=== PATIENT | female | born 2005 | race Caucasian/White ===

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

== ENCOUNTER 2024-08-06 17:39 | Emergency (ER) | payer OTHER, SELFPAY ==
--- OUTSIDE RECORDS SUMMARY | 2024-08-06 17:41 | XMS_ITS ---
Author Organization [facility] Planning Address [address] [place] [address] [address] [place] [address] Care Team Providers Care Supervisor Cloth Winding Name Role Phone Nallely Baeza Primary Care Provider Unavailabl Nallely Hinton Unavailable [phone] REASON FOR VISIT Appointment Encounters Encounter Location Date Provider Diagnosis [facility] [address] [place] [address] 05/05/2024 Nallely Baeza Plan Of Treatment No Information Progress Notes * Adilene VIERADOB:[birth year] (19 yo F)Acc No.[id number]:05/05/2024 Patient: Adilene BORDEN :2005 A ge:19 Y S ex:Female Address:[address], [address], [place] [address] * true * Date: Generated for Printi ng/Faxing/eTransmitting on: 0 08/06/2024 05:40 PM BODYWORK THERAPIST
--- OUTSIDE RECORDS SUMMARY | 2024-08-06 17:41 | XMS_ITS | Continuity of Care Document ---
Author Organization [facility] [address] [place] [address] Care Team Providers Care Dispatch Specialist Name Role Phone NETO CASTELAN Primary Care Provider Assessment No assessment recorded. Plan of Treatment Reminders Order Date Submit Date Provider Last Modified By Organization Details Last Modified Time Details Appointments OB ROUTINE 2024 08:45A Gauri BARRIOS MD Not available Not available Not available Lab genetic screen, unspecifi ed specimen 2024 025 [email or web address] [facility], [address], [place], [address], 08/05/2024 11:34:47 aneuploid y risk, chromosom e specific circulati ng cell free (ccf) DNA, maternal serum 2024 025 [email or web address] [facility], [address], [place], [address], 08/05/2024 11:34:47 HbA1c (hemoglob in A1c), blood 2024 025 [facility] (Lab), [address], [place], [address], 08/05/2024 11:35:11 type + screen, serum 2024 025 [facility] (Lab), [address], [place], [address], 08/05/2024 11:35:12 rubella igg Ab, titer, serum 2024 [facility] (Lab), [address] [facility], [place], [address], 08/05/2024 11:35:12 CBC w/ auto diff 2024 [facility] (Lab), [address], [place], [address], 08/05/2024 11:35:12 hepatitis C virus Ab, serum 2024 [facility] (Lab), [address], [place], [address], 08/05/2024 11:35:12 HBsAg (hepatiti s B surface Ag), serum 2024 [facility] (Lab), [address], [place], [address], 08/05/2024 11:35:12 RPR (rapid plasma reagin), serum 2024 [facility] ([facility]), [address] [facility], [place], [address], 08/05/2024 11:35:11 HIV 1+2 AB + HIV 1 p24 Ag, qualitati ve immunoass ay, serum 2024 [facility] ([facility]), [address], [place], [address], 08/05/2024 11:35:12 Referral None recorded. Procedures None recorded. Surgeries None recorded. Imaging None recorded. Medication Orders bupropion HCl XL 150 mg 24 hr tablet, extended release 2024 [facility] [address] [place], [address], 08/05/2024 11:34:56 Latuda 40 mg tablet 2024 [facility] [address] [place], [address], 08/05/2024 11:34:58 sertralin e 100 mg tablet 2024 [facility] [address] [place], [address], 08/05/2024 11:35:00 ondansetr on 8 mg disintegr ating tablet 2024 [facility] [address] [place], [address], 08/05/2024 11:34:55 Patient TargetsNo targets recorded. Patient InstructionsNo instructions recorded. Reason for Referral None Reported. Results Created Date Observation Date Name Description Value Unit Range Abnormal Flag Note LastModifiedBy Organization Detail LastModifiedTime 08/05/1908/05/2024 , obste tric, nucha l trans lucen cy No observ ation record ed. [facility] [address], [place], [address], 08/05/2024 17:09:58 08/05/1908/05/2024 US, obste tric, nucha l trans lucen cy No observ ation record ed. [id number] [address], [place], [address], 08/05/2024 11:18:13 Result Notes None recorded. Problems Name Problem SNOMED Code Status Onset Date Resolution Date Notes Provider Name and Address Organization Details Recorded Time 59726214 Active 2024 Lolita elliott, [facility] 5 11:14:53 Genital herpes simplex 82712069 Active valtrex suppressio n at 36 weeks BREE BARRIOS MD [address], [place], [address], [facility] 5 11:27:54 Bipolar disorder 86241433 Active latuda, bupropion, sertraline ; restarted bupropion at 12 weeks BREE BARRIOS MD [address], [place], [address], [facility] 11:28:46 Problem Notes None recorded. Procedures Surgical History Date Name Laterality Status Provider Name and Address Organization Details Recorded Time Other completed Lolita Lindsey [facility] 07/08/2024 09:53:53 Imaging Results None recorded. Procedure Notes None recorded. Medical Equipment None Reported. Allergies No known drug allergies Medications Name Sig Start Date Stop Date Status Note LastModified by Organization Details LastModified Time sertraline 100 mg tablet Take 1 tablet every day by oral route for 90 days. 2024 active Not Available Not Available Not Avai lable valacyclovi r 500 mg tablet TAKE 1 TABLET BY MOUTH ONCE DAILY active Not Available Not Available No t Available ondansetron 8 mg disintegrat ing tablet Place 1 tablet every 6-8 hours by transling ual route as needed. 2024 active Not Available Not Available Not Avai lable doxycycline monohydrate 100 mg capsule TAKE 1 CAPSULE BY MOUTH TWICE DAILY 07/08 completed Not Available Not Available Not Available docusate sodium 100 mg capsule TAKE 1 CAPSULE BY MOUTH EVERY DAY AT BEDTIME NEEDED FOR CONSTIPAT ION active Not Available Not Available No t Available omeprazole 20 mg capsule,del ayed release TAKE 1 CAPSULE BY MOUTH ONCE DAILY active Not Available Not Available No t Available ondansetron 4 mg disintegrat ing tablet DISSOLVE 1 TABLET IN MOUTH EVERY 8 HOURS NEEDED FOR NAUSEA active Not Available Not Available No t Available metoclopram junie 10 mg tablet TAKE 1 TABLET BY MOUTH 4 TIMES DAILY active Not Available Not Available No t Available bupropion HCl XL 150 mg 24 hr tablet, extended release Take 1 tablet every day by oral route for 90 days. 2024 active Not Available Not Available Not Avai lable Zoloft active Not Available Not Availa ble Not Available Latuda 40 mg tablet Take 1 tablet every day by oral route for 90 days. 2024 active Not Available Not Available Not Avai lable Latuda active Not Available Not Availa ble Not Available lurasidone 20 mg tablet TAKE 1 TABLET BY MOUTH IN THE EVENING WITH FOOD ONCE DAILY 07/08 completed Not Available Not Available Not Available Barbie (28) 0.15 mg-0.03 mg tablet TAKE 1 TABLET BY MOUTH ONCE DAILY active Not Available Not Available No t Available Vitals Date Recorded Body height Body mass index (BMI) Body weight Systolic blood pressure Diastolic blood pressure Provider Name and Address Organization Details Last Updated DateTime 08/05/2024 167.64 cm 21 kg/m2 13614.01 g 114 mm[Hg] 73 mm[Hg] Lolita Lindsey [facility] 11:10:17 Social History Question Answer Notes LastModified by Organizat ion Details LastModified Time Do You Have An Advance Directive? No Information n ot available 07/08/2024 What Is Your Level Of Alcohol Consumption? None Information not available 07/08/2024 Are You Blind Or Do You Have Difficulty Seeing? No [email or web address] Information not available 07/08/2024 What Is Your Level Of Caffeine Consumption? Moderate [email or web address] Information not available 07/08/2024 How Much Tobacco Do You Chew? None [email or web address] Information not available 07/08/2024 In The 14 Days Before Symptom Onset, Have You Had Close Contact With A Laboratory-confirme d COVID-19 While That Case Was Ill? No [email or web address] Information n ot available 07/08/2024 In The 14 Days Before Symptom Onset, Have You Had Close Contact With A Person Who Is Under Investigation For COVID-19 While That Person Was Ill? No [email or web address] Information not available 07/08/2024 Have You Been To An Area Known To Be High Risk For COVID-19? No [email or web address] Information not available 07/08/2024 Are You Currently Employed? Yes [email or web address] Information not available 07/08/2024 Are You Deaf Or Do You Have Serious Difficulty Hearing? No [email or web address] Information not available 07/08/2024 What Type Of Diet Are You Following? REGULAR [email or web address] Information n ot available 07/08/2024 What Is The Highest Grade Or Level Of School You Have Completed Or The Highest Degree You Have Received? 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 No [email or web address] Information not available 07/08/2024 Do You Use Protection During Sex? No Information not available 07/08/2024 Do You Use Your Seat Belt Or Car Seat Routinely? Yes [email or web address] Information not available 07/08/2024 Are You Sexually Active? Yes Information not available 07/08/2024 Do You Have Smoke And Carbon Monoxide Detectors In Your Home? Yes [email or web address] Information not available 07/08/2024 How Much Tobacco Do You Smoke? No [email or web address] Information not available 07/08/2024 Do You Feel Stressed (tense, Restless, Nervous, Or Anxious, Or Unable To Sleep At Night)? [id number] [email or web address] Information not available 07/08/2024 Do You Use Any Illicit Or Recreational Drugs? No [email or web address] Information not available 07/08/2024 Do You Use Sunscreen Routinely? Yes [email or web address] Information not available 07/08/2024 Have You Used IV Drugs? No [email or web address] Information not available 07/08/2024 Sex: Unknown Functional Status Question Answer Note LastModified by Organizat ion Details LastModified Time Do you have difficulty walking or climbing stairs? No [email or web address] Information not available 07/08/2024 Are you able to walk? YESWOREST [email or web address] Information not available 07/08/2024 Are you able to care for yourself? Yes [email or web address] Information not available 07/08/2024 Do you have difficulty dressing or bathing? No Information not available 07/08/2024 What is your exercise level? Moderate [email or web address] Information not available 07/08/2024 Mental Status None recorded. Family History Relationship Description Onset Age of this Age Resolved Age Notes LastModified by Organization Details LastModified Time Unspecified Relation Family history unknown [email or web address] Not available 2024 09:53:53 Medical History Condition Response No Past Medical History Y Gynecological History Statement/Question Response Flow Moderate Date of LMP 05/10/2024 On BCP's at Conception? N N Was last menstrual period normal Y STIs/STDs Y Duration of Flow (days) 5 Current Control Method None Are cycles usually normal Y Frequency of Cycle (Q days) 24 Sexually Active? Y Age of first menstrual cycle 8 Date of Last Pap Smear Sexual Problems? N Desired Control Method None LMP Definite N Obstetrics History GPAL:G 1 P 0 0 0 0 Past Encounters Encounter ID Performer Location Encounter Start Date Encounter Closed Date Diagnosis/Indication Diagnosis SNOMED-CT Code Diagnosis ICD10 Code Diagnosis Note [id number] [facility] [address],[place] [address] 07/08/2024 09:38:08 07/08/2024 09:55:47 [id number] BREE BARRIOS MD [facility] [address],[place] [address] 07/08/2024 09:38:26 07/08/2024 11:17:32 Nausea and vomiting 81543110 R11.2 - little improvemen t with zofran- will try reglan test positive 258375805 Z32.01 1. Exam today within normal limits.2. Ultrasound today confirms GA and viability. EDC . GC/Billie a testing done: will f/u as indicated. 4. ACOG guidelines and plan of care for reviewed with patient. All questions answered.5 . Return to office at 12 weeks for new OB visit6. Will need new OB labs at next visit.7. Genetic screening: desires. Borderline personality disorder 75416029 F60.3 - well controlled on latuda and zoloft- d/c'd bupropion per Psych recommenda tions at beginning of , discussed safety in , ok to restart if symptoms worsen [id number] [facility] [address],[place] [address] 08/05/2024 10:37:40 08/05/2024 11:12:45 screening 702064468 Z36.82 Z3A.12 [id number] Lolita Lindsey [facility] [address],[place] [address] 08/05/2024 10:50:11 08/05/2024 12:02:53 Nausea and vomiting 62999164 R11.2 - improved with zofran and reglan together Bipolar disorder 3855601 4 F31.9 - mood worsening without bupropion- will restart bupropion- continue latuda and sertraline - no SI/HI screening 2437 45512 Z36.0 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 66783427 Z31.430 Gestation period, 12 weeks 07523461 Z3A.12 Health Concerns Section Related Observation LastModified by Organization Detai ls LastModified Time None Recorded Concern Status LastModified by Organization Details LastModified Time None Recorded Payers Encounter Date Sequence Insurance Name Policy Number Policy Wright Covered Member ID Wright Member ID Guarantor Name 08/05/2024 1 [facility] (MEDICAID HMO) [id number] Adilene Viera [id number] Adilene Viera OBGyn Episode Ob Episode Information Episode Created Date Number of Fetuses Patient Bloodtype Patient rh Status Prepregnancy Weight lbs Domestic Partner Domestic Partner Phone Father Name Dictaphone Transcriber Status 08/05/19 25 1 130 Claus Helga OPEN Fetus Data First Name Last Name Admitted to NICU Weight (g) Sex Living Outcome Pediatric Complications Fetus ID Race Codes Race Delivery Type [id number] Problems Problem Notes Problem Name Start Date End Date Resolution Snomed Code Not e Bipolar disorder 48336272 lat uda, bupropion, sertraline; restarted bupropion at 12 weeks Genital herpes simplex 65291485 valtrex suppres kamaljit at 36 weeks Wu Calculation Initial Wu Date Initial Exam Date Initial Exam Provider Initial Ultrasound Date Last Menstrual Period Date Ultra Sound Weeks Gestation 02/14/2025 08/05/2024 07/08/2024 05/10/2024 8 Eighteen To Twenty Week Wu Update Ultra Sound Date Fundal Height At Umbil Quickening Date Ultra Sound Latest Weeks Gestation Final Wu Confirmed By Final Wu Confirmed Date Final Wu Date Ultra Sound Latest Days Gestation 0 [email or web address] 08/05/2024 02/15/20 25 0 Pre-gigi Flowsheet Flowsheet Date 08/05/2024 Botello Score Blood Edema Fundus Height Fundus Units Glucose Ketones Leukocytes Nitrite Labor Signs Protein Cervic Dilation Cervic Effacement Cervic Station Type Weight in lbs Pre/Post Dialysis Refused Weight 130.932215756959 BP Diastolic BP Location Tested BP Systolic BP Type 73 L arm 114 sitting Fetus Heart Rate Present A 161 Fetus Movement Comments Patient presents to [facility]. Nausea slightly worse, ran out of zofran. Will refill. otherwise complicated by bipolar disorder. Had previously stopped bupropion after psych recommended d/c at beginning of , however patient reports worsening mood. No SI/HI. Will restart bupropion, continue latuda and sertraline. No bleeding or cramping. NT/NB wnl today, desires NIPT. Will draw today with new OB labs. RTC 4 weeks for routine care. Menstrual History Last Menstrual Date Menses Monthly On Bcp Conception Prior Menses Frequency Hcg Plus Date Menarche Onset Age 1105/10/2026 Delivery Information Delivery Date Delivery Type Labor Anesthesia Weeks Gestation Incision Type Labor Labor Length Hrs Delivered By Post Complications Tubal Sterilization Discharge Date Comments Discharge Information Feeding Method Contraceptive Method Maternal HG B and HCT Levels
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
--- OUTSIDE RECORDS SUMMARY | 2024-08-06 17:41 | XMS_ITS ---
Author Organization [facility] Address [address] [place] [address] Care Team Providers Care Rn Clinical Documentation Name Role Phone Lena Sanders Primary Care Provider [phone] Migration, Provider Unavailable Unavailable REASON FOR VISIT [facility] Encounters Encounter Location Date Provider Diagnosis [facility] [address] [place] [address] 05/21/2024 Provider Migration Plan Of Treatment Medication Medication Name Sig Start Date Stop Date Notes Escitalopram Oxalate 5 MG 1 Oral every night at bedtime; Duration: 0 12/10/2020 12/10/2020 increase to 10 mg daily.,discontinuere ason:Discontinued Amoxicillin 500 MG 1 Oral three times a day; Duration: 12/10/2020 12/19/2020 Melatonin 5 MG 1 Oral every night at bedtime; Duration: 04/10/2021 03/29/2023 ,discontinuereason:D iscontinued Olopatadine HCl 0.2 % 1 Ophthalmic every day; Duration: 12/10/2020 12/11/2020 ,discontinuereason:D iscontinued buPROPion HCl ER (XL) 150 MG 1 Oral every day; Duration: 01/14/2024 02/03/2024 Escitalopram Oxalate 10 MG Oral; Duration: 01/07/2021 04/09/2021 was increased to 20 mg in hospital,discontinue reason:Discontinued hydrOXYzine HCl 25 MG 1 Oral at bed time ; Duration: 05/07/2023 06/05/2023 Pepcid AC 10 MG 1 Oral every day; Duration: 04/10/2021 03/29/2023 ,discontinuereason:D iscontinued Dicyclomine HCl 20 MG 1 Oral four times a day; Duration: 0 04/10/2021 03/29/2023 ,discontinuereason:D iscontinued,PRN Reason:for pain Cyproheptadine HCl 4 MG 1 Oral every nig ht at bedtime; Duration: 30 05/21/2021 03/29/2023 ,discontinuereason:D iscontinued lurasidone 20 mg 1 BY MOUTH every day; Duration: 01/14/2024 02/03/2024 [facility]* valACYclovir HCl 500 MG 1 Oral every day ; Duration: 12/18/2023 01/16/2024 Sertraline HCl 50 MG 1 Oral every day; Duration: 01/14/2024 02/03/2024 hydrOXYzine HCl 10 MG 1 Oral three times a day; Duration: 0 04/10/2021 03/29/2023 ,discontinuereason:D iscontinued,PRN Reason:for anxiety Loratadine 10 MG Oral; Duration: 0 04/10/2021 09/28/2023 , discontinuereason:D iscontinued Claritin 10 MG 1 Oral every day; Duration: 30 04/10/2021 03/29/2023 ,discontinuereason:D iscontinued Levora 0.15/30 (28) 0.15-30 MG-MCG 1 Oral every day; Duration: 30 04/10/2021 03/29/2023 ,discontinuereason:R efilled Escitalopram Oxalate 20 MG 1 Oral every day; Duration: 30 05/21/2021 03/29/2023 ,discontinuereason:D iscontinued olopatadine 0.7 % 1 Ophthalmic every day; Duration: 30 12/12/2020 01/10/2021 *Reorder from [facility] for eRx and Interaction Alerts* Zoloft 50 MG 1.5 Oral every day; Duration: 0 03/30/2023 09/28/2023 ,discontinuereason:D iscontinued Omeprazole 20 MG 1 Oral every day; Duration: 01/14/2024 03/13/2024 traZODone HCl 50 MG 1 Oral every day; Duration: 30 03/30/2023 09/28/2023 ,discontinuereason:D iscontinued Fluticasone Propionate 50 MCG/ACT 1 Nasal two times a day; Duration: 12/10/2020 01/08/2021 Prazosin HCl 1 MG 1 Oral every night at bedtime; Duration: 30 05/28/2021 03/29/2023 ,discontinuereason:D iscontinued Doxycycline Monohydrate 100 MG 1 Oral two times a day; Duration: 08/13/2023 08/26/2023 Progress Notes * Millie VIERAmarisachadDOB:[birth year] (19 yo F)Acc No.[id number]:05/21/2024 Patient: Adilene BORDEN :2005 A ge:19 Y S ex:Female Phone: Address:[address] [place] [address], [place], [address] * Refills Stop Escitalopram Oxalate Tablet, 20 MG, Oral, 30, 1, every day, 30 Stop Levora 0.15/30 (28) Tablet, 0.15-30 MG-MCG, Oral, 30, 1, every day, 30 Stop valACYclovir HCl Tablet, 500 MG, Oral, 30, 1, every day, 30 Stop Fluticasone Propionate Suspension, 50 MCG/ACT, Nasal, 1, 1, two times a day, 30 Stop Omeprazole Capsule Delayed Release, 20 MG, Oral, 30, 1, every day, 30 Stop Prazosin HCl Capsule, 1 MG, Oral, 30, 1, every night at bedtime, 30 Stop Zoloft Tablet, 50 MG, Oral, 1.5, every day, 0 Stop olopatadine Drop(s), 0.7 %, Ophthalmic, 1, 1, every day, 30 Stop Claritin Tablet, 10 MG, Oral, 30, 1, every day, 30 Stop Cyproheptadine HCl Tablet, 4 MG, Oral, 1, every night at bedtime, 0 Stop Sertraline HCl Tablet, 50 MG, Oral, 21, 1, every day, 21 Stop lurasidone Tablet(s), 20 mg, BY MOUTH, 21, 1, every day, 21 Stop Levora 0.15/30 (28) Tablet, 0.15-30 MG-MCG, Oral, 30, 1, every day, 30 Stop Pepcid AC Tablet, 10 MG, Oral, 30, 1, every day, 30 Stop traZODone HCl Tablet, 50 MG, Oral, 30, 1, every day, 30 Stop Olopatadine HCl Solution, 0.2 %, Ophthalmic, 1, 1, every day, 30 Stop buPROPion HCl ER (XL) Tablet Extended Release 24 Hour, 150 MG, Oral, 21, 1, every day, 21 Stop Claritin Tablet, 10 MG, Oral, 30, 1, every day, 30 Stop Escitalopram Oxalate Tablet, 20 MG, Oral, 30, 1, every day, 30 Stop hydrOXYzine HCl Tablet, 10 MG, Oral, 1, every night at bedtime, 0 Stop hydrOXYzine HCl Tablet, 25 MG, Oral, 30, 1, at bed time, 30 Stop Melatonin Tablet, 5 MG, Oral, 30, 1, every night at bedtime, 30 Stop valACYclovir HCl Tablet, 500 MG, Oral, 30, 1, every day, 30 Stop Cyproheptadine HCl Tablet, 4 MG, Oral, 30, 1, every night at bedtime, 30 Stop Escitalopram Oxalate Tablet, 10 MG, Oral, 30, 30 Stop Cyproheptadine HCl Tablet, 4 MG, Oral, 30, 1, every night at bedtime, 30 Stop Pepcid AC Tablet, 10 MG, Oral, 30, 1, every day, 30 Stop Dicyclomine HCl Tablet, 20 MG, Oral, 1, four times a day, 0 Stop Dicyclomine HCl Tablet, 20 MG, Oral, 90, 1, four times a day, 0 Stop Escitalopram Oxalate Tablet, 10 MG, Oral, 30, 1, every night at bedtime, 30 Stop valACYclovir HCl Tablet, 500 MG, Oral, 30, 1, every day, 30 Stop valACYclovir HCl Tablet, 500 MG, Oral, 30, 1, every day, 30 Stop Amoxicillin Capsule, 500 MG, Oral, 30, 1, three times a day, 10 Stop Escitalopram Oxalate Tablet, 5 MG, Oral, 1, every night at bedtime, 0 Stop hydrOXYzine HCl Tablet, 10 MG, Oral, 60, 1, three times a day, 0 Stop Melatonin Tablet, 5 MG, Oral, 1, every night at bedtime, 0 Stop valACYclovir HCl Tablet, 500 MG, Oral, 1, every day, 0 Stop valACYclovir HCl Tablet, 500 MG, Oral, 30, 1, every day, 30 Stop Doxycycline Monohydrate Capsule, 100 MG, Oral, 28, 1, two times a day, 14 Stop Prazosin HCl Capsule, 1 MG, Oral, 30, 1, every night at bedtime, 30 Stop Loratadine Capsule, 10 MG, Oral, 0 Subjective: * Chief Complaints: * 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
--- OUTSIDE RECORDS SUMMARY | 2024-08-06 17:41 | XMS_ITS | Patient Health Record ---
Author Organization [facility] Address [address] [place] [address] Care Team Providers Care Roper Operator Name Role Phone Hien Miller Primary Care Provider Bart Juarez Unavailable [phone] Allergies No Known Allergies Reason For Referral Reason Warm handoff for PHQ -9 score of 13 for follow up Diagnosis 1 Mood disorder (F39) Diagnosis 2 Anxiety (F41.9) Diagnosis 3 PTSD (post-traumatic stress disorder) (F43.10) Diagnosis 4 Cannabis dependence (F12.20) Referral Organization [facility] Referring Provider First Name Bart Referring Provider Last Name Larry Referring Provider Speciality Psychiatry Referred Provider Specialty Behavioral [facility] Clinical Notes Kalpana Ricks 09/21/2023 10:04:12 AM > Manufacturing Specialist called and left brief voicemail with return number., Jamar Ricks 09/23/2023 10:36:41 AM > Manufacturing Specialist called and left brief voicemail with return number., Jamar Ricks 09/25/2023 1:37:01 PM > Manufacturing Specialist called and left brief voicemail with return number. Referral Priority Routine Medications Medication SIG (Take, Route, Frequency, Duration) [...] a day for 14 days 06/10/2023 Active Problems Problem Type SNOMED Code ICD Code Onset Dates Problem Status W/U Status Risk Notes Problem Borderline personality disorder (04675265) Borderline personality disorder (F60.3) Active confirmed Problem Depression (181428966) Depression (F32.9) Active confirmed Problem Mood disorder (41960816) Mood disorder (F39) Inactive confirmed replaced with bipolar 1 Problem Posttraumatic stress disorder (35150663) PTSD (post-traumati c stress disorder) (F43.10) Active confirmed Problem Anxiety (62907697) Anxiety (F41.9) Active confirmed Problem Bipolar 1 disorder (656748340) Bipolar 1 disorder (F31.9) Active confirmed Problem Cannabis dependence (65242265) Cannabis dependence (F12.20) Active confirmed Encounters Encounter Location Date Provider Diagnosis [address] [address] 01/14/2024 Bart Juarez Bipolar 1 disorder F31.[address] [address] 09/14/2023 Bart Juarez Anxiety F41.9 ; Mood disorder F39 and PTSD (post-traumatic stress disorder) F43.[address] [address] 10/05/2023 Bart Juarez Bipolar 1 disorder F31.9 ; Borderline personality disorder F60.3 ; Anxiety F41.9 and PTSD (post-traumatic stress disorder) F43.[address] [address] 10/26/2023 Bart Juarez Bipolar 1 disorder F31.9 ; Borderline personality disorder F60.3 ; PTSD (post-traumatic stress disorder) F43.10 ; Anxiety F41.9 and Cannabis dependence F12.[address] [address] 11/23/2023 Bart Juarez Bipolar 1 disorder F31.9 ; Borderline personality disorder F60.3 ; PTSD (post-traumatic stress disorder) F43.10 ; Anxiety F41.9 and Cannabis dependence F12.[address] [address] 01/26/2024 Bart Juarez Bipolar 1 disorder F31.9 ; Borderline personality disorder F60.3 ; PTSD (post-traumatic stress disorder) F43.10 and Anxiety F41.[address] [address] 03/01/2024 Bart Juarez Bipolar 1 disorder F31.9 ; Borderline personality disorder F60.3 ; PTSD (post-traumatic stress disorder) F43.10 and Anxiety F41.[address] [address] 05/11/2024 Bart Juarez Bipolar 1 disorder F31.9 ; PTSD (post-traumatic stress disorder) F43.10 ; Anxiety F41.9 and Borderline personality disorder F60.[address] [address] 06/07/2024 Bart Juarez Bipolar 1 disorder F31.9 ; Borderline personality disorder F60.3 ; PTSD (post-traumatic stress disorder) F43.10 and Anxiety F41.9 Assessments Encounter Date Diagnosis (ICD Code) Assessment Notes Treatment Notes Treatment Clinical Notes Section Notes 06/07/2024 Bipolar 1 disorder (ICD-10 - F31.9) Client states 8 weeks along in a positive . That she plans on women's health care at [facility] in [place], [place]. Discussed with client to stop bupropion given but to continue Latuda and Zoloft. Client agreeable. No other changes to tx plan. Asked client to discuss with women's health provider whether OBGYN services will prescribe mental health medications or whether this provider will continue during . States she will do so. 03/01/2024 Bipolar 1 disorder (ICD-10 - F31.9) Client doing well, no treatment plan changes. 05/11/2024 Bipolar 1 disorder (ICD-10 - F31.9) 10/05/2023 Borderline personality disorder (ICD-10 - F60.3) Client with emotional dysregulation, insomina. Discussed increase in latuda to see if helpful for mood stability. Client has comorbid symptoms of bipolarity and borderline personality disorder r/t trauma hx. Sees therapist. Client is agreeable to change in treatment plan. States increase in sertraline and addition of bupropion were helpful. 10/05/2023 Bipolar 1 disorder (ICD-10 - F31.9) Client with emotional dysregulation, insomina. Discussed increase in latuda to see if helpful for mood stability. Client has comorbid symptoms of bipolarity and borderline personality disorder r/t trauma hx. Sees therapist. Client is agreeable to change in treatment plan. States increase in sertraline and addition of bupropion were helpful. 09/14/2023 Mood disorder (ICD-10 - F39) Client agreeable to increase in sertraline to 100 mg and a trial of bupropion 150 mg XL in addition to maintaining Latuda at 20 mg. Encourage client to maintain her therapy appointments and seek social connections and limit isolation. 09/14/2023 Anxiety (ICD-10 - F41.9) Client agreeable to increase in sertraline to 100 mg and a trial of bupropion 150 mg XL in addition to maintaining Latuda at 20 mg. Encourage client to maintain her therapy appointments and seek social connections and limit isolation. 01/26/2024 Bipolar 1 disorder (ICD-10 - F31.9) 01/14/2024 Bipolar 1 disorder (ICD-10 - F31.9) 11/23/2023 Bipolar 1 disorder (ICD-10 - F31.9) Client doing well, no treatment plan changes needed. 10/26/2023 Bipolar 1 disorder (ICD-10 - F31.9) Client doing well overall. Encouraged to f/u with PCP regarding past hypoglycemic event given has hx of IBS and currently having diarrhea and head cold symptoms. No treatment plan changes at this time. Encouraged small frequent meals with some protein with carbs to limit hypoglycemia. 10/26/2023 Borderline personality disorder (ICD-10 - F60.3) Client doing well overall. Encouraged to f/u with PCP regarding past hypoglycemic event given has hx of IBS and currently having diarrhea and head cold symptoms. No treatment plan changes at this time. Encouraged small frequent meals with some protein with carbs to limit hypoglycemia. 11/23/2023 Borderline personality disorder (ICD-10 - F60.3) Client doing well, no treatment plan changes needed. 10/05/2023 Anxiety (ICD-10 - F41.9) Client with emotional dysregulation, insomina. Discussed increase in latuda to see if helpful for mood stability. Client has comorbid symptoms of bipolarity and borderline personality disorder r/t trauma hx. Sees therapist. Client is agreeable to change in treatment plan. States increase in sertraline and addition of bupropion were helpful. 01/26/2024 Borderline personality disorder (ICD-10 - F60.3) 09/14/2023 PTSD (post-traumati c stress disorder) (ICD-10 - F43.10) Client agreeable to increase in sertraline to 100 mg and a trial of bupropion 150 mg XL in addition to maintaining Latuda at 20 mg. Encourage client to maintain her therapy appointments and seek social connections and limit isolation. 05/11/2024 PTSD (post-traumati c stress disorder) (ICD-10 - F43.10) 06/07/2024 Borderline personality disorder (ICD-10 - F60.3) Client states 8 weeks along in a positive . That she plans on women's health care at [place], [place]. Discussed with client to stop bupropion given but to continue Latuda and Zoloft. Client agreeable. No other changes to tx plan. Asked client to discuss with women's health provider whether OBGYN services will prescribe mental health medications or whether this provider will continue during . States she will do so. 03/01/2024 Borderline personality disorder (ICD-10 - F60.3) Client doing well, no treatment plan changes. 03/01/2024 PTSD (post-traumati c stress disorder) (ICD-10 - F43.10) Client doing well, no treatment plan changes. 06/07/2024 PTSD (post-traumati c stress disorder) (ICD-10 - F43.10) Client states 8 weeks along in a positive . That she plans on women's health care at [facility] in [place], [place]. Discussed with client to stop bupropion given but to continue Latuda and Zoloft. Client agreeable. No other changes to tx plan. Asked client to discuss with women's health provider whether OBGYN services will prescribe mental health medications or whether this provider will continue during . States she will do so. 05/11/2024 Anxiety (ICD-10 - F41.9) 10/05/2023 PTSD (post-traumati c stress disorder) (ICD-10 - F43.10) Client with emotional dysregulation, insomina. Discussed increase in latuda to see if helpful for mood stability. Client has comorbid symptoms of bipolarity and borderline personality disorder r/t trauma hx. Sees therapist. Client is agreeable to change in treatment plan. States increase in sertraline and addition of bupropion were helpful. 01/26/2024 PTSD (post-traumati c stress disorder) (ICD-10 - F43.10) 11/23/2023 PTSD (post-traumati c stress disorder) (ICD-10 - F43.10) Client doing well, no treatment plan changes needed. 10/26/2023 PTSD (post-traumati c stress disorder) (ICD-10 - F43.10) Client doing well overall. Encouraged to f/u with PCP regarding past hypoglycemic event given has hx of IBS and currently having diarrhea and head cold symptoms. No treatment plan changes at this time. Encouraged small frequent meals with some protein with carbs to limit hypoglycemia. 10/26/2023 Anxiety (ICD-10 - F41.9) Client doing well overall. Encouraged to f/u with PCP regarding past hypoglycemic event given has hx of IBS and currently having diarrhea and head cold symptoms. No treatment plan changes at this time. Encouraged small frequent meals with some protein with carbs to limit hypoglycemia. 11/23/2023 Anxiety (ICD-10 - F41.9) Client doing well, no treatment plan changes needed. 01/26/2024 Anxiety (ICD-10 - F41.9) 06/07/2024 Anxiety (ICD-10 - F41.9) Client states 8 weeks along in a positive . That she plans on women's health care at [facility] in [place], [place]. Discussed with client to stop bupropion given but to continue Latuda and Zoloft. Client agreeable. No other changes to tx plan. Asked client to discuss with women's health provider whether OBGYN services will prescribe mental health medications or whether this provider will continue during . States she will do so. 05/11/2024 Borderline personality disorder (ICD-10 - F60.3) 03/01/2024 Anxiety (ICD-10 - F41.9) Client doing well, no treatment plan changes. 11/23/2023 Cannabis dependence (ICD-10 - F12.20) Client doing well, no treatment plan changes needed. 10/26/2023 Cannabis dependence (ICD-10 - F12.20) Client doing well overall. Encouraged to f/u with PCP regarding past hypoglycemic event given has hx of IBS and currently having diarrhea and head cold symptoms. No treatment plan changes at this time. Encouraged small frequent meals with some protein with carbs to limit hypoglycemia. 05/11/2024 Other Discussed sleep hygiene and caffeine intake with encouragement to limit electronic devices an hour before bed and to limit caffeine after 3:00pm. Exercise benefits for mood and health discussed. Psychoeducation regarding psychiatric illness provided. Client was educated about risks and benefits of medication, alternatives to medication, off label uses of medication, suicidal ideation with SSRIs, self-administratio n and compliance with medication along with how to safely store medication. Verbal informed consent obtained. Client agrees to return sooner if symptoms worsen or if suicidal or homicidal ideations occur. Client has the phone number to the 24-hour crisis line at [facility]. Questions addressed. Client verbalized understanding of all information and is agreeable to treatment plan. 03/01/2024 Other Discussed sleep hygiene and caffeine intake with encouragement to limit electronic devices an hour before bed and to limit caffeine after 3:00pm. Exercise benefits for mood and health discussed. Psychoeducation regarding psychiatric illness provided. Client was educated about risks and benefits of medication, alternatives to medication, off label uses of medication, suicidal ideation with SSRIs, self-administratio n and compliance with medication along with how to safely store medication. Verbal informed consent obtained. Client agrees to return sooner if symptoms worsen or if suicidal or homicidal ideations occur. Client has the phone number to the 24-hour crisis line at [facility]. Questions addressed. Client verbalized understanding of all information and is agreeable to treatment plan. Client doing well, no treatment plan changes. 11/23/2023 Other Discussed sleep hygiene and caffeine intake with encouragement to limit electronic devices an hour before bed and to limit caffeine after 3:00pm. Exercise benefits for mood and health discussed. Psychoeducation regarding psychiatric illness provided. Client was educated about risks and benefits of medication, alternatives to medication, off label uses of medication, suicidal ideation with SSRIs, self-administratio n and compliance with medication along with how to safely store medication. Verbal informed consent obtained. Client agrees to return sooner if symptoms worsen or if suicidal or homicidal ideations occur. Client has the phone number to the 24-hour crisis line at [facility]. Questions addressed. Client verbalized understanding of all information and is agreeable to treatment plan. Client doing well, no treatment plan changes needed. 09/14/2023 Other Discussed sleep hygiene and caffeine intake with encouragement to limit electronic devices an hour before bed and to limit caffeine after 3:00pm. Exercise benefits for mood and health discussed. Psychoeducation regarding psychiatric illness provided. Client was educated about risks and benefits of medication, alternatives to medication, off label uses of medication, suicidal ideation with SSRIs, self-administratio n and compliance with medication along with how to safely store medication. Verbal informed consent obtained. Client agrees to return sooner if symptoms worsen or if suicidal or homicidal ideations occur. Client has the phone number to the 24-hour crisis line at [facility]. Questions addressed. Client verbalized understanding of all information and is agreeable to treatment plan. Client agreeable to increase in sertraline to 100 mg and a trial of bupropion 150 mg XL in addition to maintaining Latuda at 20 mg. Encourage client to maintain her therapy appointments and seek social connections and limit isolation. 10/05/2023 Other Discussed sleep hygiene and caffeine intake with encouragement to limit electronic devices an hour before bed and to limit caffeine after 3:00pm. Exercise benefits for mood and health discussed. Psychoeducation regarding psychiatric illness provided. Client was educated about risks and benefits of medication, alternatives to medication, off label uses of medication, suicidal ideation with SSRIs, self-administratio n and compliance with medication along with how to safely store medication. Verbal informed consent obtained. Client agrees to return sooner if symptoms worsen or if suicidal or homicidal ideations occur. Client has the phone number to the 24-hour crisis line at [facility]. Questions addressed. Client verbalized understanding of all information and is agreeable to treatment plan. Client with emotional dysregulation, insomina. Discussed increase in latuda to see if helpful for mood stability. Client has comorbid symptoms of bipolarity and borderline personality disorder r/t trauma hx. Sees therapist. Client is agreeable to change in treatment plan. States increase in sertraline and addition of bupropion were helpful. 10/26/2023 Other Discussed sleep hygiene and caffeine intake with encouragement to limit electronic devices an hour before bed and to limit caffeine after 3:00pm. Exercise benefits for mood and health discussed. Psychoeducation regarding psychiatric illness provided. Client was educated about risks and benefits of medication, alternatives to medication, off label uses of medication, suicidal ideation with SSRIs, self-administratio n and compliance with medication along with how to safely store medication. Verbal informed consent obtained. Client agrees to return sooner if symptoms worsen or if suicidal or homicidal ideations occur. Client has the phone number to the 24-hour crisis line at [facility]. Questions addressed. Client verbalized understanding of all information and is agreeable to treatment plan. Client doing well overall. Encouraged to f/u with PCP regarding past hypoglycemic event given has hx of IBS and currently having diarrhea and head cold symptoms. No treatment plan changes at this time. Encouraged small frequent meals with some protein with carbs to limit hypoglycemia. 01/26/2024 Other Discussed sleep hygiene and caffeine intake with encouragement to limit electronic devices an hour before bed and to limit caffeine after 3:00pm. Exercise benefits for mood and health discussed. Psychoeducation regarding psychiatric illness provided. Client was educated about risks and benefits of medication, alternatives to medication, off label uses of medication, suicidal ideation with SSRIs, self-administratio n and compliance with medication along with how to safely store medication. Verbal informed consent obtained. Client agrees to return sooner if symptoms worsen or if suicidal or homicidal ideations occur. Client has the phone number to the 24-hour crisis line at [facility]. Questions addressed. Client verbalized understanding of all information and is agreeable to treatment plan. 06/07/2024 Other Discussed sleep hygiene and caffeine intake with encouragement to limit electronic devices an hour before bed and to limit caffeine after 3:00pm. Exercise benefits for mood and health discussed. Psychoeducation regarding psychiatric illness provided. Client was educated about risks and benefits of medication, alternatives to medication, off label uses of medication, suicidal ideation with SSRIs, self-administratio n and compliance with medication along with how to safely store medication. Verbal informed consent obtained. Client agrees to return sooner if symptoms worsen or if suicidal or homicidal ideations occur. Client has the phone number to the 24-hour crisis line at [facility]. Questions addressed. Client verbalized understanding of all information and is agreeable to treatment plan. Client states 8 weeks along in a positive . That she plans on women's health care at [facility] in [place], [place]. Discussed with client to stop bupropion given but to continue Latuda and Zoloft. Client agreeable. No other changes to tx plan. Asked client to discuss with women's health provider whether OBGYN services will prescribe mental health medications or whether this provider will continue during . States she will do so. Plan Of Treatment No Information Insurance Providers Payer Name Payer Address Payer Phone Subscriber Number Group Number Insured Name Patient Relationship to Insured Coverage Start Date Coverage End Date [employer] [address] [place] [address] [id number] Adilene Viera Self - patient is the insured [address] [place] [address] [id number] Adilene Viera Self - patient is the insured 3 4 [employer] [address] [place] [address] [id number] Adilene Viera Self - patient is the insured 3 4 [employer] [address] [place] [address] [id number] Ceci Viera 3 Medical (General) History Medical History History ICD Code Seizures R56.9 Surgical History Surgery Date(Month/Year) cyst removal 2017 Hospitalization History Reason Date(Month/Year) Seizures [facility] 2021 COVID/Mental Health [facility] 2020
--- OUTSIDE RECORDS SUMMARY | 2024-08-06 17:41 | XMS_ITS ---
Author Organization [facility] Planning Address [address] [place] [address] Care Team Providers Care Company Pilot Name Role Phone Nallely Baeza Primary Care Provider UnavailNallely Geiger Unavailable [phone] REASON FOR VISIT counseling TH pt at home provider in office Encounters Encounter Location Date Provider Diagnosis [facility] [address] [place] [address] 01/13/2024 Nallely Baeza Plan Of Treatment No Information Progress Notes * Adilene VIERADOB:[birth year] (19 yo F)Acc No.[id number]:01/13/2024 UNLOCKED PROGRESS NOTE Patient: Adilene BORDEN Provider: To Baeza LCPC :2005 A ge:18 Y S ex:Female Date:01/13/2024 Address:[address], [address], [facility] Pcp:Nallely Baeza Subjective: * Chief Complaints: * 1 . counseling TH pt at home provider in office. * Medical History: Objective: * Vitals: Assessment: Plan: * Treatment: * Billing Information: * Visit Code: * Procedure Codes: * Electronic signature of oMna Baeza LCPC on 08/06/2024 at 05:41 PM GLUE SPREADER Sign off status: Pending Visit Status: N /S (No-Show) * Provider: To Baeza LCPC Date: 01/13/2024 Generated for Ivon paz/Cathy/Robertoitting on: 0 08/06/2024 05:41 PM GLUE SPREADER
--- OUTSIDE RECORDS SUMMARY | 2024-08-06 17:41 | XMS_ITS ---
Author Organization [facility] Address [address] [place] [address] Care Team Providers Care Isotope Technologist Name Role Phone Lena Sanders Primary Care Provider [phone] Lena Boyle Unavailable [phone] Allergies Allergen (clinical drug ingredient) Drug/Non Drug Allergy documented on EMR Reaction Allergy Type Onset Date Status hydroxyzine hydrOXYzine Delete Reason: Entered in Error. Drug Allergy 05/07/2023 Inactive trazodone traZODone SYNCOPE AND BLURRED VISION Drug Allergy 05/07/2023 Active Results Component Value Reference Range Notes Test, Urine Reviewed date:06/06/2024 12:07:17 PM Interpretation:Positive Performing Lab: Notes/Report: Positive REASON FOR VISIT Wanting to confirm Medications Medication SIG (Take, Route, Frequency, Duration) Notes Start Date End Date Status Levora 0.15/30 (28) 0.15-30 MG-MCG 1 Oral every day; Duration: 09/29/2023 09/22/2024 Not-Taking Colace 100 MG 1 Oral every day; Duration: 0 ,PRN Reason:for constipation 08/13/2023 Not-Taking Sertraline HCl 100 MG Oral; Duration: 09/14/2023 Active lurasidone 20.000 mg oral; Duration: 30 *Reorder from [facility] for eRx and Interaction Alerts* 07/27/2023 Active buPROPion HCl ER (XL) 150 MG Oral; Duration: 09/14/2023 Active Vital Signs Blood pressure systolic 132 mm Hg 06/06/20 24 Blood pressure diastolic 74 mm Hg 024 Heart Rate 110 /min 06/06/2024 Temperature 97.6 degrees Fahrenheit 06/06/20 24 Oximetry 99 % 06/06/2024 Height 66.00 in 06/06/2024 Weight 129.6 lbs 06/06/2024 Weight-kg 58.79 kg 06/06/2024 Height-cm 167.64 cm 06/06/2024 BMI 20.92 kg/m2 06/06/2024 Encounters Encounter Location Date Provider Diagnosis [address] [address] 06/06/2024 Lena Boyle Less than 8 weeks gestation of Z3A.01 and Major depressive disorder, single episode, unspecified F32.9 Assessments Encounter Date Diagnosis (ICD Code) Assessment Notes Treat ment Notes Treatment Clinical Notes 06/06/2024 Less than 8 weeks gestation of (ICD-10 - Z3A.01) 06/06/2024 Major depressive disorder, single episode, unspecified (ICD-10 - F32.9) Plan Of Treatment No Information History and Physical Notes * Examination Category Sub-Category Detail Notes General Examination General appearance: alert, p leasant, well-nourished and in no acute distress Heart: regular rate and rhy thm Lungs: clear to auscultatio n bilaterally, with good air movement and no rales, rhonchi or wheezes Skin: warm and dry Progress Notes * Adilene VIERADOB:[birth year] (19 yo F)Acc No.[id number]:06/06/2024 Patient: Adilene Cooper Provider: Hue Boyle NP :2005 A ge:19 Y S ex:Female Date:06/06/2024 Phone: Address:[address] [place] [address] Pcp:Lena Sanders Subjective: * Chief Complaints: * 1 . Wanting to confirm . * HPI: H PI: Adilene Viera is a 19 year old female here today with her boyfriend to confirm her , which she has already tested positive with a home test a few times. She estimates being about four weeks . She currently does not have an REVIEW RN and resides in [place], [place]. Her current medications include sertraline, bupropion, and lurasidone. She has an appointment with Ventura Juarez her psych doctor tomorrow to review these medications and changes needed now that she is . She denies smoking, vaping or drinking. * ROS: G eneral / Constitutional: Comments p ositive test at home. G astrointestinal: Nausea a dmits. V omiting d enies. * Medical History: * Medications: T aking Sertraline HCl 100 MG Tablet Oral , Taking lurasidone 20.000 mg tablet oral , Notes to Pharmacist: *[facility]*, Taking buPROPion HCl ER (XL) 150 MG Tablet Extended Release 24 Hour Oral , Not-Taking Levora 0.15/30 (28) 0.15-30 MG-MCG Tablet 1 Oral every day , stop date 09/22/2024, Not-Taking Colace 100 MG Capsule 1 Oral every day , Notes to Pharmacist: ,PRN Reason:for constipation, Medication List reviewed and reconciled with the patient * Allergies: t raZODone: SYNCOPE AND BLURRED VISION - Allergy - Onset Date 05/07/2023. Objective: * Vitals: B P:132/74mm Hg, HR:110/min, Temp:97.6F, Oxygen sat %:99%, Ht: 66.00 in, Wt:129.6lbs, Wt-k.79 kg, Ht-cm: 167.64 cm, BMI:20.92Index, Body Surface Area: 1.65. * Examination: G eneral Examination: General appearance: a lert, pleasant, well-nourished and in no acute distress. Skin: w arm and dry. Heart: r egular rate and rhythm. Lungs: c lear to auscultation bilaterally, with good air movement and no rales, rhonchi or wheezes. Assessment: * Assessment: 1. L ess than 8 weeks gestation of - Z3A.01 (Primary) 2 . M ajor depressive disorder, single episode, unspecified - F32.9 S pecify :Src Problem: Depression Confirmed - confirmed - Approximately 4 weeks per patient - Recommend scheduling an appointment with an OBGYN. Suggested contacting [facility] for appointments. - Advised to start taking a daily vitamin with folic acid. Medication Review for Depression - Potential contraindication with Lurasidone (Latuda) during , such a withdrawal symptoms in fetus. - Discuss medication safety and potential adjustments with prescribing physician, Ventura Juarez (psychiatrist), during follow-up appointment tomorrow. Plan: * Treatment: Billing Information: * Visit Code: 70675 OFFICE VISIT LOW. * MACHINE TENDER STARCH SPRAYING Sign off status: Completed true * Provider: Hue Boyle NP Date: 08/07/2023 Generated for Ivon paz/Cathy/Robertoitting on: 0 08/06/2024 05:41 PM BLOW MACHINE TENDER STARCH SPRAYING
--- OUTSIDE RECORDS SUMMARY | 2024-08-06 17:42 | XMS_ITS | Patient Health Record ---
Author Organization [facility] Planning Address [address] [place] [address] [address] [place] [address] Care Team Providers Care Technical Information Specialist Name Role Phone Nallely Baeza Primary Care Provider UnavailNallely Geiger Unavailable [phone] Reason For Referral No Information Problems Problem Type SNOMED Code ICD Code Onset Dates Problem Status W/U Status Risk Notes Problem Borderline personality disorder (F60.3) Active confirmed Problem 23320527 Post traumatic stress disorder (PTSD) (F43.10) Active confirmed Encounters Encounter Location Date Provider Diagnosis [address] [address] 08/12/2023 Nallely Post traumatic stres s disorder (PTSD) F43.10 and Borderline personality disorder F60.[address] [address] 12/14/2023 Nallely Post traumatic stres s disorder (PTSD) F43.10 and Borderline personality disorder F60.[address] [address] 12/28/2023 [facility] [address] [place] [address] 01/13/2024 [facility] [address] [place] [address] 08/12/2023 [facility] [address] [place] [address] 12/07/2023 [facility] [address] [place] [address] 12/08/2023 [facility] [address] [place] [address] 12/08/2023 [facility] [address] [place] [address] 01/12/2024 [facility] [address] [place] [address] 01/12/2024 [facility] [address] [place] [address] 05/05/2024 [facility] Assessments Encounter Date Diagnosis (ICD Code) Assessment Notes Treatment Notes Treatment Clinical Notes Section Notes 08/12/2023 Post traumatic stress disorder (PTSD) (ICD-10 - F43.10) Short Term Goals: 1. Describe the traumatic events and the resultant feelings and thoughts in the past and present 2. Practice healthy coping or relaxation skills 3. List the feelings that lead to disassociation 4. Cooperate with desensitization sessions using imagery of the past trauma and current triggers for anxiety 5. Identify negative self-talk and catastrophizing that is associated with past trauma and current stimulus triggers 6. Sleep without being disturbed by dreams of the trauma 7. Express anger without rage, aggressiveness, or intimidation 8. Practice stress management skills to reduce overall stress levels Long-Term Goals: 1. Resolve the emotional effects of the past trauma, and terminate the negative impact on current behavior 2. Terminate any destructive behaviors that serve to maintain escape and denial 3. Implement behaviors that promote healing, acceptance of the past events, and responsible living 4. Learn the coping skills that are necessary to bring PTSD under control 5. Understand PTSD symptoms Total time spent with patient 40 minutes with more than 50% of the visit being counseling regarding mood management. 12/14/2023 Post traumatic stress disorder (PTSD) (ICD-10 - F43.10) Short Term Goals: 1. Describe the traumatic events and the resultant feelings and thoughts in the past and present 2. Practice healthy coping or relaxation skills 3. List the feelings that lead to disassociation 4. Cooperate with desensitization sessions using imagery of the past trauma and current triggers for anxiety 5. Identify negative self-talk and catastrophizing that is associated with past trauma and current stimulus triggers 6. Sleep without being disturbed by dreams of the trauma 7. Express anger without rage, aggressiveness, or intimidation 8. Practice stress management skills to reduce overall stress levels Long-Term Goals: 1. Resolve the emotional effects of the past trauma, and terminate the negative impact on current behavior 2. Terminate any destructive behaviors that serve to maintain escape and denial 3. Implement behaviors that promote healing, acceptance of the past events, and responsible living 4. Learn the coping skills that are necessary to bring PTSD under control 5. Understand PTSD symptoms Total time spent with patient 45 minutes with more than 50% of the visit being counseling regarding re-establishi ng treatment. 12/14/2023 Borderline personality disorder (ICD-10 - F60.3) Goal 1: Develop understanding of borderline personality diagnosis and its impact on self. Goal 2: Learn effective skills to manage emotions and reactions. Goal 3: Develop and maintian stable and healthy relationships. Address real or imagined feelings of abandoment and how to manage these. Total time spent with patient 45 minutes with more than 50% of the visit being counseling regarding re-establishi ng treatment. 08/12/2023 Borderline personality disorder (ICD-10 - F60.3) Goal 1: Develop understanding of borderline personality diagnosis and its impact on self. Goal 2: Learn effective skills to manage emotions and reactions. Goal 3: Develop and maintian stable and healthy relationships. Address real or imagined feelings of abandoment and how to manage these. Total time spent with patient 40 minutes with more than 50% of the visit being counseling regarding mood management. 09/09/2023 Total milly e spent with patient 40 minutes with more than 50% of the visit being counseling regarding mood management. Plan Of Treatment No Information Insurance Providers Payer Name Payer Address Payer Phone Subscriber Number Group Number Insured Name Patient Relationship to Insured Coverage Start Date Coverage End Date BARBARA Olvera [facility] [address] [place] [phone] [id number] Adilene Viera Self - patient is the insured 3 BARBARA Olvera FFS [address] [place] [address] [phone] [id number] Adilene Viera Self - patient is the insured 3 BARBARA Olvera Nonbillable [address] [place] [address] [phone] [id number] Adilene Viera Self - patient is the insured 3 BARBARA Olvera [facility] [address] [place] [phone] [id number] Adilene Viera Self - patient is the insured 3
--- OUTSIDE RECORDS SUMMARY | 2024-08-06 17:42 | XMS_ITS | Continuity of Care Document ---
Author Organization [facility] Address [address] [place] [address] Care Team Providers Care Human Resources Support Specialist Name Role Phone SATISH CASTELANSEY Primary Care Provider [phone] Assessment No assessment recorded. Plan of Treatment Reminders Order Date Submit Date Provider Last Modified By Organization Details Last Modified Time Details Appointments OB ROUTINE 2024 08:45A Gauri BARRIOS MD Not available Not available Not available Lab None recorded. Referral None recorded. Procedures None recorded. Surgeries None recorded. Imaging US, obstetric , nuchal transluce ncy [address] [place] [address] [address], [place], [address], 08/05/2024 17:12:36 Medication Orders None recorded. Patient TargetsNo targets recorded. Patient InstructionsNo instructions recorded. Reason for Referral None Reported. Results Created Date Observation Date Name Description Value Unit Range Abnormal Flag Note LastModifiedBy Organization Detail LastModifiedTime 08/05/1908/05/2024 US, obste tric, nucha l trans lucen cy No observ ation record ed. [facility] [address], [place], [address], 08/05/2024 17:09:58 08/05/1908/05/2024 US, obste tric, nucha l trans lucen cy No observ ation record ed. [id number], [place], [address], 08/05/2024 11:18:13 Result Notes None recorded. Problems Name Problem SNOMED Code Status Onset Date Resolution Date Notes Provider Name and Address Organization Details Recorded Time 44556365 Active [facility] 11:14:53 Genital herpes simplex 69918601 Active valtrex suppressio n at 36 weeks BREE BARRIOS MD [address], [place], [address], [facility] 11:27:54 Bipolar disorder 51489511 Active latuda, bupropion, sertraline ; restarted bupropion at 12 weeks BREE BARRIOS MD [address], [place], [address], [facility] 11:28:46 Problem Notes None recorded. Procedures Surgical History Date Name Laterality Status Provider Name and Address Organization Details Recorded Time Other completed Lolita Lindsey [facility] 07/08/2024 09:53:53 Imaging Results Imaging Date Name Status LastModified by Organization Details LastModified Time 08/05/2024 US, obstetric, nuchal translucency completed [facility] [address], [place], [address], 08/05/2024 17:09:58 Procedure Notes None recorded. Medical Equipment None [...] completed Not Available Not Available Not Available Kurvelo (28) 0.15 mg-0.03 mg tablet TAKE 1 TABLET BY MOUTH ONCE DAILY active Not Available Not Available No t Available Vitals Date Recorded Body height Body mass index (BMI) Body weight Systolic blood pressure Diastolic blood pressure Provider Name and Address Organization Details Last Updated DateTime 08/05/2024 167.64 cm 21 kg/m2 71368.01 g 114 mm[Hg] 73 mm[Hg] Lolita Lindsey [facility] 5 11:10:17 Social History Question Answer Notes LastModified by Organizat ion Details LastModified Time Do You Have An Advance Directive? No Information n ot available 07/08/2024 What Is Your Level Of Alcohol Consumption? None [email or web address] Information not available 07/08/2024 Are You Blind Or Do You Have Difficulty Seeing? No Information not available 07/08/2024 What Is Your Level Of Caffeine Consumption? Moderate [email or web address] Information not available 07/08/2024 How Much Tobacco Do You Chew? None [email or web address] Information not available 07/08/2024 In The 14 Days Before Symptom Onset, Have You Had Close Contact With A Laboratory-confirme d COVID-19 While That Case Was Ill? No [email or web address] Information n ot available 07/08/2024 In The 14 Days Before Symptom Onset, Have You Had Close Contact With A Person Who Is Under Investigation For COVID-19 While That Person Was Ill? No [email or web address] Information not available 07/08/2024 Have You Been To An Area Known To Be High Risk For COVID-19? No [email or web address] Information not available 07/08/2024 Are You Currently Employed? Yes [email or web address] Information not available 07/08/2024 Are You Deaf Or Do You Have Serious Difficulty Hearing? No [email or web address] Information not available 07/08/2024 What Type Of Diet Are You Following? REGULAR [email or web address] Information n ot available 07/08/2024 What Is The Highest Grade Or Level Of School You Have Completed Or The Highest Degree You Have Received? 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 No [email or web address] Information not available 07/08/2024 Do You Use Protection During Sex? No Information not available 07/08/2024 Do You Use Your Seat Belt Or Car Seat Routinely? Yes [email or web address] Information not available 07/08/2024 Are You Sexually Active? Yes [email or web address] Information not available 07/08/2024 Do You Have Smoke And Carbon Monoxide Detectors In Your Home? Yes [email or web address] Information not available 07/08/2024 How Much Tobacco Do You Smoke? No [email or web address] Information not available 07/08/2024 Do You Feel Stressed (tense, Restless, Nervous, Or Anxious, Or Unable To Sleep At Night)? [id number] [email or web address] Information not available 07/08/2024 Do You Use Any Illicit Or Recreational Drugs? No Information not available 07/08/2024 Do You Use Sunscreen Routinely? Yes [email or web address] Information not available 07/08/2024 Have You Used IV Drugs? No [email or web address] Information not available 07/08/2024 Sex: Unknown Functional Status Question Answer Note LastModified by Organizat ion Details LastModified Time Do you have difficulty walking or climbing stairs? No [email or web address] Information not available 07/08/2024 Are you able to walk? YESWOREST Information not available 07/08/2024 Are you able to care for yourself? Yes [email or web address] Information not available 07/08/2024 Do you have difficulty dressing or bathing? No [email or web address] Information not available 07/08/2024 What is your exercise level? Moderate [email or web address] Information not available 07/08/2024 Mental Status None recorded. Family History Relationship Description Onset Age of this Age Resolved Age Notes LastModified by Organization Details LastModified Time Unspecified Relation Family history unknown [email or web address] Not available 2024 09:53:53 Medical History Condition [...] SNOMED-CT Code Diagnosis ICD10 Code Diagnosis Note [id number] Christen Mclaughlin [place] [address] [address] 07/08/2024 09:38:08 07/08/2024 09:55:47 [id number] BREE BARRIOS MD [place] [address] [address] 07/08/2024 09:38:26 07/08/2024 11:17:32 Nausea and vomiting 25074975 R11.2 - little improvemen t with zofran- will try reglan test positive 550135915 Z32.01 1. Exam today within normal limits.2. Ultrasound today confirms GA and viability. EDC . GC/Clamydi a testing done: will f/u as indicated. 4. ACOG guidelines and plan of care for reviewed with patient. All questions answered.5 . Return to office at 12 weeks for new OB visit6. Will need new OB labs at next visit.7. Genetic screening: desires. Borderline personality disorder 72940486 F60.3 - well controlled on latuda and zoloft- d/c'd bupropion per Psych recommenda tions at beginning of , discussed safety in , ok to restart if symptoms worsen [id number] Christen Mclaughlin [place] [address] [address] 08/05/2024 10:37:40 08/05/2024 11:12:45 screening 278943643 Z36.82 Z3A.12 [id number] Lolita Lindsey [place] [address],[facility] [place] [address] 08/05/2024 10:50:11 08/05/2024 12:02:53 Nausea and vomiting 89215274 R11.2 - improved with zofran and reglan together Bipolar disorder 5523056 4 F31.9 - mood worsening without bupropion- will restart bupropion- continue latuda and sertraline - no SI/HI screening 2437 09165 Z36.0 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 08519286 Z31.430 Gestation period, 12 weeks 15750388 Z3A.12 Health Concerns Section Related Observation LastModified by Organization Detai ls LastModified Time None Recorded Concern Status LastModified by Organization Details LastModified Time None Recorded Payers Encounter Date Sequence Insurance Name Policy Number Policy Wright Covered Member ID Wright Member ID Guarantor Name 08/05/2024 1 [facility] (MEDICAID HMO) [id number] Adilene Viera [id number] Adilene Viera OBGyn Episode Ob Episode Information Episode Created Date Number of Fetuses Patient Bloodtype Patient rh Status Prepregnancy Weight lbs Domestic Partner Domestic Partner Phone Father Name Activities Coordinator Status 08/05/19 25 1 130 Claus Helga OPEN Fetus Data First Name Last Name Admitted to NICU Weight (g) Sex Living Outcome Pediatric Complications Fetus ID Race Codes Race Delivery Type [id number] Problems Problem Notes Problem Name Start Date End Date Resolution Snomed Code Not e Bipolar disorder 38293602 lat uda, bupropion, sertraline; restarted bupropion at 12 weeks Genital herpes simplex 04689411 valtrex suppres kamaljit at 36 weeks Wu [...] Date Ultra Sound Latest Days Gestation 0 [email or web address] 08/05/2024 02/15/20 25 0 Pre- Flowsheet Flowsheet Date 08/05/2024 Botello Score Blood Edema Fundus Height Fundus Units Glucose Ketones Leukocytes Nitrite Labor Signs Protein Cervic Dilation Cervic Effacement Cervic Station Type Weight in lbs Pre/Post Dialysis Refused Weight 130.990792788113 BP Diastolic BP Location Tested BP Systolic BP Type 73 L arm 114 sitting Fetus Heart Rate Present A 161 Fetus Movement Comments Patient presents to [facility] care. Nausea slightly worse, ran out of [...]
--- OUTSIDE RECORDS SUMMARY | 2024-08-06 17:42 | XMS_ITS ---
Author Organization [facility] Address [address] [place] [address] Care Team Providers Care Creative/Art Director Name Role Phone Hien Miller Primary Care Provider [phone] Bart Juarez [phone] REASON FOR VISIT 3 Week F/U Encounters Encounter Location Date Provider Diagnosis [address] [address] 06/01/2024 Bart Juarez Plan Of Treatment No Information Progress Notes * Adilene VIERADOB:[birth year] (19 yo F)Acc No.[id number]:06/01/2024 UNLOCKED PROGRESS NOTE Patient: Adilene BORDEN Provider: Angelica Juarez DNP, PMSOUMYAP-BC :2005 A ge:19 Y S ex:Female Date:06/01/2024 [address] [facility] Pcp:Hien Miller Subjective: * Chief Complaints: * 1 . 3 Week F/U. * Medical History: Objective: * Vitals: Assessment: Plan: * Treatment: * * Electronic signature of Maranda Juarez APRN, [id number] on 08/06/2024 at 05:42 PM REAL ESTATE PROFESSIONAL Sign off status: Pending * Provider: Angelica Juarez DNP, PMHNP-BC Date: 08/02/2023 Generated for Ivon paz/Cathy/Robertoitting on: 0 08/06/2024 05:42 PM REAL ESTATE PROFESSIONAL
--- OUTSIDE RECORDS SUMMARY | 2024-08-06 17:42 | XMS_ITS | Data Portability ---
Author Organization [facility] Address [address] [place] [address] Care Team Providers Care Sheet Metal Installer Name Role Phone NETO CASTELAN Primary Care Provider [phone] Assessment No assessment recorded. Plan of Treatment Reminders Order Date Submit Date Provider Last Modified By Organization Details Last Modified Time Details Appointments OB ROUTINE 2024 08:45A Gauri BARRIOS MD Not available Not available Not available Lab genetic screen, unspecifi ed specimen 2024 025 [email or web address] [facility], [address], [place], [address], 08/05/2024 11:34:47 aneuploid y risk, chromosom e specific circulati ng cell free (ccf) DNA, maternal serum 2024 025 [facility], [address], [place], [address], 08/05/2024 11:34:47 HbA1c (hemoglob in A1c), blood [address] [facility] (Lab), [address], [place], [address], 08/05/2024 11:35:11 type + screen, serum [address] [facility] (Lab), [address], [place], [address], 08/05/2024 11:35:12 rubella igg Ab, titer, serum 2024 [facility] (Lab), [address], [place], [address], 08/05/2024 11:35:12 CBC w/ auto diff 2024 [facility] (Lab), [address], [place], [address], 08/05/2024 11:35:12 hepatitis C virus Ab, serum 2024 [facility] (Lab), [address], [place], [address], 08/05/2024 11:35:12 HBsAg (hepatiti s B surface Ag), serum 2024 [facility] (Lab), [address], [place], [address], 08/05/2024 11:35:12 RPR (rapid plasma reagin), serum 2024 [facility] (Lab), [address], [place], [address], 08/05/2024 11:35:11 HIV 1+2 AB + HIV 1 p24 Ag, qualitati ve immunoass ay, serum 2024 [facility] (Lab), [address], [place], [address], 08/05/2024 11:35:12 Referral None recorded. Procedures None recorded. Surgeries None recorded. Imaging US, obstetric , nuchal transluce ncy 2024 [facility], [address], [address], [place], [address], 08/05/2024 17:12:36 Medication Orders bupropion HCl XL 150 mg 24 hr tablet, extended release 2024 [facility] [address] [place], [address], 08/05/2024 11:34:56 Latuda 40 mg tablet 2024 025 [facility] [address] [place], [address], 08/05/2024 11:34:58 sertralin e 100 mg tablet 2024 025 [facility] [address] [place], [address], 08/05/2024 11:35:00 ondansetr on 8 mg disintegr ating tablet 2024 025 [facility] [address] [place], [address], 08/05/2024 11:34:55 metoclopr amide 10 mg tablet 2024 025 [facility] [address] [place], [address], 07/08/2024 11:01:43 Patient TargetsNo targets recorded. Patient InstructionsNo instructions recorded. Reason for Referral None Reported. Results Created Date Observation Date Name Description Value Unit Range Abnormal Flag Note LastModifiedBy Organization Detail LastModifiedTime 07/08/1907/08/2024 CT/GC AND TRICH OMONA S VAGIN CHARLIE (RRNA ), URINE chlamydia trachomatis, PCR Negati ve negati ve Not Available [facility] (Lab) [address] [place], [address], 07/09/2024 11:55:13 07/08/19 25 07/08/2024 CT/GC AND TRICH OMONA S VAGIN CHARLIE (RRNA ), URINE neisseria gonorrhoeae, PCR Negati ve negati ve Not Available [facility] (Lab) [address] [place], [address], 07/09/2024 11:55:13 07/08/19 25 07/08/2024 CT/GC AND TRICH OMONA S VAGIN CHARLIE (RRNA ), URINE trichomonas vaginalis ribosomal RNA (rrna) Negati ve negati ve Not Available [facility] (Lab) [address], [place], [address], 07/09/2024 11:55:13 07/08/19 25 07/08/2024 US, obste tric, 1st trime ster No observ ation record ed. [email or web address], [place], [address], 07/10/2024 00:20:03 08/05/19 25 08/05/2024 US, obste tric, nucha l trans lucen cy No observ ation record ed. [facility] [address], [place], [address], 08/05/2024 17:09:58 08/05/19 25 08/05/2024 US, obste tric, nucha l trans lucen cy No observ ation record ed. [email or web address], [place], [address], 08/05/2024 11:18:13 Result Notes None recorded. Problems Name Problem SNOMED Code Status Onset Date Resolution Date Notes Provider Name and Address Organization Details Recorded Time 21354219 Active 2024 Lolita elliott, [facility] 11:14:53 Genital herpes simplex 42105596 Active valtrex suppressio n at 36 weeks BREE BARRIOS MD [address], [place], [address], [facility] 11:27:54 Bipolar disorder 91870614 Active latuda, bupropion, sertraline ; restarted bupropion at 12 weeks BREE BARRIOS MD [address], [place], [address], [place] [facility] 11:28:46 Problem Notes None recorded. Procedures Surgical History Date Name Laterality Status Provider Name and Address Organization Details Recorded Time Other completed Lolita Lindsey [facility] 07/08/2024 09:53:53 Imaging Results Imaging Date Name Status LastModified by Organization Details LastModified Time 07/08/2024 US, obstetric, 1st trimester completed [email or web address], [place], [address], 07/10/2024 00:20:03 08/05/2024 US, obstetric, nuchal translucency completed [facility] [address], [place], [address], 08/05/2024 17:09:58 08/05/2024 US, obstetric, nuchal translucency active [email or web address], [place], [address], 08/05/2024 11:18:13 Procedure Notes None recorded. Medical Equipment None [...] No t Available Vitals Date Recorded Body weight Body mass index (BMI) Body height Systolic blood pressure Diastolic blood pressure Provider Name and Address Organization Details Last Updated DateTime 07/08/2024 47056.82 g 20.7 kg/m2 167.64 cm 118 mm[Hg] 78 mm[Hg] [facility] 5 10:23:05 Date Recorded Body height Body mass index (BMI) Body weight Systolic blood pressure Diastolic blood pressure Provider Name and Address Organization Details Last Updated DateTime 08/05/2024 167.64 cm 21 kg/m2 36279.01 g 114 mm[Hg] 73 mm[Hg] [facility] 5 11:10:17 Social History Question Answer Notes LastModified by Organizat ion Details LastModified Time Do You Have An Advance Directive? No Information n ot available 07/08/2024 What Is Your Level Of Alcohol Consumption? None Information not available 07/08/2024 Are You Blind Or Do You Have Difficulty Seeing? No Information not available 07/08/2024 What Is Your Level Of Caffeine Consumption? Moderate [email or web address] Information not available 07/08/2024 How Much Tobacco Do You Chew? None [email or web address] Information not available 07/08/2024 In The 14 Days Before Symptom Onset, Have You Had Close Contact With A Laboratory-confirme d COVID-19 While That Case Was Ill? No [email or web address] Information n ot available 07/08/2024 In The 14 Days Before Symptom Onset, Have You Had Close Contact With A Person Who Is Under Investigation For COVID-19 While That Person Was Ill? No [email or web address] Information not available 07/08/2024 Have You Been To An Area Known To Be High Risk For COVID-19? No [email or web address] Information not available 07/08/2024 Are You Currently Employed? Yes [email or web address] Information not available 07/08/2024 Are You Deaf Or Do You Have Serious Difficulty Hearing? No Information not available 07/08/2024 What Type Of Diet Are You Following? REGULAR [email or web address] Information n ot available 07/08/2024 What Is The Highest Grade Or Level Of School You Have Completed Or The Highest Degree You Have Received? 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 No [email or web address] Information not available 07/08/2024 Do You Use Protection During Sex? No [email or web address] Information not available 07/08/2024 Do You Use Your Seat Belt Or Car Seat Routinely? Yes [email or web address] Information not available 07/08/2024 Are You Sexually Active? Yes [email or web address] Information not available 07/08/2024 Do You Have Smoke And Carbon Monoxide Detectors In Your Home? Yes Information not available 07/08/2024 How Much Tobacco Do You Smoke? No [email or web address] Information not available 07/08/2024 Do You Feel Stressed (tense, Restless, Nervous, Or Anxious, Or Unable To Sleep At Night)? [id number] [email or web address] Information not available 07/08/2024 Do You Use Any Illicit Or Recreational Drugs? No [email or web address] Information not available 07/08/2024 Do You Use Sunscreen Routinely? Yes [email or web address] Information not available 07/08/2024 Have You Used IV Drugs? No [email or web address] Information not available 07/08/2024 Sex: Unknown Functional Status Question Answer Note LastModified by Organizat ion Details LastModified Time Do you have difficulty walking or climbing stairs? No [email or web address] Information not available 07/08/2024 Are you able to walk? YESWOREST [email or web address] Information not available 07/08/2024 Are you able to care for yourself? Yes [email or web address] Information not available 07/08/2024 Do you have difficulty dressing or bathing? No [email or web address] Information not available 07/08/2024 What is your exercise level? Moderate [email or web address] Information not available 07/08/2024 Mental Status None recorded. Family History Relationship Description Onset Age of this Age Resolved Age Notes LastModified by Organization Details LastModified Time Unspecified Relation Family history unknown Not available 2024 09:53:53 Medical History Condition [...] SNOMED-CT Code Diagnosis ICD10 Code Diagnosis Note [id number] Christen Arnoldo [facility] [address] [address] 07/08/2024 09:38:08 07/08/2024 09:55:47 [id number] BREE BARRIOS MD [facility] [address] [address] 07/08/2024 09:38:26 07/08/2024 11:17:32 Nausea and vomiting 45922916 R11.2 - little improvemen t with zofran- will try reglan test positive 184636975 Z32.01 1. Exam today within normal limits.2. Ultrasound today confirms GA and viability. EDC . GC/Clamydi a testing done: will f/u as indicated. 4. ACOG guidelines and plan of care for reviewed with patient. All questions answered.5 . Return to office at 12 weeks for new OB visit6. Will need new OB labs at next visit.7. Genetic screening: desires. Borderline personality disorder 38838911 F60.3 - well controlled on latuda and zoloft- d/c'd bupropion per Psych recommenda tions at beginning of , discussed safety in , ok to restart if symptoms worsen [id number] Christen Mclaughlin [facility] [address],[place] [address] 08/05/2024 10:37:40 08/05/2024 11:12:45 screening 562044511 Z36.82 Z3A.12 [id number] Lolita Lindsey [facility] [address],[place] [address] 08/05/2024 10:50:11 08/05/2024 12:02:53 Nausea and vomiting 04362225 R11.2 - improved with zofran and reglan together Bipolar disorder 8724136 4 F31.9 - mood worsening without bupropion- will restart bupropion- continue latuda and sertraline - no SI/HI screening 2437 82703 Z36.0 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 03621497 Z31.430 Gestation period, 12 weeks 23272362 Z3A.12 Health Concerns Section Related Observation LastModified by Organization Detai ls LastModified Time None Recorded Concern Status LastModified by Organization Details LastModified Time None Recorded Advance Directives Directive N: Payers Encounter Date Sequence Insurance Name Policy Number Policy Wright Covered Member ID Wright Member ID Guarantor Name 07/08/2024 1 [employer] (MEDICAID HMO) [id number] Adilene Wehrle [id number] Adilene Wehrle 07/08/2024 1 [employer] (MEDICAID HMO) [id number] Adilene Wehrle [id number] Adilene Wehrle 08/05/2024 1 [employer] (MEDICAID HMO) [id number] Adilene Wehrle [id number] Adilene Wehrle 08/05/2024 1 [employer] (MEDICAID HMO) [id number] 0003 Adilene Wehrle [id number] Adilene Viera Notes Date Note Type Note Provider Name and Address Organization Details Recorded Time 07/08/2024 text/html Presents to the office today to confirm . Patient denies any problems up to this point with her . Patient denies cramping or vaginal bleeding. Moderate nausea. PMH: BPD, latuda and zoloft, was previously on bupropion but stopped with per psych. Patient is in a relationship with Ezequiel. Lives with partner and four cats and two dogs. 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 Denies EToH. Vaping, working on cutting down. MJ use, discussed cessation. BREE BARRIOS MD [address], [place], [address], [facility] 07/08/2024 11:12:47 OBGyn Episode Ob Episode Information Episode Created Date Number of Fetuses Patient Bloodtype Patient rh Status Prepregnancy Weight lbs Domestic Partner Domestic Partner Phone Father Name Special Police Officer Status 08/05/19 25 1 130 Claus Helga OPEN Fetus Data First Name Last Name Admitted to NICU Weight (g) Sex Living Outcome Pediatric Complications Fetus ID Race Codes Race Delivery Type 12004 Problems Problem Notes Problem Name Start Date End Date Resolution Snomed Code Not e Bipolar disorder 86954318 lat uda, bupropion, sertraline; restarted bupropion at 12 weeks Genital herpes simplex 67896378 valtrex suppres kamaljit at 36 weeks Wu [...] Date Ultra Sound Latest Days Gestation 0 [email or web address] 08/05/2024 02/15/20 25 0 Pre- Flowsheet Flowsheet Date 08/05/2024 Botello Score Blood Edema Fundus Height Fundus Units Glucose Ketones Leukocytes Nitrite Labor Signs Protein Cervic Dilation Cervic Effacement Cervic Station Type Weight in lbs Pre/Post Dialysis Refused Weight 130.517290743598 BP Diastolic BP Location Tested BP Systolic BP Type 73 L arm 114 sitting Fetus Heart Rate Present A 161 Fetus Movement Comments Patient presents to [facility]. Nausea slightly worse, ran out of [...]
--- OUTSIDE RECORDS SUMMARY | 2024-08-06 17:43 | XMS_ITS ---
Author Organization [facility] Address [address] [place] [address] Care Team Providers Care Laborer Pipelines Name Role Phone Lena Sanders Primary Care Provider [phone] Migration, Provider Unavailable Unavailable Allergies Allergen (clinical drug ingredient) Drug/Non Drug Allergy documented on EMR Reaction Allergy Type Onset Date Status hydroxyzine hydrOXYzine Delete Reason: Entered in Error. Drug Allergy 05/07/2023 Inactive trazodone traZODone SYNCOPE AND BLURRED VISION Drug Allergy 05/07/2023 Active REASON FOR VISIT EMR-Ector Medications Medication SIG (Take, Route, Frequency, Duration) Notes Start Date End Date Status Levora 0.15/30 (28) 0.15-30 MG-MCG 1 Oral every day; Duration: 30 09/29/2023 09/22/2024 Active buPROPion HCl ER (XL) 150 MG Oral; Duration: 30 09/14/2023 Active Sertraline HCl 100 MG Oral; Duration: 30 09/14/2023 Active lurasidone 20.000 mg oral; Duration: 30 *Reorder from [facility] for eRx and Interaction Alerts* 07/27/2023 Active Colace 100 MG 1 Oral every day; Duration: 0 ,PRN Reason:for constipation 08/13/2023 Active Encounters Encounter Location Date Provider Diagnosis [facility] [address] [place] [address] 05/22/2024 Provider Migration Plan Of Treatment No Information Progress Notes * Adilene VIERADOB:[birth year] (19 yo F)Acc No.[id number]:05/22/2024 Patient: Adilene BORDEN :2005 A ge:19 Y S ex:Female Phone: Address:[address] [place] [address], [facility], [place], [address] Subjective: * Chief Complaints: * E MR-Ector * Medical History: * Surgical History: * Hospitalization/Major Diagno stic Procedure: * Social History: M igrated Social History: M igrated Social History: Marital status:Single,Tobacco history:Vapes,Alcohol Misuse:Yes,Has the patient used marijuana?:Yes,Alcohol history:Currently drinks alcohol. * Medications: T akingLevora 0.15/30 (28) 0.15-30 MG-MCG Tablet 1 Oral every day , stop date 5Colace 100 MG Capsule 1 Oral every day , Notes to Pharmacist: ,PRN Reason:for constipationSertraline HCl 100 MG Tablet Oral lurasidone 20.000 mg tablet oral , Notes to Pharmacist: *Reorder from [facility] for eRx and Interaction Alerts*buPROPion HCl ER (XL) 150 MG Tablet Extended Release 24 Hour Oral Taking Levora 0.15/30 (28) 0.15-30 MG-MCG Tablet 1 Oral every day , stop date 09/22/2024Taking Colace 100 MG Capsule 1 Oral every day , Notes to Pharmacist: ,PRN Reason:for constipationTaking Sertraline HCl 100 MG Tablet Oral Taking lurasidone 20.000 mg tablet oral , Notes to Pharmacist: *Reorder from [facility] for eRx and Interaction Alerts*Taking buPROPion HCl ER (XL) 150 MG Tablet Extended Release 24 Hour Oral * Allergies: t raZODone: SYNCOPE AND BLURRED VISION - Allergy - Onset Date 05/07/2023 Objective: * Physical Examination: Plan: * Treatment: * Procedure Codes: Billing Information: * Visit Code: * Procedure Codes: * * Date:
--- OUTSIDE RECORDS SUMMARY | 2024-08-06 17:43 | XMS_ITS | Clinical Summary ---
Author Organization [facility] Address [address] [place] [address] Care Team Providers Care Fuse Maker Name Role Phone Lena Sanders MD Primary Care Provider + [phone] Source Comments [facility],non-owned Affiliates and Associated Physician Practices is amultiple site organization consisting of ambulatory clinics and hospital sitesin [place], [place], [place] and [place]. This disclosure is being madepursuant to the Care Everywhere program and may not contain all information available regarding this patient. Last updated 18.[facility] Allergies No known active allergies Medications * Be aware that medications may not be up to date on this document. Alwaysverify current medications with the patient. Medication Sig Dispensed Refills Start Date End Date Status cyproheptadine (PERIACTIN) 4 MG tablet Take 4 mg by mouth at bedtime 08/23/2020 Active valACYclovir (VALTREX) 500 MG tablet Take 500 mg by mouth once daily 06/08/2020 Active Active Problems Problem Noted Date Diagnosed Date Fracture of base of fifth metatarsal bone 2016 Social History Tobacco Use Types Packs/Day Years Used Date Smoking Tobacco: Never Smokeless Tobacco: Never Alcohol Use Standard Drinks/Week Comments No 0 (1 standard drink = 0.6 oz pur e alcohol) Sex and Gender Information Value Date Recorded Sex Assigned at Not on file Gender Identity Not on file Sexual Orientation Not on file Last Filed Vital Signs Vital Sign Reading Time Taken Comments Blood Pressure 113/69 11/10/2020 8:11 AM CDT Pulse 70 11/10/2020 6:47 AM CDT Temperature 36.6 C (97.9 F) 11/10/2020 8:11 AM CDT Respiratory Rate 18 11/10/2020 6:47 AM CDT Oxygen Saturation 99% 11/10/2020 8:11 AM CDT Inhaled Oxygen Concentration - - Weight 59 kg (130 lb) 11/09/2020 5:15 PM CDT Height 167.6 cm (5' 6 ) 11/09/2020 5:15 PM CDT Body Mass Index 20.98 11/09/2020 5:15 PM CDT Plan of Treatment Health Maintenance Due Date Last Done Comments PAP SMEAR 2005 HIV SCREENING 2018 HPV VACCINE (1 - 3-dose series) 2018 CHLAMYDIA/GONORRHEA SCREENING 2019 MENINGOCOCCAL (Group B) VACC INE (1 of 2 - Standard) 2019 HEPATITIS C SCREENING 02/02/2021 DTAP/TDAP/TD VACCINES (1 - Tdap) 2022 HEPATITIS B VACCINE (1 of 3 - 19+ 3-dose series) 2022 COVID-19 VACCINE (1 - 2023-2 5 season) 2024 INFLUENZA VACCINE (#1) 2024 DEPRESSION SCREENING 06/22/2024 ZOSTER VACCINE (1 of 2) 2053 HIB VACCINE Aged Out No longer eligi ble based on patient's age to complete this topic MENINGOCOCCAL VACCINE Aged Out No johan lorena eligible based on patient's age to complete this topic PNEUMOCOCCAL VACCINE Aged Out No long er eligible based on patient's age to complete this topic Care Teams Fuse Maker Relationship Specialty Start Date End Date Lena Sanders MD [address] [place] [address] PCP - General Family Medicine 01/23/17
--- OUTSIDE RECORDS SUMMARY | 2024-08-06 17:43 | XMS_ITS ---
Author Organization [facility] Address [address] [place] [address] [address] [place] [address] Care Team Providers Care Application Packager Name Role Phone Nallely Baeza Primary Care Provider Unavailabl Nallely Hinton Unavailable [phone] Encounters Encounter Location Date Provider Diagnosis [facility] [address] [place] [address] 01/13/2024 Nallely Baeza Plan Of Treatment No Information Progress Notes * Adilene VIERADOB:[birth year] (18 yo F)Acc No.[id number]:01/13/2024 Patient: Adilene BORDEN :2005 A ge:18 Y S ex:Female Address:[address], [place] [address] * true * Date: Generated for Printi ng/Faxing/eTransmitting on: 0 08/06/2024 05:42 PM 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
--- OUTSIDE RECORDS SUMMARY | 2024-08-06 17:43 | XMS_ITS | Patient Health Summary ---
Author Organization [facility] [employer] Address [address] [place] [address] Care Team Providers Care Supervisor [employer] Name Role Phone Lena Sanders MD Primary Care Provider [phone] Note from [facility],non-owned Affiliates and Associated Physician Practices is amultiple site organization consisting of ambulatory clinics and hospital sitesin [place], [place], [place] and [place]. This disclosure is being madepursuant to the Care Everywhere program and may not contain all information available regarding this patient. Last updated 18.[facility] [employer] Allergies No known active allergies Medications * Be aware that medications may not be up to date on this document. Alwaysverify current medications with the patient. * cyproheptadine (PERIACTIN) 4 MG tablet(Started 08/23/2020) Take 4 mg by mouth at bedtime * valACYclovir (VALTREX) 500 MG tablet(Started 06/08/2020) Take 500 mg by mouth once daily Active Problems Problem Noted Date Diagnosed Date [...] Mass Index 20.98 11/09/2020 5:15 PM CDT Procedures * SARS-COV-2 (COVID-19) RAPID(Performed 11/09/2020) * URINE MICROSCOPIC ONLY REFLEX TO CULTURE(Performed 11/09/2020) * URINALYSIS REFLEX MICROSCOPIC REFLEX CULTURE(Performed 11/09/2020) * HCG URINE QUALITATIVE(Performed 11/09/2020) * DRUG ABUSE URINE SCREEN 10(Performed 11/09/2020) * TSH(Performed 11/09/2020) * SALICYLATE LEVEL BLOOD(Performed 11/09/2020) * ALCOHOL ETHYL BLOOD(Performed 11/09/2020) * ACETAMINOPHEN LEVEL(Performed 11/09/2020) * COMPREHENSIVE METABOLIC PANEL(Performed 11/09/2020) * CBC W AUTO DIFFERENTIAL(Performed 11/09/2020) * XR CLAVICLE LEFT 2VW(Performed 10/27/2018) Performed for Pain of left clavicle * XR HAND RIGHT 3VW OR MORE(Performed 05/23/2018) Performed for Fall, initial encounter * IMAGING/RADIOLOGY/XRAY RESULTS ORDER(Performed 03/18/2017) * XR FOOT LEFT 3VW OR MORE(Performed 01/23/2017) Performed for Pain in joint, ankle and foot, left Results * SARS-COV-2 (COVID-19) RAPID (11/09/2020 5:34 PM CDT) COVID-19 PCR Not detected Not detected, Invalid 11/09/2020 7:[address] [facility] Microbiology SPECIMEN FROM NASOPHARYNGEAL STRUCTURE / Unknown Collection / Unknown 11/09/2020 5:34 PM CDT 11/09/2020 5:[address] [facility] - 11/09/2020 7:00 PM CDT The Cepheid Xpert Xpress SARS-COV-2 has been authorized by the Food and Drug administration (FDA) under an Emergency Use Authorization (EUA). This test has been validated in accordance with the FDA's guidance document Policy for Diagnostic Testing in Laboratories Certified to perform High Complexity Testing under CLIA prior to Emergency Use Authorization for Coronavirus Disease-2019 during the Public Health Emergency issued on August 20, 2019. FDA independent review of this validation is pending. This test is only authorized for the duration of time the declaration that circumstances exist justifying the authorization of emergency use of in vitro diagnostic tests for detection of SARS-COV-2 virus and/or diagnosis of COVID-19 infection under 564(b)(1)of the Act, 21 U.S.C. 360bbb-3 (b) (1), unless the authorization is terminated or revoked sooner. Katia Hines MD LAB - MICROBIOLO GY ORDERABLES Performing Organization Address City/State/[facility] Co de Phone Number [facility] [address] * (ABNORMAL) DRUG ABUSE URINE SCREEN 10 (11/09/2020 5:33 PM CDT) [facility] Amphetamines Screen Urine Negative Negative 11/09/2020 6:[address] [facility] Barbiturates Screen Urine Negative Negative 11/09/2020 6:[address] [facility] Benzodiazepines Screen Urine Negative Negative 11/09/2020 6:[address] [facility] Cannabinoids Screen Urine Positive(A) Negative 11/09/2020 6:[address] [facility] Cocaine Screen Urine Negative Negative 11/09/2020 6:[address] [facility] Methadone Screen Urine Negative Negative 11/09/2020 6:[address] [facility] Opiate Screen Urine Negative Negative 11/09/2020 6:[address] [facility] Phencyclidine Screen Urine Negative Negative 11/09/2020 6:[address] [facility] Tricyclics Screen Urine Negative Negative 11/09/2020 6:[address] [facility] Methamphetamine Screen Urine Negative Negative 11/09/2020 6:[address] [facility] Buprenorphine Screen Urine Negative Negative 11/09/2020 6:[address] [facility] Oxycodone Screen Urine Negative Negative 11/09/2020 6:[address] [facility] Propoxyphene Screen Urine Negative Negative 11/09/2020 6:[address] [facility] Urine URINE / Unknown Collection / Unknown 11/09/2020 5:33 PM CDT 11/09/2020 5:[address] [facility] - 11/09/2020 6:00 PM CDT This is a presumptive/unconfirmed test for medical treatment purposes only. Clinical consideration and professional judgment should be applied when using presumptive results. If confirmatory testing, such as gas chromatography-mass spectrometry (GC/MS), of any positive results of this test is required, please notify the laboratory within 7 days of collection. This test is intended only for monitoring or management of patients. It is not intended for use in job-related and/or legal-related purposes. The cutoff value for each analyte is: Barbiturates.....200 ng/mL Benzodiazepines......150 ng/mL Cocaine..........150 ng/mL Opiates..............100 ng/mL Phencyclidine.....25 ng/mL Tricyclics...........300 ng/mL Cannabinoid.......50 ng/mL Amphetamines.........500 ng/mL Methadone........200 ng/mL Methamphetamines.....500 ng/mL Buprenorphine.....10 ng/mL Oxycodone............100 ng/mL Propoxyphene.....300 ng/mL Kaitlin Montalvo PROSPECTING DRILLER HELPER-MARKET BASKET MAKER LAB - URINE C HEMISTRY ORDERABLES Performing Organization Address City/State/[facility] Co de Phone Number [facility] [address] * (ABNORMAL) URINE MICROSCOPIC ONLY REFLEX TO CULTURE (11/09/2020 5:33 PM CDT) Reflex Status Culture not indicated 11/09/2020 5:[address] [facility] RBC UA 3-5 None Seen, 0-2, 3-5 # /hpf 11/09/2020 5:[address] [facility] WBC UA 0-5 None Seen, 0-5 # /hpf 11/09/2020 5:[address] [facility] Bacteria UA Trace(A) None Seen 11/09/2020 5:[address] [facility] Squamous Epithelial Cells 3-5 None Seen, 0-2, 3-5 /hpf 11/09/2020 5:[address] [facility] Mucus UA 2+ /LPF 11/09/2020 5:[address] [facility] Urine URINE SPECIMEN OBTAINED BY CLEAN CATCH PROCEDURE / Unknown Collection / Unknown 11/09/2020 5:33 PM CDT 11/09/2020 5:[address] [facility] - 11/09/2020 5:54 PM CDT Kaitlin Montalvo PROSPECTING DRILLER HELPER-MARKET BASKET MAKER LAB - URINALY SIS ORDERABLES Performing Organization Address City/State/[facility] Co de Phone Number [facility] [address] [place] [address] * (ABNORMAL) URINALYSIS REFLEX MICROSCOPIC REFLEX CULTURE (11/09/2020 5:33 PM CDT) Color UA Yellow Straw, Yellow 11/09/2020 5:[address] [facility] Clarity UA Slt Cloudy(A) Clear 11/09/2020 5:[address] [facility] Glucose UA 2+(A) Negative 11/09/2020 5:[address] [facility] Bilirubin UA Negative Negative 11/09/2020 5:[address] [facility] Ketone UA Negative Negative 11/09/2020 5:[address] [facility] Specific [place] UA 1.020 1.005 - 1.030 11/09/2020 5:[address] [facility] Blood UA Negative Negative 11/09/2020 5:[address] [facility] pH UA 5.0 5.0 - 8.0 pH 11/09/2020 5:[address] [facility] Protein UA 1+(A) Negative 11/09/2020 5:[address] [facility] Urobilinogen UA Negative Negative mg/dL 11/09/2020 5:[address] [facility] Nitrite UA Negative Negative 11/09/2020 5:[address] [facility] Leukocyte UA Negative Negative 11/09/2020 5:[address] [facility] Urine Microscopy Urine microscopy to follow 11/09/2020 5:[address] [facility] Urine URINE SPECIMEN OBTAINED BY CLEAN CATCH PROCEDURE / Unknown Collection / Unknown 11/09/2020 5:33 PM CDT 11/09/2020 5:[address] [facility] - 11/09/2020 5:53 PM CDT Kaitlin CRUZMARKET BASKET MAKER LAB - URINALY SIS ORDERABLES Performing Organization Address City/[facility]/ZIP Co de Phone Number [facility] [address] * HCG URINE QUALITATIVE (11/09/2020 5:33 PM CDT) Pathologist [facility] [place] hCG Qualitative Urine Negative Negative 11/09/2020 5:[address] [facility] Specific [place] UA 1.020 1.005 - 1.030 11/09/2020 5:[address] [facility] Urine URINE / Unknown Collection / Unknown 11/09/2020 5:33 PM CDT 11/09/2020 5:42 PM CDT Kaitlin Montalvo APRN-[facility] LAB - URINALY SIS ORDERABLES Performing Organization Address [facility] de Phone Number [facility] [address] * (ABNORMAL) CBC W AUTO DIFFERENTIAL (11/09/2020 5:33 PM CDT) WBC 8.4 3.8 - 9.8 x10E9/L 11/09/2020 5:[address] [facility] RBC 4.53 3.93 - 5.29 x10E12/L 11/09/2020 5:[address] [facility] Hemoglobin 14.0 10.8 - 14.5 gm/dL 11/09/2020 5:[address] [facility] Hematocrit 40.9 33.4 - 43.5 % 11/09/2020 5:[address] [facility] MCV 90.3 76.7 - 90.6 fl 11/09/2020 5:47 PM [facility] MCH 30.9(H) 24.8 - 30.2 pg 11/09/2020 5:47 PM [facility] MCHC 34.2 31.5 - 34.8 gm/dL 11/09/2020 5:47 PM [facility] RDW 13.0 12.3 - 14.6 % 11/09/2020 5:47 PM [facility] MPV 10.4 8.6 - 11.8 fl 11/09/2020 5:47 PM [facility] Platelet Count 266 175 - 345 x10E9/L 11/09/2020 5:47 PM [facility] Neutrophils % 77.9(H) 32.5 - 74.7 % 11/09/2020 5:47 PM [facility] Lymphocytes % 17.7 16.4 - 52.7 % 11/09/2020 5:47 PM [facility] Monocytes % 2.8(L) 4.1 - 12.3 % 11/09/2020 5:47 PM [facility] Eosinophils % 1.4 0.0 - 4.0 % 11/09/2020 5:47 PM [facility] Basophils % 0.1 0.0 - 0.7 % 11/09/2020 5:47 PM [facility] Immature Granulocytes 0.1 0 - 0.3 % 11/09/2020 5:47 PM [facility] Neutrophil Absolute 6.56 1.54 - 7.47 x10E9/L 11/09/2020 5:47 PM [facility] Lymphocytes Absolute 1.49 0.97 - 3.33 x10E9/L 11/09/2020 5:47 PM [facility] Monocytes Absolute 0.24 0.18 - 0.78 x10E9/L 11/09/2020 5:47 PM [facility] Eosinophils Absolute 0.12 0.02 - 0.38 x10E9/L 11/09/2020 5:47 PM [facility] Basophils Absolute 0.01 0.01 - 0.05 x10E9/L 11/09/2020 5:47 PM [facility] Immature Granulocytes Absolute 0.01 0 - 0.03 x10E9/L 11/09/2020 5:[address] [facility] nRBC Auto 0 <=0 /100 WBC 11/09/2020 5:[address] [facility] nRBC Absolute 0.00(L) 0.03 - 0.13 x10E9/L 11/09/2020 5:[address] [facility] Blood BLOOD SPECIMEN / Unknown Venipuncture / Unknown 11/09/2020 5:33 PM CDT 11/09/2020 5:42 PM CDT Kaitlin Montalvo PROSPECTING DRILLER HELPER-MARKET BASKET MAKER LAB - HEMATOL OGY ORDERABLES Performing Organization Address City/State/[facility] Co de Phone Number [facility] [address] * (ABNORMAL) COMPREHENSIVE METABOLIC PANEL (11/09/2020 5:33 PM CDT) Glucose 172(H) 70 - 125 mg/dL 11/09/2020 6:[address] [facility] Sodium 141 136 - 145 mmol/L 11/09/2020 6:[address] [facility] Potassium 3.7 3.4 - 4.5 mmol/L 11/09/2020 6:[address] [facility] Chloride 106 98 - 107 mmol/L 11/09/2020 6:[address] [facility] CO2 25 22 - 29 mmol/L 11/09/2020 6:[address] [facility] Calcium 9.3 8.4 - 10.2 mg/dL 11/09/2020 6:[address] [facility] Anion Gap 14 10 - 20 mmol/L 11/09/2020 6:[address] [facility] BUN 10.5 9.8 - 20.1 mg/dL 11/09/2020 6:[address] [facility] Creatinine 0.88 0.57 - 1.11 mg/dL 11/09/2020 6:[address] [facility] eGFR by MDRD 11/09/2020 6:[address] [facility] Comment: eGFR calculations are not performed for children under 18 years old. eGFR by MDRD 11/09/2020 6:[address] [facility] Comment: eGFR calculations are not performed for children under 18 years old. Alkaline Phosphatase 67 40 - 150 U/L 11/09/2020 6:[address] [facility] ALT 12 5 - 55 U/L 11/09/2020 6:[address] [facility] AST 17 5 - 34 U/L 11/09/2020 6:[address] [facility] Protein Total 7.2 6.4 - 8.3 gm/dL 11/09/2020 6:[address] [facility] Albumin 4.4 3.5 - 5.0 gm/dL 11/09/2020 6:[address] [facility] Globulin Total 2.8 2.6 - 4.0 gm/dL 11/09/2020 6:[address] [facility] Albumin/Globulin Ratio 1.6 0.9 - 1.6 11/09/2020 6:[address] [facility] Bilirubin Total 0.7 0.2 - 1.2 mg/dL 11/09/2020 6:[address] [facility] Blood BLOOD SPECIMEN / Unknown Venipuncture / Unknown 11/09/2020 5:33 PM CDT 11/09/2020 5:42 PM CDT Kaitlin Montalvo APRN-[employer] LAB - TESTER OPERATOR RY ORDERABLES Performing Organization Address [facility] de Phone Number [facility] [address] * ALCOHOL ETHYL BLOOD (11/09/2020 5:33 PM CDT) Ethanol <10.0 <10 mg/dL 11/09/2020 6:[address] [facility] Blood BLOOD SPECIMEN / Unknown Venipuncture / Unknown 11/09/2020 5:33 PM CDT 11/09/2020 5:[address] [facility] - 11/09/2020 6:06 PM CDT For Medical Use Only Kaitlin Montalvo APRN-[employer] B[employer] LAB - TESTER OPERATOR RY ORDERABLES Performing Organization Address [facility] Co de Phone Number [facility] [address] * TSH (11/09/2020 5:33 PM CDT) TSH 0.790 0.35 - 4.94 uIU/mL 11/09/2020 6:[address] [facility] Blood BLOOD SPECIMEN / Unknown Venipuncture / Unknown 11/09/2020 5:33 PM CDT 11/09/2020 5:42 PM CDT [facility] - TESTER OPERATOR RY ORDERABLES Performing Organization Address [facility] de Phone Number [facility] [address] [place] [address] * (ABNORMAL) SALICYLATE LEVEL BLOOD (11/09/2020 5:33 PM CDT) Salicylate <5.0(L) 15.0 - 30.0 mg/dL 11/09/2020 6:[address] [facility] Blood BLOOD SPECIMEN / Unknown Venipuncture / Unknown 11/09/2020 5:33 PM CDT 11/09/2020 5:42 PM CDT [facility] - TESTER OPERATOR RY ORDERABLES Performing Organization Address [facility] Phone Number [address] * (ABNORMAL) ACETAMINOPHEN LEVEL (11/09/2020 5:33 PM CDT) Acetaminophen 3.7(L) 10.0 - 30.0 ug/mL 11/09/2020 6:[address] [facility] Blood BLOOD SPECIMEN / Unknown Venipuncture / Unknown 11/09/2020 5:33 PM CDT 11/09/2020 5:[address] [facility] - 11/09/2020 6:06 PM CDT Significantly reduced Acetaminophen recovery has been demonstrated in situations where testing has been performed immediately after introduction of N- acetylcysteine (NAC). Kaitlin [facility] LAB - TESTER OPERATOR RY ORDERABLES Performing Organization Address [facility] de Phone Number [facility] [address] [place], [place] [address] * XR CLAVICLE LEFT 2VW (10/27/2018 4:19 PM CDT) Anatomical Region Laterality Modality Upper Extremity, Chest Radiograp hic Imaging 10/27/2018 4:20 PM CDT Impressions 10/27/2018 4:21 PM CDT No fracture or dislocation. Reading Radiologist: Lily Hubbard MD on 10/27/2018 at 4:21 PM Narrative 10/27/2018 4:21 PM CDT Exam: Left clavicle, 2 views HISTORY: Injury COMPARISON: None FINDINGS: The osseous structures are intact and well aligned. No focal soft tissue swelling or demineralization is seen. Procedure Note Lily Hubbard MD - 10/27/2018 Exam: Left clavicle, 2 views HISTORY: Injury COMPARISON: None FINDINGS: The osseous structures are intact and well aligned. No focal soft tissue swelling or demineralization is seen. IMPRESSION No fracture or dislocation. Reading Radiologist: Lily Hubbard MD on 10/27/2018 at 4:21 PM Juan Luis Beckford MD DIAGNOSTIC IMAGING O RDERABLES * XR HAND 3+ VW RIGHT (05/23/2018 5:47 PM INTERNATIONAL CONTROLLER) Anatomical Region Laterality Modality Wrist / Hand Radiographic Bud ging 05/24/2018 7:28 AM INTERNATIONAL CONTROLLER Impressions 05/24/2018 9:30 AM INTERNATIONAL CONTROLLER No fracture or dislocation. Dictated by Viktoria Blackwood MD (vice president of manufacturing). I, Homar Garcia, have personally reviewed the images and I agree with this report. Reading Radiologist: Homar Garcia MD on 05/24/2018 at 9:30 AM Narrative 05/24/2018 9:30 AM INTERNATIONAL CONTROLLER EXAMINATION: XR HAND RIGHT 3VW DATE: 05/23/2018 HISTORY: 13-year-old with pain, swelling after injury to right hand COMPARISON: No prior study is available for comparison. FINDINGS: There are no acute fractures. The joint spaces and alignment are normal. There are no radiopaque foreign bodies. There is soft tissue swelling along the posterior aspect of the hand. Procedure Note Homar Garcia MD - 05/24/2018 EXAMINATION: XR HAND RIGHT 3VW DATE: 05/23/2018 HISTORY: 13-year-old with pain, swelling after injury to right hand COMPARISON: No prior study is available for comparison. FINDINGS: There are no acute fractures. The joint spaces and alignment are normal. There are no radiopaque foreign bodies. There is soft tissue swelling along the posterior aspect of the hand. IMPRESSION No fracture or dislocation. Dictated by Viktoria Blackwood MD (vice president of manufacturing). I, Homar Garcia, have personally reviewed the images and I agree with this report. Reading Radiologist: Homar Garcia MD on 05/24/2018 at 9:30 AM Alexy Avalos MD DIAGNOSTIC IMAGING O RDERABLES * IMAGING/RADIOLOGY/XRAY RESULTS ORDER (03/18/2017 7:33 PM CDT) Anatomical Region Laterality Modality Other Narrative 03/18/2017 7:33 PM CDT Ordered by an unspecified provider. Scanned Document IMAGING * XR FOOT 3+ VW LEFT (01/23/2017 12:38 PM CDT) Anatomical Region Laterality Modality Ankle / Foot Radiographic Bud ging 01/23/2017 1:15 PM CDT Impressions 01/23/2017 1:16 PM CDT Fracture, base of the fifth metatarsal. Narrative 01/23/2017 1:16 PM CDT Left foot 3 views HISTORY: Pain. No prior examinations are available for comparison. The base of the fifth metatarsal is fractured with minimal displacement. The fracture appears to extend to the articular surface. The osseous structures are otherwise intact and well aligned. Procedure Note Lsiette Forbes MD - 01/23/2017 Left foot 3 views HISTORY: Pain. No prior examinations are available for comparison. The base of the fifth metatarsal is fractured with minimal displacement. The fracture appears to extend to the articular surface. The osseous structures are otherwise intact and well aligned. IMPRESSION Fracture, base of the fifth metatarsal. Homar Mann Jr., MD DIAGNOSTIC BUD GING ORDERABLES Care Teams Supervisor [employer] Relationship Specialty Start Date End Date Lena Sanders MD [address] [place] [address] PCP - General Family Medicine 01/23/17
--- OUTSIDE RECORDS SUMMARY | 2024-08-06 17:43 | XMS_ITS | Referral Summary ---
Author Organization [facility] Address [address] [place] [address] Care Team Providers Care Registered Nurse Fetal Name Role Phone Lena Sanders MD Primary Care Provider + [phone] Source Comments [facility],non-owned Affiliates and Associated Physician Practices is amultiple site organization consisting of ambulatory clinics and hospital sitesin [place], [place], [place] and [place]. This disclosure is being madepursuant to the Care Everywhere program and may not contain all information available regarding this patient. Last updated 18.[facility] Allergies No known active allergies Medications * [...] 11/09/2020 5:15 PM CDT Plan of Treatment Not on file Care Teams Registered Nurse Fetal Relationship Specialty Start Date End Date Lena Sanders MD [address] [place] [address] PCP - General Family Medicine 01/23/17
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
--- OUTSIDE RECORDS SUMMARY | 2024-08-06 17:43 | XMS_ITS | Clinical Summary ---
Author Organization [facility] Address [address] [place] [address] Care Team Providers Care Plant Operator Helper Name Role Phone Lena Sanders MD Primary Care Provider Allergies No known active allergies Medications valACYclovir 500 MG tablet 1 Active sertraline (ZOLOFT) 50 MG tablet Take 2 tablets (100 mg total) by mouth daily. 4 Active lurasidone (LATUDA) 20 MG tablet Take 1 tablet (20 mg total) by mouth daily with breakfast. 4 Active ondansetron (ZOFRAN-ODT) 4 MG disintegrating tablet Take 1 tablet (4 mg total) by mouth every 8 (eight) hours as needed for Nausea. 20 tablet 4 Active Encounters Date Type Department Care Team Description 07/10/2024 3:09 AM SPECIAL EDUCATION PARAEDUCATOR - 07/10/2024 4:54 AM [facility] Emergency [facility] [address] [place] [address] [place] [address] Enoch Basilio DO Vomiting Discharge Disposition: Home or Self Care (Routine Discharge) 07/10/2024 Travel 06/20/2024 3:06 PM SPECIAL EDUCATION PARAEDUCATOR - 06/20/2024 5:52 PM [facility] Emergency [facility] [address] [place] [address] [place] [address] Rainer Elise MD Vomiting Discharge Disposition: Home or Self Care (Routine Discharge) 06/20/2024 Travel from Last 3 Months Family History Medical History Relation Comments Diabetes Father Relation Status Comments Father Social History Tobacco Use Types Packs/Day Years Used Date Smoking Tobacco: Every Day Cigarettes Smokeless Tobacco: Never Alcohol Use Standard Drinks/Week Comments Never 0 (1 standard drink = 0.6 oz pur e alcohol) Comments Yes Sex and Gender Information Value Date Recorded Sex Assigned at Female 07/10/2024 3:11 AM SPECIAL EDUCATION PARAEDUCATOR Legal Sex Female 8:07 AM CDT Gender Identity Not on file Sexual Orientation Not on file Last Filed Vital Signs Vital Sign Reading Time Taken Comments Blood Pressure 113/63 07/10/2024 4:10 AM SPECIAL EDUCATION PARAEDUCATOR Pulse 79 07/10/2024 4:10 AM SPECIAL EDUCATION PARAEDUCATOR Temperature 36.6 C (97.8 F) 07/10/2024 3:17 AM SPECIAL EDUCATION PARAEDUCATOR Respiratory Rate 15 07/10/2024 4:10 AM SPECIAL EDUCATION PARAEDUCATOR Oxygen Saturation 100% 07/10/2024 4:10 AM SPECIAL EDUCATION PARAEDUCATOR Inhaled Oxygen Concentration - - Weight 56.7 kg (125 lb) 07/10/2024 3:17 AM SPECIAL EDUCATION PARAEDUCATOR Height 167.6 cm (5' 6 ) 07/10/2024 3:17 AM SPECIAL EDUCATION PARAEDUCATOR Body Mass Index 20.18 07/10/2024 3:17 AM SPECIAL EDUCATION PARAEDUCATOR Plan of Treatment Health Maintenance Due Date Last Done Comments Annual Physical 2006 Pneumococcal Vaccine: Pediatrics (0 to 5 Years) and At-Risk Patients (6 to 64 Years) (1 of 2 - PCV) 2009 05/22/2004, 2003, 2003, Additional history exists Meningococcal B Vaccine (1 of 2 - Standard) 2019 Hepatitis C 2021 COVID-19 Vaccine ( season) 2024 Influenza Adult (#1) 2024 DTaP, Tdap and Td Vaccines (7 - Td or Tdap) 01/18/2025 01/18/2015, 12/15/2007, 12/15/2007, Additional history exists Cervical Cancer Screening Pap Smear (Age 21 to 29) Every 3 Years 07/08/2027 07/08/2024 Cervical Cancer Screening 07/08/2027 RSV Immunization or 60+ Years (1 - 1-dose 75+ series) 2078 Hepatitis B Vaccines Completed 2003, 2003, 2003, Additional history exists Meningococcal Vaccine Aged Out 01/18/2015 No johan lorena eligible based on patient's age to complete this topic HPV Vaccines Completed 03/05/2016, 10/22, 08/27/2015 RSV Immunizations Under 20 Months Aged Out No longer eligible based on patient's age to complete this topic Procedures Procedure Name Priority Date/Time Associated Diagnosis Comments URINALYSIS AUTO DIP STAT 07/10/2024 4 :11 AM SPECIAL EDUCATION PARAEDUCATOR INFLUENZA A & B STAT 07/10/2024 3:15 AM SPECIAL EDUCATION PARAEDUCATOR CORONAVIRUS (COVID 19) STAT 3:15 AM SPECIAL EDUCATION PARAEDUCATOR HCG QUANT (SERUM)-CHORIONIC GONADOTROPIN STAT 07/10/2024 3:15 AM SPECIAL EDUCATION PARAEDUCATOR COMPREHENSIVE METABOLIC PANEL STAT 07/10/2024 3:15 AM SPECIAL EDUCATION PARAEDUCATOR CBC W/DIFF AUTOMATED STAT 07/10/2024 3:15 AM SPECIAL EDUCATION PARAEDUCATOR US OB TRANSVAG STAT 06/20/2024 4:13 PM SPECIAL EDUCATION PARAEDUCATOR HCG QUANT (SERUM)-CHORIONIC GONADOTROPIN STAT 06/20/2024 3:18 PM SPECIAL EDUCATION PARAEDUCATOR COMPREHENSIVE METABOLIC PANEL STAT 06/20/2024 3:18 PM SPECIAL EDUCATION PARAEDUCATOR CBC W/DIFF AUTOMATED STAT 06/20/2024 3:18 PM SPECIAL EDUCATION PARAEDUCATOR from Last 3 Months Results * (ABNORMAL) URINALYSIS AUTO DIP (07/10/2024 4:11 AM SPECIAL EDUCATION PARAEDUCATOR) COLOR (U) ORANGE(A) YELLOW 07/10/2024 4:26 AM SPECIAL EDUCATION PARAEDUCATOR [facility] TRANSPARENCY CLOUDY(A) CLEAR 07/10/2024 4:26 AM SPECIAL EDUCATION PARAEDUCATOR [facility] SPECIFIC GRAVITY (U) 1.020 1.010 - 1.025 07/10/2024 4:26 AM SPECIAL EDUCATION PARAEDUCATOR [facility] U PH TRACE 5.0 - 8.5 07/10/2024 4:26 AM SPECIAL EDUCATION PARAEDUCATOR [facility] LEUKOCYTES (U) NEGATIVE NEGATIVE 07/10/2024 4:26 AM SPECIAL EDUCATION PARAEDUCATOR [facility] NITRITES NEGATIVE NEGATIVE 07/10/2024 4:26 AM SPECIAL EDUCATION PARAEDUCATOR [facility] PROTEIN RANDOM (U) TRACE(A) NEGATIVE 07/10/2024 4:26 AM SPECIAL EDUCATION PARAEDUCATOR [facility] GLUCOSE (U) NEGATIVE NEGATIVE 07/10/2024 4:26 AM SPECIAL EDUCATION PARAEDUCATOR [facility] KETONES MG/DL (U) NEGATIVE NEGATIVE 07/10/2024 4:26 AM SPECIAL EDUCATION PARAEDUCATOR [facility] UROBILINOGEN 0.2 0.2 - 1.0 EU/DL 07/10/2024 4:26 AM SPECIAL EDUCATION PARAEDUCATOR [facility] BILIRUBIN (U) NEGATIVE NEGATIVE 07/10/2024 4:26 AM SPECIAL EDUCATION PARAEDUCATOR [facility] BLOOD (U) NEGATIVE NEGATIVE 07/10/2024 4:26 AM SPECIAL EDUCATION PARAEDUCATOR [facility] URINE SPECIMEN OBTAINED BY CLEAN CATCH PROCEDURE / Unknown 07/10/2024 4:11 AM SPECIAL EDUCATION PARAEDUCATOR Enoch Basilio DO URINE ORDERABLES Final Result [facility] [address] [facility] [place] [address], * CORONAVIRUS (COVID-19) MOLECULAR (07/10/2024 3:15 AM SPECIAL EDUCATION PARAEDUCATOR) CORONAVIRUS SARS COV 2 RNA NEGATIVE NEGATIVE 07/10/2024 3:51 AM SPECIAL EDUCATION PARAEDUCATOR [facility] Comment: NEGATIVE RESULTS DO NOT RULE OUT COVID 19 AND SHOULD NOT BE USED THE SOLE BASIS FOR TREATMENT OR PATIENT MANAGEMENT DECISIONS, INCLUDING INFECTION CONTROL DECISIONS. NEGATIVE RESULTS SHOULD BE CONSIDERED IN THE CONTEXT OF A PATIENT'S RECENT EXPOSURES, HISTORY AND THE PRESENCE OF CLINICAL SIGNS AND SYMPTOMS CONSISTENT WITH COVID 19. THE ID NOW COVID-19 2.0 TEST HAS BEEN AUTHORIZED BY THE FDA UNDER EAU FOR USE BY AUTHORIZED LABORATORIES. PERFORMED BY NUCLEIC ACID AMPLIFICATION FOR MOLECULAR QUALITATIVE DETECTION OF SARS-COV-2. SPECIMEN TYPE NASAL 07/10/2024 3:16 AM SPECIAL EDUCATION PARAEDUCATOR [facility] NASOPHARYNGEAL SWAB / Unknown 07/10/2024 3:15 AM SPECIAL EDUCATION PARAEDUCATOR Enoch Basilio MICROBIOLOGY - GENERAL ORDERAB LES Final Result Performing Organization Address [facility] Co de Phone Number [facility] [address] [facility] [place] [address], * INFLUENZA A & B (07/10/2024 3:15 AM SPECIAL EDUCATION PARAEDUCATOR) SPECIMEN TYPE NASOPHARYNX 07/10/2024 3:16 AM SPECIAL EDUCATION PARAEDUCATOR [facility] INFLUENZA A NEGATIVE NEGATIVE 07/10/2024 3:52 AM SPECIAL EDUCATION PARAEDUCATOR [facility] INFLUENZA B NEGATIVE NEGATIVE 07/10/2024 3:52 AM SPECIAL EDUCATION PARAEDUCATOR [facility] NASAL STRUCTURE / Unknown 07/10/2024 3:15 AM SPECIAL EDUCATION PARAEDUCATOR Enoch Basilio DO MICROBIOLOGY - GENERAL ORDERAB LES Final Result Performing Organization Address [facility] de Phone Number [facility] [address] [facility] [address] [place] [address], * (ABNORMAL) COMPREHENSIVE METABOLIC PANEL (07/10/2024 3:15 AM SPECIAL EDUCATION PARAEDUCATOR) Only the most recent of2 resultswithin the time period is included. GLUCOSE 100(H) 70 - 99 MG/DL 07/10/2024 4:12 AM SPECIAL EDUCATION PARAEDUCATOR [facility] BUN 6(L) 7 - 18 MG/DL 07/10/2024 4:12 AM SPECIAL EDUCATION PARAEDUCATOR [facility] CREATININE S/P/B 0.64 0.50 - 1.20 MG/DL 07/10/2024 4:12 AM SPECIAL EDUCATION PARAEDUCATOR [facility] SODIUM S/P/B 136 136 - 145 MMOL/L 07/10/2024 4:12 AM SPECIAL EDUCATION PARAEDUCATOR [facility] POTASSIUM S/P/B 3.8 3.5 - 5.1 MMOL/L 07/10/2024 4:12 AM [facility] CHLORIDE S/P/B 101 100 - 108 MMOL/L 07/10/2024 4:12 AM [facility] CO2 26.0 21.0 - 32.0 MMOL/L 07/10/2024 4:12 AM [facility] CALCIUM S/P/B 8.3(L) 8.5 - 10.1 MG/DL 07/10/2024 4:12 AM [facility] BILIRUBIN TOTAL S/P/B 0.8 0.2 - 1.2 MG/DL 07/10/2024 4:12 AM [facility] Comment: THIS ASSAY IS NOT RECOMMENDED FOR PATIENTS UNDERGOING TREATMENT WITH ELTROMBOPAG DUE TO THE POTENTIAL FOR FALSELY ELEVATED RESULTS. TOTAL PROTEIN S/P/B 6.7 6.4 - 8.2 G/DL 07/10/2024 4:12 AM [facility] ALBUMIN S/P/B 3.9 3.4 - 5.0 G/DL 07/10/2024 4:12 AM [facility] AST 18 15 - 37 U/L 07/10/2024 4:12 AM [facility] ALT 17 14 - 55 U/L 07/10/2024 4:12 AM [facility] ALKALINE PHOSPHATASE S/P/B 41(L) 50 - 136 U/L 07/10/2024 4:12 AM [facility] ANION GAP 9.0 5.0 - 15.0 MMOL/L 07/10/2024 4:12 AM [facility] BUN CREATININE RATIO 9.4 6 - 26 07/10/2024 4:12 AM [facility] A/G RATIO 1.4 1.0 - 2.5 RATIO 07/10/2024 4:12 AM [facility] GFR ESTIMATE >90 >90 ML/MIN/1.7 3 M2 07/10/2024 4:12 AM [facility] Comment: NOTE: eGFR is not calculated for patients <18 years of age. This is an estimated GFR calculation using the new CKD EPI creatinine equation without race and so does not require a correction factor for race. This estimated GFR should not be used for calculating drug doses. 07/10/2024 3:15 AM SPECIAL EDUCATION PARAEDUCATOR Enoch Astorga [facility] LABORATORY Final Result Performing Organization Address [facility] [place] [address], [place] * (ABNORMAL) HCG QUANTITATIVE SERUM (07/10/2024 3:15 AM SPECIAL EDUCATION PARAEDUCATOR) Only the most recent of2 resultswithin the time period is included. Pathologist [facility] HCG QUANTITATIVE >200,000( H) 0.0 - 6.0 MIU/ML 07/10/2024 4:13 AM SPECIAL EDUCATION PARAEDUCATOR [facility] Comment: WEEKS OF REFERENCE RANGES NON- FEMALE 0-6 0.2 - 1 5 - 50 1 - 2 50 - 500 2 - 3 100 - 5000 3 - 4 500 - 10,000 4 - 5 1000 - 50,000 5 - 6 10,000 - 100,000 6 - 8 15,000 - 200,000 2 - 3 MONTHS 10,000 - 100,000 CRITICAL VALUE CALLED RESULT RESULT REPORTED TO ROMAINE IN ED @0412 CL 07/10/2024 3:15 AM SPECIAL EDUCATION PARAEDUCATOR Enoch Basilio DO LABORATORY Final Result Performing Organization Address [facility] [place] [address], [place] * (ABNORMAL) CBC W/DIFF AUTOMATED (07/10/2024 3:15 AM SPECIAL EDUCATION PARAEDUCATOR) Only the most recent of2 resultswithin the time period is included. [facility] WBC 8.41 4.50 - 11.00 x10'3/uL 07/10/2024 3:30 AM SPECIAL EDUCATION PARAEDUCATOR [facility] RBC 4.27 4.00 - 5.20 x10'6/uL 07/10/2024 3:30 AM SPECIAL EDUCATION PARAEDUCATOR [facility] HGB 12.9 12.0 - 16.0 G/DL 07/10/2024 3:30 AM [facility] HCT 37.0(L) 38.0 - 48.0 % 07/10/2024 3:30 AM [facility] MCV 86.7 80.0 - 100.0 FL 07/10/2024 3:30 AM [facility] MCH 30.2 26.0 - 34.0 PG 07/10/2024 3:30 AM [facility] MCHC 34.9 31.0 - 37.0 G/DL 07/10/2024 3:30 AM [facility] RDW 12.4 11.6 - 14.8 % 07/10/2024 3:30 AM [facility] PLT 260 130 - 400 x10'3/uL 07/10/2024 3:30 AM [facility] MPV 10.8 7.0 - 12.0 FL 07/10/2024 3:30 AM [facility] CBC COMMENT AUTOMATED RBC MORPHOLOGY AND PLATELET EVALUATION NORMAL 07/10/2024 3:30 AM [facility] NEUTROPHILS % 81.5(H) 40.0 - 74.0 % 07/10/2024 3:30 AM [facility] LYMPHOCYTES % 13.8(L) 14.0 - 46.0 % 07/10/2024 3:30 AM [facility] MONOCYTES % 3.7(L) 4.0 - 13.0 % 07/10/2024 3:30 AM [facility] EOSINOPHILS 0.6 0.0 - 7.0 % 07/10/2024 3:30 AM [facility] BASOPHILS 0.2 0.0 - 3.0 % 07/10/2024 3:30 AM [facility] IMMATURE GRANS % 0.2 0.0 - 0.43 % 07/10/2024 3:30 AM [facility] NRBC % 0.0 % 07/10/2024 3:30 AM SPECIAL EDUCATION PARAEDUCATOR [facility] ABS. NEUTROPHILS TOTAL 6.85 1.69 - 7.81 x10'3/uL 07/10/2024 3:30 AM SPECIAL EDUCATION PARAEDUCATOR [facility] ABS. LYMPHOCYTES 1.16 0.21 - 5.42 x10'3/uL 07/10/2024 3:30 AM SPECIAL EDUCATION PARAEDUCATOR [facility] ABS. MONOCYTES 0.31 0.04 - 1.37 x10'3/uL 07/10/2024 3:30 AM SPECIAL EDUCATION PARAEDUCATOR [facility] ABS. EOSINOPHILS 0.05 0.00 - 0.68 x10'3/uL 07/10/2024 3:30 AM SPECIAL EDUCATION PARAEDUCATOR [facility] ABS. BASOPHILS 0.02 0.00 - 0.08 x10'3/uL 07/10/2024 3:30 AM [facility] ABS. IMMATURE GRANULOCYTES 0.02 0.00 - 0.06 x10'3/uL 07/10/2024 3:30 AM SPECIAL EDUCATION PARAEDUCATOR [facility] ABS. NUCLEATED RBC'S 0.00 0.00 - 0.01 x10'3/uL 07/10/2024 3:30 AM SPECIAL EDUCATION PARAEDUCATOR [facility] 07/10/2024 3:15 AM SPECIAL EDUCATION PARAEDUCATOR Enoch Basilio DO LABORATORY Final Result Performing Organization Address City/State/[facility] Co de Phone Number [address] [place] [address], [place] * US OB TRANSVAG (06/20/2024 4:13 PM SPECIAL EDUCATION PARAEDUCATOR) Anatomical Region Laterality Modality Abdomen, Pelvis Computed Tomogra phy 06/20/2024 4:36 PM SPECIAL EDUCATION PARAEDUCATOR Impressions 06/20/2024 4:44 PM SPECIAL EDUCATION PARAEDUCATOR IMPRESSION: 1. Single, live intrauterine gestation. 2. Small collections of perigestational hemorrhage. 3. Follow-up ultrasound and OB evaluation recommended. Referred By: Interpreted By: Denver Meléndez MD, 06/20/2024 4:36 PM Narrative 06/20/2024 4:44 PM SPECIAL EDUCATION PARAEDUCATOR [address] [place] [address] EXAM: US OB TRANSVAG DATE: 06/20/2024 COMPARISON: None INDICATION: Right-sided abdominal pain and vomiting. LMP 05/10/2024. TECHNIQUE: Grayscale, color Doppler, and spectral waveform analysis performed. Transvaginal scanning. FINDINGS: Grayscale, color Doppler, and spectral waveform analysis performed. Normal appearance of the ovaries. Blood flow shown bilaterally with Doppler. There is an intrauterine gestational sac containing a yolk sac and tiny embryo. Age by crown-rump length is 5-6 weeks and correlates with the age by LMP. Estimated delivery date is 02/15/2025. Embryonic heart rate is 91 bpm. Adjacent to the inferior margin of the gestational sac and its right side, are small crescentic areas of probable hemorrhage. Greatest thickness of each is about 2 mm. Early in the exam, there is a uniform area of increased echogenicity present with mass effect on the lower gestational sac. This is presumably a contraction as it is not present later. Procedure Note Denver Meléndez MD - 06/20/[address] [place] [address] EXAM: US OB TRANSVAG DATE: 06/20/2024 COMPARISON: None INDICATION: Right-sided abdominal pain and vomiting. LMP 05/10/2024. TECHNIQUE: Grayscale, color Doppler, and spectral waveform analysisperformed. Transvaginal scanning. FINDINGS: Grayscale, color Doppler, and spectral waveform analysisperformed. Normal appearance of the ovaries. Blood flow shown bilaterally withDoppler. There is an intrauterine gestational sac containing a yolk sac and tinyembryo. Age by crown-rump length is 5-6 weeks and correlates with the ageby LMP. Estimated delivery date is 02/15/2025. Embryonic heart rate is 91bpm. Adjacent to the inferior margin of the gestational sac and its right side,are small crescentic areas of probable hemorrhage. Greatest thickness ofeach is about 2 mm. Early in the exam, there is a uniform area of increased echogenicitypresent with mass effect on the lower gestational sac. This is presumablya contraction as it is not present later. IMPRESSION: 1. Single, live intrauterine gestation. 2. Small collections of perigestational hemorrhage. 3. Follow-up ultrasound and OB evaluation recommended. Referred By: Interpreted By: Denver Meléndez MD, 06/20/2024 4:36 PM us Rainer Elise MD ULTRASOUND Final Result from Last 3 Months Insurance [employer] Care Teams Plant Operator Helper Relationship Specialty Start Date End Date Lena Sanders MD [address] [place] [address] [place] [address] PCP - General FAMILY PRACTICE 07/21/23
--- OUTSIDE RECORDS SUMMARY | 2024-08-06 17:43 | XMS_ITS | Clinical Summary ---
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 Given having panic attack after seeing the adopted mom, will need to discuss that with the SW and [facility]. - Follow up with social work and DCFS; won't discharge until cleared by both - F/u with SW/DCFS to see if Dania can have visits from her boyfriend while she is inpatient Assessment & Plan (03/10/2021 8:02 AM CDT): (refer to depression for more details) Adilene has been adopted since 2016. Reports that she doesn't get along very well with her parents at home. She feels that they are unsupportive and they don't listen to her. Denies feeling unsafe or any homicidal ideations. Childrens division were called on 01/17. Hotline placed for abandonment on 01/20 because mom doesn't want to take her back now that she is cleared for discharge. [place] [facility] senior investigator met with the patient on 01/21 and now, she's in their custody and will remain in their custody even when turning 16. Dania usually upset after ex foster mom and dad visit. SW talking to her about revising visitor list, but Dania is still undecided. Given having panic attack after seeing the adopted mom, will need to discuss that with the SW and [facility]. - Follow up with social work and DCFS; won't discharge until cleared by both - F/u with SW/DCFS to see if Dania can have visits from her boyfriend while she is inpatient Assessment & Plan (03/09/2021 11:00 AM CDT): (refer to depression for more details) Adilene has been adopted since 2017. Reports that she doesn't get along very well with her parents at home. She feels that they are unsupportive and they don't listen to her. Denies feeling unsafe or any homicidal ideations. Childrens division were called on 01/17. Hotline placed for abandonment on 01/20 because mom doesn't want to take her back now that she is cleared for discharge. [place] [facility] senior investigator met with the patient on 01/21 and now, she's in their custody and will remain in their custody even when turning 16. Dania usually upset after ex foster mom and dad visit. SW talking to her about revising visitor list, but Dania is still undecided. Given having panic attack after seeing the adopted mom, will need to discuss that with the SW and [facility]. - Follow up with social work and DCFS; won't discharge until cleared by both - F/u with SW/DCFS to see if Dania can have visits from her boyfriend while she is inpatient Assessment & Plan (03/08/2021 7:31 AM CDT): (refer to depression for more details) Adilene has been adopted since 2017. Reports that she doesn't get along very well with her parents at home. She feels that they are unsupportive and they don't listen to her. Denies feeling unsafe or any homicidal ideations. Childrens division were called on 01/17. Hotline placed for abandonment on 01/20 because mom doesn't want to take her back now that she is cleared for discharge. [facility] senior investigator met with the patient on 01/21 and now, she's in their custody and will remain in their custody even when turning 16. Dania usually upset after ex foster mom and dad visit. SW talking to her about revising visitor list, but Dania is still undecided. Given having panic attack after seeing the adopted mom, will need to discuss that with the SW and [facility]. - Follow up with social work and DCFS; won't discharge until cleared by both - F/u with SW/DCFS to see if Dania can have visits from her boyfriend while she is inpatient Assessment & Plan (03/07/2021 6:51 AM CDT): (refer to depression for more details) Adilene has been adopted since 2016. Reports that she doesn't get along very well with her parents at home. She feels that they are unsupportive and they don't listen to her. Denies feeling unsafe or any homicidal ideations. Childrens division were called on 01/17. Hotline placed for abandonment on 01/20 because mom doesn't want to take her back now that she is cleared for discharge. [facility] met with the patient on 01/21 and now, she's in their custody and will remain in their custody even when turning 16. Dania usually upset after ex foster mom and dad visit. SW talking to her about revising visitor list, but Dania is still undecided. Given having panic attack after seeing the adopted mom, will need to discuss that with the SW and [facility]. - Follow up with social work and DCFS; won't discharge until cleared by both - F/u with SW/DCFS to see if Dania can have visits from her boyfriend while she is inpatient Assessment & Plan (03/06/2021 6:41 AM CDT): (refer to depression for more details) Adilene has been adopted since 2016. Reports that she doesn't get along very well with her parents at home. She feels that they are unsupportive and they don't listen to her. Denies feeling unsafe or any homicidal ideations. Childrens division were called on 01/17. Hotline placed for abandonment on 01/20 because mom doesn't want to take her back now that she is cleared for discharge. [facility] met with the patient on 01/21 and now, she's in their custody and will remain in their custody even when turning 16. Dania usually upset after ex foster mom and dad visit. SW talking to her about revising visitor list, but Dania is still undecided. Given having panic attack after seeing the adopted mom, will need to discuss that with the SW and [facility]. - Follow up with social work and DCFS; won't discharge until cleared by both - F/u with SW/DCFS to see if Dania can have visits from her boyfriend while she is inpatient Assessment & Plan (03/05/2021 7:03 AM CDT): (refer to depression for more details) Adilene has been adopted since 2016. Reports that she doesn't get along very well with her parents at home. She feels that they are unsupportive and they don't listen to her. Denies feeling unsafe or any homicidal ideations. Childrens division were called on 01/17. Hotline placed for abandonment on 01/20 because mom doesn't want to take her back now that she is cleared for discharge. [facility] met with the patient on 01/21 and now, she's in their custody and will remain in their custody even when turning 16. Dania usually upset after ex foster mom and dad visit. SW talking to her about revising visitor list, but Dania is still undecided. Given having panic attack after seeing the adopted mom, will need to discuss that with the SW and [facility]. - Follow up with social work and DCFS; won't discharge until cleared by both - F/u with SW/DCFS to see if Dania can have visits from her boyfriend while she is inpatient Assessment & Plan (03/04/2021 2:01 PM CDT): (refer to depression for more details) Adilene has been adopted since 2016. Reports that she doesn't get along very well with her parents at home. She feels that they are unsupportive and they don't listen to her. Denies feeling unsafe or any homicidal ideations. Childrens division were called on 01/17. Hotline placed for abandonment on 01/20 because mom doesn't want to take her back now that she is cleared for discharge. [facility] met with the patient on 01/21 and now, she's in their custody and will remain in their custody even when turning 16. Dania usually upset after ex foster mom and dad visit. SW talking to her about revising visitor list, but Dania is still undecided. Given having panic attack after seeing the adopted mom, will need to discuss that with the SW and [facility]. - Follow up with social work and DCFS; won't discharge until cleared by both - F/u with SW/DCFS to see if Dania can have visits from her boyfriend while she is inpatient Assessment & Plan (03/03/2021 6:39 AM CDT): (refer to depression for more details) Adilene has been adopted since 2016. Reports that she doesn't get along very well with her parents at home. She feels that they are unsupportive and they don't listen to her. Denies feeling unsafe or any homicidal ideations. Childrens division were called on 01/17. Hotline placed for abandonment on 01/20 because mom doesn't want to take her back now that she is cleared for discharge. [facility] senior [facility] met with the patient on 01/21 and now, she's in their custody and will remain in their custody even when turning 16. Dania usually upset after ex foster mom and dad visit. SW talking to her about revising visitor list, but Dania is still undecided. Given having panic attack after seeing the adopted mom, will need to discuss that with the SW and [facility]. - Follow up with social work and DCFS; won't discharge until cleared by both - F/u with SW/DCFS to see if Dania can have visits from her boyfriend while she is inpatient Assessment & Plan (03/02/2021 6:28 AM CDT): (refer to depression for more details) Adilene has been adopted since 2016. Reports that she doesn't get along very well with her parents at home. She feels that they are unsupportive and they don't listen to her. Denies feeling unsafe or any homicidal ideations. Childrens division were called on 01/17. Hotline placed for abandonment on 01/20 because mom doesn't want to take her back now that she is cleared for discharge. [facility] met with the patient on 01/21 and now, she's in their custody and will remain in their custody even when turning 16. Dania usually upset after ex foster mom and dad visit. SW talking to her about revising visitor list, but Dania is still undecided. Given having panic attack after seeing the adopted mom, will need to discuss that with the SW and [facility]. - Follow up with social work and DCFS; won't discharge until cleared by both - F/u with SW/DCFS to see if Dania can have visits from her boyfriend while she is inpatient Assessment & Plan (03/01/2021 3:34 PM CDT): (refer to depression for more details) Adilene has been adopted since 2016. Reports that she doesn't get along very well with her parents at home. She feels that they are unsupportive and they don't listen to her. Denies feeling unsafe or any homicidal ideations. Childrens division were called on 01/17. Hotline placed for abandonment on 01/20 because mom doesn't want to take her back now that she is cleared for discharge. [facility] senior [facility] met with the patient on 01/21 and now, she's in their custody and will remain in their custody even when turning 16. Dania usually upset after ex foster mom and dad visit. SW talking to her about revising visitor list, but Dania is still undecided. Given having panic attack after seeing the adopted mom, will need to discuss that with the SW and [facility]. - Follow up with social work and DCFS; won't discharge until cleared by both - F/u with SW/DCFS to see if Dania can have visits from her boyfriend while she is inpatient Assessment & Plan (02/28/2021 5:59 PM CDT): (refer to depression for more details) Adilene has been adopted since 2016. Reports that she doesn't get along very well with her parents at home. She feels that they are unsupportive and they don't listen to her. Denies feeling unsafe or any homicidal ideations. Childrens division were called on 01/17. Hotline placed for abandonment on 01/20 because mom doesn't want to take her back now that she is cleared for discharge. [place] [facility] met with the patient on 01/21 and now, she's in their custody and will remain in their custody even when turning 16. Dania usually upset after ex foster mom and dad visit. SW talking to her about revising visitor list, but Dania is still undecided. Given having panic attack after seeing the adopted mom, will need to discuss that with the SW and [facility]. - Follow up with social work and DCFS; won't discharge until cleared by both - F/u with SW/DCFS to see if Dania can have visits from her boyfriend while she is inpatient Assessment & Plan (02/27/2021 7:17 AM CDT): (refer to depression for more details) Adilene has been adopted since 2016. Reports that she doesn't get along very well with her parents at home. She feels that they are unsupportive and they don't listen to her. Denies feeling unsafe or any homicidal ideations. Childrens division were called on 01/17. Hotline placed for abandonment on 01/20 because mom doesn't want to take her back now that she is cleared for discharge. [facility] senior [facility] met with the patient on 01/21 and now, she's in their custody and will remain in their custody even when turning 16. Dania usually upset after ex foster mom and dad visit. SW talking to her about revising visitor list, but Dania is still undecided. Given having panic attack after seeing the adopted mom, will need to discuss that with the SW and [facility]. - Follow up with social work and DCFS; won't discharge until cleared by both - F/u with SW/DCFS to see if Dania can have visits from her boyfriend while she is inpatient Assessment & Plan (02/26/2021 10:12 AM CDT): (refer to depression for more details) Adilene has been adopted since 2016. Reports that she doesn't get along very well with her parents at home. She feels that they are unsupportive and they don't listen to her. Denies feeling unsafe or any homicidal ideations. Childrens division were called on 01/17. Hotline placed for abandonment on 01/20 because mom doesn't want to take her back now that she is cleared for discharge. [facility] senior investigator met with the patient on 01/21 and now, she's in their custody and will remain in their custody even when turning 16. Dania usually upset after ex foster mom and dad visit. SW talking to her about revising visitor list, but Dania is still undecided. Given having panic attack after seeing the adopted mom, will need to discuss that with the SW and [facility]. - Follow up with social work and DCFS; won't discharge until cleared by both - F/u with SW/DCFS to see if Dania can have visits from her boyfriend while she is inpatient Assessment & Plan (02/24/2021 10:29 AM CDT): (refer to depression for more details) Adilene has been adopted since 2017. Reports that she doesn't get along very well with her parents at home. She feels that they are unsupportive and they don't listen to her. Denies feeling unsafe or any homicidal ideations. Children division were called on 01/17. Hotline placed for abandonment on 01/20 because mom doesn't want to take her back now that she is cleared for discharge. [facility] senior investigator met with the patient on 01/21 and now, she's in their custody and will remain in their custody even when turning 16. Dania usually upset after ex foster mom and dad visit. SW talking to her about revising visitor list, but Dania is still undecided. - Follow up with social work and DCFS; won't discharge until cleared by both - F/u with SW/DCFS to see if Dania can have visits from her boyfriend while she is inpatient Assessment & Plan (02/23/2021 1:11 PM CDT): (refer to depression for more details) Adilene has been adopted since 2016. Reports that she doesn't get along very well with her parents at home. She feels that they are unsupportive and they don't listen to her. Denies feeling unsafe or any homicidal ideations. Childrens division were called on 01/17. Hotline placed for abandonment on 01/20 because mom doesn't want to take her back now that she is cleared for discharge. [facility] senior investigator met with the patient on 01/21 and now, she's in their custody and will remain in their custody even when turning 16. Dania usually upset after ex foster mom and dad visit. SW talking to her about revising visitor list, but Dania is still undecided. - Follow up with social work and DCFS; won't discharge until cleared by both - F/u with SW/DCFS to see if Dania can have visits from her boyfriend while she is inpatient Assessment & Plan (02/22/2021 5:57 PM CDT): (refer to depression for more details) Adilene has been adopted since 2016. Reports that she doesn't get along very well with her parents at home. She feels that they are unsupportive and they don't listen to her. Denies feeling unsafe or any homicidal ideations. Childrens division were called on 01/17. Hotline placed for abandonment on 01/20 because mom doesn't want to take her back now that she is cleared for discharge. [facility] senior [facility] met with the patient on 01/21 and now, she's in their custody and will remain in their custody even when turning 16. Dania usually upset after ex foster mom and dad visit. SW talking to her about revising visitor list, but Dania is still undecided. - Follow up with social work and DCFS; won't discharge until cleared by both - F/u with SW/DCFS to see if Dania can have visits from her boyfriend while she is inpatient Assessment & Plan (02/21/2021 8:32 AM CDT): (refer to depression for more details) Adilene has been adopted since 2017. Reports that she doesn't get along very well with her parents at home. She feels that they are unsupportive and they don't listen to her. Denies feeling unsafe or any homicidal ideations. Children division were called on 01/17. Hotline placed for abandonment on 01/20 because mom doesn't want to take her back now that she is cleared for discharge. [facility] senior investigator met with the patient on 01/21 and now, she's in their custody and will remain in their custody even when turning 16. Dania usually upset after ex foster mom and dad visit. SW will talk to her about revising visitor list. - Follow up with social work and DCFS; won't discharge until cleared by both Assessment & Plan (02/20/2021 10:25 AM CDT): (refer to depression for more details) Adilene has been adopted since 2017. Reports that she doesn't get along very well with her parents at home. She feels that they are unsupportive and they don't listen to her. Denies feeling unsafe or any homicidal ideations. [facility] division were called on 01/17. Hotline placed for abandonment on 01/20 because mom doesn't want to take her back now that she is cleared for discharge. [facility] senior investigator met with the patient on 01/21 and now, she's in their custody and will remain in their custody even when turning 16. Dania usually upset after ex foster mom and dad visit. SW will talk to her about revising visitor list. - Follow up with social work and DCFS; won't discharge until cleared by both Assessment & Plan (02/19/2021 11:44 AM CDT): (refer to depression for more details) Adilene has been adopted since 2017. Reports that she doesn't get along very well with her parents at home. She feels that they are unsupportive and they don't listen to her. Denies feeling unsafe or any homicidal ideations. Childrens division were called on 01/17. Hotline placed for abandonment on 01/20 because mom doesn't want to take her back now that she is cleared for discharge. [facility] senior investigator met with the patient on 01/21 and now, she's in their custody and will remain in their custody even when turning 16. Dania usually upset after ex foster mom and dad visit. SW will talk to her about revising visitor list. - Follow up with social work and DCFS; won't discharge until cleared by both Assessment & Plan (02/18/2021 5:57 PM CDT): (refer to depression for more details) Adilene has been adopted since 2016. Reports that she doesn't get along very well with her parents at home. She feels that they are unsupportive and they don't listen to her. Denies feeling unsafe or any homicidal ideations. Childrens division were called on 01/17. Hotline placed for abandonment on 01/20 because mom doesn't want to take her back now that she is cleared for discharge. [facility] senior investigator met with the patient on 01/21 and now, she's in their custody and will remain in their custody even when turning 16. Dania usually upset after ex foster mom and dad visit. SW will talk to her about revising visitor list. - Follow up with social work and DCFS; won't discharge until cleared by both Assessment & Plan (02/17/2021 12:53 PM CDT): (refer to depression for more details) Adilene has been adopted since 2016. Reports that she doesn't get along very well with her parents at home. She feels that they are unsupportive and they don't listen to her. Denies feeling unsafe or any homicidal ideations. Childrens division were called on 01/17. Hotline placed for abandonment on 01/20 because mom doesn't want to take her back now that she is cleared for discharge. [facility] senior investigator met with the patient on 01/21 and now, she's in their custody and will remain in their custody even when turning 16. Dania usually upset after ex foster mom and dad visit. SW will talk to her about revising visitor list. - Follow up with social work and DCFS; won't discharge until cleared by both Assessment & Plan (02/16/2021 12:00 PM CDT): (refer to depression for more details) Adilene has been adopted since 2016. Reports that she doesn't get along very well with her parents at home. She feels that they are unsupportive and they don't listen to her. Denies feeling unsafe or any homicidal ideations. Childrens division were called on 01/17. Hotline placed for abandonment on 01/20 because mom doesn't want to take her back now that she is cleared for discharge. [facility] senior investigator met with the patient on 01/21 and now, she's in their custody and will remain in their custody even when turning 16. Dania usually upset after ex foster mom and dad visit. SW will talk to her about revising visitor list. - Follow up with social work and DCFS; won't discharge until cleared by both Assessment & Plan (02/15/2021 12:50 PM CDT): (refer to depression for more details) Adilene has been adopted since 2016. Reports that she doesn't get along very well with her parents at home. She feels that they are unsupportive and they don't listen to her. Denies feeling unsafe or any homicidal ideations. Childrens division were called on 01/17. Hotline placed for abandonment on 01/20 because mom doesn't want to take her back now that she is cleared for discharge. [facility] senior investigator met with the patient on 01/21 and now, she's in their custody and will remain in their custody even when turning 16. Dania usually upset after ex foster mom and dad visit. SW will talk to her about revising visitor list. - Follow up with social work and DCFS; won't discharge until cleared by both Assessment & Plan (02/14/2021 10:33 AM CDT): (refer to depression for more details) Adilene has been adopted since 2016. Reports that she doesn't get along very well with her parents at home. She feels that they are unsupportive and they don't listen to her. Denies feeling unsafe or any homicidal ideations. Childrens division were called on 01/17. Hotline placed for abandonment on 01/20 because mom doesn't want to take her back now that she is cleared for discharge. [facility] senior investigator met with the patient on 01/21 and now, she's in their custody and will remain in their custody even when turning 16. Dania usually upset after ex foster mom and dad visit. Will have SW talk to her about revising visitor list. - Follow up with social work and DCFS; won't discharge until cleared by both Assessment & Plan (02/13/2021 8:26 AM CDT): (refer to depression for more details) Adilene has been adopted since 2016. Reports that she doesn't get along very well with her parents at home. She feels that they are unsupportive and they don't listen to her. Denies feeling unsafe or any homicidal ideations. Childrens division were called on 01/17. Hotline placed for abandonment on 01/20 because mom doesn't want to take her back now that she is cleared for discharge. [facility] senior investigator met with the patient on 01/21 and now, she's in their custody and will remain in their custody even when turning 16. - Follow up with social work and DCFS; won't discharge until cleared by both Assessment & Plan (02/12/2021 10:12 AM CDT): (refer to depression for more details) Adilene has been adopted since 2016. Reports that she doesn't get along very well with her parents at home. She feels that they are unsupportive and they don't listen to her. Denies feeling unsafe or any homicidal ideations. Childrens division were called on 01/17. Hotline placed for abandonment on 01/20 because mom doesn't want to take her back now that she is cleared for discharge. [facility] senior investigator met with the patient on 01/21 and now, she's in their custody and will remain in their custody even when turning 16. - Follow up with social work and DCFS; won't discharge until cleared by both Assessment & Plan (02/11/2021 12:45 PM CDT): (refer to depression for more details) Adilene has been adopted since 2016. Reports that she doesn't get along very well with her parents at home. She feels that they are unsupportive and they don't listen to her. Denies feeling unsafe or any homicidal ideations. Childrens division were called on 01/17. Hotline placed for abandonment on 01/20 because mom doesn't want to take her back now that she is cleared for discharge. [facility] senior investigator met with the patient on 01/21 and now, she's in their custody and will remain in their custody even when turning 16. - Follow up with social work and DCFS; won't discharge until cleared by both Assessment & Plan (02/10/2021 1:49 PM CDT): (refer to depression for more details) Adilene has been adopted since 2016. Reports that she doesn't get along very well with her parents at home. She feels that they are unsupportive and they don't listen to her. Denies feeling unsafe or any homicidal ideations. Children division were called on 01/17. Hotline placed for abandonment on 01/20 because mom doesn't want to take her back now that she is cleared for discharge. [facility] senior investigator met with the patient on 01/21 and now, she's in their custody and will remain in their custody even when turning 16. - Follow up with social work and DCFS; won't discharge until cleared by both Assessment & Plan (02/09/2021 11:14 AM CDT): (refer to depression for more details) Adilene has been adopted since 2016. Reports that she doesn't get along very well with her parents at home. She feels that they are unsupportive and they don't listen to her. Denies feeling unsafe or any homicidal ideations. Childrens division were called on 01/17. Hotline placed for abandonment on 01/20 because mom doesn't want to take her back now that she is cleared for discharge. [facility] senior investigator met with the patient on 01/21 and now, she's in their custody and will remain in their custody even when turning 16. - Follow up with social work and DCFS; won't discharge until cleared by both Assessment & Plan (02/08/2021 7:13 AM CDT): (refer to depression for more details) Adilene has been adopted since 2016. Reports that she doesn't get along very well with her parents at home. She feels that they are unsupportive and they don't listen to her. Denies feeling unsafe or any homicidal ideations. Childrens division were called on 01/17. Hotline placed for abandonment on 01/20 because mom doesn't want to take her back now that she is cleared for discharge. [facility] senior investigator met with the patient on 01/21 and now, she's in their custody and will remain in their custody even when turning 16. - Follow up with social work and DCFS; won't discharge until cleared by both Assessment & Plan (2021 10:02 AM CDT): (refer to depression for more details) Adilene has been adopted since 2016. Reports that she doesn't get along very well with her parents at home. She feels that they are unsupportive and they don't listen to her. Denies feeling unsafe or any homicidal ideations. Childrens division were called on 01/17. Hotline placed for abandonment on 01/20 because mom doesn't want to take her back now that she is cleared for discharge. [facility] senior [facility] met with the patient on 01/21 and now, she's in their custody and will remain in their custody even when turning 16. - Follow up with social work and DCFS; won't discharge until cleared by both Assessment & Plan (02/06/2021 11:38 AM CDT): (refer to depression for more details) Adilene has been adopted since 2016. Reports that she doesn't get along very well with her parents at home. She feels that they are unsupportive and they don't listen to her. Denies feeling unsafe or any homicidal ideations. Childrens division were called on 01/17. Hotline placed for abandonment on 01/20 because mom doesn't want to take her back now that she is cleared for discharge. [facility] senior investigator met with the patient on 01/21 and now, she's in their custody and will remain in their custody even when turning 16. - Follow up with social work and DCFS; won't discharge until cleared by both Assessment & Plan (02/05/2021 10:21 AM CDT): (refer to depression for more details) Adilene has been adopted since 2016. Reports that she doesn't get along very well with her parents at home. She feels that they are unsupportive and they don't listen to her. Denies feeling unsafe or any homicidal ideations. Childrens division were called on 01/17. Hotline placed for abandonment on 01/20 because mom doesn't want to take her back now that she is cleared for discharge. [facility] senior investigator met with the patient on 01/21 and now, she's in their custody and will remain in their custody even when turning 16. - Follow up with social work and DCFS; won't discharge until cleared by both Assessment & Plan (02/04/2021 7:44 AM CDT): (refer to depression for more details) Adilene has been adopted since 2016. Reports that she doesn't get along very well with her parents at home. She feels that they are unsupportive and they don't listen to her. Denies feeling unsafe or any homicidal ideations. Childrens division were called on 01/17. Hotline placed for abandonment on 01/20 because mom doesn't want to take her back now that she is cleared for discharge. [facility] senior investigator met with the patient on 01/21 and now, she's in their custody. - Follow up with social work and DCFS; won't discharge until cleared by both Assessment & Plan (02/03/2021 12:11 PM CDT): (refer to depression for more details) Adilene has been adopted since 2016. Reports that she doesn't get along very well with her parents at home. She feels that they are unsupportive and they don't listen to her. Denies feeling unsafe or any homicidal ideations. [facility] were called on 01/17. Hotline placed for abandonment on 01/20 because mom doesn't want to take her back now that she is cleared for discharge. [facility] senior investigator met with the patient on 01/21 and now, she's in their custody. - Follow up with social work and DCFS; won't discharge until cleared by both Assessment & Plan (02/02/2021 3:17 PM CDT): (refer to depression for more details) Adilene has been adopted since 2016. Reports that she doesn't get along very well with her parents at home. She feels that they are unsupportive and they don't listen to her. Denies feeling unsafe or any homicidal ideations. [facility] were called on 01/17. Hotline placed for abandonment on 01/20 because mom doesn't want to take her back now that she is cleared for discharge. [facility] senior investigator met with the patient on 01/21 and now, she's in their custody. - Follow up with social work and DCFS; won't discharge until cleared by both Assessment & Plan (02/01/2021 10:28 AM CDT): (refer to depression for more details) Adilene has been adopted since 2016. Reports that she doesn't get along very well with her parents at home. She feels that they are unsupportive and they don't listen to her. Denies feeling unsafe or any homicidal ideations. [facility] were called on 01/17. Hotline placed for abandonment on 01/20 because mom doesn't want to take her back now that she is cleared for discharge. [facility] senior investigator met with the patient on 01/21 and now, she's in their custody. - Follow up with social work and DCFS; won't discharge until cleared by both Assessment & Plan (01/31/2021 8:02 AM CDT): (refer to depression for more details) Adilene has been adopted since 2017. Reports that she doesn't get along very well with her parents at home. She feels that they are unsupportive and they don't listen to her. Denies feeling unsafe or any homicidal ideations. Childrens division were called on 01/17. Hotline placed for abandonment on 01/20 because mom doesn't want to take her back now that she is cleared for discharge. [facility] senior investigator met with the patient on 01/21 and now, she's in their custody. - Follow up with social work and DCFS; won't discharge until cleared by both Assessment & Plan (01/30/2021 9:31 AM CDT): (refer to depression for more details) Adilene has been adopted since 2017. Reports that she doesn't get along very well with her parents at home. She feels that they are unsupportive and they don't listen to her. Denies feeling unsafe or any homicidal ideations. Children division were called on 01/17. Hotline placed for abandonment on 01/20 because mom doesn't want to take her back now that she is cleared for discharge. [facility] senior investigator met with the patient on 01/21 and now, she's in their custody. - Follow up with social work and DCFS; won't discharge until cleared by both Assessment & Plan (01/29/2021 11:37 AM CDT): (refer to depression for more details) Adilene has been adopted since 2017. Reports that she doesn't get along very well with her parents at home. She feels that they are unsupportive and they don't listen to her. Denies feeling unsafe or any homicidal ideations. Childrens division were called on 01/17. Hotline placed for abandonment on 01/20 because mom doesn't want to take her back now that she is cleared for discharge. [facility] senior investigator met with the patient on 01/21 and now, she's in their custody. - Follow up with social work and DCFS; won't discharge until cleared by both Assessment & Plan (01/28/2021 11:23 AM CDT): (refer to depression for more details) Adilene has been adopted since 2017. Reports that she doesn't get along very well with her parents at home. She feels that they are unsupportive and they don't listen to her. Denies feeling unsafe or any homicidal ideations. Children division were called on 01/17. Hotline placed for abandonment on 01/20 because mom doesn't want to take her back now that she is cleared for discharge. [facility] senior investigator met with the patient on 01/21 and now, she's in their custody. - Follow up with social work and DCFS; won't discharge until cleared by both Assessment & Plan (01/27/2021 8:45 AM CDT): (refer to depression for more details) Adilene has been adopted since 2016. Reports that she doesn't get along very well with her parents at home. She feels that they are unsupportive and they don't listen to her. Denies feeling unsafe or any homicidal ideations. [facility] division were called on 01/17. Hotline placed for abandonment on 01/20 because mom doesn't want to take her back now that she is cleared for discharge. [facility] senior investigator met with the patient on 01/21 and now, she's in their custody. - Follow up with social work and DCFS; won't discharge until cleared by both. Assessment & Plan (01/26/2021 3:06 PM CDT): (refer to depression for more details) Adilene has been adopted since 2016. Reports that she doesn't get along very well with her parents at home. She feels that they are unsupportive and they don't listen to her. Denies feeling unsafe or any homicidal ideations. [facility] division were called on 01/17. Hotline placed for abandonment on 01/20 because mom doesn't want to take her back now that she is cleared for discharge. [facility] senior investigator met with the patient on 01/21 and now, she's in their custody. - Follow up with social work and DCFS; won't discharge until cleared by both. Assessment & Plan (01/25/2021 11:48 AM CDT): (refer to depression for more details) Adilene has been adopted since 2016. Reports that she doesn't get along very well with her parents at home. She feels that they are unsupportive and they don't listen to her. Denies feeling unsafe or any homicidal ideations. Childrens division were called on 01/17. Hotline placed for abandonment on 01/20 because mom doesn't want to take her back now that she is cleared for discharge. [facility] senior investigator met with the patient on 01/21 and now, she's in their custody. - Follow up with social work and DCFS; won't discharge until cleared by both. Assessment & Plan (01/24/2021 7:37 AM CDT): (refer to depression for more details) Adilene has been adopted since 2016. Reports that she doesn't get along very well with her parents at home. She feels that they are unsupportive and they don't listen to her. Denies feeling unsafe or any homicidal ideations. Childrens division were called on 01/17. Hotline placed for abandonment on 01/20 because mom doesn't want to take her back now that she is cleared for discharge. [facility] senior investigator met with the patient on 01/21 and are now trying to take custody. - Follow up with social work and DCFS; won't discharge until cleared by both. Assessment & Plan (01/23/2021 8:28 AM CDT): (refer to depression for more details) Adilene has been adopted since 2016. Reports that she doesn't get along very well with her parents at home. She feels that they are unsupportive and they don't listen to her. Denies feeling unsafe or any homicidal ideations. Childrens division were called on 01/17. Hotline placed for abandonment on 01/20 because mom doesn't want to take her back now that she is cleared for discharge. [facility] senior investigator met with the patient on 01/21 and are now following. - Follow up with social work and DCFS; won't discharge until cleared by both - c/s child life to normalize hospital stay pending disposition Assessment & Plan (01/22/2021 6:09 PM CDT): (refer to depression for more details) Adilene has been adopted since 2016. Reports that she doesn't get along very well with her parents at home. She feels that they are unsupportive and they don't listen to her. Denies feeling unsafe or any homicidal ideations. Childrens division were called on 01/17. Hotline placed for abandonment on 01/20 because mom doesn't want to take her back now that she is cleared for discharge. [facility] senior investigator met with the patient on 01/21 and are now following. - Follow up with social work and DCFS - c/s child life to normalize hospital stay pending disposition Assessment & Plan (01/21/2021 2:14 PM CDT): (refer to depression for more details) Adilene has been adopted since 2016. Reports that she doesn't get along very well with her parents at home. She feels that they are unsupportive and they don't listen to her. Denies feeling unsafe or any homicidal ideations. [facility] were called on 01/17. [facility] does not have concerns for patient's safety at this time and will not be investigating the reports made. Hotline placed for abandonment on 01/20 because mom doesn't want to take her back. - Follow up with social work and DCFS Assessment & Plan (01/20/2021 5:28 PM CDT): (refer to depression for more details) Adilene has been adopted since 2016. Reports that she doesn't get along very well with her parents at home. She feels that they are unsupportive and they don't listen to her. Denies feeling unsafe or any homicidal ideations. [facility] was called on 01/17. [facility] does not have concerns for patientt's safety at this time and will not be investigating the reports made. Follow up again with mom this evening about dispo - Social work following Assessment & Plan (01/19/2021 5:32 PM CDT): (refer to depression for more details) Adilene has been adopted since 2017. Reports that she doesn't get along very well with her parents at home. She feels that they are unsupportive and they don't listen to her. Denies feeling unsafe or any homicidal ideations. [facility] does not have concerns for patientt's safety at this time and will not be investigating the reports made. Follow up again with mom this evening about dispo - Social work following Assessment & Plan (01/18/2021 12:02 PM CDT): (refer to depression for more details) Adilene has been adopted since 2016. Reports that she doesn't get along very well with her parents at home. She feels that they are unsupportive and they don't listen to her. Denies feeling unsafe or any homicidal ideations. [facility] was called on 01/17. [facility] does not have concerns for patientt's safety at this time and will not be investigating the reports made. - Social work following - Try to talk to mom about potential discharge Assessment & Plan (01/17/2021 11:00 AM CDT): (refer to depression for more details) Adilene has been adopted since 2016. Reports that she doesn't get along very well with her parents at home. She feels that they are unsupportive and they don't listen to her. Denies feeling unsafe or any homicidal ideations. [facility] was called on 01/17. - Consult social work Assessment & Plan (01/16/2021 1:11 PM CDT): (refer to depression for more details) Adilene has been adopted since 2017. Reports that she doesn't get along very well with her parents at home. She feels that they are unsupportive and they don't listen to her. Denies feeling unsafe or any homicidal ideations. - Consult social work - Will call and place a hotline Assessment & Plan (01/15/2021 4:17 PM CDT): (refer to depression for more details) Adilene has been adopted since 2017. Reports that she doesn't get along very well with her parents at home. She feels that they are unsupportive and they don't listen to her. Denies feeling unsafe or any homicidal ideations. - Consult social work Positive urine drug screen 01/15/2021 Assessment & Plan (03/12/2021 12:47 PM CDT): Patient uses THC to feel better. It reduces her anxiety and improves her mood. Her urine was positive for THC. She drinks alcohol occasionally and smokes cigarettes frequently. - [employer] about the use of THC, cigarette smoking and alcohol use Assessment & Plan (03/11/2021 3:15 PM CDT): Patient uses THC to feel better. It reduces her anxiety and improves her mood. Her urine was positive for THC. She drinks alcohol occasionally and smokes cigarettes frequently. - [employer] about the use of THC, cigarette smoking and alcohol use Assessment & Plan (03/10/2021 8:02 AM CDT): Patient uses THC to feel better. It reduces her anxiety and improves her mood. Her urine was positive for THC. She drinks alcohol occasionally and smokes cigarettes frequently. - [employer] about the use of THC, cigarette smoking and alcohol use Assessment & Plan (03/09/2021 11:00 AM CDT): Patient uses THC to feel better. It reduces her anxiety and improves her mood. Her urine was positive for THC. She drinks alcohol occasionally and smokes cigarettes frequently. - [employer] about the use of THC, cigarette smoking and alcohol use Assessment & Plan (03/08/2021 7:31 AM CDT): Patient uses THC to feel better. It reduces her anxiety and improves her mood. Her urine was positive for THC. She drinks alcohol occasionally and smokes cigarettes frequently. - [employer] about the use of THC, cigarette smoking and alcohol use Assessment & Plan (03/06/2021 6:41 AM CDT): Patient uses THC to feel better. It reduces her anxiety and improves her mood. Her urine was positive for THC. She drinks alcohol occasionally and smokes cigarettes frequently. - [employer] about the use of THC, cigarette smoking and alcohol use Assessment & Plan (03/05/2021 7:03 AM CDT): Patient uses THC to feel better. It reduces her anxiety and improves her mood. Her urine was positive for THC. She drinks alcohol occasionally and smokes cigarettes frequently. - [employer] about the use of THC, cigarette smoking and alcohol use Assessment & Plan (03/04/2021 2:01 PM CDT): Patient uses THC to feel better. It reduces her anxiety and improves her mood. Her urine was positive for THC. She drinks alcohol occasionally and smokes cigarettes frequently. - [employer] about the use of THC, cigarette smoking and alcohol use Assessment & Plan (03/03/2021 6:39 AM CDT): Patient uses THC to feel better. It reduces her anxiety and improves her mood. Her urine was positive for THC. She drinks alcohol occasionally and smokes cigarettes frequently. - [employer] about the use of THC, cigarette smoking and alcohol use Assessment & Plan (03/02/2021 6:29 AM CDT): Patient uses THC to feel better. It reduces her anxiety and improves her mood. Her urine was positive for THC. She drinks alcohol occasionally and smokes cigarettes frequently. - [employer] about the use of THC, cigarette smoking and alcohol use Assessment & Plan (03/01/2021 3:34 PM CDT): Patient uses THC to feel better. It reduces her anxiety and improves her mood. Her urine was positive for THC. She drinks alcohol occasionally and smokes cigarettes frequently. - [employer] about the use of THC, cigarette smoking and alcohol use Assessment & Plan (02/28/2021 5:59 PM CDT): Patient uses THC to feel better. It reduces her anxiety and improves her mood. Her urine was positive for THC. She drinks alcohol occasionally and smokes cigarettes frequently. - [employer] about the use of THC, cigarette smoking and alcohol use Assessment & Plan (02/27/2021 7:17 AM CDT): Patient uses THC to feel better. It reduces her anxiety and improves her mood. Her urine was positive for THC. She drinks alcohol occasionally and smokes cigarettes frequently. - [employer] about the use of THC, cigarette smoking and alcohol use Assessment & Plan (02/26/2021 10:12 AM CDT): Patient uses THC to feel better. It reduces her anxiety and improves her mood. Her urine was positive for THC. She drinks alcohol occasionally and smokes cigarettes frequently. - [employer] about the use of THC, cigarette smoking and alcohol use Assessment & Plan (02/25/2021 11:16 AM CDT): Patient uses THC to feel better. It reduces her anxiety and improves her mood. Her urine was positive for THC. She drinks alcohol occasionally and smokes cigarettes frequently. 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 It reduces her anxiety and improves her mood. Her urine was positive for THC. She drinks alcohol occasionally and smokes cigarettes frequently. - Manager [employer] about the use of THC, cigarette smoking and alcohol use Assessment & Plan (02/23/2021 1:11 PM CDT): Patient uses THC to feel better. It reduces her anxiety and improves her mood. Her urine was positive for THC. She drinks alcohol occasionally and smokes cigarettes frequently. - [employer] about the use of THC, cigarette smoking and alcohol use Assessment & Plan (02/22/2021 5:55 PM CDT): Patient uses THC to feel better. It reduces her anxiety and improves her mood. Her urine was positive for THC. She drinks alcohol occasionally and smokes cigarettes frequently. - [employer] about the use of THC, cigarette smoking and alcohol use Assessment & Plan (02/20/2021 10:23 AM CDT): Patient uses THC to feel better. It reduces her anxiety and improves her mood. Her urine was positive for THC. She drinks alcohol occasionally and smokes cigarettes frequently. - [employer] about the use of THC, cigarette smoking and alcohol use Assessment & Plan (02/19/2021 11:43 AM CDT): Patient uses THC to feel better. It reduces her anxiety and improves her mood. Her urine was positive for THC. She drinks alcohol occasionally and smokes cigarettes frequently. - [employer] about the use of THC, cigarette smoking and alcohol use Assessment & Plan (02/18/2021 5:53 PM CDT): Patient uses THC to feel better. It reduces her anxiety and improves her mood. Her urine was positive for THC. She drinks alcohol occasionally and smokes cigarettes frequently. - [employer] about the use of THC, cigarette smoking and alcohol use Assessment & Plan (02/17/2021 12:53 PM CDT): Patient uses THC to feel better. It reduces her anxiety and improves her mood. Her urine was positive for THC. She drinks alcohol occasionally and smokes cigarettes frequently. - [employer] about the use of THC, cigarette smoking and alcohol use Assessment & Plan (02/16/2021 12:00 PM CDT): Patient uses THC to feel better. It reduces her anxiety and improves her mood. Her urine was positive for THC. She drinks alcohol occasionally and smokes cigarettes frequently. - [employer] about the use of THC, cigarette smoking and alcohol use Assessment & Plan (02/14/2021 10:33 AM CDT): Patient uses THC to feel better. It reduces her anxiety and improves her mood. Her urine was positive for THC. She drinks alcohol occasionally and smokes cigarettes frequently. - [employer] about the use of THC, cigarette smoking and alcohol use Assessment & Plan (02/13/2021 8:28 AM CDT): Patient uses THC to feel better. It reduces her anxiety and improves her mood. Her urine was positive for THC. She drinks alcohol occasionally and smokes cigarettes frequently. - [employer] about the use of THC, cigarette smoking and alcohol use Assessment & Plan (02/12/2021 10:14 AM CDT): Patient uses THC to feel better. It reduces her anxiety and improves her mood. Her urine was positive for THC. She drinks alcohol occasionally and smokes cigarettes frequently. - [employer] about the use of THC, cigarette smoking and alcohol use Assessment & Plan (02/11/2021 12:50 PM CDT): Patient uses THC to feel better. It reduces her anxiety and improves her mood. Her urine was positive for THC. She drinks alcohol occasionally and smokes cigarettes frequently. - [employer] about the use of THC, cigarette smoking and alcohol use Assessment & Plan (02/10/2021 1:50 PM CDT): Patient uses THC to feel better. It reduces her anxiety and improves her mood. Her urine was positive for THC. She drinks alcohol occasionally and smokes cigarettes frequently. - [employer] about the use of THC, cigarette smoking and alcohol use Assessment & Plan (02/09/2021 11:31 AM CDT): Patient uses THC to feel better. It reduces her anxiety and improves her mood. Her urine was positive for THC. She drinks alcohol occasionally and smokes cigarettes frequently. - [employer] about the use of THC, cigarette smoking and alcohol use Assessment & Plan (02/08/2021 7:14 AM CDT): Patient uses THC to feel better. It reduces her anxiety and improves her mood. Her urine was positive for THC. She drinks alcohol occasionally and smokes cigarettes frequently. - [employer] about the use of THC, cigarette smoking and alcohol use Assessment & Plan (2021 10:03 AM CDT): Patient uses THC to feel better. It reduces her anxiety and improves her mood. Her urine was positive for THC. She drinks alcohol occasionally and smokes cigarettes frequently. - [employer] about the use of THC, cigarette smoking and alcohol use Assessment & Plan (02/06/2021 11:38 AM CDT): Patient uses THC to feel better. It reduces her anxiety and improves her mood. Her urine was positive for THC. She drinks alcohol occasionally and smokes cigarettes frequently. 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 It reduces her anxiety and improves her mood. Her urine was positive for THC. She drinks alcohol occasionally and smokes cigarettes frequently. - [employer] about the use of THC, cigarette smoking and alcohol use Assessment & Plan (02/04/2021 7:44 AM CDT): Patient uses THC to feel better. It reduces her anxiety and improves her mood. Her urine was positive for THC. She drinks alcohol occasionally and smokes cigarettes frequently. - [employer] about the use of THC, cigarette smoking and alcohol use Assessment & Plan (02/03/2021 12:11 PM CDT): Patient uses THC to feel better. It reduces her anxiety and improves her mood. Her urine was positive for THC. She drinks alcohol occasionally and smokes cigarettes frequently. - [employer] about the use of THC, cigarette smoking and alcohol use Assessment & Plan (02/02/2021 3:18 PM CDT): Patient uses THC to feel better. It reduces her anxiety and improves her mood. Her urine was positive for THC. She drinks alcohol occasionally and smokes cigarettes frequently. - [employer] about the use of THC, cigarette smoking and alcohol use Assessment & Plan (02/01/2021 10:29 AM CDT): Patient uses THC to feel better. It reduces her anxiety and improves her mood. Her urine was positive for THC. She drinks alcohol occasionally and smokes cigarettes frequently. - [employer] about the use of THC, cigarette smoking and alcohol use Assessment & Plan (01/31/2021 8:02 AM CDT): Patient uses THC to feel better. It reduces her anxiety and improves her mood. Her urine was positive for THC. She drinks alcohol occasionally and smokes cigarettes frequently. - [employer] about the use of THC, cigarette smoking and alcohol use Assessment & Plan (01/30/2021 9:32 AM CDT): Patient uses THC to feel better. It reduces her anxiety and improves her mood. Her urine was positive for THC. She drinks alcohol occasionally and smokes cigarettes frequently. - Manager [employer] about the use of THC, cigarette smoking and alcohol use Assessment & Plan (01/29/2021 11:38 AM CDT): Patient uses THC to feel better. It reduces her anxiety and improves her mood. Her urine was positive for THC. She drinks alcohol occasionally and smokes cigarettes frequently. - Manager [employer] about the use of THC, cigarette smoking and alcohol use Assessment & Plan (01/28/2021 11:25 AM CDT): Patient uses THC to feel better. It reduces her anxiety and improves her mood. Her urine was positive for THC. She drinks alcohol occasionally and smokes cigarettes frequently. - Manager [employer] about the use of THC, cigarette smoking and alcohol use Assessment & Plan (01/27/2021 8:46 AM CDT): Patient uses THC to feel better. It reduces her anxiety and improves her mood. Her urine was positive for THC. She drinks alcohol occasionally and smokes cigarettes frequently. - Manager [employer] about the use of THC, cigarette smoking and Alcohol use. Assessment & Plan (01/26/2021 3:06 PM CDT): Patient uses THC to feel better. It reduces her anxiety and improves her mood. Her urine was positive for THC. She drinks alcohol occasionally and smokes cigarettes frequently. - Manager [employer] about the use of THC, cigarette smoking and Alcohol use. Assessment & Plan (01/25/2021 11:48 AM CDT): Patient uses THC to feel better. It reduces her anxiety and improves her mood. Her urine was positive for THC. She drinks alcohol occasionally and smokes cigarettes frequently. - Manager [employer] about the use of THC, cigarette smoking and Alcohol use. Assessment & Plan (01/24/2021 7:37 AM CDT): Patient uses THC to feel better. It reduces her anxiety and improves her mood. Her urine was positive for THC. She drinks alcohol occasionally and smokes cigarettes frequently. - Manager [employer] about the use of THC, cigarette smoking and Alcohol use. Assessment & Plan (01/23/2021 8:27 AM CDT): Patient uses THC to feel better. It reduces her anxiety and improves her mood. Her urine was positive for THC. She drinks alcohol occasionally and smokes cigarettes frequently. - Manager [employer] about the use of THC, cigarette smoking and Alcohol use. Assessment & Plan (01/22/2021 6:08 PM CDT): Patient uses THC to feel better. It reduces her anxiety and improves her mood. Her urine was positive for THC. She drinks alcohol occasionally and smokes cigarettes frequently. - Manager [employer] about the use of THC, cigarette smoking and Alcohol use. Assessment & Plan (01/21/2021 2:09 PM CDT): Patient uses THC to feel better. It reduces her anxiety and improves her mood. Her urine was positive for THC. She drinks alcohol occasionally and smokes cigarettes frequently. - Manager [employer] about the use of THC, cigarette smoking and Alcohol use. Assessment & Plan (01/20/2021 5:28 PM CDT): Patient uses THC to feel better. It reduces her anxiety and improves her mood. Her urine was positive for THC. She drinks alcohol occasionally and smokes cigarettes frequently. - Manager [employer] about the use of THC, cigarette smoking and Alcohol use. Assessment & Plan (01/19/2021 5:32 PM CDT): Patient uses THC to feel better. It reduces her anxiety and improves her mood. Her urine was positive for THC. She drinks alcohol occasionally and smokes cigarettes frequently. - Manager [employer] about the use of THC, cigarette smoking and Alcohol use. Assessment & Plan (01/18/2021 11:58 AM CDT): Patient uses THC to feel better. It reduces her anxiety and improves her mood. Her urine was positive for THC. She drinks alcohol occasionally and smokes cigarettes frequently. - Manager [employer] about the use of THC, cigarette smoking and Alcohol use. Assessment & Plan (01/17/2021 11:00 AM CDT): Patient uses THC to feel better. It reduces her anxiety and improves her mood. Her urine was positive for THC. She drinks alcohol occasionally and smokes cigarettes frequently. - Manager [employer] about the use of THC, cigarette smoking and Alcohol use. Assessment & Plan (01/16/2021 1:11 PM CDT): Patient uses THC to feel better. It reduces her anxiety and improves her mood. Her urine was positive for THC. She drinks alcohol occasionally and smokes cigarettes frequently. - Manager [employer] about the use of THC, cigarette smoking and Alcohol use. Assessment & Plan (01/15/2021 4:20 PM CDT): Patient uses THC to feel better. It reduces her anxiety and improves her mood. Her urine was positive for THC. She drinks alcohol and smokes cigarettes occasionally. - Manager [employer] about the use of THC, cigarette smoking and Alcohol use. 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 - Soak foot in warm water and soap TID - Mupirocin TID - Ancef 33mg/kg q8h x5 days - Pain control with Tylenol prn Assessment & Plan (03/06/2021 6:41 AM CDT): Toenail is tender to palpation and erythematous but no warmth or swelling noted. - Soak foot in warm water and soap TID - Mupirocin TID - Ancef 33mg/kg q8h x5 days - Pain control with Tylenol prn Assessment & Plan (03/05/2021 7:03 AM CDT): Toenail is tender to palpation and erythematous but no warmth or swelling noted. - Soak foot in warm water and soap TID - Mupirocin TID - Ancef 33mg/kg q8h x5 days - Pain control with Tylenol prn Assessment & Plan (03/04/2021 2:02 PM CDT): Toenail is tender to palpation and erythematous but no warmth or swelling noted. - Soak foot in warm water and soap TID - Mupirocin TID - Ancef 33mg/kg q8h x5 days - Pain control with Tylenol prn Assessment & Plan (03/03/2021 6:39 AM CDT): Toenail is tender to palpation and erythematous but no warmth or swelling noted. - Soak foot in warm water and soap TID - Mupirocin TID - Ancef 33mg/kg q8h x5 days - Pain control with Tylenol prn Assessment & Plan (03/02/2021 10:18 AM CDT): Toenail is tender to palpation and erythematous but no warmth or swelling noted. - Soak foot in warm water and soap TID - Mupirocin TID - Ancef 33mg/kg q8h x5 days - Pain control with Tylenol prn Bilateral temporomandibular joint pain 02/27/2021 03/07/2021 Assessment & Plan (03/07/2021 6:51 AM CDT): TMJ pain stable this morning. - NSAID 600 mg PRN for pain - warm compress Assessment & Plan (03/06/2021 6:41 AM CDT): TMJ pain stable this morning. - NSAID 600 mg PRN for pain - warm compress Assessment & Plan (03/04/2021 2:02 PM CDT): TMJ pain stable this morning. - NSAID 600 mg PRN for pain - warm compress Assessment & Plan (03/03/2021 6:39 AM CDT): TMJ pain stable this morning. - NSAID 600 mg PRN for pain - warm compress Assessment & Plan (03/02/2021 7:48 AM CDT): TMJ pain stable this morning. - NSAID 600 mg PRN for pain - warm compress Assessment & Plan (03/01/2021 3:34 PM CDT): She was complaining of TMJ pain. The ear exam was normal. She had tenderness on bilateral TMJ. She was given NSAID and pain was improved. -NSAID 600 mg PRN for pain - warm compress Assessment & Plan (02/28/2021 5:59 PM CDT): She was complaining of TMJ pain. The ear exam was normal. She had tenderness on bilateral TMJ. She was given NSAID and pain was improved. -NSAID 600 mg PRN for pain - warm compress Assessment & Plan (02/27/2021 7:21 AM CDT): She was complaining of TMJ pain. The ear exam was normal. She had tenderness on bilateral TMJ. She was given NSAID and pain was improved. -NSAID 600 mg PRN for pain - warm compress Left foot pain 02/16/2021 02/18/2021 Assessment & Plan (02/18/2021 5:54 PM CDT): Dania rolled her left ankle while walking on 02/15 and had pain with tenderness to palpation along left 5th metatarsal bone. History of prior fracture in this area. Xray was obtained and normal. Pain has resolved and back to ambulating normally - tylenol/motrin PRN Assessment & Plan (02/17/2021 12:54 PM CDT): Dania rolled her left ankle while walking on 02/15 and had pain with tenderness to palpation along left 5th metatarsal bone. History of prior fracture in this area. Xray was obtained and normal. Pain has resolved and back to ambulating normally - tylenol/motrin PRN Assessment & Plan (02/16/2021 12:06 PM CDT): Dania rolled her left ankle while walking on 02/15 and had pain with tenderness to palpation along left 5th metatarsal bone. History of prior fracture in this area. Xray was obtained and normal. This morning denies pain and has no swelling or tenderness - monitor, assess ambulation when patient is out of bed later today - tylenol/motrin PRN Skin infection around nose-r ing insertion site 02/14/2021 03/11/2021 Assessment & Plan (03/10/2021 8:02 AM CDT): Stable. - Bacitracin topical cream BID MENDEZ for 2-3 days past resolution of symptoms Assessment & Plan (03/09/2021 11:00 AM CDT): Stable. - Bacitracin topical cream BID MENDEZ for 2-3 days past resolution of symptoms Assessment & Plan (03/08/2021 7:32 AM CDT): Stable. - Bacitracin topical cream BID MENDEZ for 2-3 days past resolution of symptoms Assessment & Plan (03/07/2021 6:51 AM CDT): Stable. - Bacitracin topical cream BID MENDEZ for 2-3 days past resolution of symptoms Assessment & Plan (03/06/2021 6:41 AM CDT): Stable. - Bacitracin topical cream BID MENDEZ for 2-3 days past resolution of symptoms Assessment & Plan (03/05/2021 7:03 AM CDT): Stable. - Bacitracin topical cream BID MENDEZ for 2-3 days past resolution of symptoms Assessment & Plan (03/04/2021 2:02 PM CDT): Stable. - Bacitracin topical cream BID MENDEZ for 2-3 days past resolution of symptoms Assessment & Plan (03/03/2021 6:39 AM CDT): Stable. - Bacitracin topical cream BID MENDEZ for 2-3 days past resolution of symptoms Assessment & Plan (03/02/2021 7:48 AM CDT): Stable. - Bacitracin topical cream BID MENDEZ for 2-3 days past resolution of symptoms Assessment & Plan (03/01/2021 3:34 PM CDT): Continues to slowly improve, erythema resolved but mild tenderness. - Counseled on taking out the ring or using the plastic substitute - Bacitracin topical cream BID MENDEZ for 2-3 days past resolution of symptoms Assessment & Plan (02/28/2021 5:59 PM CDT): Continues to slowly improve, erythema resolved but mild tenderness. - Counseled on taking out the ring or using the plastic substitute - Bacitracin topical cream BID MENDEZ for 2-3 days past resolution of symptoms Assessment & Plan (02/27/2021 7:17 AM CDT): Continues to slowly improve, erythema resolved but mild tenderness. - Counseled on taking out the ring or using the plastic substitute - Bacitracin topical cream BID MENDEZ for 2-3 days past resolution of symptoms Assessment & Plan (02/26/2021 10:12 AM CDT): Continues to slowly improve, erythema resolved but mild tenderness. - Counseled on taking out the ring or using the plastic substitute - Bacitracin topical cream BID MENDEZ for 2-3 days past resolution of symptoms Assessment & Plan (02/25/2021 11:16 AM CDT): Continues to slowly improve, erythema resolved but mild tenderness. - Counseled on taking out the ring or using the plastic substitute - Bacitracin topical cream BID MENDEZ for 2-3 days past resolution of symptoms Assessment & Plan (02/24/2021 10:27 AM CDT): Continues to slowly improve, erythema resolved but mild tenderness. - Counseled on taking out the ring or using the plastic substitute - Bacitracin topical cream BID MENDEZ for 2-3 days past resolution of symptoms Assessment & Plan (02/23/2021 1:11 PM CDT): Continues to slowly improve, erythema resolved but mild tenderness. - Counseled on taking out the ring or using the plastic substitute - Bacitracin topical cream BID MENDEZ for 2-3 days past resolution of symptoms Assessment & Plan (02/22/2021 5:55 PM CDT): Continues to slowly improve, erythema resolved but mild tenderness. - Counseled on taking out the ring or using the plastic substitute - Bacitracin topical cream BID MENDEZ for 2-3 days past resolution of symptoms Assessment & Plan (02/21/2021 8:31 AM CDT): Continues to slowly improve, e=erythema resolved but mild tenderness. - Counseled on taking out the ring - Bacitracin topical cream BID MENDEZ for 2-3 days past resolution of symptoms Assessment & Plan (02/20/2021 10:23 AM CDT): Continues to slowly improve, no tenderness. - Counseled on taking out the ring - Bacitracin topical cream BID MENDEZ for 2-3 days past resolution of symptoms Assessment & Plan (02/19/2021 11:42 AM CDT): Continues to slowly improve, no tenderness. - Counseled on taking out the ring - Bacitracin topical cream BID MENDEZ Assessment & Plan (02/18/2021 5:53 PM CDT): Erythema improving today, no tenderness. - Counseled on taking out the ring - Bacitracin topical cream BID MENDEZ Assessment & Plan (02/17/2021 12:53 PM CDT): Erythema improving today, no tenderness. - Counseled on taking out the ring - Bacitracin topical cream BID MENDEZ Assessment & Plan (02/16/2021 12:01 PM CDT): Erythema improving today, no tenderness. - Counseled on taking out the ring - Bacitracin topical cream BID MENDEZ Assessment & Plan (02/15/2021 12:51 PM CDT): - Counseled on taking out the ring - Bacitracin topical cream BID MENDEZ Assessment & Plan (02/14/2021 10:45 AM CDT): - Counseled on taking out the ring - Bacitracin topical cream BID PRN Tonsillitis 01/17/2021 01/19/2021 Assessment & Plan (01/19/2021 5:32 PM CDT): Refer to COVID-19 Assessment & Plan (01/18/2021 12:00 PM CDT): Refer to COVID-19 Personal history of COVID-19 01/15/2021 03/07/2021 Assessment & Plan (03/07/2021 6:51 AM CDT): Patient initially reported the following symptoms: cough, congestion, rhinorrhea, sore throat and some exertional dyspnea for a week before presenting. Tested positive on 01/15, currently asymptomatic and off isolation since 01/26. Assessment & Plan (03/06/2021 6:40 AM CDT): Patient initially reported the following symptoms: cough, congestion, rhinorrhea, sore throat and some exertional dyspnea for a week before presenting. Tested positive on 01/15, currently asymptomatic and off isolation since 01/26. Assessment & Plan (03/05/2021 7:03 AM CDT): Patient initially reported the following symptoms: cough, congestion, rhinorrhea, sore throat and some exertional dyspnea for a week before presenting. Tested positive on 01/15, currently asymptomatic and off isolation since 01/26. Assessment & Plan (03/04/2021 2:01 PM CDT): Patient initially reported the following symptoms: cough, congestion, rhinorrhea, sore throat and some exertional dyspnea for a week before presenting. Tested positive on 01/15, currently asymptomatic and off isolation since 01/26. Assessment & Plan (03/03/2021 6:39 AM CDT): Patient initially reported the following symptoms: cough, congestion, rhinorrhea, sore throat and some exertional dyspnea for a week before presenting. Tested positive on 01/15, currently asymptomatic and off isolation since 01/26. Assessment & Plan (03/02/2021 6:29 AM CDT): Patient initially reported the following symptoms: cough, congestion, rhinorrhea, sore throat and some exertional dyspnea for a week before presenting. Tested positive on 01/15, currently asymptomatic and off isolation since 01/26. Assessment & Plan (03/01/2021 3:33 PM CDT): Patient initially reporetd the following symptoms: cough, congestion, rhinorrhea, sore throat and some exertional dyspnea for a week before presenting. Tested positive on 01/15, currently asymptomatic and off isolation since 01/26. Assessment & Plan (02/28/2021 5:59 PM CDT): Patient initially reporetd the following symptoms: cough, congestion, rhinorrhea, sore throat and some exertional dyspnea for a week before presenting. Tested positive on 01/15, currently asymptomatic and off isolation since 01/26. Assessment & Plan (02/27/2021 7:17 AM CDT): Patient initially reporetd the following symptoms: cough, congestion, rhinorrhea, sore throat and some exertional dyspnea for a week before presenting. Tested positive on 01/15, currently asymptomatic and off isolation since 01/26. Assessment & Plan (02/25/2021 11:15 AM CDT): Patient initially reporetd the following symptoms: cough, congestion, rhinorrhea, sore throat and some exertional dyspnea for a week before presenting. Tested positive on 01/15, currently asymptomatic and off isolation since 01/26. Assessment & Plan (02/23/2021 1:11 PM CDT): Patient initially reporetd the following symptoms: cough, congestion, rhinorrhea, sore throat and some exertional dyspnea for a week before presenting. Tested positive on 01/15, currently asymptomatic and off isolation since 01/26. Assessment & Plan (02/22/2021 5:55 PM CDT): Patient initially reporetd the following symptoms: cough, congestion, rhinorrhea, sore throat and some exertional dyspnea for a week before presenting. Tested positive on 01/15, currently asymptomatic and off isolation since 01/26. Assessment & Plan (02/21/2021 8:31 AM CDT): Patient initially reporetd the following symptoms: cough, congestion, rhinorrhea, sore throat and some exertional dyspnea for a week before presenting. Tested positive on 01/15, currently asymptomatic and off isolation since 01/26. Assessment & Plan (02/20/2021 10:24 AM CDT): Patient initially reporetd the following symptoms: cough, congestion, rhinorrhea, sore throat and some exertional dyspnea for a week before presenting. Tested positive on 01/15, currently asymptomatic and off isolation since 01/26. Assessment & Plan (02/19/2021 11:43 AM CDT): Patient initially reporetd the following symptoms: cough, congestion, rhinorrhea, sore throat and some exertional dyspnea for a week before presenting. Tested positive on 01/15, currently asymptomatic and off isolation since 01/26. Assessment & Plan (02/18/2021 5:53 PM CDT): Patient initially reporetd the following symptoms: cough, congestion, rhinorrhea, sore throat and some exertional dyspnea for a week before presenting. Tested positive on 01/15, currently asymptomatic and off isolation since 01/26. Assessment & Plan (02/17/2021 12:52 PM CDT): Patient initially reporetd the following symptoms: cough, congestion, rhinorrhea, sore throat and some exertional dyspnea for a week before presenting. Tested positive on 01/15, currently asymptomatic and off isolation since 01/26. Assessment & Plan (02/16/2021 11:59 AM CDT): Patient initially reporetd the following symptoms: cough, congestion, rhinorrhea, sore throat and some exertional dyspnea for a week before presenting. Tested positive on 01/15, currently asymptomatic and off isolation since 01/26. Assessment & Plan (02/15/2021 12:50 PM CDT): Patient initially reporetd the following symptoms: cough, congestion, rhinorrhea, sore throat and some exertional dyspnea for a week before presenting. Tested positive on 01/15, currently asymptomatic and off isolation since 01/26. Assessment & Plan (02/14/2021 10:31 AM CDT): Patient initially reporetd the following symptoms: cough, congestion, rhinorrhea, sore throat and some exertional dyspnea for a week before presenting. Tested positive on 01/15, currently asymptomatic and off isolation since 01/26. Assessment & Plan (02/13/2021 8:27 AM CDT): Patient initially reporetd the following symptoms: cough, congestion, rhinorrhea, sore throat and some exertional dyspnea for a week before presenting. Tested positive on 01/15, currently asymptomatic and off isolation since 01/26. Assessment & Plan (02/12/2021 10:14 AM CDT): Patient initially reporetd the following symptoms: cough, congestion, rhinorrhea, sore throat and some exertional dyspnea for a week before presenting. Tested positive on 01/15, currently asymptomatic and off isolation since 01/26. Assessment & Plan (02/11/2021 12:49 PM CDT): Patient initially reporetd the following symptoms: cough, congestion, rhinorrhea, sore throat and some exertional dyspnea for a week before presenting. Tested positive on 01/15, currently asymptomatic and off isolation since 01/26. Assessment & Plan (02/10/2021 1:50 PM CDT): Patient initially reporetd the following symptoms: cough, congestion, rhinorrhea, sore throat and some exertional dyspnea for a week before presenting. Tested positive on 01/15, currently asymptomatic and off isolation since 01/26. Assessment & Plan (02/09/2021 11:31 AM CDT): Patient initially reporetd the following symptoms: cough, congestion, rhinorrhea, sore throat and some exertional dyspnea for a week before presenting. Tested positive on 01/15, currently asymptomatic and off isolation since 01/26. Assessment & Plan (02/08/2021 7:13 AM CDT): Patient initially reporetd the following symptoms: cough, congestion, rhinorrhea, sore throat and some exertional dyspnea for a week before presenting. Tested positive on 01/15, currently asymptomatic and off isolation since 01/26. Assessment & Plan (2021 10:03 AM CDT): Patient initially reporetd the following symptoms: cough, congestion, rhinorrhea, sore throat and some exertional dyspnea for a week before presenting. Tested positive on 01/15, currently asymptomatic and off isolation since 01/26. Assessment & Plan (02/06/2021 11:38 AM CDT): Patient initially reporetd the following symptoms: cough, congestion, rhinorrhea, sore throat and some exertional dyspnea for a week before presenting. Tested positive on 01/15, currently asymptomatic and off isolation since 01/26. Assessment & Plan (02/05/2021 10:21 AM CDT): Patient initially reporetd the following symptoms: cough, congestion, rhinorrhea, sore throat and some exertional dyspnea for a week before presenting. Tested positive on 01/15, currently asymptomatic and off isolation since 01/26. Assessment & Plan (02/04/2021 7:44 AM CDT): Patient initially reporetd the following symptoms: cough, congestion, rhinorrhea, sore throat and some exertional dyspnea for a week before presenting. Tested positive on 01/15, currently asymptomatic and off isolation since 01/26. Assessment & Plan (02/03/2021 12:11 PM CDT): Patient initially reporetd the following symptoms: cough, congestion, rhinorrhea, sore throat and some exertional dyspnea for a week before presenting. Tested positive on 01/15, currently asymptomatic and off isolation since 01/26. Assessment & Plan (02/02/2021 3:18 PM CDT): Patient initially reporetd the following symptoms: cough, congestion, rhinorrhea, sore throat and some exertional dyspnea for a week before presenting. Tested positive on 01/15, currently asymptomatic and off isolation since 01/26. Assessment & Plan (02/01/2021 10:29 AM CDT): Patient initially reporetd the following symptoms: cough, congestion, rhinorrhea, sore throat and some exertional dyspnea for a week before presenting. Tested positive on 01/15, currently asymptomatic and off isolation since 01/26. Assessment & Plan (01/31/2021 8:02 AM CDT): Patient initially reporetd the following symptoms: cough, congestion, rhinorrhea, sore throat and some exertional dyspnea for a week before presenting. Tested positive on 01/15, currently asymptomatic and off isolation since 01/26. Assessment & Plan (01/30/2021 9:31 AM CDT): Patient initially reporetd the following symptoms: cough, congestion, rhinorrhea, sore throat and some exertional dyspnea for a week before presenting. Tested positive on 01/15, currently asymptomatic and off isolation since 01/26. Assessment & Plan (01/29/2021 11:38 AM CDT): Patient initially reporetd the following symptoms: cough, congestion, rhinorrhea, sore throat and some exertional dyspnea for a week before presenting. Tested positive on 01/15, currently asymptomatic and off isolation since 01/26. Assessment & Plan (01/28/2021 11:25 AM CDT): Patient initially reporetd the following symptoms: cough, congestion, rhinorrhea, sore throat and some exertional dyspnea for a week before presenting. Tested positive on 01/15, currently asymptomatic and off isolation since 01/26. Assessment & Plan (01/27/2021 8:45 AM CDT): Patient initially reporetd the following symptoms: cough, congestion, rhinorrhea, sore throat and some exertional dyspnea for a week before presenting, that are now improving. Denied fever, chest pain or sick exposures. Tested positive on 01/15. On initial exam, she had clear nasal discharge and now +3 erythematous/exudative tonsils bilaterally but breathing comfortably. Now, she's asymptomatic. Her exam is only notable for +2 bilateral tonsils but no exudate or erythema. - Off isolation on 01/26 Assessment & Plan (01/26/2021 3:06 PM CDT): Patient initially reporetd the following symptoms: cough, congestion, rhinorrhea, sore throat and some exertional dyspnea for a week before presenting, that are now improving. Denied fever, chest pain or sick exposures. Tested positive on 01/15. On initial exam, she had clear nasal discharge and now +3 erythematous/exudative tonsils bilaterally but breathing comfortably. Now, she's asymptomatic. Her exam is only notable for +2 bilateral tonsils but no exudate or erythema. - Off isolation on 01/26 Assessment & Plan (01/25/2021 11:48 AM CDT): Patient initially reporetd the following symptoms: cough, congestion, rhinorrhea, sore throat and some exertional dyspnea for a week before presenting, that are now improving. Denied fever, chest pain or sick exposures. Tested positive on 01/15. On initial exam, she had clear nasal discharge and now +3 erythematous/exudative tonsils bilaterally but breathing comfortably. Now, she's asymptomatic. Her exam is only notable for +2 bilateral tonsils but no exudate or erythema. - Contact/Droplet isolation for 10 days - Follow Strep and Gonococcal throat swab: NGTD - Magic mouth wash PRN - Tylenol 1st line and Ibuprofen 2nd line Assessment & Plan (01/24/2021 7:36 AM CDT): Patient initially reporetd the following symptoms: cough, congestion, rhinorrhea, sore throat and some exertional dyspnea for a week before presenting, that are now improving. Denied fever, chest pain or sick exposures. Tested positive on 01/15. On exam, she had clear nasal discharge and now +3 erythematous/exudative tonsils bilaterally but breathing comfortably. - Contact/Droplet isolation - Follow Strep and Gonococcal throat swab: NGTD - Magic mouth wash PRN - Tylenol 1st line and Ibuprofen 2nd line Assessment & Plan (01/23/2021 8:26 AM CDT): Patient initially reporetd the following symptoms: cough, congestion, rhinorrhea, sore throat and some exertional dyspnea for a week before presenting, that are now improving. Denied fever, chest pain or sick exposures. Tested positive on 01/15. On exam, she had clear nasal discharge and now +3 erythematous/exudative tonsils bilaterally but breathing comfortably. - Contact/Droplet isolation - Follow Strep and Gonococcal throat swab: NGTD - Magic mouth wash PRN - Tylenol 1st line, Ibuprofen 2nd line Assessment & Plan (01/22/2021 6:07 PM CDT): Patient initially reporetd the following symptoms: cough, congestion, rhinorrhea, sore throat and some exertional dyspnea for a week before presenting, that are now improving. Denied fever, chest pain or sick exposures. Tested positive on 01/15. On exam, she had clear nasal discharge and now +3 erythematous/exudative tonsils bilaterally but breathing comfortably. - Contact/Droplet isolation - Follow Strep and Gonococcal throat swab: NGTD - Magic mouth wash PRN - Tylenol 1st line, Ibuprofen 2nd line and Oxy 3rd line PRN Assessment & Plan (01/21/2021 2:14 PM CDT): Patient reports cough, congestion, rhinorrhea, sore throat and some exertional dyspnea for a week now. Denies fever, chest pain or sick exposures. Tested positive on 01/15. On exam, she had clear nasal discharge and now +3 erythematous/exudative tonsils bilaterally but breathing comfortably. - Contact/Droplet isolation - Follow Strep and Gonococcal throat swab: NGTD - Magic mouth wash PRN - Tylenol 1st line, Ibuprofen 2nd line and Oxy 3rd line PRN Assessment & Plan (01/20/2021 5:28 PM CDT): Patient reports cough, congestion, rhinorrhea, sore throat and some exertional dyspnea for a week now. Denies fever, chest pain or sick exposures. On exam, she had clear nasal discharge and now +3 erythematous/exudative tonsils bilaterally but breathing comfortably. - Contact/Droplet isolation - Follow Strep and Gonococcal throat swab: NGTD - Magic mouth wash PRN - Tylenol 1st line, Ibuprofen 2nd line and Oxy 3rd line PRN Assessment & Plan (01/19/2021 5:32 PM CDT): Patient reports cough, congestion, rhinorrhea, sore throat and some exertional dyspnea for a week now. Denies fever, chest pain or sick exposures. On exam, she had clear nasal discharge and now +3 erythematous/exudative tonsils bilaterally but breathing comfortably. - Contact/Droplet isolation - Follow Strep and Gonococcal throat swab: NGTD - Magic mouth wash PRN - Tylenol 1st line, Ibuprofen 2nd line and Oxy 3rd line PRN Assessment & Plan (01/18/2021 11:57 AM CDT): Patient reports cough, congestion, rhinorrhea, sore throat and some exertional dyspnea for a week now. Denies fever, chest pain or sick exposures. On exam, she had clear nasal discharge and now +3 erythematous/exudative tonsils bilaterally but breathing comfortably. - Contact/Droplet isolation - Follow Strep and Gonococcal throat swab: NGTD - Magic mouth wash PRN - Tylenol 1st line, Ibuprofen 2nd line and Oxy 3rd line PRN Assessment & Plan (01/17/2021 10:58 AM CDT): Patient reports cough, congestion, rhinorrhea, sore throat and some exertional dyspnea for a week now. Denies fever, chest pain or sick exposures. On exam, she had clear nasal discharge and now +3 erythematous/exudative tonsils bilaterally but breathing comfortably. - Contact/Droplet isolation - Follow Strep and Gonococcal throat swab: NGTD - Magic mouth wash PRN - Tylenol 1st line, Ibuprofen 2nd line and Oxy 3rd line PRN Assessment & Plan (01/16/2021 1:07 PM CDT): Patient reports cough, congestion, rhinorrhea, sore throat and some exertional dyspnea for a week now. Denies fever, chest pain or sick exposures. On exam, she had clear nasal discharge and now +3 erythematous/exudative tonsils bilaterally but breathing comfortably. - Contact/Droplet isolation - Follow Strep and Gonococcal throat swab - Magic mouth wash PRN - Ibuprofen 1st line and Oxycodone 2nd line for sore throat. Assessment & Plan (01/15/2021 4:24 PM CDT): Patient reports cough, congestion, rhinorrhea, sore throat and some exertional dyspnea for a week now. Denies fever, chest pain or sick exposures. On exam, she had clear nasal discharge and +2 erythematous/exudative tonsils bilaterally but breathing comfortably. - Contact/Droplet isolation - Check for superimposed infections: Strep and Gonococcal throat swab Abdominal pain 01/15/2021 01/19/2021 Assessment & Plan (01/19/2021 5:32 PM CDT): Adilene reports having IBS and she follows up with [facility] gastro[facility]. She has on/off mild diffuse abdominal pain that is not relieved by bowel movements as well as diarrhea. No vomiting or constipation. - Continue Cyproheptadine Assessment & Plan (01/18/2021 11:57 AM CDT): Adilene reports having IBS and she follows up with [facility] gastro[facility]. She has on/off mild diffuse abdominal pain that is not relieved by bowel movements as well as diarrhea. No vomiting or constipation. - Continue Cyproheptadine Assessment & Plan (01/17/2021 11:00 AM CDT): Adilene reports having IBS and she follows up with [facility] gastro[facility]. She has on/off mild diffuse abdominal pain that is not relieved by bowel movements as well as diarrhea. No vomiting or constipation. - Continue Cyproheptadine Assessment & Plan (01/16/2021 1:11 PM CDT): Adilene reports having IBS and she follows up with [facility]. She has on/off diffuse abdominal pain that is not relieved by bowel movements as well as diarrhea. No vomiting or constipation. - Continue Cyproheptadine Assessment & Plan (01/15/2021 4:28 PM CDT): Adilene reports having IBS and she follows up with [facility] gastro[facility]. She has on/off diffuse abdominal pain that is not relieved by bowel movements as well as diarrhea. No vomiting or constipation. - Continue Cyproheptadine TSH elevation 01/15/2021 02/13/2021 Assessment & Plan (02/13/2021 8:28 AM CDT): Patient was found to have elevated TSH at 4.5 when screening labs where obtained with normal fT4 levels. She has fatigue but no constipation, cold intolerance or hair loss reported. Repeat TSH 2.01. WNL. Assessment & Plan (02/12/2021 10:15 AM CDT): Patient was found to have elevated TSH at 4.5 when screening labs where obtained with normal fT4 levels. She has fatigue but no constipation, cold intolerance or hair loss reported. Repeat TSH 2.01. WNL. Assessment & Plan (02/11/2021 12:51 PM CDT): Patient was found to have elevated TSH at 4.5 when screening labs where obtained with normal fT4 levels. She has fatigue but no constipation, cold intolerance or hair loss reported. - Repeat TSH in 4-6 weeks (ordered for 02/12) Assessment & Plan (02/10/2021 1:50 PM CDT): Patient was found to have elevated TSH at 4.5 when screening labs where obtained with normal fT4 levels. She has fatigue but no constipation, cold intolerance or hair loss reported. - Repeat TSH in 4-6 weeks (ordered for 02/12) Assessment & Plan (02/09/2021 11:33 AM CDT): Patient was found to have elevated TSH at 4.5 when screening labs where obtained with normal fT4 levels. She has fatigue but no constipation, cold intolerance or hair loss reported. - Repeat TSH in 4-6 weeks (ordered for 02/12) Assessment & Plan (02/08/2021 7:14 AM CDT): Patient was found to have elevated TSH at 4.5 when screening labs where obtained with normal fT4 levels. She has fatigue but no constipation, cold intolerance or hair loss reported. - Repeat TSH in 4-6 weeks (late January/early February) Assessment & Plan (2021 10:03 AM CDT): Patient was found to have elevated TSH at 4.5 when screening labs where obtained with normal fT4 levels. She has fatigue but no constipation, cold intolerance or hair loss reported. - Repeat TSH in 4-6 weeks (late January/early February) Assessment & Plan (02/06/2021 11:38 AM CDT): Patient was found to have elevated TSH at 4.5 when screening labs where obtained with normal fT4 levels. She has fatigue but no constipation, cold intolerance or hair loss reported. - Repeat TSH in 4-6 weeks (late January/early February) Assessment & Plan (02/05/2021 10:21 AM CDT): Patient was found to have elevated TSH at 4.5 when screening labs where obtained with normal fT4 levels. She has fatigue but no constipation, cold intolerance or hair loss reported. - Repeat TSH in 4-6 weeks (january/early February) Assessment & Plan (02/04/2021 7:44 AM CDT): Patient was found to have elevated TSH at 4.5 when screening labs where obtained with normal fT4 levels. She has fatigue but no constipation, cold intolerance or hair loss reported. - Repeat TSH in 4-6 weeks (late January/early February) Assessment & Plan (02/03/2021 12:11 PM CDT): Patient was found to have elevated TSH at 4.5 when screening labs where obtained with normal fT4 levels. She has fatigue but no constipation, cold intolerance or hair loss reported. - Repeat TSH in 4-6 weeks (early February) Assessment & Plan (02/02/2021 3:19 PM CDT): Patient was found to have elevated TSH at 4.5 when screening labs where obtained with normal fT4 levels. She has fatigue but no constipation, cold intolerance or hair loss reported. - Repeat TSH in 4-6 weeks (january/early February) Assessment & Plan (02/01/2021 10:29 AM CDT): Patient was found to have elevated TSH at 4.5 when screening labs where obtained with normal fT4 levels. She has fatigue but no constipation, cold intolerance or hair loss reported. - Repeat TSH in 4-6 weeks Assessment & Plan (01/31/2021 8:02 AM CDT): Patient was found to have elevated TSH at 4.5 when screening labs where obtained with normal fT4 levels. She has fatigue but no constipation, cold intolerance or hair loss reported. - Repeat TSH in 4-6 weeks Assessment & Plan (01/30/2021 9:32 AM CDT): Patient was found to have elevated TSH at 4.5 when screening labs where obtained with normal fT4 levels. She has fatigue but no constipation, cold intolerance or hair loss reported. - Repeat TSH in 4-6 weeks Assessment & Plan (01/29/2021 11:38 AM CDT): Patient was found to have elevated TSH at 4.5 when screening labs where obtained with normal fT4 levels. She has fatigue but no constipation, cold intolerance or hair loss reported. - Repeat TSH in 4-6 weeks Assessment & Plan (01/28/2021 11:25 AM CDT): Patient was found to have elevated TSH at 4.5 when screening labs where obtained with normal fT4 levels. She has fatigue but no constipation, cold intolerance or hair loss reported. - Repeat TSH in 4-6 weeks Assessment & Plan (01/27/2021 8:45 AM CDT): Patient was found to have elevated TSH at 4.5 when screening labs where obtained with normal fT4 levels. She has fatigue but no constipation, cold intolerance or hair loss reported. - follow up in 4-6 weeks Assessment & Plan (01/26/2021 3:05 PM CDT): Patient was found to have elevated TSH at 4.5 when screening labs where obtained with normal fT4 levels. She has fatigue but no constipation, cold intolerance or hair loss reported. - follow up in 4-6 weeks Assessment & Plan (01/25/2021 11:48 AM CDT): Patient was found to have elevated TSH at 4.5 when screening labs where obtained with normal fT4 levels. She has fatigue but no constipation, cold intolerance or hair loss reported. - follow up in 4-6 weeks Assessment & Plan (01/24/2021 7:36 AM CDT): Patient was found to have elevated TSH at 4.5 when screening labs where obtained with normal fT4 levels. She has fatigue but no constipation, cold intolerance or hair loss reported. - follow up in 4-6 weeks Assessment & Plan (01/23/2021 8:27 AM CDT): Patient was found to have elevated TSH at 4.5 when screening labs where obtained with normal fT4 levels. She has fatigue but no constipation, cold intolerance or hair loss reported. - follow up in 4-6 weeks Assessment & Plan (01/22/2021 6:07 PM CDT): Patient was found to have elevated TSH at 4.5 when screening labs where obtained with normal fT4 levels. She has fatigue but no constipation, cold intolerance or hair loss reported. - follow up in 4-6 weeks Assessment & Plan (01/21/2021 2:08 PM CDT): Patient was found to have elevated TSH at 4.5 when screening labs where obtained with normal fT4 levels. She has fatigue but no constipation, cold intolerance or hair loss reported. - follow up in 4-6 weeks Assessment & Plan (01/20/2021 5:28 PM CDT): Patient was found to have elevated TSH at 4.5 when screening labs where obtained with normal fT4 levels. She has fatigue but no constipation, cold intolerance or hair loss reported. - follow up in 4-6 weeks Assessment & Plan (01/19/2021 5:32 PM CDT): Patient was found to have elevated TSH at 4.5 when screening labs where obtained with normal fT4 levels. She has fatigue but no constipation, cold intolerance or hair loss reported. - follow up in 4-6 weeks Assessment & Plan (01/18/2021 11:57 AM CDT): Patient was found to have elevated TSH at 4.5 when screening labs where obtained with normal fT4 levels. She has fatigue but no constipation, cold intolerance or hair loss reported. - follow up in 4-6 weeks Assessment & Plan (01/17/2021 11:00 AM CDT): Patient was found to have elevated TSH at 4.5 when screening labs where obtained with normal fT4 levels. She has fatigue but no constipation, cold intolerance or hair loss reported. - follow up in 4-6 weeks Assessment & Plan (01/16/2021 1:11 PM CDT): Patient was found to have elevated TSH at 4.5 when screening labs where obtained with normal fT4 levels. She has fatigue but no constipation, cold intolerance or hair loss reported. - follow up in 4-6 weeks Assessment & Plan (01/15/2021 4:12 PM CDT): Patient was found to have elevated TSH at 4.5 when screening labs where obtained with normal fT4 levels. She has fatigue but no constipation, cold intolerance or hair loss reported. - follow up in 4-6 weeks Surgical History Surgery Date Site/Laterality Comments CYST REMOVAL 01/20/2018 - 02/19/2018 from left cheek Medical History Medical History Date Comments Abdominal pain Cough 08/04/2018 Started 2-3 week s ago. No fevers. Runny nose. Cough infrequent Diarrhea 06/18/2018 Nausea Adopted Anxiety Panic attack due to post tra umatic stress disorder (PTSD) Family History * Patient is adopted Medical History Relation Name Comments Diabetes Father Family history of diabetes mellitus - (Added by TW Conv) Unknown Family History Other patie nt is adopted Relation Name Status Comments Father Other Social History Tobacco Use Types Packs/Day Years Used Date Smoking Tobacco: Every Day Cigarettes 1 4 Vaping Smokeless Tobacco: Never Tobacco Cessation:Ready to Q uit: No; Counseling Given: Yes Comments:unknown Alcohol Use Standard Drinks/Week Comments Defer 0 (1 standard drink = 0.6 oz pur e alcohol) unknown Personal Safety Answer Date Recorded Getting School Help Needed Not on file 06/24 Comments No Sex and Gender Information Value Date Recorded Sex Assigned at Not on file Legal Sex Female 6:43 AM CDT Gender Identity Not on file Sexual Orientation Not on file Obstetrics History Last Filed Vital Signs Vital Sign Reading Time Taken Comments Blood Pressure 108/74 09/19/2021 11:23 AM CDT Pulse 71 09/19/2021 11:23 AM CDT Temperature 36.5 C (97.7 F) 09/19/2021 11:23 AM CDT Respiratory Rate 16 08/30/2021 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 Oxygen Saturation 100% 09/19/2021 11:23 AM CDT Inhaled Oxygen Concentration - - Weight 64.2 kg (141 lb 9.6 oz) 09/19/2021 11:23 AM CDT Height 170.2 cm (5' 7.01 ) 08/28/2021 3:27 PM CS T Body Mass Index 22.17 08/28/2021 3:27 PM SERVICE 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 Plan of Treatment Health Maintenance Due Date Last Done Comments Cervical Cancer Screening 2003 Depression Screening 2003 Hepatitis C Screening 2003 Pneumococcal vaccine <65 (1 of 1 - PPSV23 or PCV20) 2009 05/22/2004, 2003, 2003, Additional history exists Meningococcal B Vaccine (1 of 2 - Patient Seeks Protection) 2019 Regular Well Visit/Exam 18-64 2021 Chlamydia and Gonorrhea (GC/CT) Screening 01/15/2022 01/15/2021 Influenza Vaccine (#1) 2024 07/31/2021 DTaP/Tdap/Td Vaccine (7 - Td or Tdap) 01/18/2025 01/18/2015, 12/15/2007, 05/22/2004, Additional history exists Varicella Vaccines Completed 12/15/2007, 0 08/20/2006, 02/12/2004 Meningococcal Vaccine Aged Out 01/18/2015 No johan lorena eligible based on patient's age to complete this topic HPV Vaccines Completed 03/05/2016, 10/22, 08/27/2015 Procedures Procedure Name Priority Date/Time Associated Diagnosis Comments N. GONORRHOEAE/C. TRACHOMATIS AMPLIFICATION Routine 01/15/2021 12:37 AM CDT from Last 3 Months or Most Recently Relevant to Health Maintenance Results * N. gonorrhoeae/C. trachomatis Amplification Urine (01/15/2021 12:37 AM CDT) C. trachomatis Not Detected Not Detected [facility] Comment:Testing performed by : [facility], [address] [place] [address]., [id number] N. gonorrhoeae Not Detected Not Detected [facility] Comment: Interpretive Data Testing performed by the [facility]. This assay detects Chlamydia trachomatis and Neisseria gonorrhoeae by nucleic acid amplification testing (NAAT). This test is approved by the [place] Food and Drug Administration and the performance characteristics have been verified by the laboratory. The performance characteristics of this test have not been evaluated in individuals less than 14 years of age. Current Interpretive Data was last revised on 2018. Testing performed by: [facility], [address] [place] [address]., [id number] Urine (None) 01/15/2021 12:3 7 AM CDT 01/15/2021 11:10 AM CDT us Trinity Ricci MD LAB MICROBIOLOGY - [place] [place] ORDERABLES Final Result [facility] [place] [address] from Last 3 Months or Most Recently Relevant to Health Maintenance Insurance [facility] [id number] [place] [address] [facility] Advance Directives For more information, please contact: [phone] * Full Code (Latest Code Status on File) Date Activated Date Inactivated Comments 08/28/2021 8:13 PM 08/30/2021 4:47 PM * Full Code Date Activated Date Inactivated Comments 01/15/2021 1:54 PM 03/13/2021 10:26 PM 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
--- OUTSIDE RECORDS SUMMARY | 2024-08-06 17:43 | XMS_ITS | Referral Summary ---
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 urine was positive for THC. She drinks alcohol occasionally and smokes cigarettes frequently. - Rattle Leak [employer] Squeak Repairer about the use of THC, cigarette smoking and alcohol use Assessment & Plan (01/27/2021 8:46 AM CDT): Patient uses THC to feel better. It reduces her anxiety and improves her mood. Her urine was positive for THC. She drinks alcohol occasionally and smokes cigarettes frequently. - Rattle Leak [employer] Squeak Repairer about the use of THC, cigarette smoking and Alcohol use. Assessment & Plan (01/26/2021 3:06 PM CDT): Patient uses THC to feel better. It reduces her anxiety and improves her mood. Her urine was positive for THC. She drinks alcohol occasionally and smokes cigarettes frequently. - Rattle Le[employer] Squeak Repairer about the use of THC, cigarette smoking and Alcohol use. Assessment & Plan (01/25/2021 11:48 AM CDT): Patient uses THC to feel better. It reduces her anxiety and improves her mood. Her urine was positive for THC. She drinks alcohol occasionally and smokes cigarettes frequently. - Rattle Leak [employer] Squeak Repairer about the use of THC, cigarette smoking and Alcohol use. Assessment & Plan (01/24/2021 7:37 AM CDT): Patient uses THC to feel better. It reduces her anxiety and improves her mood. Her urine was positive for THC. She drinks alcohol occasionally and smokes cigarettes frequently. - Rattle Leak [employer] Squeak Repairer about the use of THC, cigarette smoking and Alcohol use. Assessment & Plan (01/23/2021 8:27 AM CDT): Patient uses THC to feel better. It reduces her anxiety and improves her mood. Her urine was positive for THC. She drinks alcohol occasionally and smokes cigarettes frequently. - Rattle Le[employer] Squeak Repairer about the use of THC, cigarette smoking and Alcohol use. Assessment & Plan (01/22/2021 6:08 PM CDT): Patient uses THC to feel better. It reduces her anxiety and improves her mood. Her urine was positive for THC. She drinks alcohol occasionally and smokes cigarettes frequently. - Rattle Le[employer] Squeak Repairer about the use of THC, cigarette smoking and Alcohol use. Assessment & Plan (01/21/2021 2:09 PM CDT): Patient uses THC to feel better. It reduces her anxiety and improves her mood. Her urine was positive for THC. She drinks alcohol occasionally and smokes cigarettes frequently. - Rattle Le[employer] Squeak Repairer about the use of THC, cigarette smoking and Alcohol use. Assessment & Plan (01/20/2021 5:28 PM CDT): Patient uses THC to feel better. It reduces her anxiety and improves her mood. Her urine was positive for THC. She drinks alcohol occasionally and smokes cigarettes frequently. - Rattle Le[employer] Squeak Repairer about the use of THC, cigarette smoking and Alcohol use. Assessment & Plan (01/19/2021 5:32 PM CDT): Patient uses THC to feel better. It reduces her anxiety and improves her mood. Her urine was positive for THC. She drinks alcohol occasionally and smokes cigarettes frequently. - Rattle Leak [employer] Squeak Repairer about the use of THC, cigarette smoking and Alcohol use. Assessment & Plan (01/18/2021 11:58 AM CDT): Patient uses THC to feel better. It reduces her anxiety and improves her mood. Her urine was positive for THC. She drinks alcohol occasionally and smokes cigarettes frequently. - Rattle Leak And Squeak Repairer about the use of THC, cigarette smoking and Alcohol use. Assessment & Plan (01/17/2021 11:00 AM CDT): Patient uses THC to feel better. It reduces her anxiety and improves her mood. Her urine was positive for THC. She drinks alcohol occasionally and smokes cigarettes frequently. - Rattle Le[employer] Squeak Repairer about the use of THC, cigarette smoking and Alcohol use. Assessment & Plan (01/16/2021 1:11 PM CDT): Patient uses THC to feel better. It reduces her anxiety and improves her mood. Her urine was positive for THC. She drinks alcohol occasionally and smokes cigarettes frequently. - Rattle Le[employer] Squeak Repairer about the use of THC, cigarette smoking and Alcohol use. Assessment & Plan (01/15/2021 4:20 PM CDT): Patient uses THC to feel better. It reduces her anxiety and improves her mood. Her urine was positive for THC. She drinks alcohol and smokes cigarettes occasionally. - Rattle Le[employer] Squeak Repairer about the use of THC, cigarette smoking [...] having IBS and she follows up with [facility] pediatrics gastroenterology. She has on/off mild diffuse abdominal pain that is not relieved by bowel movements as well as diarrhea. No vomiting or constipation. - Continue Cyproheptadine Assessment & Plan (01/18/2021 11:57 AM CDT): Adilene reports having IBS and she follows up with [facility] pediatrics gastroenterology. She has on/off mild diffuse abdominal pain that is not relieved by bowel movements as well as diarrhea. No vomiting or constipation. - Continue Cyproheptadine Assessment & Plan (01/17/2021 11:00 AM CDT): Adilene reports having IBS and she follows up with [facility] pediatrics gastroenterology. She has on/off mild diffuse abdominal pain that is not relieved by bowel movements as well as diarrhea. No vomiting or constipation. - Continue Cyproheptadine Assessment & Plan (01/16/2021 1:11 PM CDT): Adilene reports having IBS and she follows up with [facility] pediatrics gastroenterology. She has on/off diffuse abdominal pain that is not relieved by bowel movements as well as diarrhea. No vomiting or constipation. - Continue Cyproheptadine Assessment & Plan (01/15/2021 4:28 PM CDT): Adilene reports having IBS and she follows up with [facility] pediatrics gastroenterology. She has on/off diffuse abdominal [...] reported. - follow up in 4-6 weeks Social History Tobacco Use Types Packs/Day Years [...] CDT Respiratory Rate 16 08/30/2021 7:09 AM UNDERCOAT SPRAYER Oxygen Saturation 100% 09/19/2021 11:23 AM CDT Inhaled Oxygen Concentration - - Weight 64.2 kg (141 lb 9.6 oz) 09/19/2021 11:23 AM CDT Height 170.2 cm (5' 7.01 ) 08/28/2021 3:27 PM CS T Body Mass Index 22.17 08/28/2021 3:27 PM UNDERCOAT SPRAYER Plan of Treatment Not on file Procedures Procedure Name Priority Date/Time Associated Diagnosis Comments N. GONORRHOEAE/C. TRACHOMATIS AMPLIFICATION Routine 01/15/2021 12:37 AM CDT from Last 3 Months or Most Recently Relevant to Health Maintenance Results * N. gonorrhoeae/C. trachomatis Amplification Urine (01/15/2021 12:37 AM CDT) C. trachomatis Not Detected Not Detected [facility] Comment:Testing performed by : , [address] [place] [address]., [address] N. gonorrhoeae Not Detected Not Detected [facility] Comment: Interpretive Data Testing performed by the Laboratory. This assay detects Chlamydia trachomatis and [...] last revised on 2018. Testing performed by: , [address] [place] [address]., [address] Urine (None) 01/15/2021 12:3 7 AM CDT 01/15/2021 11:10 AM CDT Trinity Ricci MD LAB MICROBIOLOGY - GENE RAL ORDERABLES Final Result [facility] Department [place] [address] from Last 3 Months or Most Recently Relevant to Health Maintenance Insurance [facility] Member Subscriber Plan / Payer (Ef fective 2020-Present) Name:Millie Vieraedes Blayne Breanna Relation to Subscriber:Self Name:Millie Vieraanusha Change Payer ID:[id number] (NAIC) Group ID:Not on file Type:MEDICAID RISK OTHER Address: [address] [place], [place] [id number] [place] [address] [facility] Advance Directives For more information, please contact: [phone] * Full Code (Latest Code Status on File) Date Activated Date Inactivated Comments 08/28/2021 8:13 PM 08/30/2021 4:47 PM * Full Code Date Activated Date Inactivated Comments 01/15/2021 1:54 PM 03/13/2021 10:26 PM Care Teams Cq Developer Relationship Specialty Start Date End Date No, Physician PCP - General 08/07/21
--- OUTSIDE RECORDS SUMMARY | 2024-08-06 17:43 | XMS_ITS | Patient Health Record ---
Author Organization [facility] Address [address] [place] [address] Care Team Providers Care Area Manager Name Role Phone Lena Sanders Primary Care Provider [phone] Bebo Morrsi Unavailable [phone] Lena Boyle Unavailable [phone] Migration, Provider Unavailable Unavailable Allergies Allergen (clinical drug ingredient) Drug/Non Drug Allergy documented on EMR Reaction Allergy Type Onset Date Status hydroxyzine hydrOXYzine Delete Reason: Entered in Error. Drug Allergy 05/07/2023 Inactive trazodone traZODone SYNCOPE AND BLURRED VISION Drug Allergy 05/07/2023 Active Results Component Value Reference Range Notes Test, Urine Reviewed date:06/06/2024 12:07:17 PM Interpretation:Positive Performing Lab: Notes/Report: Positive Reason For Referral No Information Medications Medication SIG (Take, Route, Frequency, Duration) Notes Start Date End Date Status Levora 0.15/30 (28) 0.15-30 MG-MCG 1 Oral every day; Duration: 09/29/2023 09/22/2024 Not-Taking Colace 100 MG 1 Oral every day; Duration: 0 ,PRN Reason:for constipation 08/13/2023 Not-Taking Sertraline HCl 100 MG Oral; Duration: 09/14/2023 Active lurasidone 20.000 mg oral; Duration: 30 *Reorder from [facility] for eRx and Interaction Alerts* 07/27/2023 Active buPROPion HCl ER (XL) 150 MG Oral; Duration: 30 09/14/2023 Active Immunizations Vaccine Route Administration Date Status Comme nts Varicella Unknown 02/12/2004 Administered ,sourcename : Historical information -source unspecified Source VFC Code: : Varicella Unknown 08/20/2006 Administered ,sourcename : Historical information -source unspecified Source VFC Code: : Varicella Unknown 12/15/2007 Administered ,sourcename : Historical information -source unspecified Source VFC Code: : Tdap Unknown 01/18/2015 Administered ,sourcename : Historical information -source unspecified Source VFC Code: : Pneumococcal conjugate PCV 13 Unknown 2003 Administered ,sourcename : Historical information -source unspecified Source VFC Code: : Pneumococcal conjugate PCV 13 Unknown 2003 Administered ,sourcename : Historical information -source unspecified Source VFC Code: : Pneumococcal conjugate PCV 13 Unknown 2003 Administered ,sourcename : Historical information -source unspecified Source VFC Code: : Pneumococcal conjugate PCV 13 Unknown 05/22/2004 Administered ,sourcename : Historical information -source unspecified Source VFC Code: : Meningococcal recombinant, serogroup B Unknown 01/18/2015 Administered ,sourcename : Historical information -source unspecified Source VFC Code: : Hib (PRP-T), 4 dose schedule Unknown 2003 Administered ,sourcename : Historical information -source unspecified Source VFC Code: : Hib (PRP-T), 4 dose schedule Unknown 2003 Administered ,sourcename : Historical information -source unspecified Source VFC Code: : Hib (PRP-T), 4 dose schedule Unknown 2003 Administered ,sourcename : Historical information -source unspecified Source VFC Code: : Hep A, ped/adol, 2 dose Unknown 01/18/2015 Administered ,sourcename : Historical information -source unspecified Source VFC Code: : Hep A, ped/adol, 2 dose Unknown 08/27/2015 Administered ,sourcename : Historical information -source unspecified Source VFC Code: : DTaP-IPV Unknown 2003 Administered ,sourcename : Historical information -source unspecified Source VFC Code: : DTaP-IPV Unknown 12/15/2007 Administered ,sourcename : Historical information -source unspecified Source VFC Code: : DTaP-Hep B-IPV Unknown 2003 Administered ,sourcename : Historical information -source unspecified Source VFC Code: : DTaP-Hep B-IPV Unknown 2003 Administered ,sourcename : Historical information -source unspecified Source VFC Code: : MMR Unknown 02/12/2004 Administered ,sourcename : Historical information -source unspecified Source VFC Code: : MMR Unknown 08/20/2006 Administered ,sourcename : Historical information -source unspecified Source VFC Code: : MMR Unknown 12/15/2007 Administered ,sourcename : Historical information -source unspecified Source VFC Code: : HPV, unspecified formulation Unknown 08/27/2015 Administered ,sourcename : Historical information -source unspecified Source VFC Code: : HPV, unspecified formulation Unknown 11/20/2015 Administered ,sourcename : Historical information -source unspecified Source VFC Code: : Hep B, adolescent or pediatric (11-19), 3 dose schedule Unknown 2003 Administered ,sourcename : Historical information -source unspecified Source VFC Code: : DTaP Unknown 05/22/2004 Administered ,sourcename : Historical information -source unspecified Source VFC Code: : Problems Problem Type SNOMED Code ICD Code Onset Dates Problem Status W/U Status Risk Notes Problem Epigastric pain (86345305) Abdominal pain, epigastric (789.06) 018 Problem resolved confirmed Problem Generalized abdominal pain (932891545) Abdominal pain, generalized (789.07) 018 Problem resolved confirmed Problem Herpes simplex viral infection (37084751) Herpesviral infection, unspecified (B00.9) 023 Active confirmed Problem Excessive and frequent menstruation (712325535) Excessive and frequent menstruation with regular cycle (N92.0) 024 Active confirmed Problem Major depression, single episode (19229486) Major depressive disorder, single episode, unspecified (F32.9) 021 Active confirmed Problem Excessive and frequent menstruation (562844489) Excessive or frequent menstruation (626.2) 017 Problem resolved confirmed Problem Child health medical examination (204077929) Encounter for routine child health examination without abnormal findings (Z00.129) 016 Problem resolved confirmed Problem Surveillance of contraception (257272147) Encounter for contraceptive management, unspecified (Z30.9) 024 Active confirmed Problem Epigastric pain (10297223) Epigastric pain (R10.13) 018 Problem resolved confirmed Problem Acute bronchitis (71910248) Acute bronchitis, unspecified (J20.9) 017 Problem resolved confirmed Problem Allergic rhinitis (70549340) Allergic rhinitis, unspecified (J30.9) 021 Problem resolved confirmed Problem Irregular menstruation (01433128) Irregular menstruation, unspecified (N92.6) 017 Problem resolved confirmed Problem Pain in limb (14597038) Pain in soft tissues of limb (729.5) 017 Active confirmed Problem Well child visit (194054912) Routine or child health check (V20.2) 018 Active confirmed Problem Insomnia (479117654) Insomnia, unspecified (G47.00) 023 Active confirmed Problem Chronic disease of tonsils AND/OR adenoids (29880544) Other chronic diseases of tonsils and adenoids (J35.8) 023 Active confirmed Problem Abdominal pain (28136332) Unspecified abdominal pain (R10.9) 024 Active confirmed Problem Antidepressant drug adverse reaction (982156763) Adverse effect of unspecified antidepressants, initial encounter (T43.205A) 023 Active confirmed TRAZODONE Problem Exposure to sexually transmissible disorder (315611031) Contact with and (suspected) exposure to infections with a predominantly sexual mode of transmission (Z20.2) 024 Active confirmed Problem Localized superficial swelling of skin (626214707) Localized superficial swelling, mass, or lump (782.2) 017 Problem resolved confirmed Problem Localized mass (4485335) Localized swelling, mass and lump, unspecified (R22.9) 017 Problem resolved confirmed Problem History and physical examination, sports participation (procedure) (159606670) Encounter for examination for participation in sport (Z02.5) 017 Problem resolved confirmed Problem History and physical examination, administrative (06850489) Other general medical examination for administrative purposes (V70.3) 017 Active confirmed Problem Severe major depression, single episode, without psychotic features (27527645) Major depressive disorder, single episode, severe without psychotic features (F32.2) Active confirmed Problem Constipation (88314188) Constipation, unspecified (K59.00) Active confirmed Problem Dysmenorrhea (747847183) Dysmenorrhea, unspecified (N94.6) Active confirmed Problem Changes in skin texture (031431171) Changes in skin texture (R23.4) Active confirmed Problem Emotional state finding (574582614) Other symptoms and signs involving emotional state (R45.89) Active confirmed Problem Problem, abnormal examination (60860255) Encounter for general adult medical examination with abnormal findings (Z00.01) Active confirmed Problem Noncompliance with treatment (finding) (8166881) Patient's noncompliance with other medical treatment and regimen due to unspecified reason (Z91.199) Active confirmed Problem Normal body mass index (41836735) Body mass index (BMI) 21.0-21.9, adult (Z68.21) Active confirmed Problem Acute bronchitis (84460347) Acute bronchitis (466.0) Problem resolved confirmed Problem Wheezing (96648748) Wheezing (786.07) Problem resolved confirmed Problem Closed fracture of foot (585210730) Closed fracture of unspecified bone(s) of foot (except toes) (825.20) Problem resolved confirmed Problem Tuberculosis screening (102637550) Screening examination for pulmonary tuberculosis (V74.1) Problem resolved confirmed Problem Acute atopic conjunctivitis (18387007) Acute atopic conjunctivitis, unspecified eye (H10.10) Problem resolved confirmed Problem Acute tonsillitis (94553833) Acute tonsillitis, unspecified (J03.90) Problem resolved confirmed Problem Pain in left foot (517821342776823 ) Pain in left foot (M79.672) Problem resolved confirmed Problem Wheezing (52174931) Wheezing (R06.2) Problem resolved confirmed Problem Generalized abdominal pain (940862864) Generalized abdominal pain (R10.84) 018 Problem resolved confirmed Problem Closed fracture of foot (944984764) Unspecified fracture of left foot, initial encounter for closed fracture (S92.902A) 017 Problem resolved confirmed Problem Tuberculosis screening (709133124) Encounter for screening for respiratory tuberculosis (Z11.1) 017 Problem resolved confirmed Vital Signs Heart Rate 110 /min 06/06/2024 Temperature 97.6 degrees Fahrenheit 06/06/2024 Respiratory Rate 16 /min 01/14/2024 Height-cm 167.64 cm 06/06/2024 Blood pressure diastolic 74 mm Hg 06/06/2024 Oximetry 99 % 06/06/2024 Weight-kg 58.79 kg 06/06/2024 Height 66.00 in 06/06/2024 Blood pressure systolic 132 mm Hg 06/06/2024 Weight 129.6 lbs 06/06/2024 BMI 20.92 kg/m2 06/06/2024 Encounters Encounter Location Date Provider Diagnosis [address] [address] 08/13/2023 Provider Migration Contact with and (suspected) exposure to infections with a predominantly sexual mode of transmission Z20.2 and Constipation, unspecified K59.[address] [address] 08/31/2023 Provider Migration Patient's noncompliance with other medical treatment and regimen due to unspecified reason Z91.[address] [address] 09/29/2023 Provider Migration Encounter for contraceptive management, unspecified Z30.[address] [address] 01/14/2024 Bebo Alexandra Changes in skin texture R23.4 ; Major depressive disorder, single episode, severe without psychotic features F32.2 ; Encounter for general adult medical examination with abnormal findings Z00.01 ; Excessive and frequent menstruation with regular cycle N92.0 ; Unspecified abdominal pain R10.9 ; Dysmenorrhea, unspecified N94.6 and Constipation, unspecified K59.[address] [address] 06/06/2024 Lena Boyle Less than 8 weeks gestation of Z3A.01 and Major depressive disorder, single episode, unspecified F32.9 [facility] [address] [place] [address] 05/21/2024 Provider Migration [facility] [address] [place] [address] 05/22/2024 Provider Migration Assessments Encounter Date Diagnosis (ICD Code) Assessment Notes Treat ment Notes Treatment Clinical Notes 08/13/2023 Constipation, unspecified (ICD-10 - K59.00) 08/13/2023 Contact with and (suspected) exposure to infections with a predominantly sexual mode of transmission (ICD-10 - Z20.2) 08/31/2023 Patient's noncompliance with other medical treatment and regimen due to unspecified reason (ICD-10 - Z91.199) 09/29/2023 Encounter for contraceptive management, unspecified (ICD-10 - Z30.9) 01/14/2024 Major depressive disorder, single episode, severe without psychotic features (ICD-10 - F32.2) 01/14/2024 Constipation, unspecified (ICD-10 - K59.00) 01/14/2024 Excessive and frequent menstruation with regular cycle (ICD-10 - N92.0) 01/14/2024 Dysmenorrhea, unspecified (ICD-10 - N94.6) 01/14/2024 Unspecified abdomina l pain (ICD-10 - R10.9) 01/14/2024 Changes in skin texture (ICD-10 - R23.4) 01/14/2024 Encounter for genera l adult medical examination with abnormal findings (ICD-10 - Z00.01) 06/06/2024 Major depressive disorder, single episode, unspecified (ICD-10 - F32.9) 06/06/2024 Less than 8 weeks gestation of (ICD-10 - Z3A.01) Plan Of Treatment No Information Insurance Providers Payer Name Payer Address Payer Phone Subscriber Number Group Number Insured Name Patient Relationship to Insured Coverage Start Date Coverage End Date [address] [place] [address] [id number] Adilene Viera Self - patient is the insured
[2024-08-06 18:05] VITALS: BP 120/56; PULSE 85; RESP 18; TEMP 36.5; O2SAT 99
[2024-08-06 22:05] VITALS: BP 110/73; PULSE 89; RESP 12; O2SAT 100
--- NOTE | 2024-08-06 22:22 | ECG_ITS ---
Test Date: 2024-08-06 23:06:33 Measurements Intervals [place] Rate: 85 P: 53 FL: 157 QRS: 76 QRSD: 77 T: 26 QT: 351 QTc: 418 Interpretive Statements SINUS RHYTHM NONSPECIFIC ST-T WAVE ABNORMALITY- ANTEROLAT/INF LEADS BASELINE ARTIFACT- I, III, AVR, AVL, AVF, V1 BORDERLINE ECG No previous ECG available for comparison Electronically Signed On 08-07-2024 08:17:57 MASTER BREWER by Jan Quintana D.O.
--- NOTE | 2024-08-06 22:22 | ED.DIZZY ---
HPI - Dizziness General Chief Complaint: Syncope Stated Complaint: syncope, n/v, 12 weeks Time Seen by Provider: 08/06/24 22:14 Source: patient Mode of arrival: ambulatory Limitations: no limitations History of Present Illness HPI Narrative: This is a 19-year-old female who is approximately 12 weeks , who presents to the ED for chief complaint of N/V with syncopal episode today. Patient states that she was at work when this occurred. 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 States that she has had hyperemesis gravidarum with this and feels that the vomiting and dehydration causes her to get lightheaded. States that she did have a prodrome today before having the syncopal episode. Her friend who was with her witness to the event today and says she went down for couple seconds but came right back to normal. Denies seizure-like activity. Patient denies fevers, chills, shortness of breath, chest pain, abdominal pain, vaginal bleeding or urinary symptoms. Related Data Allergies Allergy/AdvReac Type Severity Reaction Status Date / Time No Known Allergies Allergy Verified 08/06/24 18:06 Review of Systems Review of Systems: All systems as dictated in HPI Exam Narrative: GENERAL: Well-appearing, well-nourished, and in no acute distress. HEAD: Normocephalic, atraumatic. EYES: PERRLA and EOMI. ENT: Nares clear, no rhinorrhea or epistaxis. Mucous membranes moist. Oropharynx without tonsillar hypertrophy exudate or other lesions. NECK: Supple. No adenopathy or masses. CHEST: No respiratory distress. Clear to auscultation. No wheezes rales or rhonchi HEART: Regular rate and rhythm. No murmur heard. Normal peripheral pulses. ABDOMEN: Soft, nontender, nondistended, normal active bowel sounds. MSK: Normal range of motion. No edema. SKIN: Warm, dry, no rash. NEURO: Alert and oriented x4. No focal deficits. PSYCH: Normal mood and affect. Course Vital Signs Vital signs: Vital Signs Temperature 97.7 F 08/06/24 18:05 Pulse Rate 85 08/06/24 18:05 Respiratory Rate 18 08/06/24 18:05 Blood Pressure 120/56 L 08/06/24 18:05 Pulse Oximetry 99 08/06/24 18:05 Temperature 97.7 F 08/06/24 18:05 Pulse Rate 92 08/06/24 23:20 Respiratory Rate 18 08/06/24 23:20 Blood Pressure 105/64 08/06/24 23:20 Pulse Oximetry 100 08/06/24 23:20 MDM - Dizziness MDM Narrative Medical decision making narrative: This is a 19-year-old female with hyperemesis gravidarum who presents to the ED for chief complaint of N/V with syncopal episode today. Vitals are normal. Exam remarkable for the above. She does not appear toxic. She has no abdominal pain or vaginal bleeding. EKG shows sinus rhythm with no acute ischemia or arrhythmia. Lab work is grossly unremarkable. Urinalysis does show 1+ ketones and no infection. Patient was given LR as and D5 half-normal saline. She is feeling much better on re-evaluation. Suspect orthostatic dizziness/orthostatic syncope due to volume loss from vomiting. She was given Reglan here as well as B6. Rx for short course of Reglan given as well as Rx for daily B6. She feels comfortable with discharge at this time and will follow-up with OBGYN. Return precautions given and supportive measures from discussed. Patient will be discharged in stable condition. Lab Data 08/06/24 22:35 08/06/24 22:35 Labs: Lab Results 08/06/24 08/06/24 08/06/24 Range/Units 22:35 22:39 23:03 WBC 9.2 (4.5-10.0) K/mm3 RBC 3.92 L (4.2-5.4) M/mm3 Hgb 12.2 (12.0-15.0) g/dL Hct 34.9 L (37.0-47.0) % MCV 89.0 (80-100) fl MCH 31.1 (26-34) pg MCHC 35.0 (32-36) g/dl RDW 13.3 (11.5-14.5) % Plt Count 243 (150-375) k/mm3 MPV 10.2 (7.4-10.4) fl Immature Gran % (Auto) 0.2 (0-0.5) % Neut % (Auto) 70.3 (45.5-73.1) % Lymph % (Auto) 22.5 (18.3-44.2) % [place] % (Auto) 5.5 (2.6-8.5) % Eos % (Auto) 1.4 (0-4.4) % Baso % (Auto) 0.1 L (0.2-1.2) % Lymph # (Auto) 2.07 (0.9-3.2) K/mm3 [place] # (Auto) 0.5 (0.1-0.6) K/mm3 Eos # (Auto) 0.1 (0-0.3) K/mm3 Baso # (Auto) 0.0 (0.0-0.1) K/mm3 Abs Immat Gran (auto) 0.02 (0.00-0.031) K/mm3 Absolute Neuts (auto) 6.5 (1.3-6.7) K/mm3 Absolute Nucleated RBC 0.000 (0.0-0.012) K/mm3 Nucleated RBC % 0.0 (0.0-0.2) % Sodium 133 L (137-145) mmol/L Potassium 3.4 (3.4-5.0) mmol/L Chloride 101 (98-107) mmol/L Carbon Dioxide 24 (22-30) mmol/L Anion Gap 8 (4-12) mmol/L BUN 6 L (7-17) mg/dL Creatinine 0.44 L (0.7-1.0) mg/dL Estim Creat Clear Calc 155 ml/min Estimated GFR > 60 (59 - ) Glucose 67 (65-110) mg/dL POC Capillary Glucose 64 L (65-105) mg/dl Calcium 8.6 (8.4-10.2) mg/dL Magnesium 1.8 (1.6-2.3) mg/dL Urine Color Dark yellow (Yellow) Urine Appearance Turbid H (Clear) Urine pH 5.5 (5.0-9.0) Ur Specific [place] 1.031 (1.001-1.035) Urine Protein Trace (Negative) mg/dL Urine Glucose (UA) Negative (Negative) mg/dL Urine Ketones 1+ H (Negative) mg/dL Ur Blood (Man) Negative (Negative) Urine Nitrate Negative (Negative) Urine Bilirubin Negative (Negative) Urine Urobilinogen 1.0 (<2.0) mg/dL Leukocyte Esterase Rfl Negative (Negative) ATTILA/UL Urine RBC 0-2 (0-2) /hpf Urine WBC 0-5 (0-3) /hpf Ur Squamous Epith Cells Moderate (Few) /hpf Urine Bacteria 2+ H /hpf Urine Casts 0-2 Discharge Plan Discharge Clinical Impression: Syncope due to orthostatic hypotension, Hyperemesis gravidarum Patient Disposition: Home, Self-Care Condition: Stable Instructions: Antibiotic Form, Dehydration (ED) Additional Instructions: Your exam and workup today are reassuring overall. Make sure that you are staying well hydrated daily. Take vitamin B6 daily for nausea control. Reglan as needed for nausea. Follow-up closely with OB regarding this issue. If you have any new or worsening symptoms please return to the ER for further evaluation. Patient Language: Tamazight Prescriptions: New metoclopramide HCl [Reglan] 10 mg tablet 10 mg PO Q6H PRN (Reason: nausea and vomiting) Qty: 10 0RF pyridoxine (vitamin B6) 25 mg tablet 25 mg PO DAILY Qty: 60 0RF Follow-up/Referrals: PHYSICIAN,ELEVATOR REPAIRER APPRENTICE [Primary Care Provider] - Time of Disposition: 23:35
--- OUTSIDE RECORDS SUMMARY | 2024-08-06 22:25 | XMS_ITS | Clinical Summary ---
Author Organization [facility] Address [address] [place] [address] Care Team Providers Care Gps Navigation Installer Name Role Phone Lena Sanders MD Primary Care Provider + [phone] Source Comments [facility],non-owned Affiliates and Associated Physician Practices is amultiple site organization consisting of ambulatory clinics and hospital sitesin [place], [place], [place] and [place]. This disclosure is being madepursuant to the Care Everywhere program and may not contain all information available regarding this patient. Last updated 18.[facility] Allergies No known active allergies Medications * [...] age to complete this topic Care Teams Gps Navigation Installer Relationship Specialty Start Date End Date Lena Sanders MD [address] [place] [address] PCP - General Family Medicine 01/23/17
--- OUTSIDE RECORDS SUMMARY | 2024-08-06 22:25 | XMS_ITS | Referral Summary ---
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 Plan (01/26/2021 3:06 PM CDT): Patient uses THC to feel better. It reduces her anxiety and improves her mood. Her urine was positive for THC. She drinks alcohol occasionally and smokes cigarettes frequently. - Microgrinder Operator about the use of THC, cigarette smoking and Alcohol use. Assessment & Plan (01/25/2021 11:48 AM CDT): Patient uses THC to feel better. It reduces her anxiety and improves her mood. Her urine was positive for THC. She drinks alcohol occasionally and smokes cigarettes frequently. - Microgrinder Operator about the use of THC, cigarette smoking and Alcohol use. Assessment & Plan (01/24/2021 7:37 AM CDT): Patient uses THC to feel better. It reduces her anxiety and improves her mood. Her urine was positive for THC. She drinks alcohol occasionally and smokes cigarettes frequently. - Microgrinder Operator about the use of THC, cigarette smoking and Alcohol use. Assessment & Plan (01/23/2021 8:27 AM CDT): Patient uses THC to feel better. It reduces her anxiety and improves her mood. Her urine was positive for THC. She drinks alcohol occasionally and smokes cigarettes frequently. - Microgrinder Operator about the use of THC, cigarette smoking and Alcohol use. Assessment & Plan (01/22/2021 6:08 PM CDT): Patient uses THC to feel better. It reduces her anxiety and improves her mood. Her urine was positive for THC. She drinks alcohol occasionally and smokes cigarettes frequently. - Microgrinder Operator about the use of THC, cigarette smoking and Alcohol use. Assessment & Plan (01/21/2021 2:09 PM CDT): Patient uses THC to feel better. It reduces her anxiety and improves her mood. Her urine was positive for THC. She drinks alcohol occasionally and smokes cigarettes frequently. - Microgrinder Operator about the use of THC, cigarette smoking and Alcohol use. Assessment & Plan (01/20/2021 5:28 PM CDT): Patient uses THC to feel better. It reduces her anxiety and improves her mood. Her urine was positive for THC. She drinks alcohol occasionally and smokes cigarettes frequently. - Microgrinder Operator about the use of THC, cigarette smoking and Alcohol use. Assessment & Plan (01/19/2021 5:32 PM CDT): Patient uses THC to feel better. It reduces her anxiety and improves her mood. Her urine was positive for THC. She drinks alcohol occasionally and smokes cigarettes frequently. - Microgrinder Operator about the use of THC, cigarette smoking and Alcohol use. Assessment & Plan (01/18/2021 11:58 AM CDT): Patient uses THC to feel better. It reduces her anxiety and improves her mood. Her urine was positive for THC. She drinks alcohol occasionally and smokes cigarettes frequently. - Microgrinder Operator about the use of THC, cigarette smoking and Alcohol use. Assessment & Plan (01/17/2021 11:00 AM CDT): Patient uses THC to feel better. It reduces her anxiety and improves her mood. Her urine was positive for THC. She drinks alcohol occasionally and smokes cigarettes frequently. - Microgrinder Operator about the use of THC, cigarette smoking and Alcohol use. Assessment & Plan (01/16/2021 1:11 PM CDT): Patient uses THC to feel better. It reduces her anxiety and improves her mood. Her urine was positive for THC. She drinks alcohol occasionally and smokes cigarettes frequently. - Microgrinder Operator about the use of THC, cigarette smoking and Alcohol use. Assessment & Plan (01/15/2021 4:20 PM CDT): Patient uses THC to feel better. It reduces her anxiety and improves her mood. Her urine was positive for THC. She drinks alcohol and smokes cigarettes occasionally. - Microgrinder Operator about the use of THC, cigarette smoking [...] having IBS and she follows up with [facility] pediatrics gastroenterology. She has on/off mild diffuse abdominal pain that is not relieved by bowel movements as well as diarrhea. No vomiting or constipation. - Continue Cyproheptadine Assessment & Plan (01/18/2021 11:57 AM CDT): Adilene reports having IBS and she follows up with [facility] pediatrics gastroenterology. She has on/off mild diffuse abdominal pain that is not relieved by bowel movements as well as diarrhea. No vomiting or constipation. - Continue Cyproheptadine Assessment & Plan (01/17/2021 11:00 AM CDT): Adilene reports having IBS and she follows up with [facility] pediatrics gastroenterology. She has on/off mild diffuse abdominal pain that is not relieved by bowel movements as well as diarrhea. No vomiting or constipation. - Continue Cyproheptadine Assessment & Plan (01/16/2021 1:11 PM CDT): Adilene reports having IBS and she follows up with [facility] pediatrics gastroenterology. She has on/off diffuse abdominal pain that is not relieved by bowel movements as well as diarrhea. No vomiting or constipation. - Continue Cyproheptadine Assessment & Plan (01/15/2021 4:28 PM CDT): Adilene reports having IBS and she follows up with [facility] pediatrics gastroenterology. She has on/off diffuse [...] CDT Respiratory Rate 16 08/30/2021 7:09 AM VTC TECHNICIAN Oxygen Saturation 100% 09/19/2021 11:23 AM CDT Inhaled Oxygen Concentration - - Weight 64.2 kg (141 lb 9.6 oz) 09/19/2021 11:23 AM CDT Height 170.2 cm (5' 7.01 ) 08/28/2021 3:27 PM CS T Body Mass Index 22.17 08/28/2021 3:27 PM VTC TECHNICIAN Plan of Treatment Not on file Procedures Procedure Name Priority Date/Time Associated Diagnosis Comments N. GONORRHOEAE/C. TRACHOMATIS AMPLIFICATION Routine 01/15/2021 12:37 AM CDT from Last 3 Months or Most Recently Relevant to Health Maintenance Results * N. gonorrhoeae/C. trachomatis Amplification Urine (01/15/2021 12:37 AM CDT) C. trachomatis Not Detected Not Detected [facility] Comment:Testing performed by : [facility], [address] [place] [address]., [id number] N. gonorrhoeae Not Detected Not Detected [facility] Comment: Interpretive Data Testing performed by the [facility]. This assay detects Chlamydia trachomatis and [...] revised on 2018. Testing performed by: [facility], [address] [place] [address]., [id number] Urine (None) 01/15/2021 12:3 7 AM CDT 01/15/2021 11:10 AM CDT Trinity Ricci MD LAB MICROBIOLOGY - GENE RAL ORDERABLES Final Result [facility] Department [place] [address] from Last 3 Months or Most Recently Relevant to Health Maintenance Insurance [facility] Member Subscriber Plan / Payer (Ef fective 2020-Present) Name:Millie Vieraedes Blayne Breanna Relation to Subscriber:Self Name:Millie Vieraanusha Change Payer ID:[id number] (NAIC) Group ID:Not on file Type:MEDICAID RISK OTHER Address: [address] [place], [place] [id number] [place] [address] [facility] Advance Directives For more information, please contact: [phone] * Full Code (Latest Code Status on File) Date Activated Date Inactivated Comments 08/28/2021 8:13 PM 08/30/2021 4:47 PM * Full Code Date Activated Date Inactivated Comments 01/15/2021 1:54 PM 03/13/2021 10:26 PM Care Teams Abrading Machine Tender Relationship Specialty Start Date End Date No, Physician PCP - General 08/07/21
--- OUTSIDE RECORDS SUMMARY | 2024-08-06 22:25 | XMS_ITS | Referral Summary ---
Author Organization [facility] Address [address] [place] [address] Care Team Providers Care Clam Dredger Name Role Phone Lena Sanders MD Primary Care Provider + [phone] Source Comments [facility],non-owned Affiliates and Associated Physician Practices is amultiple site organization consisting of ambulatory clinics and hospital sitesin [place], [place], [place] and [place]. This disclosure is being madepursuant to the Care Everywhere program and may not contain all information available regarding this patient. Last updated 18.[facility] Allergies No known active allergies Medications * [...] of Treatment Not on file Care Teams Clam Dredger Relationship Specialty Start Date End Date Lena Sanders MD [address] [place] [address] PCP - General Family Medicine 01/23/17
--- OUTSIDE RECORDS SUMMARY | 2024-08-06 22:25 | XMS_ITS | Patient Health Summary ---
Author Organization [facility] Address [address] [place] [address] Care Team Providers Care Flow Worker Name Role Phone Lena Sanders MD Primary Care Provider + [phone] [facility],non-owned Affiliates and Associated Physician Practices is amultiple site organization consisting of ambulatory clinics and hospital sitesin [place], [place], [place] and [place]. This disclosure is being madepursuant to the Care Everywhere program and may not contain all information available regarding this patient. Last updated 18.[facility] Allergies No known active allergies Medications * [...] Not detected, Invalid 11/09/2020 7:00 PM CDT [facility] Microbiology SPECIMEN FROM NASOPHARYNGEAL STRUCTURE / Unknown Collection / Unknown 11/09/2020 5:34 PM CDT 11/09/2020 5:44 PM CDT Narrative [facility] - 11/09/2020 7:00 PM CDT The [...] - MICROBIOLO GY ORDERABLES Performing Organization Address City/State/[facility] Co de Phone Number [facility] [address] * (ABNORMAL) DRUG ABUSE URINE SCREEN 10 (11/09/2020 5:33 PM CDT) [facility] Amphetamines Screen Urine Negative Negative 11/09/2020 6:00 PM CDT [facility] Barbiturates Screen Urine Negative Negative 11/09/2020 6:00 PM CDT [facility] Benzodiazepines Screen Urine Negative Negative 11/09/2020 6:00 PM CDT [facility] Cannabinoids Screen Urine Positive(A) Negative 11/09/2020 6:00 PM CDT [facility] Cocaine Screen Urine Negative Negative 11/09/2020 6:00 PM CDT [facility] Methadone Screen Urine Negative Negative 11/09/2020 6:00 PM CDT [facility] Opiate Screen Urine Negative Negative 11/09/2020 6:00 PM CDT [facility] Phencyclidine Screen Urine Negative Negative 11/09/2020 6:00 PM CDT [facility] Tricyclics Screen Urine Negative Negative 11/09/2020 6:00 PM CDT [facility] Methamphetamine Screen Urine Negative Negative 11/09/2020 6:00 PM CDT [facility] Buprenorphine Screen Urine Negative Negative 11/09/2020 6:00 PM CDT [facility] Oxycodone Screen Urine Negative Negative 11/09/2020 6:00 PM CDT [facility] Propoxyphene Screen Urine Negative Negative 11/09/2020 6:00 PM CDT [facility] Urine URINE / Unknown Collection / Unknown 11/09/2020 5:33 PM CDT 11/09/2020 5:42 PM CDT Narrative [facility] - 11/09/2020 6:00 PM CDT This [...] ng/mL Oxycodone............100 ng/mL Propoxyphene.....300 ng/mL Kaitlin Montalvo MANAGER [employer] LAB - URINE C HEMISTRY ORDERABLES Performing Organization Address City/State/[facility] Co de Phone Number [facility] [address] * (ABNORMAL) URINE MICROSCOPIC ONLY REFLEX TO CULTURE (11/09/2020 5:33 PM CDT) Reflex Status Culture not indicated 11/09/2020 5:54 PM CDT [facility] RBC UA 3-5 None Seen, 0-2, 3-5 # /hpf 11/09/2020 5:54 PM CDT [facility] WBC UA 0-5 None Seen, 0-5 # /hpf 11/09/2020 5:54 PM CDT [facility] Bacteria UA Trace(A) None Seen 11/09/2020 5:54 PM CDT [facility] Squamous Epithelial Cells 3-5 None Seen, 0-2, 3-5 /hpf 11/09/2020 5:54 PM CDT [facility] Mucus UA 2+ /LPF 11/09/2020 5:54 PM CDT [facility] Urine URINE SPECIMEN OBTAINED BY CLEAN CATCH PROCEDURE / Unknown Collection / Unknown 11/09/2020 5:33 PM CDT 11/09/2020 5:42 PM CDT Narrative [facility] - 11/09/2020 5:54 PM CDT Kaitlin Montalvo MANAGER [employer] LAB - URINALY SIS ORDERABLES Performing Organization Address City/State/[facility] Co de Phone Number [facility] [address] [place] [address] * (ABNORMAL) URINALYSIS REFLEX MICROSCOPIC REFLEX CULTURE (11/09/2020 5:33 PM CDT) Color UA Yellow Straw, Yellow 11/09/2020 5:53 PM CDT [facility] Clarity UA Slt Cloudy(A) Clear 11/09/2020 5:53 PM CDT [facility] Glucose UA 2+(A) Negative 11/09/2020 5:53 PM CDT [facility] Bilirubin UA Negative Negative 11/09/2020 5:53 PM CDT [facility] Ketone UA Negative Negative 11/09/2020 5:53 PM CDT [facility] Specific [place] UA 1.020 1.005 - 1.030 11/09/2020 5:53 PM CDT [facility] Blood UA Negative Negative 11/09/2020 5:53 PM CDT [facility] pH UA 5.0 5.0 - 8.0 pH 11/09/2020 5:53 PM CDT [facility] Protein UA 1+(A) Negative 11/09/2020 5:53 PM CDT [facility] Urobilinogen UA Negative Negative mg/dL 11/09/2020 5:53 PM CDT [facility] Nitrite UA Negative Negative 11/09/2020 5:53 PM CDT [facility] Leukocyte UA Negative Negative 11/09/2020 5:53 PM CDT [facility] Urine Microscopy Urine microscopy to follow 11/09/2020 5:53 PM CDT [facility] Urine URINE SPECIMEN OBTAINED BY CLEAN CATCH PROCEDURE / Unknown Collection / Unknown 11/09/2020 5:33 PM CDT 11/09/2020 5:42 PM CDT Narrative [facility] - 11/09/2020 5:53 PM CDT Kaitlin [employer] TE[employer] LAB - URINALY SIS ORDERABLES Performing Organization Address City/[facility]/ZIP Co de Phone Number [facility] [address] * HCG URINE QUALITATIVE (11/09/2020 5:33 PM CDT) Pathologist [facility] hCG Qualitative Urine Negative Negative 11/09/2020 5:53 PM CDT [facility] Specific [place] UA 1.020 1.005 - 1.030 11/09/2020 5:53 PM CDT [facility] Urine URINE / Unknown Collection / Unknown 11/09/2020 5:33 PM CDT 11/09/2020 5:42 PM CDT Kaitlin Montalvo APRN-[facility] LAB - URINALY SIS ORDERABLES Performing Organization Address [facility] de Phone Number [facility] [address] * (ABNORMAL) CBC W AUTO DIFFERENTIAL (11/09/2020 5:33 PM CDT) WBC 8.4 3.8 - 9.8 x10E9/L 11/09/2020 5:47 PM CDT [facility] RBC 4.53 3.93 - 5.29 x10E12/L 11/09/2020 5:47 PM CDT [facility] Hemoglobin 14.0 10.8 - 14.5 gm/dL 11/09/2020 5:47 PM CDT [facility] Hematocrit 40.9 33.4 - 43.5 % 11/09/2020 5:47 PM CDT [facility] MCV 90.3 76.7 - 90.6 fl 11/09/2020 5:[address] [facility] MCH 30.9(H) 24.8 - 30.2 pg 11/09/2020 5:[address] [facility] MCHC 34.2 31.5 - 34.8 gm/dL 11/09/2020 5:[address] [facility] RDW 13.0 12.3 - 14.6 % 11/09/2020 5:[address] [facility] MPV 10.4 8.6 - 11.8 fl 11/09/2020 5:[address] [facility] Platelet Count 266 175 - 345 x10E9/L 11/09/2020 5:[address] [facility] Neutrophils % 77.9(H) 32.5 - 74.7 % 11/09/2020 5:[address] [facility] Lymphocytes % 17.7 16.4 - 52.7 % 11/09/2020 5:[address] [facility] Monocytes % 2.8(L) 4.1 - 12.3 % 11/09/2020 5:[address] [facility] Eosinophils % 1.4 0.0 - 4.0 % 11/09/2020 5:[address] [facility] Basophils % 0.1 0.0 - 0.7 % 11/09/2020 5:[address] [facility] Immature Granulocytes 0.1 0 - 0.3 % 11/09/2020 5:[address] [facility] Neutrophil Absolute 6.56 1.54 - 7.47 x10E9/L 11/09/2020 5:[address] [facility] Lymphocytes Absolute 1.49 0.97 - 3.33 x10E9/L 11/09/2020 5:[address] [facility] Monocytes Absolute 0.24 0.18 - 0.78 x10E9/L 11/09/2020 5:[address] [facility] Eosinophils Absolute 0.12 0.02 - 0.38 x10E9/L 11/09/2020 5:[address] [facility] Basophils Absolute 0.01 0.01 - 0.05 x10E9/L 11/09/2020 5:[address] [facility] Immature Granulocytes Absolute 0.01 0 - 0.03 x10E9/L 11/09/2020 5:47 PM CDT [facility] nRBC Auto 0 <=0 /100 WBC 11/09/2020 5:47 PM CDT [facility] nRBC Absolute 0.00(L) 0.03 - 0.13 x10E9/L 11/09/2020 5:47 PM CDT [facility] Blood BLOOD SPECIMEN / Unknown Venipuncture / Unknown 11/09/2020 5:33 PM CDT 11/09/2020 5:42 PM CDT Kaitlin Montalvo MANAGER [employer] LAB - HEMATOL OGY ORDERABLES Performing Organization Address City/State/[facility] Co de Phone Number [facility] [address] * (ABNORMAL) COMPREHENSIVE METABOLIC PANEL (11/09/2020 5:33 PM CDT) Glucose 172(H) 70 - 125 mg/dL 11/09/2020 6:06 PM T [facility] Sodium 141 136 - 145 mmol/L 11/09/2020 6:06 PM T [facility] Potassium 3.7 3.4 - 4.5 mmol/L 11/09/2020 6:06 PM T [facility] Chloride 106 98 - 107 mmol/L 11/09/2020 6:06 PM T [facility] CO2 25 22 - 29 mmol/L 11/09/2020 6:06 PM T [facility] Calcium 9.3 8.4 - 10.2 mg/dL 11/09/2020 6:06 PM T [facility] Anion Gap 14 10 - 20 mmol/L 11/09/2020 6:06 PM T [facility] BUN 10.5 9.8 - 20.1 mg/dL 11/09/2020 6:06 PM T [facility] Creatinine 0.88 0.57 - 1.11 mg/dL 11/09/2020 6:06 PM T [facility] eGFR by MDRD 11/09/2020 6:06 PM T [facility] Comment: eGFR calculations are not performed for children under 18 years old. eGFR by MDRD 11/09/2020 6:06 PM T [facility] Comment: eGFR calculations are not performed for children under 18 years old. Alkaline Phosphatase 67 40 - 150 U/L 11/09/2020 6:06 PM CDT [facility] ALT 12 5 - 55 U/L 11/09/2020 6:06 PM CDT [facility] AST 17 5 - 34 U/L 11/09/2020 6:06 PM CDT [facility] Protein Total 7.2 6.4 - 8.3 gm/dL 11/09/2020 6:06 PM CDT [facility] Albumin 4.4 3.5 - 5.0 gm/dL 11/09/2020 6:06 PM CDT [facility] Globulin Total 2.8 2.6 - 4.0 gm/dL 11/09/2020 6:06 PM CDT [facility] Albumin/Globulin Ratio 1.6 0.9 - 1.6 11/09/2020 6:06 PM CDT [facility] Bilirubin Total 0.7 0.2 - 1.2 mg/dL 11/09/2020 6:06 PM CDT [facility] Blood BLOOD SPECIMEN / Unknown Venipuncture / Unknown 11/09/2020 5:33 PM CDT 11/09/2020 5:42 PM CDT Kaitlin Montalvo APRN-[employer] LAB - [employer] DEVELOPER RY ORDERABLES Performing Organization Address [facility] de Phone Number [facility] [address] * ALCOHOL ETHYL BLOOD (11/09/2020 5:33 PM CDT) Ethanol <10.0 <10 mg/dL 11/09/2020 6:0 6 PM CDT [facility] Blood BLOOD SPECIMEN / Unknown Venipuncture / Unknown 11/09/2020 5:33 PM CDT 11/09/2020 5:42 PM CDT Narrative [facility] - 11/09/2020 6:06 PM CDT For Medical Use Only Kaitlin Montalvo APRN-[employer] LAB - [employer] DEVELOPER RY ORDERABLES Performing Organization Address [facility] Co de Phone Number [facility] [address] * TSH (11/09/2020 5:33 PM CDT) TSH 0.790 0.35 - 4.94 uIU/mL 11/09/2020 6:25 PM CDT [facility] Blood BLOOD SPECIMEN / Unknown Venipuncture / Unknown 11/09/2020 5:33 PM CDT 11/09/2020 5:42 PM CDT [facility]lin [facility] - [employer] DEVELOPER RY ORDERABLES Performing Organization Address [facility] de Phone Number [facility] [address] [place] [address] * (ABNORMAL) SALICYLATE LEVEL BLOOD (11/09/2020 5:33 PM CDT) Salicylate <5.0(L) 15.0 - 30.0 mg/dL 11/09/2020 6:06 PM CDT [facility] Blood BLOOD SPECIMEN / Unknown Venipuncture / Unknown 11/09/2020 5:33 PM CDT 11/09/2020 5:42 PM CDT [facility]aitlin Montalvo [facility] - [employer] DEVELOPER RY ORDERABLES Performing Organization Address [facility] Phone Number [address] * (ABNORMAL) ACETAMINOPHEN LEVEL (11/09/2020 5:33 PM CDT) Acetaminophen 3.7(L) 10.0 - 30.0 ug/mL 11/09/2020 6:06 PM CDT [facility] Blood BLOOD SPECIMEN / Unknown Venipuncture / Unknown 11/09/2020 5:33 PM CDT 11/09/2020 5:42 PM CDT Narrative [facility] - 11/09/2020 6:06 PM CDT Significantly reduced Acetaminophen recovery has been demonstrated in situations where testing has been performed immediately after introduction of N- acetylcysteine (NAC). [facility] - [employer] DEVELOPER RY ORDERABLES Performing Organization Address [facility] de Phone Number [facility] [address] [place], [place] [address] * XR CLAVICLE LEFT 2VW [...] HAND 3+ VW RIGHT (05/23/2018 5:47 PM [employer]) Anatomical Region Laterality Modality Wrist / Hand Radiographic Bud ging 05/24/2018 7:28 AM [employer] Impressions 05/24/2018 9:30 AM [employer] No fracture or dislocation. Dictated by Viktoria Blackwood MD (resident care associate). I, Homar Garcia, have personally reviewed the images and I agree with this report. Reading Radiologist: Homar Garcia MD on 05/24/2018 at 9:30 AM Narrative 05/24/2018 9:30 AM [employer] EXAMINATION: XR HAND RIGHT 3VW DATE: 05/23/2018 [...] or dislocation. Dictated by Viktoria Blackwood MD (resident care associate). I, Homar Garcia, have personally reviewed the [...] otherwise intact and well aligned. Procedure Note Lisette Forbes MD - 01/23/2017 Left foot 3 views HISTORY: Pain. No prior examinations are available for comparison. The base of the fifth metatarsal is fractured with minimal displacement. The fracture appears to extend to the articular surface. The osseous structures are otherwise intact and well aligned. IMPRESSION Fracture, base of the fifth metatarsal. Homar Mann Jr., MD DIAGNOSTIC BUD GING ORDERABLES Care Teams Flow Worker Relationship Specialty Start Date End Date Lena Sanders MD [address] [place] [address] PCP - General Family Medicine 01/23/17
--- OUTSIDE RECORDS SUMMARY | 2024-08-06 22:25 | XMS_ITS | Clinical Summary ---
Author Organization [facility] Address [address] [place] [address] Care Team Providers Care Pharmacist Name Role Phone Lena Sanders MD Primary [...] Department Care Team Description 07/10/2024 3:09 AM PILE DRIVING SUPERVISOR - 07/10/2024 4:54 AM [facility] [address] [place] [address] [place] [address] Enoch Basilio DO Vomiting Discharge Disposition: Home or Self Care (Routine Discharge) 07/10/2024 Travel 06/20/2024 3:06 PM PILE DRIVING SUPERVISOR - 06/20/2024 5:52 PM [facility] [address] [place] [address] [place] [address] Rainer Elise MD Vomiting Discharge Disposition: Home [...] Sex Assigned at Female 07/10/2024 3:11 AM PILE DRIVING SUPERVISOR Legal Sex Female 8:07 AM CDT Gender Identity Not on file Sexual Orientation Not on file Last Filed Vital Signs Vital Sign Reading Time Taken Comments Blood Pressure 113/63 07/10/2024 4:10 AM PILE DRIVING SUPERVISOR Pulse 79 07/10/2024 4:10 AM PILE DRIVING SUPERVISOR Temperature 36.6 C (97.8 F) 07/10/2024 3:17 AM PILE DRIVING SUPERVISOR Respiratory Rate 15 07/10/2024 4:10 AM PILE DRIVING SUPERVISOR Oxygen Saturation 100% 07/10/2024 4:10 AM PILE DRIVING SUPERVISOR Inhaled Oxygen Concentration - - Weight 56.7 kg (125 lb) 07/10/2024 3:17 AM PILE DRIVING SUPERVISOR Height 167.6 cm (5' 6 ) 07/10/2024 3:17 AM PILE DRIVING SUPERVISOR Body Mass Index 20.18 07/10/2024 3:17 AM PILE DRIVING SUPERVISOR Plan of Treatment Health Maintenance Due Date [...] AUTO DIP STAT 07/10/2024 4 :11 AM PILE DRIVING SUPERVISOR INFLUENZA A & B STAT 07/10/2024 3:15 AM PILE DRIVING SUPERVISOR CORONAVIRUS (COVID 19) STAT 3:15 AM PILE DRIVING SUPERVISOR HCG QUANT (SERUM)-CHORIONIC GONADOTROPIN STAT 07/10/2024 3:15 AM PILE DRIVING SUPERVISOR COMPREHENSIVE METABOLIC PANEL STAT 07/10/2024 3:15 AM PILE DRIVING SUPERVISOR CBC W/DIFF AUTOMATED STAT 07/10/2024 3:15 AM PILE DRIVING SUPERVISOR US OB TRANSVAG STAT 06/20/2024 4:13 PM PILE DRIVING SUPERVISOR HCG QUANT (SERUM)-CHORIONIC GONADOTROPIN STAT 06/20/2024 3:18 PM PILE DRIVING SUPERVISOR COMPREHENSIVE METABOLIC PANEL STAT 06/20/2024 3:18 PM PILE DRIVING SUPERVISOR CBC W/DIFF AUTOMATED STAT 06/20/2024 3:18 PM PILE DRIVING SUPERVISOR from Last 3 Months Results * (ABNORMAL) URINALYSIS AUTO DIP (07/10/2024 4:11 AM PILE DRIVING SUPERVISOR) COLOR (U) ORANGE(A) YELLOW 07/10/2024 4:26 AM PILE DRIVING SUPERVISOR [facility] TRANSPARENCY CLOUDY(A) CLEAR 07/10/2024 4:26 AM PILE DRIVING SUPERVISOR [facility] SPECIFIC GRAVITY (U) 1.020 1.010 - 1.025 07/10/2024 4:26 AM PILE DRIVING SUPERVISOR [facility] U PH TRACE 5.0 - 8.5 07/10/2024 4:26 AM PILE DRIVING SUPERVISOR [facility] LEUKOCYTES (U) NEGATIVE NEGATIVE 07/10/2024 4:26 AM PILE DRIVING SUPERVISOR [facility] NITRITES NEGATIVE NEGATIVE 07/10/2024 4:26 AM PILE DRIVING SUPERVISOR [facility] PROTEIN RANDOM (U) TRACE(A) NEGATIVE 07/10/2024 4:26 AM PILE DRIVING SUPERVISOR [facility] GLUCOSE (U) NEGATIVE NEGATIVE 07/10/2024 4:26 AM PILE DRIVING SUPERVISOR [facility] KETONES MG/DL (U) NEGATIVE NEGATIVE 07/10/2024 4:26 AM PILE DRIVING SUPERVISOR [facility] UROBILINOGEN 0.2 0.2 - 1.0 EU/DL 07/10/2024 4:26 AM PILE DRIVING SUPERVISOR [facility] BILIRUBIN (U) NEGATIVE NEGATIVE 07/10/2024 4:26 AM PILE DRIVING SUPERVISOR [facility] BLOOD (U) NEGATIVE NEGATIVE 07/10/2024 4:26 AM PILE DRIVING SUPERVISOR [facility] URINE SPECIMEN OBTAINED BY CLEAN CATCH PROCEDURE / Unknown 07/10/2024 4:11 AM PILE DRIVING SUPERVISOR Enoch Basilio DO URINE ORDERABLES Final Result [facility] [address] [place] [address], * CORONAVIRUS (COVID-19) MOLECULAR (07/10/2024 3:15 AM PILE DRIVING SUPERVISOR) CORONAVIRUS SARS COV 2 RNA NEGATIVE NEGATIVE 07/10/2024 3:51 AM PILE DRIVING SUPERVISOR [facility] Comment: NEGATIVE RESULTS DO NOT [...] SARS-COV-2. SPECIMEN TYPE NASAL 07/10/2024 3:16 AM PILE DRIVING SUPERVISOR [facility] NASOPHARYNGEAL SWAB / Unknown 07/10/2024 3:15 AM PILE DRIVING SUPERVISOR Enoch Basilio MICROBIOLOGY - GENERAL ORDERAB LES Final Result Performing Organization Address [facility] Co de Phone Number [facility] [address] [place] [address], * INFLUENZA A & B (07/10/2024 3:15 AM PILE DRIVING SUPERVISOR) SPECIMEN TYPE NASOPHARYNX 07/10/2024 3:16 AM PILE DRIVING SUPERVISOR [facility] INFLUENZA A NEGATIVE NEGATIVE 07/10/2024 3:52 AM PILE DRIVING SUPERVISOR [facility] INFLUENZA B NEGATIVE NEGATIVE 07/10/2024 3:52 AM PILE DRIVING SUPERVISOR [facility] NASAL STRUCTURE / Unknown 07/10/2024 3:15 AM PILE DRIVING SUPERVISOR Enoch Basilio DO MICROBIOLOGY - GENERAL ORDERAB LES Final Result Performing Organization Address [facility] de Phone Number [facility] [address] [address] [place] [place] [address], * (ABNORMAL) COMPREHENSIVE METABOLIC PANEL (07/10/2024 3:15 AM PILE DRIVING SUPERVISOR) Only the most recent of2 resultswithin the time period is included. GLUCOSE 100(H) 70 - 99 MG/DL 07/10/2024 4:12 AM PILE DRIVING SUPERVISOR [facility] BUN 6(L) 7 - 18 MG/DL 07/10/2024 4:12 AM PILE DRIVING SUPERVISOR [facility] CREATININE S/P/B 0.64 0.50 - 1.20 MG/DL 07/10/2024 4:12 AM PILE DRIVING SUPERVISOR [facility] SODIUM S/P/B 136 136 - 145 MMOL/L 07/10/2024 4:12 AM PILE DRIVING SUPERVISOR [facility] POTASSIUM S/P/B 3.8 3.5 - 5.1 MMOL/L 07/10/2024 4:12 AM [facility] CHLORIDE S/P/B 101 100 - 108 MMOL/L 07/10/2024 4:12 AM [facility] CO2 26.0 21.0 - 32.0 MMOL/L 07/10/2024 4:12 AM [facility] CALCIUM S/P/B 8.3(L) 8.5 - 10.1 MG/DL 07/10/2024 4:12 AM [facility] BILIRUBIN TOTAL S/P/B 0.8 0.2 - 1.2 MG/DL 07/10/2024 4:12 AM [facility] Comment: THIS ASSAY IS NOT RECOMMENDED FOR PATIENTS UNDERGOING TREATMENT WITH ELTROMBOPAG DUE TO THE POTENTIAL FOR FALSELY ELEVATED RESULTS. TOTAL PROTEIN S/P/B 6.7 6.4 - 8.2 G/DL 07/10/2024 4:12 AM [facility] ALBUMIN S/P/B 3.9 3.4 - 5.0 G/DL 07/10/2024 4:12 AM [facility] AST 18 15 - 37 U/L 07/10/2024 4:12 AM [facility] ALT 17 14 - 55 U/L 07/10/2024 4:12 AM [facility] ALKALINE PHOSPHATASE S/P/B 41(L) 50 - 136 U/L 07/10/2024 4:12 AM [facility] ANION GAP 9.0 5.0 - 15.0 MMOL/L 07/10/2024 4:12 AM [facility] BUN CREATININE RATIO 9.4 6 - 26 07/10/2024 4:12 AM [facility] A/G RATIO 1.4 1.0 - 2.5 RATIO 07/10/2024 4:12 AM [facility] GFR ESTIMATE >90 >90 ML/MIN/1.7 3 M2 07/10/2024 4:12 AM [facility] Comment: NOTE: eGFR is not calculated for patients <18 years of age. This is an estimated GFR calculation using the new CKD EPI creatinine equation without race and so does not require a correction factor for race. This estimated GFR should not be used for calculating drug doses. 07/10/2024 3:15 AM PILE DRIVING SUPERVISOR Enoch [facility] LABORATORY Final Result Performing Organization Address [facility] [place] [address], [place] * (ABNORMAL) HCG QUANTITATIVE SERUM (07/10/2024 3:15 AM PILE DRIVING SUPERVISOR) Only the most recent of2 resultswithin the time period is included. Pathologist [facility] HCG QUANTITATIVE >200,000( H) 0.0 - 6.0 MIU/ML 07/10/2024 4:13 AM PILE DRIVING SUPERVISOR [facility] Comment: WEEKS OF REFERENCE RANGES NON- [...] IN ED @0412 CL 07/10/2024 3:15 AM PILE DRIVING SUPERVISOR Enoch Basilio DO LABORATORY Final Result Performing Organization Address [facility] [place] [address], [place] * (ABNORMAL) CBC W/DIFF AUTOMATED (07/10/2024 3:15 AM PILE DRIVING SUPERVISOR) Only the most recent of2 resultswithin the time period is included. [facility] WBC 8.41 4.50 - 11.00 x10'3/uL 07/10/2024 3:30 AM PILE DRIVING SUPERVISOR [facility] RBC 4.27 4.00 - 5.20 x10'6/uL 07/10/2024 3:30 AM PILE DRIVING SUPERVISOR [facility] HGB 12.9 12.0 - 16.0 G/DL 07/10/2024 3:30 AM [facility] HCT 37.0(L) 38.0 - 48.0 % 07/10/2024 3:30 AM [facility] MCV 86.7 80.0 - 100.0 FL 07/10/2024 3:30 AM [facility] MCH 30.2 26.0 - 34.0 PG 07/10/2024 3:30 AM [facility] MCHC 34.9 31.0 - 37.0 G/DL 07/10/2024 3:30 AM [facility] RDW 12.4 11.6 - 14.8 % 07/10/2024 3:30 AM [facility] PLT 260 130 - 400 x10'3/uL 07/10/2024 3:30 AM [facility] MPV 10.8 7.0 - 12.0 FL 07/10/2024 3:30 AM [facility] CBC COMMENT AUTOMATED RBC MORPHOLOGY AND PLATELET EVALUATION NORMAL 07/10/2024 3:30 AM [facility] NEUTROPHILS % 81.5(H) 40.0 - 74.0 % 07/10/2024 3:30 AM [facility] LYMPHOCYTES % 13.8(L) 14.0 - 46.0 % 07/10/2024 3:30 AM [facility] MONOCYTES % 3.7(L) 4.0 - 13.0 % 07/10/2024 3:30 AM [facility] EOSINOPHILS 0.6 0.0 - 7.0 % 07/10/2024 3:30 AM [facility] BASOPHILS 0.2 0.0 - 3.0 % 07/10/2024 3:30 AM [facility] IMMATURE GRANS % 0.2 0.0 - 0.43 % 07/10/2024 3:30 AM [facility] NRBC % 0.0 % 07/10/2024 3:30 AM PILE DRIVING SUPERVISOR [facility] ABS. NEUTROPHILS TOTAL 6.85 1.69 - 7.81 x10'3/uL 07/10/2024 3:30 AM PILE DRIVING SUPERVISOR [facility] ABS. LYMPHOCYTES 1.16 0.21 - 5.42 x10'3/uL 07/10/2024 3:30 AM PILE DRIVING SUPERVISOR [facility] ABS. MONOCYTES 0.31 0.04 - 1.37 x10'3/uL 07/10/2024 3:30 AM PILE DRIVING SUPERVISOR [facility] ABS. EOSINOPHILS 0.05 0.00 - 0.68 x10'3/uL 07/10/2024 3:30 AM PILE DRIVING SUPERVISOR [facility] ABS. BASOPHILS 0.02 0.00 - 0.08 x10'3/uL 07/10/2024 3:30 AM [facility] ABS. IMMATURE GRANULOCYTES 0.02 0.00 - 0.06 x10'3/uL 07/10/2024 3:30 AM PILE DRIVING SUPERVISOR [facility] ABS. NUCLEATED RBC'S 0.00 0.00 - 0.01 x10'3/uL 07/10/2024 3:30 AM PILE DRIVING SUPERVISOR [facility] 07/10/2024 3:15 AM PILE DRIVING SUPERVISOR Enoch Basilio DO LABORATORY Final Result Performing Organization Address City/State/[facility] Co de Phone Number [address] [place] [address], [place] * US OB TRANSVAG (06/20/2024 4:13 PM PILE DRIVING SUPERVISOR) Anatomical Region Laterality Modality Abdomen, Pelvis Computed Tomogra phy 06/20/2024 4:36 PM PILE DRIVING SUPERVISOR Impressions 06/20/2024 4:44 PM PILE DRIVING SUPERVISOR IMPRESSION: 1. Single, live intrauterine gestation. 2. Small collections of perigestational hemorrhage. 3. Follow-up ultrasound and OB evaluation recommended. Referred By: Interpreted By: Denver Meléndez MD, 06/20/2024 4:36 PM Narrative 06/20/2024 4:44 PM PILE DRIVING SUPERVISOR [address] [place] [address] EXAM: US OB TRANSVAG DATE: 06/20/2024 COMPARISON: [...] Procedure Note Denver Meléndez MD - 06/20/[address] [place] [address] EXAM: US OB TRANSVAG DATE: 06/20/2024 COMPARISON: [...] Last 3 Months Insurance [employer] Care Teams Pharmacist Relationship Specialty Start Date End Date Lena Sanders MD [address] [place] [address] [place] [address] PCP - General FAMILY PRACTICE 07/21/23
--- OUTSIDE RECORDS SUMMARY | 2024-08-06 22:25 | XMS_ITS | Clinical Summary ---
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 Supervisor about the use of THC, cigarette smoking and Alcohol use. Assessment & Plan (01/25/2021 11:48 AM CDT): Patient uses THC to feel better. It reduces her anxiety and improves her mood. Her urine was positive for THC. She drinks alcohol occasionally and smokes cigarettes frequently. - Yard Supervisor about the use of THC, cigarette smoking and Alcohol use. Assessment & Plan (01/24/2021 7:37 AM CDT): Patient uses THC to feel better. It reduces her anxiety and improves her mood. Her urine was positive for THC. She drinks alcohol occasionally and smokes cigarettes frequently. - Yard Supervisor about the use of THC, cigarette smoking and Alcohol use. Assessment & Plan (01/23/2021 8:27 AM CDT): Patient uses THC to feel better. It reduces her anxiety and improves her mood. Her urine was positive for THC. She drinks alcohol occasionally and smokes cigarettes frequently. - Yard Supervisor about the use of THC, cigarette smoking and Alcohol use. Assessment & Plan (01/22/2021 6:08 PM CDT): Patient uses THC to feel better. It reduces her anxiety and improves her mood. Her urine was positive for THC. She drinks alcohol occasionally and smokes cigarettes frequently. - Yard Supervisor about the use of THC, cigarette smoking and Alcohol use. Assessment & Plan (01/21/2021 2:09 PM CDT): Patient uses THC to feel better. It reduces her anxiety and improves her mood. Her urine was positive for THC. She drinks alcohol occasionally and smokes cigarettes frequently. - Yard Supervisor about the use of THC, cigarette smoking and Alcohol use. Assessment & Plan (01/20/2021 5:28 PM CDT): Patient uses THC to feel better. It reduces her anxiety and improves her mood. Her urine was positive for THC. She drinks alcohol occasionally and smokes cigarettes frequently. - Yard Supervisor about the use of THC, cigarette smoking and Alcohol use. Assessment & Plan (01/19/2021 5:32 PM CDT): Patient uses THC to feel better. It reduces her anxiety and improves her mood. Her urine was positive for THC. She drinks alcohol occasionally and smokes cigarettes frequently. - Yard Supervisor about the use of THC, cigarette smoking and Alcohol use. Assessment & Plan (01/18/2021 11:58 AM CDT): Patient uses THC to feel better. It reduces her anxiety and improves her mood. Her urine was positive for THC. She drinks alcohol occasionally and smokes cigarettes frequently. - Yard Supervisor about the use of THC, cigarette smoking and Alcohol use. Assessment & Plan (01/17/2021 11:00 AM CDT): Patient uses THC to feel better. It reduces her anxiety and improves her mood. Her urine was positive for THC. She drinks alcohol occasionally and smokes cigarettes frequently. - Yard Supervisor about the use of THC, cigarette smoking and Alcohol use. Assessment & Plan (01/16/2021 1:11 PM CDT): Patient uses THC to feel better. It reduces her anxiety and improves her mood. Her urine was positive for THC. She drinks alcohol occasionally and smokes cigarettes frequently. - Yard Supervisor about the use of THC, cigarette smoking and Alcohol use. Assessment & Plan (01/15/2021 4:20 PM CDT): Patient uses THC to feel better. It reduces her anxiety and improves her mood. Her urine was positive for THC. She drinks alcohol and smokes cigarettes occasionally. - Yard Supervisor about the use of THC, cigarette smoking [...] having IBS and she follows up with [facility] pediatrics gastroenterology. She has on/off mild diffuse abdominal pain that is not relieved by bowel movements as well as diarrhea. No vomiting or constipation. - Continue Cyproheptadine Assessment & Plan (01/18/2021 11:57 AM CDT): Adilene reports having IBS and she follows up with [facility] pediatric[facility] gastroenterology. She has on/off mild diffuse abdominal pain that is not relieved by bowel movements as well as diarrhea. No vomiting or constipation. - Continue Cyproheptadine Assessment & Plan (01/17/2021 11:00 AM CDT): Adilene reports having IBS and she follows up with [facility] gastroenterology. She has on/off mild diffuse abdominal pain that is not relieved by bowel movements as well as diarrhea. No vomiting or constipation. - Continue Cyproheptadine Assessment & Plan (01/16/2021 1:11 PM CDT): Adilene reports having IBS and she follows up with [facility] gastroenterology. She has on/off diffuse abdominal pain that is not relieved by bowel movements as well as diarrhea. No vomiting or constipation. - Continue Cyproheptadine Assessment & Plan (01/15/2021 4:28 PM CDT): Adilene reports having IBS and she follows up with [facility] gastroenterology. She has on/off [...] CDT Respiratory Rate 16 08/30/2021 7:09 AM BLADDER CLEANER Oxygen Saturation 100% 09/19/2021 11:23 AM CDT Inhaled Oxygen Concentration - - Weight 64.2 kg (141 lb 9.6 oz) 09/19/2021 11:23 AM CDT Height 170.2 cm (5' 7.01 ) 08/28/2021 3:27 PM CS T Body Mass Index 22.17 08/28/2021 3:27 PM BLADDER CLEANER Plan of Treatment Health Maintenance Due Date [...] CDT) C. trachomatis Not Detected Not Detected [facility] Comment:Testing performed by : [facility], [address] [place] [address]., [id number] N. gonorrhoeae Not Detected Not Detected [facility] Comment: Interpretive Data Testing performed by the [facility]. This assay detects Chlamydia trachomatis and [...] last revised on 2018. Testing performed by: [facility], [address] [place] [address]., [id number] Urine (None) 01/15/2021 12:3 7 AM CDT 01/15/2021 11:10 AM CDT us Trinity Ricci MD LAB MICROBIOLOGY - [facility] ORDERABLES Final Result [facility] [place] [address] from Last 3 Months or Most Recently Relevant to Health Maintenance Insurance [facility] [id number] [place] [address] [facility] Advance Directives For more information, please contact: [phone] * Full Code (Latest Code Status on File) Date Activated Date Inactivated Comments 08/28/2021 8:13 PM 08/30/2021 4:47 PM * Full Code Date Activated Date Inactivated Comments 01/15/2021 1:54 PM 03/13/2021 10:26 PM Care Teams Public Relations Consultant Relationship Specialty Start Date End Date No, Physician PCP - General 08/07/21
[2024-08-06] MEDS: METOCLOPRAMIDE HCL INJ 10 MG/2 ML VIAL IV PUSH (22:36)
[2024-08-06] MEDS: LACTATED RINGERS 1,000 ML 999 ML IV CONT (22:37)
[2024-08-06 22:43] LABS: Glucose Point of Care 64 mg/dl (65-105)
[2024-08-06 22:47] LABS: Basophils Percent Auto 0.1 % (0.2-1.2); Eosinophils Absolute Auto 0.1 K/mm3 (0-0.3); Eosinophils Percent Auto 1.4 % (0-4.4); Hematocrit 34.9 % (37.0-47.0); Hemoglobin 12.2 g/dL (12.0-15.0); Immature Granulocyte Absolute 0.02 K/mm3 (0.00-0.031); Immature Granulocyte Percent A 0.2 % (0-0.5); Lymphocytes Absolute Auto 2.07 K/mm3 (0.9-3.2); Lymphocytes Percent Auto 22.5 % (18.3-44.2); Mean Corpuscular Hemoglobin 31.1 pg (26-34); Mean Platelet Volume 10.2 fl (7.4-10.4); Monocytes Absolute Auto 0.5 K/mm3 (0.1-0.6); Monocytes Percent Auto 5.5 % (2.6-8.5); Neutrophils Absolute Auto 6.5 K/mm3 (1.3-6.7); Neutrophils Percent Auto 70.3 % (45.5-73.1); Platelet Count Result 243 k/mm3 (150-375); Red Blood Count 3.92 M/mm3 (4.2-5.4); Red Cell Distribution Width 13.3 % (11.5-14.5); White Blood Count 9.2 K/mm3 (4.5-10.0)
[2024-08-06 22:57] LABS: Anion Gap 8 mmol/L (4-12); Blood Urea Nitrogen 6 mg/dL (7-17); Calcium 8.6 mg/dL (8.4-10.2); Carbon Dioxide 24 mmol/L (22-30); Chloride 101 mmol/L (98-107); Estimated CRCL calculation 155 ml/min; Estimated Glomerular Filt Rate > 60; Glucose 67 mg/dL (65-110); Magnesium 1.8 mg/dL (1.6-2.3); Potassium 3.4 mmol/L (3.4-5.0); Sodium 133 mmol/L (137-145)
[2024-08-06] MEDS: PYRIDOXINE HCL 100 MG/ML VIAL (*SPC) 50 MG IV PUSH (23:02)
[2024-08-06] MEDS: DEXTROSE 5%/0.45% SOD CHL 1,000 ML 1000 ML IV CONT (23:02)
[2024-08-06 23:17] LABS: Add Urine Microscopic? YES; Appearance Urine Turbid (Clear); Bacteria Urine 2+ /hpf; Bilirubin Urine Negative (Negative); Blood Urine Negative (Negative); Color Urine Dark Yellow (Yellow); Glucose Urine UA Negative (Negative); Ketones Urine 1+ mg/dL (Negative); Leukocyte Esterase Ur Negative LEU/UL (Negative); Nitrate Urine Negative (Negative); Non Pathogenic Casts 0-2; Protein Urine Trace mg/dL (Negative); RBC Urine 0-2 /hpf (0-2); Specific Grav Ur 1.031 (1.001-1.035); Squamous Epithelial Cell Urine Moderate /hpf (Few); WBC Urine 0-5 /hpf (0-3); pH Urine 5.5 (5.0-9.0)
[2024-08-06 23:20] VITALS: BP 105/64; PULSE 92; RESP 18; O2SAT 100
== END 2024-08-07 00:09 | disposition home or self-care (01) ==
PROVIDERS: Emergency Provider Physician Assistant
DX: O21.0 Mild hyperemesis gravidarum (principal); O99.411 Diseases of the circulatory system complicating pregnancy, first trimester; I95.1 Orthostatic hypotension; Z3A.12 12 weeks gestation of pregnancy; R94.31 Abnormal electrocardiogram [ECG] [EKG]
CPT/HCPCS: 36415; 80048; 81001; 82948; 83735; 85025; 93005; 96361; 96374; 96375; 99284; J2765; J3415; J7120

== ENCOUNTER 2024-10-31 20:09 | Observation (INO) | payer OTHER, SELFPAY ==
--- OUTSIDE RECORDS SUMMARY | 2024-10-31 20:06 | XMS_ITS ---
Author Organization [facility] Address [address] [place] [address] Care Team Providers Care Radiosonde Operator Name Role Phone Dr. Lena Sanders Primary Care Provider [phone] Migration, Provider Unavailable Unavailable REASON FOR VISIT EMR-[facility]ctor Encounters Encounter Location Date Provider Diagnosis [facility] [address] [place] [address] 05/21/2024 Provider Migration Plan Of Treatment Medication [...] every day; Duration: 01/14/2024 02/03/2024 *[facility]* valACYclovir HCl [...] every day; Duration: 04/10/2021 03/29/2023 ,discontinuereason:D iscontinued Levora 0.15/30 (28) 0.15-30 MG-MCG 1 Oral every day; Duration: 30 04/10/2021 03/29/2023 ,discontinuereason:R efilled Escitalopram Oxalate 20 MG 1 Oral every day; Duration: 30 05/21/2021 03/29/2023 ,discontinuereason:D iscontinued olopatadine 0.7 % 1 Ophthalmic every day; Duration: 12/12/2020 01/10/2021 *[facility] for eRx and Interaction Alerts* Zoloft 50 [...] Duration: 08/13/2023 08/26/2023 Progress Notes * Millie VIERAanushaDOB:[birth year] (19 yo F)Acc No.[id number]:05/21/2024 Patient: Adilene BORDEN :2005 A ge:19 Y S ex:Female Phone: Address:[address] [place] [address], [facility], [place], [address] * Refills Stop Escitalopram Oxalate Tablet, 20 [...] * Chief Complaints: * E MR-Ector * * Date:
--- OUTSIDE RECORDS SUMMARY | 2024-10-31 20:07 | XMS_ITS | Clinical Summary ---
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 smoking and Alcohol use. Assessment & Plan (01/24/2021 7:37 AM CDT): Patient uses THC to feel better. It reduces her anxiety and improves her mood. Her urine was positive for THC. She drinks alcohol occasionally and smokes cigarettes frequently. - Aquatics Coordinator about the use of THC, cigarette smoking and Alcohol use. Assessment & Plan (01/23/2021 8:27 AM CDT): Patient uses THC to feel better. It reduces her anxiety and improves her mood. Her urine was positive for THC. She drinks alcohol occasionally and smokes cigarettes frequently. - Aquatics Coordinator about the use of THC, cigarette smoking and Alcohol use. Assessment & Plan (01/22/2021 6:08 PM CDT): Patient uses THC to feel better. It reduces her anxiety and improves her mood. Her urine was positive for THC. She drinks alcohol occasionally and smokes cigarettes frequently. - Aquatics Coordinator about the use of THC, cigarette smoking and Alcohol use. Assessment & Plan (01/21/2021 2:09 PM CDT): Patient uses THC to feel better. It reduces her anxiety and improves her mood. Her urine was positive for THC. She drinks alcohol occasionally and smokes cigarettes frequently. - Aquatics Coordinator about the use of THC, cigarette smoking and Alcohol use. Assessment & Plan (01/20/2021 5:28 PM CDT): Patient uses THC to feel better. It reduces her anxiety and improves her mood. Her urine was positive for THC. She drinks alcohol occasionally and smokes cigarettes frequently. - Aquatics Coordinator about the use of THC, cigarette smoking and Alcohol use. Assessment & Plan (01/19/2021 5:32 PM CDT): Patient uses THC to feel better. It reduces her anxiety and improves her mood. Her urine was positive for THC. She drinks alcohol occasionally and smokes cigarettes frequently. - Aquatics Coordinator about the use of THC, cigarette smoking and Alcohol use. Assessment & Plan (01/18/2021 11:58 AM CDT): Patient uses THC to feel better. It reduces her anxiety and improves her mood. Her urine was positive for THC. She drinks alcohol occasionally and smokes cigarettes frequently. - Aquatics Coordinator about the use of THC, cigarette smoking and Alcohol use. Assessment & Plan (01/17/2021 11:00 AM CDT): Patient uses THC to feel better. It reduces her anxiety and improves her mood. Her urine was positive for THC. She drinks alcohol occasionally and smokes cigarettes frequently. - Aquatics Coordinator about the use of THC, cigarette smoking and Alcohol use. Assessment & Plan (01/16/2021 1:11 PM CDT): Patient uses THC to feel better. It reduces her anxiety and improves her mood. Her urine was positive for THC. She drinks alcohol occasionally and smokes cigarettes frequently. - Aquatics Coordinator about the use of THC, cigarette smoking and Alcohol use. Assessment & Plan (01/15/2021 4:20 PM CDT): Patient uses THC to feel better. It reduces her anxiety and improves her mood. Her urine was positive for THC. She drinks alcohol and smokes cigarettes occasionally. - Aquatics Coordinator about the use of THC, cigarette smoking [...] having IBS and she follows up with [facility] pediatrics gastroenterology. She has on/off mild diffuse abdominal pain that is not relieved by bowel movements as well as diarrhea. No vomiting or constipation. - Continue Cyproheptadine Assessment & Plan (01/18/2021 11:57 AM CDT): Adilene reports having IBS and she follows up with [facility] pediatrics gastroenterology. She has on/off mild diffuse abdominal pain that is not relieved by bowel movements as well as diarrhea. No vomiting or constipation. - Continue Cyproheptadine Assessment & Plan (01/17/2021 11:00 AM CDT): Adilene reports having IBS and she follows up with [facility] pediatrics gastroenterology. She has on/off mild diffuse abdominal pain that is not relieved by bowel movements as well as diarrhea. No vomiting or constipation. - Continue Cyproheptadine Assessment & Plan (01/16/2021 1:11 PM CDT): Adilene reports having IBS and she follows up with [facility] pediatrics gastroenterology. She has on/off diffuse abdominal pain that is not relieved by bowel movements as well as diarrhea. No vomiting or constipation. - Continue Cyproheptadine Assessment & Plan (01/15/2021 4:28 PM CDT): Adilene reports having IBS and she follows up with [facility] pediatrics gastroenterology. She has on/off diffuse [...] CDT Respiratory Rate 16 08/30/2021 7:09 AM MIG TIG WELDER Oxygen Saturation 100% 09/19/2021 11:23 AM CDT Inhaled Oxygen Concentration - - Weight 64.2 kg (141 lb 9.6 oz) 09/19/2021 11:23 AM CDT Height 170.2 cm (5' 7.01) 08/28/2021 3:27 PM CS T Body Mass Index 22.17 08/28/2021 3:27 PM MIG TIG WELDER Plan of Treatment Not on file Insurance [facility] [place] [address] [place] [employer] [facility] Advance Directives For more information, please contact: [phone] * Full Code (Latest Code Status on File) Date Activated Date Inactivated Comments 08/28/2021 8:13 PM 08/30/2021 4:47 PM * Full Code Date Activated Date Inactivated Comments 01/15/2021 1:54 PM 03/13/2021 10:26 PM Care Teams Meat Cutting Teacher Relationship Specialty Start Date End Date No, Physician PCP - General 08/07/21
--- OUTSIDE RECORDS SUMMARY | 2024-10-31 20:07 | XMS_ITS | Clinical Summary ---
Author Organization [facility] Address [address] [address] Care Team Providers Care Supervisor Plastering Name Role Phone Lena Sanders MD Primary Care Provider [phone] Source Comments [facility],non-owned Affiliates and Associated Physician Practices is amultiple site organization consisting of ambulatory clinics and hospital sitesin [place], [place], [place] and [place]. This disclosure is being madepursuant to the Care Everywhere program and may not contain all information available regarding this patient. Last updated 18.[facility] Allergies No known active allergies Medications * Be aware that medications may not be up to date on this document. Alwaysverify current medications with the patient. cyproheptadine (PERIACTIN) 4 MG tablet Take 4 [...] = 0.6 oz pur e alcohol) Comments No Sex and Gender Information Value Date Recorded Sex Assigned at Not on file Legal Sex Female 5:42 AM BONE CHAR PULLER Gender Identity Not on file Sexual Orientation [...] 5:15 PM CDT Height 167.6 cm (5' 6) 11/09/2020 5:15 PM CDT Body Mass Index 20.98 11/09/2020 5:15 PM CDT Plan of Treatment Health Maintenance Due Date Last Done Comments HIV SCREENING 2018 HPV VACCINE (1 - 3-dose series) 2018 CHLAMYDIA/GONORRHEA SCREENING 2019 MENINGOCOCCAL (Group B) VACC INE SHARED DECISION-MAKING (1 of 2 - Standard) 2019 HEPATITIS C SCREENING 02/02/2021 DTAP/TDAP/TD VACCINES (1 - Tdap) 2022 HEPATITIS B VACCINE (1 of 3 - 19+ 3-dose series) 2022 COVID-19 VACCINE (1 - 2023-2 5 season) 2024 DEPRESSION SCREENING 06/22/2024 INFLUENZA VACCINE (Season Ended) 2025 ZOSTER VACCINE (1 of 2) 2053 HIB VACCINE Aged Out No longer eligi ble based on patient's age to complete this topic MENINGOCOCCAL GROUPS A/C/Y/W VACCINE Aged Out No longer eligible b ased on patient's age to complete this topic PNEUMOCOCCAL VACCINE Aged Out No long er eligible based on patient's age to complete this topic Insurance MEDICAID - [place] MEDICAID - OUT OF STATE [facility] Care Teams Supervisor Plastering Relationship Specialty Start Date End Date Lena Sanders MD [address] [place] [address] PCP - General Family Medicine 01/23/17
--- OUTSIDE RECORDS SUMMARY | 2024-10-31 20:07 | XMS_ITS ---
Author Organization [facility] Address [address] [place] [address] Care Team Providers Care Kiln Tender Name Role Phone Nallely Baeza Primary Care Provider UnavailNallely Geiger Unavailable [phone] REASON FOR VISIT counseling TH pt at home provider in office Encounters Encounter Location Date Provider Diagnosis [facility] [address] [place] [address] 01/13/2024 Nallely Baeza Plan Of Treatment No Information Progress Notes * Adilene VIERADOB:[birth year] (19 yo F)Acc No.[id number]:01/13/2024 UNLOCKED PROGRESS NOTE Patient: Adilene BORDEN Provider: To Baeza LCPC :2005 A ge:18 Y S ex:Female Date:01/13/2024 Address:[address], [address], [facility] Pcp:Nallely Baeza Subjective: * Chief Complaints: * 1 . counseling TH pt at home provider in office. * Medical History: Objective: * Vitals: Assessment: Plan: * Treatment: * Billing Information: * Visit Code: * Procedure Codes: * Electronic signature of Mona Baeza LCPC on 10/31/2024 at 08:06 PM CDT Sign off status: Pending Visit Status: N /S (No-Show) * Provider: To Baeza LCPC Date: 01/13/2024 Generated for Printi ng/Cathy/Robertoitting on: 0 10/31/2024 08:06 PM CDT
--- OUTSIDE RECORDS SUMMARY | 2024-10-31 20:07 | XMS_ITS | Patient Health Record ---
Author Organization [facility] Address [address] [place] [address] Care Team Providers Care Meat Products Demonstrator Name Role Phone Nallely Baeza Primary Care Provider Nallely Walls Unavailable [phone] Reason For Referral No Information Problems Problem Type SNOMED Code ICD Code Onset Dates Problem Status W/U Status Risk Notes Problem Borderline personality disorder (F60.3) Active confirmed Problem [id number] Post traumatic stress disorder (PTSD) (F43.10) Active confirmed Encounters Encounter Location Date Provider Diagnosis [facility] [address] [place] [address] 12/28/2023 [facility] [address] [place] [address] 01/13/2024 [facility] [address] [place] [address] 12/07/2023 [facility] [address] [place] [address] 12/08/2023 [facility] [address] [place] [address] 12/08/2023 [facility] [address] [place] [address] 01/12/2024 [facility] [address] [place] [address] 01/12/2024 [facility] [address] [place] [address] 05/05/2024 [facility] [address] [place] [address] 12/14/2023 Nallely Baeza Post traumatic stres s disorder (PTSD) F43.10 and Borderline personality disorder F60.3 Assessments Encounter Date Diagnosis (ICD Code) Assessment Notes Treatment Notes Treatment Clinical Notes Section Notes 12/14/2023 Post traumatic stress disorder (PTSD) (ICD-10 [...] visit being counseling regarding re-establishi ng treatment. Plan Of Treatment No Information Insurance Providers Payer Name Payer Address Payer Phone Subscriber Number Group Number Insured Name Patient Relationship to Insured Coverage Start Date Coverage End Date Zhou Olvera [facility] [address] [place] [address] [id number] Adilene Viera Self - patient is the insured 3 Zhou Olvera [facility] [address] [place] [address] [id number] Adilene Viera Self - patient is the insured 3 [employer] Olver[employer] Nonbillable [address] [place] [address] [id number] Adilene Viera Self - patient is the insured 3 BARBARA Olvera [employer] [facility] [address] [place] [address] [id number] Adilene Viera Self - patient is the insured 3
--- OUTSIDE RECORDS SUMMARY | 2024-10-31 20:07 | XMS_ITS | Referral Summary ---
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 unsafe or any homicidal ideations. [facility] division were called on 01/17. Hotline placed for abandonment on 01/20 because mom doesn't want to take her back now that she is cleared for discharge. [facility] child protective investigator met with the patient on 01/21 [...] now that she is cleared for discharge. [facility] child protective investigator met with the patient on 01/21 [...] now that she is cleared for discharge. [facility] protective [facility] met with the patient on 01/21 [...] now that she is cleared for discharge. [facility] child protective investigator met with the patient on 01/21 [...] now that she is cleared for discharge. [facility] child protective investigator met with the patient on 01/21 [...] now that she is cleared for discharge. [facility] child protective investigator met with the patient on 01/21 [...] now that she is cleared for discharge. [facility] child protective investigator met with the patient on 01/21 [...] now that she is cleared for discharge. [facility] child protective investigator met with the patient on 01/21 [...] now that she is cleared for discharge. [facility] child protective investigator met with the patient on 01/21 [...] now that she is cleared for discharge. [facility] child protective investigator met with the patient on 01/21 [...] now that she is cleared for discharge. [facility] child protective investigator met with the patient on 01/21 [...] now that she is cleared for discharge. [facility] child protective investigator met with the patient on 01/21 [...] now that she is cleared for discharge. [facility] child protective investigator met with the patient on 01/21 [...] now that she is cleared for discharge. [facility] child protective investigator met with the patient on 01/21 [...] now that she is cleared for discharge. [facility] child protective investigator met with the patient on 01/21 [...] now that she is cleared for discharge. [facility] child protective investigator met with the patient on 01/21 [...] now that she is cleared for discharge. [facility] child protective investigator met with the patient on 01/21 [...] Denies feeling unsafe or any homicidal ideations. [facility] were called on 01/17. Hotline placed for abandonment on 01/20 because mom doesn't want to take her back now that she is cleared for discharge. [facility] child protective investigator met with the patient on 01/21 [...] Denies feeling unsafe or any homicidal ideations. [facility] were called on 01/17. Hotline placed for abandonment on 01/20 because mom doesn't want to take her back now that she is cleared for discharge. [facility] child protective investigator met with the patient on 01/21 [...] Denies feeling unsafe or any homicidal ideations. [facility] were called on 01/17. Hotline placed for abandonment on 01/20 because mom doesn't want to take her back now that she is cleared for discharge. [facility] child protective investigator met with the patient on 01/21 [...] now that she is cleared for discharge. [facility] child protective investigator met with the patient on 01/21 and now, she's in their custody. - Follow up with social work and DCFS; won't discharge until cleared by both Assessment & Plan (01/30/2021 9:31 AM CDT): (refer to depression for more details) Adielne has been adopted since 2017. Reports that [...] now that she is cleared for discharge. [facility] child protective investigator met with the patient on 01/21 [...] now that she is cleared for discharge. [facility] child protective investigator met with the patient on 01/21 [...] now that she is cleared for discharge. [facility] child protective investigator met with the patient on 01/21 [...] Denies feeling unsafe or any homicidal ideations. [facility] division were called on 01/17. Hotline placed for abandonment on 01/20 because mom doesn't want to take her back now that she is cleared for discharge. [facility] child protective investigator met with the patient on 01/21 [...] Denies feeling unsafe or any homicidal ideations. [facility] division were called on 01/17. Hotline placed for abandonment on 01/20 because mom doesn't want to take her back now that she is cleared for discharge. [facility] child protective investigator met with the patient on 01/21 [...] now that she is cleared for discharge. [facility] child protective investigator met with the patient on 01/21 [...] now that she is cleared for discharge. [facility] child protective investigator met with the patient on 01/21 [...] now that she is cleared for discharge. [facility] child protective investigator met with the patient on 01/21 [...] now that she is cleared for discharge. [facility] child protective investigator met with the patient on 01/21 [...] Denies feeling unsafe or any homicidal ideations. [facility] were called on 01/17. [facility] does not have concerns for patient's safety [...] Denies feeling unsafe or any homicidal ideations. [facility] was called on 01/17. [facility] does not have concerns for patientt's safety [...] Denies feeling unsafe or any homicidal ideations. [facility]. [facility] does not have concerns for patientt's safety [...] Denies feeling unsafe or any homicidal ideations. [facility] was called on 01/17. [facility] does not have concerns for patientt's safety [...] alcohol occasionally and smokes cigarettes frequently. - Branding Machine Tender about the use of THC, cigarette smoking and alcohol use Assessment & Plan (03/11/2021 3:15 PM CDT): Patient uses THC to feel better. It reduces her anxiety and improves her mood. Her urine was positive for THC. She drinks alcohol occasionally and smokes cigarettes frequently. - Branding Machine Tender about the use of THC, cigarette smoking and alcohol use Assessment & Plan (03/10/2021 8:02 AM CDT): Patient uses THC to feel better. It reduces her anxiety and improves her mood. Her urine was positive for THC. She drinks alcohol occasionally and smokes cigarettes frequently. - Branding Machine Tender about the use of THC, cigarette smoking and alcohol use Assessment & Plan (03/09/2021 11:00 AM CDT): Patient uses THC to feel better. It reduces her anxiety and improves her mood. Her urine was positive for THC. She drinks alcohol occasionally and smokes cigarettes frequently. - Branding Machine Tender about the use of THC, cigarette smoking and alcohol use Assessment & Plan (03/08/2021 7:31 AM CDT): Patient uses THC to feel better. It reduces her anxiety and improves her mood. Her urine was positive for THC. She drinks alcohol occasionally and smokes cigarettes frequently. - Branding Machine Tender about the use of THC, cigarette smoking and alcohol use Assessment & Plan (03/06/2021 6:41 AM CDT): Patient uses THC to feel better. It reduces her anxiety and improves her mood. Her urine was positive for THC. She drinks alcohol occasionally and smokes cigarettes frequently. - Branding Machine Tender about the use of THC, cigarette smoking and alcohol use Assessment & Plan (03/05/2021 7:03 AM CDT): Patient uses THC to feel better. It reduces her anxiety and improves her mood. Her urine was positive for THC. She drinks alcohol occasionally and smokes cigarettes frequently. - Branding Machine Tender about the use of THC, cigarette smoking and alcohol use Assessment & Plan (03/04/2021 2:01 PM CDT): Patient uses THC to feel better. It reduces her anxiety and improves her mood. Her urine was positive for THC. She drinks alcohol occasionally and smokes cigarettes frequently. - Branding Machine Tender about the use of THC, cigarette smoking and alcohol use Assessment & Plan (03/03/2021 6:39 AM CDT): Patient uses THC to feel better. It reduces her anxiety and improves her mood. Her urine was positive for THC. She drinks alcohol occasionally and smokes cigarettes frequently. - Branding Machine Tender about the use of THC, cigarette smoking and alcohol use Assessment & Plan (03/02/2021 6:29 AM CDT): Patient uses THC to feel better. It reduces her anxiety and improves her mood. Her urine was positive for THC. She drinks alcohol occasionally and smokes cigarettes frequently. - Branding Machine Tender about the use of THC, cigarette smoking and alcohol use Assessment & Plan (03/01/2021 3:34 PM CDT): Patient uses THC to feel better. It reduces her anxiety and improves her mood. Her urine was positive for THC. She drinks alcohol occasionally and smokes cigarettes frequently. - Branding Machine Tender about the use of THC, cigarette smoking and alcohol use Assessment & Plan (02/28/2021 5:59 PM CDT): Patient uses THC to feel better. It reduces her anxiety and improves her mood. Her urine was positive for THC. She drinks alcohol occasionally and smokes cigarettes frequently. - Branding Machine Tender about the use of THC, cigarette smoking and alcohol use Assessment & Plan (02/27/2021 7:17 AM CDT): Patient uses THC to feel better. It reduces her anxiety and improves her mood. Her urine was positive for THC. She drinks alcohol occasionally and smokes cigarettes frequently. - Branding Machine Tender about the use of THC, cigarette smoking and alcohol use Assessment & Plan (02/26/2021 10:12 AM CDT): Patient uses THC to feel better. It reduces her anxiety and improves her mood. Her urine was positive for THC. She drinks alcohol occasionally and smokes cigarettes frequently. - Branding Machine Tender about the use of THC, cigarette smoking and alcohol use Assessment & Plan (02/25/2021 11:16 AM CDT): Patient uses THC to feel better. It reduces her anxiety and improves her mood. Her urine was positive for THC. She drinks alcohol occasionally and smokes cigarettes frequently. - Branding Machine Tender about the use of THC, cigarette smoking and alcohol use Assessment & Plan (02/24/2021 10:27 AM CDT): Patient uses THC to feel better. It reduces her anxiety and improves her mood. Her urine was positive for THC. She drinks alcohol occasionally and smokes cigarettes frequently. - Branding Machine Tender about the use of THC, cigarette smoking and alcohol use Assessment & Plan (02/23/2021 1:11 PM CDT): Patient uses THC to feel better. It reduces her anxiety and improves her mood. Her urine was positive for THC. She drinks alcohol occasionally and smokes cigarettes frequently. - Branding Machine Tender about the use of THC, cigarette smoking and alcohol use Assessment & Plan (02/22/2021 5:55 PM CDT): Patient uses THC to feel better. It reduces her anxiety and improves her mood. Her urine was positive for THC. She drinks alcohol occasionally and smokes cigarettes frequently. - Branding Machine Tender about the use of THC, cigarette smoking and alcohol use Assessment & Plan (02/20/2021 10:23 AM CDT): Patient uses THC to feel better. It reduces her anxiety and improves her mood. Her urine was positive for THC. She drinks alcohol occasionally and smokes cigarettes frequently. - Branding Machine Tender about the use of THC, cigarette smoking and alcohol use Assessment & Plan (02/19/2021 11:43 AM CDT): Patient uses THC to feel better. It reduces her anxiety and improves her mood. Her urine was positive for THC. She drinks alcohol occasionally and smokes cigarettes frequently. - Branding Machine Tender about the use of THC, cigarette smoking and alcohol use Assessment & Plan (02/18/2021 5:53 PM CDT): Patient uses THC to feel better. It reduces her anxiety and improves her mood. Her urine was positive for THC. She drinks alcohol occasionally and smokes cigarettes frequently. - Branding Machine Tender about the use of THC, cigarette smoking and alcohol use Assessment & Plan (02/17/2021 12:53 PM CDT): Patient uses THC to feel better. It reduces her anxiety and improves her mood. Her urine was positive for THC. She drinks alcohol occasionally and smokes cigarettes frequently. - Branding Machine Tender about the use of THC, cigarette smoking and alcohol use Assessment & Plan (02/16/2021 12:00 PM CDT): Patient uses THC to feel better. It reduces her anxiety and improves her mood. Her urine was positive for THC. She drinks alcohol occasionally and smokes cigarettes frequently. - Branding Machine Tender about the use of THC, cigarette smoking and alcohol use Assessment & Plan (02/14/2021 10:33 AM CDT): Patient uses THC to feel better. It reduces her anxiety and improves her mood. Her urine was positive for THC. She drinks alcohol occasionally and smokes cigarettes frequently. - Branding Machine Tender about the use of THC, cigarette smoking and alcohol use Assessment & Plan (02/13/2021 8:28 AM CDT): Patient uses THC to feel better. It reduces her anxiety and improves her mood. Her urine was positive for THC. She drinks alcohol occasionally and smokes cigarettes frequently. - Branding Machine Tender about the use of THC, cigarette smoking and alcohol use Assessment & Plan (02/12/2021 10:14 AM CDT): Patient uses THC to feel better. It reduces her anxiety and improves her mood. Her urine was positive for THC. She drinks alcohol occasionally and smokes cigarettes frequently. - Branding Machine Tender about the use of THC, cigarette smoking and alcohol use Assessment & Plan (02/11/2021 12:50 PM CDT): Patient uses THC to feel better. It reduces her anxiety and improves her mood. Her urine was positive for THC. She drinks alcohol occasionally and smokes cigarettes frequently. - Branding Machine Tender about the use of THC, cigarette smoking and alcohol use Assessment & Plan (02/10/2021 1:50 PM CDT): Patient uses THC to feel better. It reduces her anxiety and improves her mood. Her urine was positive for THC. She drinks alcohol occasionally and smokes cigarettes frequently. - Branding Machine Tender about the use of THC, cigarette smoking and alcohol use Assessment & Plan (02/09/2021 11:31 AM CDT): Patient uses THC to feel better. It reduces her anxiety and improves her mood. Her urine was positive for THC. She drinks alcohol occasionally and smokes cigarettes frequently. - Branding Machine Tender about the use of THC, cigarette smoking and alcohol use Assessment & Plan (02/08/2021 7:14 AM CDT): Patient uses THC to feel better. It reduces her anxiety and improves her mood. Her urine was positive for THC. She drinks alcohol occasionally and smokes cigarettes frequently. - Branding Machine Tender about the use of THC, cigarette smoking and alcohol use Assessment & Plan (2021 10:03 AM CDT): Patient uses THC to feel better. It reduces her anxiety and improves her mood. Her urine was positive for THC. She drinks alcohol occasionally and smokes cigarettes frequently. - Branding Machine Tender about the use of THC, cigarette smoking and alcohol use Assessment & Plan (02/06/2021 11:38 AM CDT): Patient uses THC to feel better. It reduces her anxiety and improves her mood. Her urine was positive for THC. She drinks alcohol occasionally and smokes cigarettes frequently. - Branding Machine Tender about the use of THC, cigarette smoking and alcohol use Assessment & Plan (02/05/2021 10:21 AM CDT): Patient uses THC to feel better. It reduces her anxiety and improves her mood. Her urine was positive for THC. She drinks alcohol occasionally and smokes cigarettes frequently. - Branding Machine Tender about the use of THC, cigarette smoking and alcohol use Assessment & Plan (02/04/2021 7:44 AM CDT): Patient uses THC to feel better. It reduces her anxiety and improves her mood. Her urine was positive for THC. She drinks alcohol occasionally and smokes cigarettes frequently. - Branding Machine Tender about the use of THC, cigarette smoking and alcohol use Assessment & Plan (02/03/2021 12:11 PM CDT): Patient uses THC to feel better. It reduces her anxiety and improves her mood. Her urine was positive for THC. She drinks alcohol occasionally and smokes cigarettes frequently. - Branding Machine Tender about the use of THC, cigarette smoking and alcohol use Assessment & Plan (02/02/2021 3:18 PM CDT): Patient uses THC to feel better. It reduces her anxiety and improves her mood. Her urine was positive for THC. She drinks alcohol occasionally and smokes cigarettes frequently. - Branding Machine Tender about the use of THC, cigarette smoking and alcohol use Assessment & Plan (02/01/2021 10:29 AM CDT): Patient uses THC to feel better. It reduces her anxiety and improves her mood. Her urine was positive for THC. She drinks alcohol occasionally and smokes cigarettes frequently. - Branding Machine Tender about the use of THC, cigarette smoking and alcohol use Assessment & Plan (01/31/2021 8:02 AM CDT): Patient uses THC to feel better. It reduces her anxiety and improves her mood. Her urine was positive for THC. She drinks alcohol occasionally and smokes cigarettes frequently. - Branding Machine Tender about the use of THC, cigarette smoking and alcohol use Assessment & Plan (01/30/2021 9:32 AM CDT): Patient uses THC to feel better. It reduces her anxiety and improves her mood. Her urine was positive for THC. She drinks alcohol occasionally and smokes cigarettes frequently. - Branding Machine Tender about the use of THC, cigarette smoking and alcohol use Assessment & Plan (01/29/2021 11:38 AM CDT): Patient uses THC to feel better. It reduces her anxiety and improves her mood. Her urine was positive for THC. She drinks alcohol occasionally and smokes cigarettes frequently. - Branding Machine Tender about the use of THC, cigarette smoking and alcohol use Assessment & Plan (01/28/2021 11:25 AM CDT): Patient uses THC to feel better. It reduces her anxiety and improves her mood. Her urine was positive for THC. She drinks alcohol occasionally and smokes cigarettes frequently. - Branding Machine Tender about the use of THC, cigarette smoking and alcohol use Assessment & Plan (01/27/2021 8:46 AM CDT): Patient uses THC to feel better. It reduces her anxiety and improves her mood. Her urine was positive for THC. She drinks alcohol occasionally and smokes cigarettes frequently. - Branding Machine Tender about the use of THC, cigarette smoking and Alcohol use. Assessment & Plan (01/26/2021 3:06 PM CDT): Patient uses THC to feel better. It reduces her anxiety and improves her mood. Her urine was positive for THC. She drinks alcohol occasionally and smokes cigarettes frequently. - Branding Machine Tender about the use of THC, cigarette smoking and Alcohol use. Assessment & Plan (01/25/2021 11:48 AM CDT): Patient uses THC to feel better. It reduces her anxiety and improves her mood. Her urine was positive for THC. She drinks alcohol occasionally and smokes cigarettes frequently. - Branding Machine Tender about the use of THC, cigarette smoking and Alcohol use. Assessment & Plan (01/24/2021 7:37 AM CDT): Patient uses THC to feel better. It reduces her anxiety and improves her mood. Her urine was positive for THC. She drinks alcohol occasionally and smokes cigarettes frequently. - Branding Machine Tender about the use of THC, cigarette smoking and Alcohol use. Assessment & Plan (01/23/2021 8:27 AM CDT): Patient uses THC to feel better. It reduces her anxiety and improves her mood. Her urine was positive for THC. She drinks alcohol occasionally and smokes cigarettes frequently. - Branding Machine Tender about the use of THC, cigarette smoking and Alcohol use. Assessment & Plan (01/22/2021 6:08 PM CDT): Patient uses THC to feel better. It reduces her anxiety and improves her mood. Her urine was positive for THC. She drinks alcohol occasionally and smokes cigarettes frequently. - Branding Machine Tender about the use of THC, cigarette smoking and Alcohol use. Assessment & Plan (01/21/2021 2:09 PM CDT): Patient uses THC to feel better. It reduces her anxiety and improves her mood. Her urine was positive for THC. She drinks alcohol occasionally and smokes cigarettes frequently. - Branding Machine Tender about the use of THC, cigarette smoking and Alcohol use. Assessment & Plan (01/20/2021 5:28 PM CDT): Patient uses THC to feel better. It reduces her anxiety and improves her mood. Her urine was positive for THC. She drinks alcohol occasionally and smokes cigarettes frequently. - Branding Machine Tender about the use of THC, cigarette smoking and Alcohol use. Assessment & Plan (01/19/2021 5:32 PM CDT): Patient uses THC to feel better. It reduces her anxiety and improves her mood. Her urine was positive for THC. She drinks alcohol occasionally and smokes cigarettes frequently. - Branding Machine Tender about the use of THC, cigarette smoking and Alcohol use. Assessment & Plan (01/18/2021 11:58 AM CDT): Patient uses THC to feel better. It reduces her anxiety and improves her mood. Her urine was positive for THC. She drinks alcohol occasionally and smokes cigarettes frequently. - Branding Machine Tender about the use of THC, cigarette smoking and Alcohol use. Assessment & Plan (01/17/2021 11:00 AM CDT): Patient uses THC to feel better. It reduces her anxiety and improves her mood. Her urine was positive for THC. She drinks alcohol occasionally and smokes cigarettes frequently. - Branding Machine Tender about the use of THC, cigarette smoking and Alcohol use. Assessment & Plan (01/16/2021 1:11 PM CDT): Patient uses THC to feel better. It reduces her anxiety and improves her mood. Her urine was positive for THC. She drinks alcohol occasionally and smokes cigarettes frequently. - Branding Machine Tender about the use of THC, cigarette smoking and Alcohol use. Assessment & Plan (01/15/2021 4:20 PM CDT): Patient uses THC to feel better. It reduces her anxiety and improves her mood. Her urine was positive for THC. She drinks alcohol and smokes cigarettes occasionally. - Branding Machine Tender about the use of THC, cigarette smoking [...] CDT): Stable. - Bacitracin topical cream BID EMNDEZ for 2-3 days past resolution of symptoms [...] having IBS and she follows up with [facility] pediatric[facility] gastroenterology. She has on/off mild diffuse abdominal pain that is not relieved by bowel movements as well as diarrhea. No vomiting or constipation. - Continue Cyproheptadine Assessment & Plan (01/18/2021 11:57 AM CDT): Adilene reports having IBS and she follows up with [facility] gastroenterology. She has on/off mild diffuse abdominal pain that is not relieved by bowel movements as well as diarrhea. No vomiting or constipation. - Continue Cyproheptadine Assessment & Plan (01/17/2021 11:00 AM CDT): Adilene reports having IBS and she follows up with [facility] gastroenterology. She has on/off mild diffuse abdominal pain that is not relieved by bowel movements as well as diarrhea. No vomiting or constipation. - Continue Cyproheptadine Assessment & Plan (01/16/2021 1:11 PM CDT): Adilene reports having IBS and she follows up with [facility] gastroenterology. She has on/off diffuse abdominal pain that is not relieved by bowel movements as well as diarrhea. No vomiting or constipation. - Continue Cyproheptadine Assessment & Plan (01/15/2021 4:28 PM CDT): Adilene reports having IBS and she follows up with [facility] gastroenter[facility]. She has on/off diffuse abdominal [...] CDT Respiratory Rate 16 08/30/2021 7:09 AM EVENT EXECUTIVE Oxygen Saturation 100% 09/19/2021 11:23 AM CDT Inhaled Oxygen Concentration - - Weight 64.2 kg (141 lb 9.6 oz) 09/19/2021 11:23 AM CDT Height 170.2 cm (5' 7.01) 08/28/2021 3:27 PM CS T Body Mass Index 22.17 08/28/2021 3:27 PM EVENT EXECUTIVE Plan of Treatment Not on file [place] [id number] [facility] [place] [facility] Advance Directives For more information, please contact: [phone] * Full Code (Latest Code Status on File) Date Activated Date Inactivated Comments 08/28/2021 8:13 PM 08/30/2021 4:47 PM * Full Code Date Activated Date Inactivated Comments 01/15/2021 1:54 PM 03/13/2021 10:26 PM Care Teams Certified Nurses' Aide Relationship Specialty Start Date End Date No, Physician PCP - General 08/07/21
--- OUTSIDE RECORDS SUMMARY | 2024-10-31 20:07 | XMS_ITS ---
Author Organization Formerly [facility], [facility] Address [address] [place] [address] Care Team Providers Care Mud Mixer Name Role Phone Hien Miller Primary Care Provider [phone] Bart Juarez [phone] REASON FOR VISIT 3 Week F/U Encounters Encounter Location Date Provider Diagnosis [address] [address] 06/01/2024 Bart Juarez Plan Of Treatment No Information Progress Notes * Adilene VIERADOB:[birth year] (19 yo F)Acc No.[id number]:06/01/2024 UNLOCKED PROGRESS NOTE Patient: Adilene BORDEN Provider: Angelica Juarez DNP, ROSLYNP-BC :2005 A ge:19 Y S ex:Female Date:06/01/2024 Address[address] [facility] Pcp:Hien Miller Subjective: * Chief Complaints: * 1 . 3 Week F/U. * Medical History: Objective: * Vitals: Assessment: Plan: * Treatment: * * Electronic signature of Maranda Juarez APRN, [id number] on 10/31/2024 at 08:07 PM CDT Sign off status: Pending * Provider: Angelica Juarez DNP, PMHNP-BC Date: 08/02/2023 Generated for Ivon paz/Cathy/Robertoitting on: 0 10/31/2024 08:07 PM CDT
--- OUTSIDE RECORDS SUMMARY | 2024-10-31 20:07 | XMS_ITS | Data Portability ---
Author Organization [facility] Address [address] [place] [address] [place] [address] Care Team Providers Care Counselor Dormitory Name Role Phone NETO CASTELAN Primary Care Provider Assessment Encounter Date Assessment Date Assessment LastModified by Organization Details LastModified Time 09/27/2024 09/27/2024 Patient is ___weeks . Discussed plan. [email or web address] Not available 09/27/2024 13:14:38 10/25/2024 10/25/2024 Patient is _24__weeks . Discussed plan. [email or web address] Not available 10/25/2024 10:32:55 Plan of Treatment Reminders Order Date Submit Date Provider Last Modified By Organization Details Last Modified Time Details Appointments OB ROUTINE 2024 09:30A M An Pierre CNM Not available Not available Not available Lab None recorded. Referral None recorded. Procedures None recorded. Surgeries None recorded. Imaging US, obstetric , 2nd or 3rd trimester 2024 025 [email or web address] [address], [place], [address], 09/27/2024 13:38:03 US, obstetric , nuchal transluce ncy 2024 025 [email or web address] [address], [address], [place], [address], 08/06/2024 22:46:33 Medication Orders None recorded. Patient TargetsNo targets recorded. Patient InstructionsNo instructions recorded. Reason for Referral None Reported. Results Created Date Observation Date Name Description Value Unit Range Abnormal Flag Note LastModifiedBy Organization Detail LastModifiedTime 08/11/19 25 08/11/2024 [UNIT Y] ANEUP LOIDY NIPT fraction 9.4% normal Not Available [facility] [address] [facility], [place], [address], 08/11/2024 13:52:21 08/11/19 25 08/11/2024 [UNIT Y] ANEUP LOIDY NIPT 22Q11.2 microdeletio n LOW RISK <1 in 10,000 normal Not Available [facility] [address] [facility], [place], [address], 08/11/2024 13:52:21 08/11/19 25 08/11/2024 [UNIT Y] ANEUP LOIDY NIPT sex chromosome aneuploidy NOT DETECT ED normal Not Available [facility] [address] [facility], [place], [address], 08/11/2024 13:52:21 08/11/19 25 08/11/2024 [UNIT Y] ANEUP LOIDY NIPT monosomy X LOW RISK <1 in 10,000 normal Not Available [facility] [address] [facility], [place], [address], 08/11/2024 13:52:21 08/11/19 25 08/11/2024 [UNIT Y] ANEUP LOIDY NIPT trisomy 13 LOW RISK <1 in 10,000 normal Not Available [facility] [address] [facility], [place], [address], 08/11/2024 13:52:21 08/11/19 25 08/11/2024 [UNIT Y] ANEUP LOIDY NIPT trisomy 18 LOW RISK <1 in 10,000 normal Not Available [facility] [address] [facility], [place], [address], 08/11/2024 13:52:21 08/11/19 25 08/11/2024 [UNIT Y] ANEUP LOIDY NIPT trisomy 21 LOW RISK <1 in 10,000 normal Not Available [facility] [address] [facility] , [place], [address], 08/11/2024 13:52:21 08/11/19 25 08/11/2024 [UNIT Y] ANEUP LOIDY NIPT sex FEMALE normal Not Available [facility] [address] [facility], [place], [address], 08/11/2024 13:52:21 08/11/19 25 08/11/2024 [UNIT Y] ANEUP LOIDY NIPT gestation SINGLE TON normal Not Available [facility] [address] [facility], [place], [address], 08/11/2024 13:52:21 08/11/19 25 08/11/2024 [UNIT Y] ANEUP LOIDY NIPT for detailed report, see pdf See PDF normal Not Available [facility] [address] [facility], [place], [address], 08/11/2024 13:52:21 08/16/19 25 08/16/2024 [UNIT Y] MARC ER SCREMarcus N sickle cell disease/beta -thalassemia /hemoglobino pathies carrier screen NEGATI VE normal Not Available [facility] [address] [facility], [place], [address], 08/16/2024 18:48:42 08/16/19 25 08/16/2024 [UNIT Y] MARC ER SCREE N alpha-thalas semia carrier screen NEGATI VE normal Not Available [facility] [address] [facility], [place], [address], 08/16/2024 18:48:42 08/16/19 25 08/16/2024 [UNIT Y] MARC ER SCREE N cystic fibrosis carrier screen NEGATI VE normal Not Available [facility] [address] [facility], [place], [address], 08/16/2024 18:48:42 08/16/19 25 08/16/2024 [UNIT Y] MARC ER SCREE N spinal muscular atrophy carrier screen NEGATI VE 2 SMN1 copies , SNP not presen t normal Not Available [facility] [address], [place], [address], 08/16/2024 18:48:42 08/16/19 25 08/16/2024 [UNIT Y] MARC Nichols for detailed report, see pdf See PDF normal Not Available [facility] [address], [place], [address], 08/16/2024 18:48:42 07/08/19 25 07/08/2024 CT/GC AND TRICH OMONA S VAGIN CHARLIE (RRNA ), URINE chlamydia trachomatis, PCR Negati ve negati ve Not Available [facility] (Lab) [address] [facility], [place], [address], 07/09/2024 11:55:13 07/08/19 25 07/08/2024 CT/GC AND TRICH OMONA S VAGIN CHARLIE (RRNA ), URINE neisseria gonorrhoeae, PCR Negati ve negati ve Not Available [facility] (Lab) [address] [facility], [place], [address], 07/09/2024 11:55:13 07/08/19 25 07/08/2024 CT/GC AND TRICH OMONA S VAGIN CHARLIE (RRNA ), URINE trichomonas vaginalis ribosomal RNA (rrna) Negati ve negati ve Not Available [facility] (Lab) [address] [place], [address], 07/09/2024 11:55:13 08/05/19 25 08/05/2024 CULTU RE: URINE result report SEE RESULT S BELOW Test: Cultu re: Urine Speci men Sourc e: Urine - Clean Catch Speci men Type: Urine Speci men Date: 2024 1106 Resul t Date: 2024 0751 Resul t Statu s: Final resul t Abnor mal: No Resul ting Lab: [facility] [address] [facility] [address] Tel: CULTU RE ----- ----- ----- --- Cultu re resul t (>=3 organ isms prese nt) indic ates possi ble conta minat ion. Repea t cultu re if sympt oms indic ate. Not Available [facility] (Lab) [address] [facility], [place], [address], 08/07/2024 08:54:51 08/05/19 25 08/05/2024 TYPE/ RH/SC REEN ABO/Rh type O POS Not Available [facility] (Lab) [address] [facility], [place], [address], 08/09/2024 01:46:18 08/05/19 25 08/05/2024 TYPE/ RH/SC REEN antibody screen NEG Not Available [facility] (Lab) [address] [facility], [place], [address], 08/09/2024 01:46:18 08/05/19 25 08/05/2024 TYPE/ RH/SC REEN exp date 2024 23:59 Not Available [facility] (Lab) [address] [facility], [place], [address], 08/09/2024 01:46:18 08/05/19 25 08/05/2024 HEPAT ITIS B SURFA CE ANTIG EN hepatitis B surface antigen Non-re active non-re active This assay was perfo rmed using [employer] ratio n reage nts and test kits. Value s obtai eliza with other assay metho ds or kits canno t be used inter max eably . Not Available [facility] (Lab) [address] [facility], [place], [address], 08/09/2024 01:46:18 08/05/19 25 08/05/2024 CBC W/DIF F WBC 7.6 10'3/ uL 3.5-10 .5 Not Available [facility] (Lab) [address] [place], [address], 08/09/2024 01:46:18 08/05/19 25 08/05/2024 CBC W/DIF F RBC 4.22 10'6/ uL (based on docume nted legal sex) 3.80-5 .20 Not Available [facility] (Lab) [address] [facility], [place], [address], 08/09/2024 01:46:18 08/05/19 25 08/05/2024 CBC W/DIF F HGB 13.0 g/dL (based on docume nted legal sex) 11.6-1 5.4 Not Available [facility] (Lab) [address] [facility], [place], [address], 08/09/2024 01:46:18 08/05/19 25 08/05/2024 CBC W/DIF F HCT 38.7 % (based on docume nted legal sex) 34.0-4 5.0 Not Available [facility] (Lab) [address] [facility], [place], [address], 08/09/2024 01:46:18 08/05/19 25 08/05/2024 CBC W/DIF F MCV 91.7 fL 80.0-9 9.0 Not Available [facility] (Lab) [address] [facility], [place], [address], 08/09/2024 01:46:18 08/05/1908/05/2024 CBC W/DIF F MCH 30.8 pg 27.0-3 4.0 Not Available [facility] (Lab) [address] [facility], [place], [address], 08/09/2024 01:46:18 08/05/19 25 08/05/2024 CBC W/DIF F MCHC 33.6 g/dL 32.0-3 5.5 Not Available [facility] (Lab) [address] [place], [address], 08/09/2024 01:46:18 08/05/19 25 08/05/2024 CBC W/DIF F RDW 13.6 % 11.0-1 5.0 Not Available [facility] (Lab) [address], [place], [address], 08/09/2024 01:46:18 08/05/19 25 08/05/2024 CBC W/DIF F plt 296 10'3/ uL 150-40 0 Not Available [facility] (Lab) [address], [place], [address], 08/09/2024 01:46:18 08/05/19 25 08/05/2024 CBC W/DIF F MPV 11.5 fL 8.8-12 .1 Not Available [facility] (Lab) [address], [place], [address], 08/09/2024 01:46:18 08/05/19 25 08/05/2024 CBC W/DIF F neutrophils 78.3 % 34.0-7 3.0 high Not Available [facility] (Lab) [address], [place], [address], 08/09/2024 01:46:18 08/05/19 25 08/05/2024 CBC W/DIF F lymphocytes 15.4 % 15.0-5 0.0 Not Available [facility] (Lab) [address], [place], [address], 08/09/2024 01:46:18 08/05/19 25 08/05/2024 CBC W/DIF F monocytes 4.2 % 1.0-15 .0 Not Available [facility] (Lab) [address], [place], [address], 08/09/2024 01:46:18 08/05/19 25 08/05/2024 CBC W/DIF F eosinophils 1.5 % 0.0-8. 0 Not Available [facility] (Lab) [address], [place], [address], 08/09/2024 01:46:18 08/05/19 25 08/05/2024 CBC W/DIF F basophils 0.3 % 0.0-2. 0 Not Available [facility] (Lab) [address], [place], [address], 08/09/2024 01:46:18 08/05/19 25 08/05/2024 CBC W/DIF F immature granulocytes 0.3 % no define d refere nce range Immat ure Granu locyt es (IG) repre sents autom ated enume ratio n of Metam yeloc ytes, Myelo cytes and Promy elocy prudence when IG is < 5%. Blast s are not inclu ded in IG and repor azam separ ately if prese nt. Not Available [facility] (Lab) [address], [place], [address], 08/09/2024 01:46:18 08/05/19 25 08/05/2024 CBC W/DIF F absolute neutrophils 5.9 10'3/ uL 1.5-8. 0 Not Available [facility] (Lab) [address], [place], [address], 08/09/2024 01:46:18 08/05/19 25 08/05/2024 CBC W/DIF F absolute lymphocytes 1.2 10'3/ uL 1.0-4. 0 Not Available [facility] (Lab) [address], [place], [address], 08/09/2024 01:46:18 08/05/19 25 08/05/2024 CBC W/DIF F absolute monocytes 0.3 10'3/ uL 0.2-1. 0 Not Available [facility] (Lab) [address], [place], [address], 08/09/2024 01:46:18 08/05/19 25 08/05/2024 CBC W/DIF F absolute eosinophils 0.1 10'3/ uL 0.0-0. 6 Not Available [facility] (Lab) [address] [place], [address], 08/09/2024 01:46:18 08/05/1908/05/2024 CBC W/DIF F absolute basophils 0.0 10'3/ uL 0.0-0. 3 Not Available [facility] (Lab) [address], [place], [address], 08/09/2024 01:46:18 08/05/1908/05/2024 CBC W/DIF F absolute immature granulocytes 0.0 10'3/ uL 0.00-0 .10 Refer ence range s for nonbi nary/ inter sex or unspe cifie d gende r patie nts have not been estab lishe d. Pleas e refer [facility] table for range s estab lishe d for cisge nder patie nts and evalu ate in the clini flora froylan xt of the indiv idual patie nt: https ://la and book. nm.or g/gen derx Not Available [facility] (Lab) [address], [place], [address], 08/09/2024 01:46:18 08/05/1908/05/2024 HEPAT ITIS C ANTIB STEPHANIE SCREE N, REFLE X TO CONFI RMATI ON hepatitis C antibody Non-re active non-re active Antib odies to HCV Not Detec azam, does not exclu de the possi bilit y of expos ure to HCV. Not Available [facility] (Lab) [address], [place], [address], 08/09/2024 01:46:19 08/05/1908/05/2024 HIV 1/2 ANTIG EN/AN TIBOD Y, REFLE X CONFI RMATI ON HIV antigen/anti body Nonrea ctive nonrea ctive HIV-1 antig en and HIV-1 /HIV- 2 antib odies were not detec azam. No labor atory evide nce of HIV infec tion. Not Available [facility] (Lab) [address], [place], [address], 08/09/2024 01:46:19 08/05/19 25 08/05/2024 RUBEL LA IGG ANTIB STEPHANIE, QUANT rubella antibodies, IgG Reacti ve reacti ve Not Available [facility] (Lab) [address] [facility], [place], [address], 08/09/2024 01:46:19 08/05/19 25 08/05/2024 RUBEL LA IGG ANTIB STEPHANIE, QUANT rubella antibodies, IgG quant 26.6 IU/mL >=10 Non-r eacti ve (Non- Immun e) <10 IU/mL React dariel (Immu ne) > or = 10 IU/mL Not Available [facility] (Lab) [address] [facility], [place], [address], 08/09/2024 01:46:19 08/05/1908/05/2024 HEMOG LOBIN A1C hemoglobin A1C 4.9 % 4.0-5. 6 The Ameri can Diabe prudence [employer]oc iatio n recom mends that a prima ry goal of thera py rock d be a HBA1C of < 7% and that physi cians shoul d reeva luate the treat ment regim en in patie nts with HBA1C value s consi stent ly > 8%. <5.7% Nelda l 5.7 - 6.4% Incre ased risk for diabe prudence >=6.5 % Diagn ostic of diabe prudence <7.0% Goal of thera py >8.0% Actio n sugge sted Not Available [facility] (Lab) [address] [facility], [place], [address], 08/09/2024 01:46:20 08/05/1908/05/2024 RPR SCREE N, REFLE X TITER /CONF IRMAT ION RPR screen Nonrea ctive nonrea ctive Not Available [facility] (Lab) [address] [facility], [place], [address], 08/09/2024 01:46:20 07/08/19 25 07/08/2024 US, obste tric, 1st trime ster No observ ation record ed. [email or web address] [address], [place], [address], 07/10/2024 00:20:03 08/05/19 25 08/05/2024 US, obste tric, nucha l trans lucen cy No observ ation record ed. [email or web address] [address], [place], [address], 08/05/2024 17:09:58 08/05/1908/05/2024 US, obste tric, nucha l trans lucen cy No observ ation record ed. [email or web address] [address], [place], [address], 08/06/2024 23:12:57 09/28/19 25 09/27/2024 US, obste tric, 2nd or 3rd trime ster No observ ation record ed. [email or web address] [address], [place], [address], 09/27/2024 14:12:31 09/28/19 25 09/27/2024 US, obste tric, 2nd or 3rd trime ster No observ ation record ed. [address], [place], [address], 09/29/2024 17:02:24 Result Notes None recorded. Problems Name Problem SNOMED Code Status Onset Date Resolution Date Notes Provider Name and Address Organization Details Recorded Time 93385782 Active 2024 Lolita elliott, [facility] 5 11:14:53 Genital herpes simplex 84289201 Active valtrex suppressi on at 36 weeks BREE BARRIOS MD [address], [place], [address], [facility] 5 11:27:54 Bipolar disorder 11659165 Active 2024 Aishwarya Shelton [facility], [facility] 5 13:17:15 Mixed anxiety and depressiv e disorder 297763815 Active Aishwarya Shelton [facility], [facility] 5 13:21:35 Bipolar disorder 57515508 Active 2024 Aishwarya Shelton [facility], [facility] 5 13:17:15 Herpes simplex 73606486 Active 2024 Aishwarya Shelton [facility], [facility] 5 13:21:09 Mixed anxiety and depressiv e disorder 427588014 Active Aishwaryakeshia Shelton [facility], [facility] 5 13:21:35 Problem Notes None recorded. Procedures Surgical History Date Name Laterality Status Provider Name and Address Organization Details Recorded Time 06/22/19 18 procedure on face completed [facility] 09/27/2024 13:19:08 06/22/19 17 Date of Last Colonoscopy completed [facility] 10/25/2024 10:58:39 06/22/19 17 Colonoscopy completed [facility] 10/25/2024 10:59:41 Imaging Results Imaging Date Name Status LastModified by Organization Details LastModified Time 07/08/2024 US, obstetric, 1st trimester completed [email or web address] [address], [place], [address], 07/10/2024 00:20:03 08/05/2024 US, obstetric, nuchal translucency completed [address], [place], [address], 08/05/2024 17:09:58 08/05/2024 US, obstetric, nuchal translucency completed [email or web address] [address], [place], [address], 08/06/2024 23:12:57 09/27/2024 US, obstetric, 2nd or 3rd trimester completed [email or web address] [address], [place], [address], 09/27/2024 14:12:31 09/27/2024 US, obstetric, 2nd or 3rd trimester completed [address], [place], [address], 09/29/2024 17:02:24 Procedure Notes None recorded. Medical Equipment None Reported. Allergies No known drug allergies Medications Name Sig Start Date Stop Date Status Note LastModified by Organization Details LastModified Time sertraline 100 mg tablet Take 1 tablet every day by oral route for 90 days. 09/03 completed Not Available Not Available Not Available valacyclovi r 500 mg tablet TAKE 1 TABLET BY MOUTH ONCE DAILY active Not Available Not Available No t Available ondansetron 8 mg disintegrat ing tablet Place 1 tablet every 6-8 hours by transling ual route as needed. active Not Available Not Available No t Available doxycycline monohydrate 100 mg capsule TAKE 1 CAPSULE BY MOUTH TWICE DAILY 07/08 completed Not Available Not Available Not Available oseltamivir 75 mg capsule TAKE 1 CAPSULE BY MOUTH TWICE DAILY FOR 5 DAYS active Not Available Not Available No t Available docusate sodium 100 mg capsule TAKE 1 CAPSULE BY MOUTH EVERY DAY AT BEDTIME NEEDED FOR CONSTIPAT ION 09/03 completed Not Available Not Available Not Available omeprazole 20 mg capsule,del ayed release [...] day by oral route for 90 days. active Not Available Not Available No t Available Zoloft active Not Available Not Availa ble Not Available lurasidone 40 mg tablet Take 1 tablet every day by oral route for 90 days. active Not Available Not Available No t Available Latuda active Not Available Not Availa ble Not Available lurasidone 20 mg tablet TAKE 1 TABLET BY MOUTH IN THE EVENING WITH FOOD ONCE DAILY 07/08 completed Not Available Not Available Not Available Yongo (28) 0.15 mg-0.03 mg tablet TAKE 1 TABLET BY MOUTH ONCE DAILY 10/25 completed Not Available Not Available Not Available Vitals Date Recorded Body height Body mass index (BMI) Body weight Systolic blood pressure Diastolic blood pressure Provider Name and Address Organization Details Last Updated DateTime 08/05/2024 167.64 cm 21 kg/m2 87100.01 g 114 mm[Hg] 73 mm[Hg] Lolita [place] [facility] 5 11:10:17 Date Recorded Body height Body mass index (BMI) Body weight Systolic blood pressure Diastolic blood pressure Provider Name and Address Organization Details Last Updated DateTime 09/03/2024 167.64 cm 21.6 kg/m2 04772.38 g 111 mm[Hg] 73 mm[Hg] MARTITA [place] [facility] 09:34:49 Date Recorded Body height Body mass index (BMI) Body weight Systolic blood pressure Diastolic blood pressure Provider Name and Address Organization Details Last Updated DateTime 09/27/2024 167.64 cm 22.1 kg/m2 71833.15 g 111 mm[Hg] 71 mm[Hg] Aishwarya Shelton [facility] 5 13:15:09 Date Recorded Body weight Body mass index (BMI) Body height Systolic blood pressure Diastolic blood pressure Provider Name and Address Organization Details Last Updated DateTime 10/25/2024 93514.89 365 g 23.4 kg/m2 167.64 cm 118 mm[Hg] 71 mm[Hg] Aishwarya Shelton [facility] 10:16:49 Social History Question Answer Notes LastModified by Organizat ion Details LastModified Time Tobacco Smoking Status Former Smoker Aishwarya Shelton [facility] 09/27/2024 13:18:38 Do You Have An Advance Directive? No [email or web address] Information not available 07/08/2024 If You Are , What Was Your Level Of Alcohol Consumption Prior To ? Occasional [email or web address] Information not available 10/25/2024 Are You Blind Or Do You Have Difficulty Seeing? No [email or web address] Information not available 07/08/2024 What Is Your Level Of Caffeine Consumption? Moderate [email or web address] Information not available 07/08/2024 How Much Tobacco Do You Chew? None [email or web address] Information not available 07/08/2024 In The 14 Days Before Symptom Onset, Have You Had Close Contact With A Laboratory-confir med COVID-19 While That Case Was Ill? No [email or web address] Information not available 07/08/2024 In The 14 Days Before Symptom Onset, Have You Had Close Contact With A Person Who Is Under Investigation For COVID-19 While That Person Was Ill? No [email or web address] Information not available 07/08/2024 Have You Been To An Area Known To Be High Risk For COVID-19? No [email or web address] Information not available 07/08/2024 Are You Deaf Or Do You Have Serious Difficulty Hearing? No Information not available 07/08/2024 What Type Of Diet Are You Following? REGULAR [email or web address] Information not available 07/08/2024 What Is The Highest Grade Or Level Of School You Have Completed Or The Highest Degree You Have Received? [id number] [email or web address] Information not available 07/08/2024 Are There Any Guns Present In Your Home? No Information not available 07/08/2024 Do You Use Protection During Sex? No Information not available 07/08/2024 Do You Use Your Seat Belt Or Car Seat Routinely? Yes [email or web address] Information not available 07/08/2024 Are You Sexually Active? Yes [email or web address] Information not available 07/08/2024 Do You Have Smoke And Carbon Monoxide Detectors In Your Home? Yes [email or web address] Information not available 07/08/2024 How Much Tobacco Do You Smoke? No [email or web address] Information not available 07/08/2024 Do You Use Sunscreen Routinely? Yes [email or web address] Information not available 07/08/2024 Have You Used IV Drugs? No [email or web address] Information not available 07/08/2024 Sex: Unknown Functional Status Question Answer Note LastModified by Organizat ion Details LastModified Time Do you use any illicit or recreational drugs? No [email or web address] Information not available 07/08/2024 Do you or have you ever used any other forms of tobacco or nicotine? Yes Information not available 09/27/2024 What is your level of alcohol consumption? None [email or web address] Information not available 07/08/2024 Are you currently employed? Yes [email or web address] Information not available 07/08/2024 Do you have difficulty walking or climbing stairs? No [email or web address] Information not available 07/08/2024 Are you able to walk? YESWOREST [email or web address] Information not available 07/08/2024 Are you able to care for yourself? Yes [email or web address] Information not available 07/08/2024 What is your occupation? [employer] [email or web address] Information not available 07/08/2024 Do you have difficulty dressing or bathing? No [email or web address] Information not available 07/08/2024 Do you or have you ever used e-cigarettes or vape? Current user of electronic cigarettes [email or web address] Information not available 09/27/2024 What is your exercise level? Moderate Information not available 07/08/2024 Mental Status Question Answer Note LastModified by Organization D etails LastModified Time Do you feel stressed (tense, restless, nervous, or anxious, or unable to sleep at night)? [id number] Information not available 07/08/2024 Family History Relationship Description Onset Age of this Age Resolved Age Notes LastModified by Organization Details LastModified Time Unspecified Relation Family history unknown [email or web address] Not available 2024 09:53:53 Medical History Condition Response Allergies (Food, seasonal, environmental ) N Other N Breast Cancer N Blood Transfusion N Drug/Latex Allergies/Reactions N Dermatologic Disorders Y Lung Disease N Defects or Inherited Disease N Breast Problem N Gestational Diabetes N Hematologic disorders N Anesthesia Complications N History of STI Y Deep Vein Thrombosis N Polycystic ovary syndrome N Anxiety Disorder Y Autoimmune disease N Arthritis N Polyps N Infertility N Acid Reflux (GERD) Y History of abnormal pap N Cancer N Varicosities N Stroke N Neurologic/Epilepsy Y Endometriosis N High Cholesterol N Fibromyalgia N Headaches N Kidney Disease N Heart Problems N Thyroid Problems N Kidney or Bladder Problems N GI Problems N Eating Disorder N Anemia N Art (IVF or FET) N Psychiatric Illness Y Ovarian Cancer N Diabetes N Pulmonary (TB, Asthma) N Hepatitis/Liver Disease N No Past Medical History N Eczema N Urinary Tract Infection N Abuse/Domestic Violence N Asthma N Trauma/Violence N Depression/ depression Y Heart Disease N Pre-Eclampsia N Hypertension N Osteoporosis N Thrombophilias N Gynecological History Statement/Question Response Flow Moderate Date of Last Mammogram Date of LMP 05/10/2024 On BCP's at Conception? N N Was last menstrual period normal Y STIs/STDs Y Duration of Flow (days) 5 Current Control Method None Are cycles usually normal Y Date of Last Colonoscopy 06/22/2016 Frequency of Cycle (Q days) 24 Sexually Active? Y Date of DEXA bone scan Age of first menstrual cycle 8 Date of Last Pap Smear Sexual Problems? N Desired Control Method None LMP Definite N Obstetrics History GPAL:G 1 P 0 0 0 0 Past Encounters Encounter ID Performer Location Encounter Start Date Encounter Closed Date Diagnosis/Indication Diagnosis SNOMED-CT Code Diagnosis ICD10 Code Diagnosis Note [id number] Isaac Patino MD [facility] [address],[facility] [place] [address] 07/08/2024 09:38:08 07/08/2024 09:55:47 [id number] BREE BARRIOS MD [facility] [address],[facility] [place] [address] 07/08/2024 09:38:26 07/08/2024 11:17:32 Nausea and vomiting 59162328 R11.2 - little improvemen t with zofran- will try reglan test positive 320213813 Z32.01 1. Exam today within normal limits.2. Ultrasound today confirms GA and viability. EDC . GC/Clamydi a testing done: will f/u as indicated. 4. ACOG guidelines and plan of care for reviewed with patient. All questions answered.5 . Return to office at 12 weeks for new OB visit6. Will need new OB labs at next visit.7. Genetic screening: desires. Borderline personality disorder F60.3 - well controlled on latuda and zoloft- d/c'd bupropion per Psych recommenda tions at beginning of , discussed safety in , ok to restart if symptoms worsen [id number] Isaac Patino MD [facility] [address],[place] [address] 08/05/2024 10:37:40 08/05/2024 11:12:45 screening 343033447 Z36.82 Z3A.12 [id number] BREE BARRIOS MD [facility] [address],[place] [address] 08/05/2024 10:50:11 08/05/2024 12:02:53 Nausea and vomiting 64482844 R11.2 - improved with zofran and reglan together Bipolar disorder 6415561 4 F31.9 - mood worsening without bupropion- will restart bupropion- continue latuda and sertraline - no SI/HI screening 2437 29429 Z36.0 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 03562057 Z31.430 Gestation period, 12 weeks 76677813 Z3A.12 [id number] Isaac Patino MD [facility] [address],[place] [address] 09/03/2024 09:31:04 09/03/2024 10:27:50 02561250 Z33.1 Routine an tenatal care 293342965 Z34.90 [id number] Isaac Patino MD [facility] [address],[place] [address] 09/27/2024 11:28:05 09/27/2024 13:09:38 screening for malformation 623105271 Z36.3 Z3A.20 [id number] An Pierre CNM [facility] [address],[place] [address] 09/27/2024 11:28:18 09/27/2024 13:09:11 Gestation period, 20 weeks 92496697 Z3A.20 continue vitamin [id number] An Pierre CNM [facility] [address],[place] [address] 10/25/2024 10:00:34 10/25/2024 10:36:06 Gestation period, 24 weeks 533524499 Z3A.24 Low back pain 552945308 M54.50 icereduce liftingmat ernity support belt next visit Health Concerns Section Related Observation LastModified by Organization Detai ls LastModified Time None Recorded Concern Status LastModified by Organization Details LastModified Time None Recorded Advance Directives Directive N: Payers Encounter Date Sequence Insurance Name Policy Number Policy Wright Covered Member ID Wright Member ID Guarantor Name 08/05/2024 1 [facility] (MEDICAID HMO) [id number] Adilene Wehrle [id number] Adilene Wehrle 09/03/2024 1 [facility] (MEDICAID HMO) [id number] Adilene Wehrle [id number] Adilene Wehrle 09/27/2024 1 [facility] (MEDICAID HMO) [id number] Adilene Wehrle [id number] Adilene Wehrle 09/27/2024 1 [facility] (MEDICAID HMO) [id number] Adilene Wehrle [id number] Adilene Wehrle 10/25/2024 1 [facility] (MEDICAID HMO) [id number] Adilene Wehrle [id number] Adilene Wehrle OBGyn Episode Ob Episode Information Episode Created Date Number of Fetuses Patient Bloodtype Patient rh Status Prepregnancy Weight lbs Domestic Partner Domestic Partner Phone Father Name Supervisor Landscape Status 08/05/19 25 1 O Positive 130 Claus Helga OPEN Fetus Data First Name Last Name Admitted to NICU Weight (g) Sex Living Outcome Pediatric Complications Fetus ID Race Codes Race Delivery Type [id number] Problems Problem Notes Anterior placenta 32wk growt h us Problem Name Start Date End Date Resolution Snomed Code Not e Mixed anxiety and depressive disorder 552714881 Bipolar disorder 09/27/2024 [id number] Genital herpes simplex 09759891 valtrex suppres kamaljit at 36 weeks Wu [...] Date Ultra Sound Latest Days Gestation 0 [email or web address] 08/05/2024 02/15/20 25 0 Pre-gigi Flowsheet Flowsheet Date 08/05/2024 Botello Score Blood Edema Fundus Height Fundus Units Glucose Ketones Leukocytes Nitrite Labor Signs Protein Cervic Dilation Cervic Effacement Cervic Station Type Weight in lbs Pre/Post Dialysis Refused Weight 130.224857448866 BP Diastolic BP Location Tested BP Systolic BP Type 73 L arm 114 sitting Fetus Heart Rate Present A 161 Fetus Movement Comments Patient presents to [facility] care. Nausea slightly worse, ran out [...] labs. RTC 4 weeks for routine care. Flowsheet Date 09/03/2024 Botello Score Blood Edema Fundus Height Fundus Units Glucose Ketones Leukocytes Nitrite Labor Signs Protein Cervic Dilation Cervic Effacement Cervic Station neg none Type Weight in lbs Pre/Post Dialysis Refused Weight 134.10357575317 BP Diastolic BP Location Tested BP Systolic BP Type 73 L arm 111 sitting Fetus Heart Rate Present A 153 Fetus Movement A No Comments no complaints, no problems, routine care, no contractions, no vaginal bleeding, no loss of fluid, no cramping Flowsheet Date 09/27/2024 Botello Score Blood Edema Fundus Height Fundus Units Glucose Ketones Leukocytes Nitrite Labor Signs Protein Cervic Dilation Cervic Effacement Cervic Station Type Weight in lbs Pre/Post Dialysis Refused BP Diastolic BP Location Tested BP Systolic BP Type Fetus Heart Rate Present Fetus Movement Comments Flowsheet Date 09/27/2024 Botello Score Blood Edema Fundus Height Fundus Units Glucose Ketones Leukocytes Nitrite Labor Signs Protein Cervic Dilation Cervic Effacement Cervic Station neg none Type Weight in lbs Pre/Post Dialysis Refused Weight 137.482251098364 BP Diastolic BP Location Tested BP Systolic BP Type 71 111 Fetus Heart Rate Present Fetus Movement Comments no complaints, anatomy compl ete, girl! doing well precautions and education f/u 4 weeks Flowsheet Date 10/25/2024 Botello Score Blood Edema Fundus Height Fundus Units Glucose Ketones Leukocytes Nitrite Labor Signs Protein Cervic Dilation Cervic Effacement Cervic Station neg none Type Weight in lbs Pre/Post Dialysis Refused 145.2388613977 BP Diastolic BP Location Tested BP Systolic BP Type 71 118 Fetus Heart Rate Present A 144 Present Fetus Movement A Yes Comments Patient is having back pain, nausea and vomiting.lifting 60 lbs at work, note for 25 lbs or less given +FM plan ice, maternity support belt at next visit, 28 week glucose test, education and precautions Menstrual History Last Menstrual Date Menses Monthly [...]
--- OUTSIDE RECORDS SUMMARY | 2024-10-31 20:07 | XMS_ITS | Patient Health Record ---
Author Organization [facility] Address [address] [place] [address] Care Team Providers Care Moth Proofer Name Role Phone Hien Miller Primary Care Provider Bart Juarez Unavailable [phone] Allergies No Known Allergies Reason For Referral No Information Medications Medication [...] Status Risk Notes Problem Borderline personality disorder (99056259) Borderline personality disorder (F60.3) Active confirmed Problem Depression (039960120) Depression (F32.9) Active confirmed Problem Posttraumatic stress disorder (58730763) PTSD (post-traumati c stress disorder) (F43.10) Active confirmed Problem Anxiety (44194033) Anxiety (F41.9) Active confirmed Problem Bipolar 1 disorder (091375210) Bipolar 1 disorder (F31.9) Active confirmed Problem Cannabis dependence (45216044) Cannabis dependence (F12.20) Active confirmed Problem Mood disorder (66223430) Mood disorder (F39) Inactive confirmed replaced with bipolar 1 Encounters Encounter Location Date Provider Diagnosis [address] [address] 11/23/2023 Bart Juarez Bipolar 1 disorder F31.9 ; Borderline personality disorder F60.3 ; PTSD (post-traumatic stress disorder) F43.10 ; Anxiety F41.9 and Cannabis dependence F12.[address] [address] 01/26/2024 Bart Juarez Bipolar 1 disorder F31.9 ; Borderline personality disorder F60.3 ; PTSD (post-traumatic stress disorder) F43.10 and Anxiety F41.[address] [address] 03/01/2024 Bart Juarez Bipolar 1 disorder F31.9 ; Borderline personality disorder F60.3 ; PTSD (post-traumatic stress disorder) F43.10 and Anxiety F41.[address] [address] 05/11/2024 Bart Juarez Bipolar 1 disorder F31.9 ; PTSD (post-traumatic stress disorder) F43.10 ; Anxiety F41.9 and Borderline personality disorder F60.[address] [address] 06/07/2024 Bart Juarez Bipolar 1 disorder F31.9 ; Borderline personality disorder F60.3 ; PTSD (post-traumatic stress disorder) F43.10 and Anxiety F41.[address] [address] 01/14/2024 Bart Juarez Bipolar 1 disorder F31.9 Assessments Encounter Date Diagnosis (ICD Code) Assessment Notes Treatment Notes Treatment Clinical Notes Section Notes 01/14/2024 Bipolar 1 disorder (ICD-10 - F31.9) 01/26/2024 Bipolar 1 disorder (ICD-10 - F31.9) 11/23/2023 Bipolar 1 disorder (ICD-10 - F31.9) Client doing well, no treatment plan changes needed. 03/01/2024 Bipolar 1 disorder (ICD-10 - F31.9) Client doing well, no treatment plan changes. 05/11/2024 Bipolar 1 disorder (ICD-10 - F31.9) 06/07/2024 Bipolar 1 disorder (ICD-10 - F31.9) Client states 8 weeks along in a positive . That she plans on women's health care at [facility] in [place], [place]. Discussed with client to stop bupropion given but to continue Latuda and Zoloft. Client agreeable. No other changes to tx plan. Asked client to discuss with women's health provider whether OBGYN services will prescribe mental health medications or whether this provider will continue during . States she will do so. 05/11/2024 PTSD (post-traumatic stress disorder) (ICD-10 - F43.10) 06/07/2024 Borderline personality disorder (ICD-10 - F60.3) Client states 8 weeks along in a positive . That she plans on women's health care at [facility] in [place], [place]. Discussed with client to stop bupropion [...] Client doing well, no treatment plan changes. 01/26/2024 Borderline personality disorder (ICD-10 - F60.3) 11/23/2023 Borderline personality disorder (ICD-10 - F60.3) Client doing well, no treatment plan changes needed. 11/23/2023 PTSD (post-traumatic stress disorder) (ICD-10 - F43.10) Client doing well, no treatment plan changes needed. 01/26/2024 PTSD (post-traumatic stress disorder) (ICD-10 - F43.10) 03/01/2024 PTSD (post-traumatic stress disorder) (ICD-10 - F43.10) Client doing well, no treatment plan changes. 06/07/2024 PTSD (post-traumatic stress disorder) (ICD-10 - F43.10) Client states 8 weeks along in a positive . That she plans on women's health care at [facility] in [place], [place]. Discussed with client to stop bupropion given but to continue Latuda and Zoloft. Client agreeable. No other changes to tx plan. Asked client to discuss with women's health provider whether OBGYN services will prescribe mental health medications or whether this provider will continue during . States she will do so. 05/11/2024 Anxiety (ICD-10 - F41.9) 06/07/2024 Anxiety (ICD-10 - F41.9) Client states 8 weeks along in a positive . That she plans on women's health care at [facility] in [place], [place]. Discussed with client to stop bupropion [...] Client doing well, no treatment plan changes. 01/26/2024 Anxiety (ICD-10 - F41.9) 11/23/2023 Anxiety (ICD-10 - F41.9) Client doing well, no treatment plan changes needed. 11/23/2023 Cannabis dependence (ICD-10 - F12.20) Client doing well, no treatment plan changes needed. 11/23/2023 Other Discussed sleep hygiene and caffeine [...] number to the 24-hour crisis line at [facility]. Questions addressed. Client verbalized understanding of all information and is agreeable to treatment plan. Client doing well, no treatment plan changes needed. 01/26/2024 Other Discussed sleep hygiene and caffeine [...] number to the 24-hour crisis line at [facility]. Questions addressed. Client verbalized understanding of all [...] number to the 24-hour crisis line at [facility]. Questions addressed. Client verbalized understanding of all information and is agreeable to treatment plan. Client doing well, no treatment plan changes. 05/11/2024 Other Discussed sleep hygiene and caffeine [...] number to the 24-hour crisis line at [facility]. Questions addressed. Client verbalized understanding of all [...] number to the 24-hour crisis line at [facility]. Questions addressed. Client verbalized understanding of all information and is agreeable to treatment plan. Client states 8 weeks along in a positive . That she plans on women's health care at [facility] in [place], [place]. Discussed with client to stop bupropion [...] Insured Coverage Start Date Coverage End Date [employer] [address] [place] [address] [id number] Adilene Viera Self - patient is the insured 3 MED[address]ID [address] [place] [address] [id number] Adilene Viera Self - patient is the insured 3 4 [employer] [address] [place] [address] [id number] Adilene Viera Self - patient is the insured 3 4 [employer] [address] [place] [address] [id number] Ceci Viera 3 Medical (General) History Medical History History ICD Code Seizures R56.9 Surgical History Surgery Date(Month/Year) cyst removal 2017 Hospitalization History Reason Date(Month/Year) Seizures [facility] 2021 COVID/Mental Health [facility] 2020
--- OUTSIDE RECORDS SUMMARY | 2024-10-31 20:07 | XMS_ITS ---
Author Organization [facility] Address [address] [place] [address] Care Team Providers Care Spot Welder Name Role Phone Dr. Lena Sanders Primary Care Provider [phone] Migration, Provider Unavailable Unavailable Allergies Allergen (clinical [...] 20.000 mg oral; Duration: 30 *Reorder from [facility] for eRx and Interaction Alerts* 07/27/2023 Active Colace 100 MG 1 Oral every day; Duration: 0 ,PRN Reason:for constipation 08/13/2023 Active Social History Social History Additional Details Category Social Info Options Details Migrated Social History Migrated Social History Marital status:Single , Tobacco history:Vapes , Alcohol Misuse:Yes , Has the patient used marijuana?:Yes , Alcohol history:Currently drinks alcohol Encounters Encounter Location Date Provider Diagnosis [facility] [address] [place] [address] 05/22/2024 Provider Migration Plan Of Treatment No Information Progress Notes * Adilene VIERADOB:[birth year] (19 yo F)Acc No.[id number]:05/22/2024 Patient: Adilene BORDEN :2005 A ge:19 Y S ex:Female Phone: Address:[address] [place] [address], [facility], [place], [address] Subjective: * Chief Complaints: * E MR-Ector * Social History: M igrated Social History: [...] oral , Notes to Pharmacist: *Reorder from [facility] for eRx and Interaction Alerts*buPROPion HCl ER [...] oral , Notes to Pharmacist: *Reorder from [facility] for eRx and Interaction Alerts*Taking buPROPion HCl ER (XL) 150 MG Tablet Extended Release 24 Hour Oral * Allergies: t raZODone: SYNCOPE AND BLURRED VISION - Allergy - Onset Date 05/07/2023 * * Date:
--- OUTSIDE RECORDS SUMMARY | 2024-10-31 20:08 | XMS_ITS | Patient Health Record ---
Author Organization [facility] Address [address] [place] [address] Care Team Providers Care Plate Keeper Name Role Phone Dr. Lena Sanders Primary Care Provider [phone] Bebo Morris Unavailable [phone] Lena Boyle Unavailable [phone] Migration, Provider Unavailable Unavailable Allergies Allergen (clinical [...] Duration) Notes Start Date End Date Status Colace 100 MG 1 Oral every day; Duration: 0 ,PRN Reason:for constipation 08/13/2023 Not-Taking Sertraline HCl 100 MG Oral; Duration: 30 09/14/2023 Active lurasidone 20.000 mg oral; Duration: 30 *Reorder from [facility] for eRx and Interaction Alerts* 07/27/2023 Active buPROPion HCl ER (XL) 150 MG Oral; Duration: 09/14/2023 Active Immunizations Vaccine Route Administration Date [...] information -source unspecified Source VFC Code: : Social History Social History Additional Details Category Social Info Options Details Migrated Social History Migrated Social History Alcohol Misuse:Yes , Has the patient used marijuana?:Yes , Alcohol history:Currently drinks alcohol , Tobacco history:Vapes , Marital status:Single Problems Problem Type SNOMED Code ICD Code Onset Dates Problem Status W/U Status Risk Notes Problem Tuberculosis screening (400190481) Encounter for screening for respiratory tuberculosis (Z11.1) 017 Problem resolved confirmed Problem Closed fracture of foot (064585228) Unspecified fracture of left foot, initial encounter for closed fracture (S92.902A) 017 Problem resolved confirmed Problem Pain in left foot (007121019740882 ) Pain in left foot (M79.672) 017 Problem resolved confirmed Problem Acute atopic conjunctivitis (40987959) Acute atopic conjunctivitis, unspecified eye (H10.10) 021 Problem resolved confirmed Problem Closed fracture of foot (996675857) Closed fracture of unspecified bone(s) of foot (except toes) (825.20) 017 Problem resolved confirmed Problem Normal body mass index (62528082) Body mass index (BMI) 21.0-21.9, adult (Z68.21) 023 Active confirmed Problem Noncompliance with treatment (finding) (7794775) Patient's noncompliance with other medical treatment and regimen due to unspecified reason (Z91.199) 024 Active confirmed Problem Problem, abnormal examination (89066786) Encounter for general adult medical examination with abnormal findings (Z00.01) Active confirmed Problem Changes in skin texture (928318688) Changes in skin texture (R23.4) 024 Active confirmed Problem Severe major depression, single episode, without psychotic features (05045993) Major depressive disorder, single episode, severe without psychotic features (F32.2) 021 Active confirmed Problem Child health medical examination (340563898) Encounter for routine child health examination without abnormal findings (Z00.129) 016 Problem resolved confirmed Problem Localized mass (9733663) Localized swelling, mass and lump, unspecified (R22.9) 017 Problem resolved confirmed Problem Generalized abdominal pain (148259995) Generalized abdominal pain (R10.84) 018 Problem resolved confirmed Problem Acute tonsillitis (97221377) Acute tonsillitis, unspecified (J03.90) 021 Problem resolved confirmed Problem Tuberculosis screening (345610022) Screening examination for pulmonary tuberculosis (V74.1) 017 Problem resolved confirmed Problem Epigastric pain (79983457) Abdominal pain, epigastric (789.06) 018 Problem resolved confirmed Problem Wheezing (14442036) Wheezing (786.07) 017 Problem resolved confirmed Problem Excessive and frequent menstruation (356446181) Excessive or frequent menstruation (626.2) 017 Problem resolved confirmed Problem Acute bronchitis (72824582) Acute bronchitis (466.0) 017 Problem resolved confirmed Problem Surveillance of contraception (900672221) Encounter for contraceptive management, unspecified (Z30.9) 024 Active confirmed Problem Exposure to sexually transmissible disorder (318687312) Contact with and (suspected) exposure to infections with a predominantly sexual mode of transmission (Z20.2) 024 Active confirmed Problem Antidepressant drug adverse reaction (135350489) Adverse effect of unspecified antidepressants, initial encounter (T43.205A) 023 Active confirmed TRAZODONE Problem Emotional state finding (156308057) Other symptoms and signs involving emotional state (R45.89) Active confirmed Problem Chronic disease of tonsils AND/OR adenoids (75035903) Other chronic diseases of tonsils and adenoids (J35.8) Active confirmed Problem Major depression, single episode (19889430) Major depressive disorder, single episode, unspecified (F32.9) 021 Active confirmed Problem Herpes simplex viral infection (17755359) Herpesviral infection, unspecified (B00.9) 023 Active confirmed Problem Well child visit (367835161) Routine or child health check (V20.2) 018 Active confirmed Problem History and physical examination, administrative (59236639) Other general medical examination for administrative purposes (V70.3) Active confirmed Problem History and physical examination, sports participation (procedure) (390978824) Encounter for examination for participation in sport (Z02.5) Problem resolved confirmed Problem Epigastric pain (49784964) Epigastric pain (R10.13) 018 Problem resolved confirmed Problem Wheezing (90332869) Wheezing (R06.2) 017 Problem resolved confirmed Problem Irregular menstruation (17806957) Irregular menstruation, unspecified (N92.6) 017 Problem resolved confirmed Problem Allergic rhinitis (63131704) Allergic rhinitis, unspecified (J30.9) 021 Problem resolved confirmed Problem Acute bronchitis (73291463) Acute bronchitis, unspecified (J20.9) 017 Problem resolved confirmed Problem Generalized abdominal pain (859620324) Abdominal pain, generalized (789.07) 018 Problem resolved confirmed Problem Localized superficial swelling of skin (064283698) Localized superficial swelling, mass, or lump (782.2) 017 Problem resolved confirmed Problem Abdominal pain (22883803) Unspecified abdominal pain (R10.9) 024 Active confirmed Problem Dysmenorrhea (727365330) Dysmenorrhea, unspecified (N94.6) Active confirmed Problem Excessive and frequent menstruation (476405525) Excessive and frequent menstruation with regular cycle (N92.0) 024 Active confirmed Problem Constipation (92813006) Constipation, unspecified (K59.00) 024 Active confirmed Problem Insomnia (059951222) Insomnia, unspecified (G47.00) 023 Active confirmed Problem Pain in limb (97395267) Pain in soft tissues of limb (729.5) 017 Active confirmed Vital Signs Heart Rate 110 /min 06/06/2024 Temperature 97.6 degrees Fahrenheit 06/06/2024 Respiratory Rate 16 /min 01/14/2024 Blood pressure diastolic 74 mm Hg 06/06/2024 Oximetry 99 % 06/06/2024 Height-cm 167.64 cm 06/06/2024 Weight-kg 58.79 kg 06/06/2024 Height 66.00 in 06/06/2024 Blood pressure systolic 132 mm Hg 06/06/2024 Weight 129.6 lbs 06/06/2024 BMI 20.92 kg/m2 06/06/2024 Encounters Encounter Location Date Provider Diagnosis [address] [address] 06/06/2024 Lena Boyle Less than 8 weeks gestation of Z3A.01 and Major depressive disorder, single episode, unspecified F32.[address] [address] 01/14/2024 Bebo Alexandra Changes in skin texture R23.4 ; Major depressive disorder, single episode, severe without psychotic features F32.2 ; Encounter for general adult medical examination with abnormal findings Z00.01 ; Excessive and frequent menstruation with regular cycle N92.0 ; Unspecified abdominal pain R10.9 ; Dysmenorrhea, unspecified N94.6 and Constipation, unspecified K59.[address] [address] 05/21/2024 Provider Migration [address] [address] 05/22/2024 Provider Migration Assessments Encounter Date Diagnosis (ICD Code) Assessment Notes Treatment Notes Treatment Clinical Notes Section Notes 01/14/2024 Major depressive disorder, single episode, severe without psychotic features (ICD-10 - F32.2) 01/14/2024 Constipation, unspecified (ICD-10 - K59.00) 01/14/2024 Excessive and frequent menstruation with regular cycle (ICD-10 - N92.0) 01/14/2024 Dysmenorrhea, unspecified (ICD-10 - N94.6) 01/14/2024 Unspecified abdominal pain (ICD-10 - R10.9) 01/14/2024 Changes in skin texture (ICD-10 - R23.4) 01/14/2024 Encounter for general adult medical examination with abnormal findings (ICD-10 - Z00.01) 06/06/2024 Major depressive disorder, single episode, unspecified (ICD-10 - F32.9) Confirmed - confirmed - Approximately 4 weeks per patient - Recommend scheduling an appointment with an OBGYN. Suggested contacting [facility] ([facility]) for appointments. - Advised to start taking a daily vitamin with folic acid. Medication Review for Depression - Potential contraindication with Lurasidone (Latuda) during , such a withdrawal symptoms in fetus. - Discuss medication safety and potential adjustments with prescribing physician, Ventura Juarez (psychiatrist), during follow-up appointment tomorrow. 06/06/2024 Less than 8 weeks gestation of (ICD-10 - Z3A.01) Confirmed - confirmed - Approximately 4 weeks per patient - Recommend scheduling an appointment with an OBGYN. Suggested contacting [facility] ([facility]) for appointments. - Advised to start taking a daily vitamin with folic acid. Medication Review for Depression - Potential contraindication with Lurasidone (Latuda) during , such a withdrawal symptoms in fetus. - Discuss medication safety and potential adjustments with prescribing physician, Ventura Juarez (psychiatrist), during follow-up appointment tomorrow. Plan Of Treatment No Information Insurance Providers Payer Name Payer Address Payer Phone Subscriber Number Group Number Insured Name Patient Relationship to Insured Coverage Start Date Coverage End Date [place] [address] [place] [address] [id number] Adilene Viera Self - patient is the insured 3
--- OUTSIDE RECORDS SUMMARY | 2024-10-31 20:08 | XMS_ITS | Clinical Summary ---
Author Organization [facility] Address [facility] [place] [address] Care Team Providers Care Legal Transcriptionist Name Role Phone Lena Sanders MD Primary [...] needed for Nausea. 20 tablet 4 Active buPROPion XL (WELLBUTRIN XL) 150 MG 24 hr tablet Oral; Duration: 30 4 Active Cyanocobalamin 100 MCG Tab Take 100 mcg by mouth daily. Active omeprazole (PRILOSEC) 20 MG capsule Take 1 capsule (20 mg total) by mouth daily. 4 Active metoclopramide (REGLAN) 10 MG tablet 5 Active Encounters Date Type Department Care Team Description 08/16/2024 1:40 PM COW TENDER Office Visit [place] [address] [place] [address] Marcia Novoa DO Headache (Headache, fever and cough since Thursday, temp was 100.3) 08/16/2024 Travel from Last 3 Months Family History Medical History Relation Comments Diabetes Father Relation Status Comments Father Social History Tobacco Use Types Packs/Day Years Used Date Smoking Tobacco: Every Day Cigarettes Smokeless Tobacco: Never Tobacco Cessation:Ready to Q uit: Not Asked; Counseling Given: Yes Alcohol Use Standard Drinks/Week Comments Never 0 (1 standard drink = 0.6 oz pur e alcohol) Comments Yes Sex and Gender Information Value Date Recorded Sex Assigned at Female 07/10/2024 3:11 AM COW TENDER Legal Sex Female 8:07 AM CDT Gender Identity Not on file Sexual Orientation Not on file Last Filed Vital Signs Vital Sign Reading Time Taken Comments Blood Pressure 104/62 08/16/2024 1:44 PM COW TENDER Pulse 91 08/16/2024 1:44 PM COW TENDER Temperature 36.7 C (98.1 F) 08/16/2024 1:44 PM COW TENDER Respiratory Rate 15 07/10/2024 4:10 AM COW TENDER Oxygen Saturation 98% 08/16/2024 1:44 PM COW TENDER Inhaled Oxygen Concentration - - Weight 58.5 kg (129 lb) 08/16/2024 1:44 PM COW TENDER Height 167.6 cm (5' 6) 08/16/2024 1:44 PM COW TENDER Body Mass Index 20.82 08/16/2024 1:44 PM COW TENDER Plan of Treatment Health Maintenance Due Date Last Done Comments Annual Physical 2006 Meningococcal B Vaccine (1 of 2 - Standard) 2019 Pneumococcal Vaccine: Pediatrics (0 to 5 Years) and At-Risk Patients (6 to 49 Years) (1 of 2 - PCV) 2022 05/22/2004, 2003, 2003, Additional history exists COVID-19 Vaccine ( - season) 2024 PHQ-2 (Physician [place]) 06/22/2024 DTaP, Tdap and Td Vaccines (7 - [...] topic HPV Vaccines Completed 03/05/2016, 10/22, 08/27/2015 Hepatitis C Completed 08/05/2024, 08/05/2024 RSV Immunizations Under 20 Months Aged Out No longer eligible based on patient's age to complete this topic Procedures Procedure Name Priority Date/Time Associated Diagnosis Comments CORONAVIRUS (COVID-19) INFLUENZA A & B ANTIGEN IA PANEL Routine 08/16/2024 Acute cough from Last 3 Months Results * CORONAVIRUS (COVID-19) INFLUENZA A & B ANTIGEN IA PANEL (08/16/2024) Pathologist [facility] CORONAVIRUS ANTIGEN IA NEGATIVE NEGATIVE [facility] (201), [place] INFLUENZA [facility] NE[facility] NEGATIVE [facility] [place] INFLUENZA B NEGATIVE NEGATIVE [facility] ([facility]), [place] Internal Control: VALID VALID [facility] (201), [place] NASAL STRUCTURE / Unknown 08/16/2024 us Marcia Novoa DO MICROBIOLOGY - GENERAL ORDERABLE S Final Result [facility] (201), [address] [address], from Last 3 Months Insurance [employer] Care Teams Legal Transcriptionist Relationship Specialty Start Date End Date Lena Sanders MD [address] [place] [address] [place] [address] PCP - General FAMILY PRACTICE 07/21/23
[2024-10-31 20:51] LABS: Add Urine Microscopic? NO; Appearance Urine Clear (Clear); Bilirubin Urine Negative (Negative); Blood Urine Negative (Negative); Color Urine Yellow (Yellow); Glucose Urine UA 3+ mg/dL (Negative); Ketones Urine Trace mg/dL (Negative); Leukocyte Esterase Ur Negative LEU/UL (Negative); Nitrate Urine Negative (Negative); Protein Urine Negative (Negative); Specific Grav Ur 1.024 (1.001-1.035)
[2024-10-31 20:53] VITALS: BMI 23.5
--- NOTE | 2024-10-31 20:54 | OBADM ---
This patient, Adilene Viera, admitted to the OB room OB Post 115 for observation. Patient/family oriented to hospital policies and general routines including ID bracelet, bed and alarms, visiting hours, pain management, procedures, bathroom and other care routines, personal items, smoking policy, room service/diet, and visiting hours. Patient/Family are encouraged to report perceived risks to care and to ask questions if they do not understand what they are told or what they should do.
[2024-10-31 21:01] VITALS: BP 115/61; PULSE 82
[2024-10-31 21:20] VITALS: TEMP 37.7
--- NOTE | 2024-11-28 21:26 | PM.OBTRLD ---
OB - Triage/Final Diagnosis Visit Information Comments/Additional reasons for admission: I have assessed the risk for this patient, Adilene Viera, and determined that she would benefit from observation care. Evaluation Laboratory results: Laboratory Tests 10/31/24 20:36 Urine Color Yellow Urine Appearance Clear Urine pH 6.0 Ur Specific [place] 1.024 Urine Protein Negative Urine Glucose (UA) 3+ H Urine Ketones Trace H Ur Blood (Man) Negative Urine Nitrate Negative Urine Bilirubin Negative Urine Urobilinogen 1.0 Leukocyte Esterase Rfl Negative Final Diagnosis (1) Abdominal pain: Code(s): R10.9 - Unspecified abdominal pain Status: Acute
--- NOTE | 2024-11-28 21:27 | PM.OBTRLD ---
OB - Triage/Final Diagnosis Visit Information Comments/Additional reasons for admission: I have assessed the risk for this patient, Adilene Viera, and determined that she would benefit from observation care. Evaluation Laboratory results: Laboratory Tests 10/31/24 20:36 Urine Color Yellow Urine Appearance Clear Urine pH 6.0 Ur Specific [place] 1.024 Urine Protein Negative Urine Glucose (UA) 3+ H Urine Ketones Trace H Ur Blood (Man) Negative Urine Nitrate Negative Urine Bilirubin Negative Urine Urobilinogen 1.0 Leukocyte Esterase Rfl Negative Final Diagnosis (1) Abdominal pain: Code(s): R10.9 - Unspecified abdominal pain Status: Acute
== END 2024-10-31 21:44 | disposition home or self-care (01) ==
PROVIDERS: Admitting Provider Obstetrics & Gynecology; Visit Provider Obstetrics & Gynecology
DX: O26.892 Other specified pregnancy related conditions, second trimester (principal); R10.9 Unspecified abdominal pain; Z3A.24 24 weeks gestation of pregnancy
CPT/HCPCS: 81003; G0378; G0379

== ENCOUNTER 2024-11-02 13:20 | Outpatient (CLI) | payer OTHER, SELFPAY ==
--- NOTE | ~2024-11-02 | US_ITS ---
US renal BI 11/02/2024 14:00 Procedure: Realtime transabdominal ultrasound of the kidneys and bladder. Indication: Epigastric pain, nausea, diarrhea and gas. Comparison: No prior studies for comparison. Findings: Renal echotexture is normal bilaterally without hydronephrosis, contour deforming mass or r enal calculus. The right kidney measures 12.6 cm and left kidney measures 12.7 cm. Bladder within no rmal limits. Impression: 1: Unremarkable renal ultrasound. No stones, masses or hydronephrosis. Reviewed, dictated and finalized at location A. Impression: 1: Unremarkable renal ultrasound. No stones, masses or hydronephrosis.
--- OUTSIDE RECORDS SUMMARY | 2024-11-02 13:40 | XMS_ITS ---
Author Organization [facility] Address [address] [facility] [address] [place] [address] Care Team Providers Care Drafter Directional Survey Name Role Phone Nallely Baeza Primary Care Provider UnavailNallely Geiger Unavailable [phone] REASON FOR VISIT counseling TH pt at home provider in office Encounters Encounter Location Date Provider Diagnosis [facility] [address] [place] [address] 01/13/2024 Nallely Baeza Plan Of Treatment No Information Progress Notes * Adilene VIERADOB:[birth year] (19 yo F)Acc No.[id number]:01/13/2024 UNLOCKED PROGRESS NOTE Patient: Adilene BORDEN Provider: To Baeza LCPC :2005 A ge:18 Y S ex:Female Date:01/13/2024 Address:[address], [address] [facility] Pcp:Nallely Baeza Subjective: * Chief Complaints: * 1 . counseling TH pt at home provider in office. * Medical History: Objective: * Vitals: Assessment: Plan: * Treatment: * Billing Information: * Visit Code: * Procedure Codes: * Electronic signature of Mona Baeza LCPC on 11/02/2024 at 01:40 PM CDT Sign off status: Pending Visit Status: N /S (No-Show) * Provider: To Baeza LCPC Date: 01/13/2024 Generated for Printi ng/Cathy/Robertoitting on: 0 11/02/2024 01:40 PM CDT
--- OUTSIDE RECORDS SUMMARY | 2024-11-02 13:40 | XMS_ITS | Patient Health Record ---
Author Organization [facility] Address [address] [place] [address] Care Team Providers Care Community Development Coordinator Name Role Phone Hien Miller Primary Care Provider Bart Juarez Unavailable [phone] Allergies No Known Allergies Reason For Referral [...] Status Risk Notes Problem Borderline personality disorder (08110659) Borderline personality disorder (F60.3) Active confirmed Problem Depression (581605308) Depression (F32.9) Active confirmed Problem Posttraumatic stress disorder (18267575) PTSD (post-traumati c stress disorder) (F43.10) Active confirmed Problem Anxiety (21704358) Anxiety (F41.9) Active confirmed Problem Bipolar 1 disorder (659156934) Bipolar 1 disorder (F31.9) Active confirmed Problem Cannabis dependence (F12.20) Active confirmed Problem Mood disorder (83958932) Mood disorder (F39) Inactive confirmed replaced with bipolar 1 Encounters Encounter Location Date Provider Diagnosis [address] [address] 11/23/2023 Bart Juarez Bipolar 1 disorder F31.9 ; Borderline personality disorder F60.3 ; PTSD (post-traumatic stress disorder) F43.10 ; Anxiety F41.9 and Cannabis dependence F12.[address] [address] 01/26/2024 Bart Juarez Bipolar 1 disorder F31.9 ; Borderline personality disorder F60.3 ; PTSD (post-traumatic stress disorder) F43.10 and Anxiety F41.[address] [address] 03/01/2024 Bart Juarez Bipolar 1 disorder F31.9 ; Borderline personality disorder F60.3 ; PTSD (post-traumatic stress disorder) F43.10 and Anxiety F41.[address] [address] 05/11/2024 Bart Juarez Bipolar 1 disorder F31.9 ; PTSD (post-traumatic stress disorder) F43.10 ; Anxiety F41.9 and Borderline personality disorder F60.[address] [address] 06/07/2024 Bart Juarez Bipolar 1 disorder F31.9 ; Borderline personality disorder F60.3 ; PTSD (post-traumatic stress disorder) F43.10 and Anxiety F41.[address] [address] 01/14/2024 Bart Juarez Bipolar 1 disorder F31.9 [...] she plans on women's health care at [facility] in [place], [place]. Discussed with client to stop bupropion [...] she plans on women's health care at [facility] in [place], [place]. Discussed with client to stop bupropion [...] she plans on women's health care at [facility] in [place], [place]. Discussed with client to stop bupropion [...] she plans on women's health care at [facility] in [place], [place]. Discussed with client to stop bupropion [...] number to the 24-hour crisis line at [facility]. Questions addressed. Client verbalized understanding of [...] number to the 24-hour crisis line at [facility]. Questions addressed. Client verbalized understanding of [...] number to the 24-hour crisis line at [facility]. Questions addressed. Client verbalized understanding of [...] number to the 24-hour crisis line at [facility]. Questions addressed. Client verbalized understanding of [...] number to the 24-hour crisis line at [facility]. Questions addressed. Client verbalized understanding of all information and is agreeable to treatment plan. Client states 8 weeks along in a positive . That she plans on women's health care at [facility] in [place], [place]. Discussed with client to stop bupropion [...] Insured Coverage Start Date Coverage End Date [employer] [address] [place] [address] [id number] Adilene Viera Self - patient is the insured 3 MEDICAID [address] [place] [address] [id number] Maximiliano Adilene Self - patient is the insured 3 4 [employer] [address] [place] [address] [id number] Maximiliano Adilene Self - patient is the insured 3 4 [employer] [address] [place] [address] [id number] Ceci Viera 3 Medical (General) History Medical History History ICD Code Seizures R56.9 Surgical History Surgery Date(Month/Year) cyst removal 2017 Hospitalization History Reason Date(Month/Year) [facility]Mental Health [facility] 2020
--- OUTSIDE RECORDS SUMMARY | 2024-11-02 13:40 | XMS_ITS ---
Author Organization [facility] Address [address] [place] [address] Care Team Providers Care Fuel Oil Truck Driver Name Role Phone Dr. Lena Sanders Primary Care Provider [phone] Migration, Provider Unavailable Unavailable REASON FOR VISIT [employer] Encounters Encounter Location Date Provider Diagnosis [facility] [address] [place] [address] 05/21/2024 Provider Migration Plan Of Treatment Medication Medication Name Sig Start Date Stop Date Notes Escitalopram Oxalate 5 MG Tablet 1 Oral every night at bedtime; Duration: 0 12/10/2020 12/10/2020 increase to 10 mg daily.,discontinuere ason:Discontinued Amoxicillin 500 MG Capsule 1 Oral three times a day; Duration: 12/10/2020 12/19/2020 Melatonin 5 MG Tablet 1 Oral every night at bedtime; Duration: 04/10/2021 03/29/2023 ,discontinuereason:D iscontinued Olopatadine HCl 0.2 % Solution 1 Ophthalmic every day; Duration: 12/10/2020 12/11/2020 ,discontinuereason:D iscontinued buPROPion HCl ER (XL) 150 MG Tablet Extended Release 24 Hour 1 Oral every day; Duration: 01/14/2024 02/03/2024 Escitalopram Oxalate 10 MG Tablet Oral; Duration: 01/07/2021 04/09/2021 was increased to 20 mg in hospital,discontinue reason:Discontinued hydrOXYzine HCl 25 MG Tablet 1 Oral at bed time; Duration: 05/07/2023 06/05/2023 Pepcid AC 10 MG Tablet 1 Oral every day; Duration: 30 04/10/2021 03/29/2023 ,discontinuereason:D iscontinued Dicyclomine HCl 20 MG Tablet 1 Oral four times a day; Duration: 0 04/10/2021 03/29/2023 ,discontinuereason:D iscontinued,PRN Reason:for pain Cyproheptadine HCl 4 MG Tablet 1 Oral every night at bedtime; Duration: 30 05/21/2021 03/29/2023 ,discontinuereason:D iscontinued lurasidone 20 mg Tablet(s) 1 BY MOUTH every day; Duration: 01/14/2024 02/03/2024 [facility]* valACYclovir HCl 500 MG Tablet 1 Oral every day; Duration: 12/18/2023 01/16/2024 Sertraline HCl 50 MG Tablet 1 Oral every day; Duration: 01/14/2024 02/03/2024 hydrOXYzine HCl 10 MG Tablet 1 Oral three times a day; Duration: 0 04/10/2021 03/29/2023 ,discontinuereason:D iscontinued,PRN Reason:for anxiety Loratadine 10 MG Capsule Oral; Duration: 0 04/10/2021 04/0 01/2024 ,discontinuereason:D iscontinued Claritin 10 MG Tablet 1 Oral every day; Duration: 04/10/2021 03/29/2023 ,discontinuereason:D iscontinued Levora 0.15/30 (28) 0.15-30 MG-MCG Tablet 1 Oral every day; Duration: 30 04/10/2021 03/29/2023 ,discontinuereason:R efilled Escitalopram Oxalate 20 MG Tablet 1 Oral every day; Duration: 30 05/21/2021 03/29/2023 ,discontinuereason:D iscontinued olopatadine 0.7 % Drop(s) 1 Ophthalmic every day; Duration: 12/12/2020 01/10/2021 *[facility] Interaction Alert[facility]* Zoloft 50 MG Tablet 1.5 Oral every day; Duration: 0 03/30/2023 09/28/2023 ,discontinuereason:D iscontinued Omeprazole 20 MG Capsule Delayed Release 1 Oral every day; Duration: 01/14/2024 03/13/2024 traZODone HCl 50 MG Tablet 1 Oral every day; Duration: 03/30/2023 09/28/2023 ,discontinuereason:D iscontinued Fluticasone Propionate 50 MCG/ACT Suspension 1 Nasal two times a day; Duration: 12/10/2020 01/08/2021 Prazosin HCl 1 MG Capsule 1 Oral every night at bedtime; Duration: 05/28/2021 03/29/2023 ,discontinuereason:D iscontinued Doxycycline Monohydrate 100 MG Capsule 1 Oral two times a day; Duration: 08/13/2023 08/26/2023 Progress Notes * CINTHIAMARK AdileneDOB:[birth year] (19 yo F)Acc No.[id number]:05/21/2024 Patient: Adilene BORDEN :2005 A ge:19 Y S ex:Female Phone: Address:[address] [place] [address], [facility], [place], [address] * Refills Stop Escitalopram Oxalate Tablet, 20 [...]
--- OUTSIDE RECORDS SUMMARY | 2024-11-02 13:41 | XMS_ITS | Data Portability ---
Author Organization [facility] [place] Address [address] [place] [address] [address] Care Team Providers Care Environmental Education Specialist Name Role Phone NETO CASTELAN Primary Care Provider [phone] Assessment Encounter Date Assessment Date Assessment LastModified by Organization Details LastModified Time 09/27/2024 09/27/2024 Patient is ___weeks . Discussed plan. [email or web address] Not available 09/27/2024 13:14:38 10/25/2024 10/25/2024 Patient is _24__weeks . Discussed plan. [email or web address] Not available 10/25/2024 10:32:55 Plan of Treatment Reminders Order Date Submit Date Provider Last Modified By Organization Details Last Modified Time Details Appointments OB ROUTINE 2024 09:30A M An Pierre CNM Not available Not available Not available Lab None recorded. Referral None recorded. Procedures None recorded. Surgeries None recorded. Imaging US, obstetric , 2nd or 3rd trimester 2024 025 [email or web address] [address], [address], [place], [address], 09/27/2024 13:38:03 US, obstetric , nuchal transluce ncy 2024 025 [email or web address] [address], [address], [place], [address], 08/06/2024 22:46:33 Medication Orders None recorded. Patient TargetsNo targets recorded. Patient InstructionsNo instructions recorded. Reason for Referral None Reported. Results Created Date Observation Date Name Description Value Unit Range Abnormal Flag Note LastModifiedBy Organization Detail LastModifiedTime 08/11/19 25 08/11/2024 [UNIT Y] ANEUP LOIDY NIPT fraction 9.4% normal Not Available [facility] [address] [facility], [place], [address], 08/11/2024 13:52:21 08/11/19 25 08/11/2024 [UNIT Y] ANEUP LOIDY NIPT 22Q11.2 microdeletio n LOW RISK <1 in 10,000 normal Not Available [facility] [address] [facility], [place], [address], 08/11/2024 13:52:21 08/11/19 25 08/11/2024 [UNIT Y] ANEUP LOIDY NIPT sex chromosome aneuploidy NOT DETECT ED normal Not Available [facility] [address] [facility], [place], [address], 08/11/2024 13:52:21 08/11/19 25 08/11/2024 [UNIT Y] ANEUP LOIDY NIPT monosomy X LOW RISK <1 in 10,000 normal Not Available [facility] [address] [facility], [place], [address], 08/11/2024 13:52:21 08/11/19 25 08/11/2024 [UNIT Y] ANEUP LOIDY NIPT trisomy 13 LOW RISK <1 in 10,000 normal Not Available [facility] [address] [facility], [place], [address], 08/11/2024 13:52:21 08/11/19 25 08/11/2024 [UNIT Y] ANEUP LOIDY NIPT trisomy 18 LOW RISK <1 in 10,000 normal Not Available [facility] [address] [facility], [place], [address], 08/11/2024 13:52:21 08/11/19 25 08/11/2024 [UNIT Y] ANEUP LOIDY NIPT trisomy 21 LOW RISK <1 in 10,000 normal Not Available [facility] [address] [facility] [place], [address], 08/11/2024 13:52:21 08/11/19 25 08/11/2024 [UNIT Y] ANEUP LOIDY NIPT sex FEMALE normal Not Available [facility] [address] [facility], [place], [address], 08/11/2024 13:52:21 08/11/19 25 08/11/2024 [UNIT Y] ANEUP LOIDY NIPT gestation SINGLE TON normal Not Available [facility] [address] [facility], [place], [address], 08/11/2024 13:52:21 08/11/19 25 08/11/2024 [UNIT Y] ANEUP LOIDY NIPT for detailed report, see pdf See PDF normal Not Available [facility] [address] [facility], [place], [address], 08/11/2024 13:52:21 08/16/19 25 08/16/2024 [UNIT Y] MARC ER SCREMarcus N sickle cell disease/beta -thalassemia /hemoglobino pathies carrier screen NEGATI VE normal Not Available [facility] [address] [facility], [place], [address], 08/16/2024 18:48:42 08/16/19 25 08/16/2024 [UNIT Y] MARC ER SCREE N alpha-thalas semia carrier screen NEGATI VE normal Not Available [facility] [address] [facility], [place], [address], 08/16/2024 18:48:42 08/16/19 25 08/16/2024 [UNIT Y] MARC ER SCREE N cystic fibrosis carrier screen NEGATI VE normal Not Available [facility] [address] [facility], [place], [address], 08/16/2024 18:48:42 08/16/19 25 08/16/2024 [UNIT Y] MARC ER SCREMarcus N spinal muscular atrophy carrier screen NEGATI VE 2 SMN1 copies , SNP not presen t normal Not Available [facility] [address], [place], [address], 08/16/2024 18:48:42 08/16/19 25 08/16/2024 [UNIT Y] MARC Nichols for detailed report, see pdf See PDF normal Not Available [facility] [address], [place], [address], 08/16/2024 18:48:42 07/08/19 25 07/08/2024 CT/GC AND TRICH OMONA S VAGIN CHARLIE (RRNA ), URINE chlamydia trachomatis, PCR Negati ve negati ve Not Available [facility] (Lab) [address], [place], [address], 07/09/2024 11:55:13 07/08/19 25 07/08/2024 CT/GC AND TRICH OMONA S VAGIN CHARLIE (RRNA ), URINE neisseria gonorrhoeae, PCR Negati ve negati ve Not Available [facility] (Lab) [address] [place], [address], 07/09/2024 11:55:13 07/08/19 25 07/08/2024 CT/GC AND TRICH OMONA S VAGIN CHARLIE (RRNA ), URINE trichomonas vaginalis ribosomal RNA (rrna) Negati ve negati ve Not Available [facility] (Lab) [address] [place], [address], 07/09/2024 11:55:13 08/05/19 25 08/05/2024 CULTU RE: URINE result report SEE RESULT S BELOW Test: Cultu re: Urine Speci men Sourc e: Urine - Clean Catch Speci men Type: Urine Speci men Date: 2024 1106 Resul t Date: 2024 0751 Resul t Statu s: Final resul t Abnor mal: No Resul ting Lab: [facility] [address] [facility] [address] Tel: CULTU RE ----- ----- ----- --- Cultu re resul t (>=3 organ isms prese nt) indic ates possi ble conta minat ion. Repea t cultu re if sympt oms indic ate. Not Available [facility] (Lab) [address], [place], [address], 08/07/2024 08:54:51 08/05/1908/05/2024 TYPE/ RH/SC REEN ABO/Rh type O POS Not Available [facility] (Lab) [address], [place], [address], 08/09/2024 01:46:18 08/05/19 25 08/05/2024 TYPE/ RH/SC REEN antibody screen NEG Not Available [facility] (Lab) [address], [place], [address], 08/09/2024 01:46:18 08/05/19 25 08/05/2024 TYPE/ RH/SC REEN exp date 2024 23:59 Not Available [facility] (Lab) [address], [place], [address], 08/09/2024 01:46:18 08/05/19 25 08/05/2024 HEPAT ITIS B SURFA CE ANTIG EN hepatitis B surface antigen Non-re active non-re active This assay was perfo rmed using [employer] ratio n reage nts and test kits. Value s obtai eliza with other assay metho ds or kits canno t be used inter max eably . Not Available [facility] (Lab) [address], [place], [address], 08/09/2024 01:46:18 08/05/19 25 08/05/2024 CBC W/DIF F WBC 7.6 10'3/ uL 3.5-10 .5 Not Available [facility] (Lab) [address] [place], [address], 08/09/2024 01:46:18 08/05/19 25 08/05/2024 CBC W/DIF F RBC 4.22 10'6/ uL (based on docume nted legal sex) 3.80-5 .20 Not Available [facility] (Lab) [address], [place], [address], 08/09/2024 01:46:18 08/05/19 25 08/05/2024 CBC W/DIF F HGB 13.0 g/dL (based on docume nted legal sex) 11.6-1 5.4 Not Available [facility] (Lab) [address], [place], [address], 08/09/2024 01:46:18 08/05/19 25 08/05/2024 CBC W/DIF F HCT 38.7 % (based on docume nted legal sex) 34.0-4 5.0 Not Available [facility] (Lab) [address], [place], [address], 08/09/2024 01:46:18 08/05/1908/05/2024 CBC W/DIF F MCV 91.7 fL 80.0-9 9.0 Not Available [facility] (Lab) [address], [place], [address], 08/09/2024 01:46:18 08/05/1908/05/2024 CBC W/DIF F MCH 30.8 pg 27.0-3 4.0 Not Available [facility] (Lab) [address], [place], [address], 08/09/2024 01:46:18 08/05/1908/05/2024 CBC W/DIF F MCHC 33.6 g/dL 32.0-3 5.5 Not Available [facility] (Lab) [address], [place], [address], 08/09/2024 01:46:18 08/05/19 25 08/05/2024 CBC W/DIF F RDW 13.6 % 11.0-1 5.0 Not Available [facility] (Lab) [address], [place], [address], 08/09/2024 01:46:18 08/05/19 25 08/05/2024 CBC W/DIF F plt 296 10'3/ uL 150-40 0 Not Available [facility] (Lab) [address], [place], [address], 08/09/2024 01:46:18 08/05/19 25 08/05/2024 CBC W/DIF F MPV 11.5 fL 8.8-12 .1 Not Available [facility] (Lab) [address], [place], [address], 08/09/2024 01:46:18 08/05/19 25 08/05/2024 CBC W/DIF F neutrophils 78.3 % 34.0-7 3.0 high Not Available [facility] (Lab) [address], [place], [address], 08/09/2024 01:46:18 08/05/19 25 08/05/2024 CBC W/DIF F lymphocytes 15.4 % 15.0-5 0.0 Not Available [facility] (Lab) [address], [place], [address], 08/09/2024 01:46:18 08/05/19 25 08/05/2024 CBC W/DIF F monocytes 4.2 % 1.0-15 .0 Not Available [facility] (Lab) [address], [place], [address], 08/09/2024 01:46:18 08/05/19 25 08/05/2024 CBC W/DIF F eosinophils 1.5 % 0.0-8. 0 Not Available [facility] (Lab) [address], [place], [address], 08/09/2024 01:46:18 08/05/19 25 08/05/2024 CBC W/DIF F basophils 0.3 % 0.0-2. 0 Not Available [facility] (Lab) [address], [place], [address], 08/09/2024 01:46:18 08/05/19 25 08/05/2024 CBC W/DIF [...] separ ately if prese nt. Not Available [facility] (Lab) [address], [place], [address], 08/09/2024 01:46:18 08/05/19 25 08/05/2024 CBC W/DIF F absolute neutrophils 5.9 10'3/ uL 1.5-8. 0 Not Available [facility] (Lab) [address], [place], [address], 08/09/2024 01:46:18 08/05/19 25 08/05/2024 CBC W/DIF F absolute lymphocytes 1.2 10'3/ uL 1.0-4. 0 Not Available [facility] (Lab) [address], [place], [address], 08/09/2024 01:46:18 08/05/19 25 08/05/2024 CBC W/DIF F absolute monocytes 0.3 10'3/ uL 0.2-1. 0 Not Available [facility] (Lab) [address], [place], [address], 08/09/2024 01:46:18 08/05/19 25 08/05/2024 CBC W/DIF F absolute eosinophils 0.1 10'3/ uL 0.0-0. 6 Not Available [facility] (Lab) [address], [place], [address], 08/09/2024 01:46:18 08/05/1908/05/2024 CBC W/DIF F absolute basophils 0.0 10'3/ uL 0.0-0. 3 Not Available [facility] (Lab) [address], [place], [address], 08/09/2024 01:46:18 08/05/1908/05/2024 CBC W/DIF F absolute immature granulocytes 0.0 10'3/ uL 0.00-0 .10 Refer ence range s for nonbi nary/ inter sex or unspe cifie d gende r patie nts have not been estab lishe d. Pleas e refer to the [facility] for range s estab lishe d for cisge nder patie nts and evalu ate in the clini flora froylan xt of the indiv idual patie nt: https ://la and book. nm.or g/gen derx Not Available [facility] (Lab) [address], [place], [address], 08/09/2024 01:46:18 08/05/1908/05/2024 HEPAT ITIS C ANTIB STEPHANIE SCREE N, REFLE X TO CONFI RMATI ON hepatitis C antibody Non-re active non-re active Antib odies to HCV Not Detec azam, does not exclu de the possi bilit y of expos ure to HCV. Not Available [facility] (Lab) [address], [place], [address], 08/09/2024 01:46:19 08/05/1908/05/2024 HIV 1/2 ANTIG EN/AN TIBOD Y, REFLE X CONFI RMATI ON HIV antigen/anti body Nonrea ctive nonrea ctive HIV-1 antig en and HIV-1 /HIV- 2 antib odies were not detec azam. No labor atory evide nce of HIV infec tion. Not Available [facility] (Lab) [address], [place], [address], 08/09/2024 01:46:19 08/05/19 25 08/05/2024 RUBEL LA IGG ANTIB STEPHANIE, QUANT rubella antibodies, IgG Reacti ve reacti ve Not Available [facility] (Lab) [address], [place], [address], 08/09/2024 01:46:19 08/05/19 25 08/05/2024 RUBEL LA IGG ANTIB STEPHANIE, QUANT rubella antibodies, IgG quant 26.6 IU/mL >=10 Non-r eacti ve (Non- Immun e) <10 IU/mL React dariel (Immu ne) > or = 10 IU/mL Not Available [facility] (Lab) [address], [place], [address], 08/09/2024 01:46:19 08/05/1908/05/2024 HEMOG LOBIN A1C hemoglobin [...] >8.0% Actio n sugge sted Not Available [facility] (Lab) [address], [place], [address], 08/09/2024 01:46:20 08/05/1908/05/2024 RPR SCREE N, REFLE X TITER /CONF IRMAT ION RPR screen Nonrea ctive nonrea ctive Not Available [facility] (Lab) [address], [place], [address], 08/09/2024 01:46:20 01/17/07/08/2024 US, obste tric, 1st trime ster No observ ation record ed. [email or web address] [address], [place], [address], 07/10/2024 00:20:03 08/05/1908/05/2024 US, obste tric, nucha l trans lucen cy No observ ation record ed. [email or web address] [facility] [address], [place], [address], 08/05/2024 17:09:58 08/05/1908/05/2024 US, obste tric, nucha l trans lucen cy No observ ation record ed. [email or web address] [address], [place], [address], 08/06/2024 23:12:57 09/28/19 25 09/27/2024 US, obste tric, 2nd or 3rd trime ster No observ ation record ed. [email or web address] [address], [place], [address], 09/27/2024 14:12:31 09/28/19 25 09/27/2024 US, obste tric, 2nd or 3rd trime ster No observ ation record ed. [email or web address] [address], [place], [address], 09/29/2024 17:02:24 Result Notes None recorded. Problems Name Problem SNOMED Code Status Onset Date Resolution Date Notes Provider Name and Address Organization Details Recorded Time 12161752 Active 2024 Lolita elliott, [facility] 5 11:14:53 Genital herpes simplex 97661723 Active valtrex suppressi on at 36 weeks BREE BARRIOS MD [address], [place], [address], [facility] 5 11:27:54 Bipolar disorder 83905587 Active 2024 Aishwarya elliott, [facility] 5 13:17:15 Mixed anxiety and depressiv e disorder 952555738 Active Aishwarya Shelton [facility], [facility] 5 13:21:35 Bipolar disorder 42538186 Active 2024 Aishwarya elliott, [facility] 5 13:17:15 Herpes simplex 69825255 Active 2024 Aishwarya Shelton [facility], [facility] 5 13:21:09 Mixed anxiety and depressiv e disorder 952808482 Active Aishwaryakeshia Shelton [facility], [facility] 13:21:35 Problem Notes None recorded. Procedures Surgical History Date Name Laterality Status Provider Name and Address Organization Details Recorded Time 06/22/19 18 [facility] 09/27/2024 13:19:08 06/22/19 17 Date of Last Colonoscopy completed [facility] 10/25/2024 10:58:39 06/22/19 17 Colonoscopy completed [facility] 10/25/2024 10:59:41 Imaging Results Imaging Date Name Status LastModified by Organization Details LastModified Time 07/08/2024 US, obstetric, 1st trimester completed [email or web address] [address], [place], [address], 07/10/2024 00:20:03 08/05/2024 US, obstetric, nuchal translucency completed [address], [place], [address], 08/05/2024 17:09:58 08/05/2024 US, obstetric, nuchal translucency completed [email or web address] [address], [place], [address], 08/06/2024 23:12:57 09/27/2024 US, obstetric, 2nd or 3rd trimester completed [email or web address] [address], [place], [address], 09/27/2024 14:12:31 09/27/2024 US, obstetric, 2nd or 3rd trimester completed [email or web address] [address], [place], [address], 09/29/2024 17:02:24 Procedure Notes None recorded. Medical [...] Updated DateTime 08/05/2024 167.64 cm 21 kg/m2 63074.01 g 114 mm[Hg] 73 mm[Hg] Lolita Lindsey [facility] 5 11:10:17 Date Recorded Body height Body mass index (BMI) Body weight Systolic blood pressure Diastolic blood pressure Provider Name and Address Organization Details Last Updated DateTime 09/03/2024 167.64 cm 21.6 kg/m2 67089.38 g 111 mm[Hg] 73 mm[Hg] MARTITA Valencia [facility] 5 09:34:49 Date Recorded Body height Body mass index (BMI) Body weight Systolic blood pressure Diastolic blood pressure Provider Name and Address Organization Details Last Updated DateTime 09/27/2024 167.64 cm 22.1 kg/m2 25030.15 g 111 mm[Hg] 71 mm[Hg] Aishwarya Shelton [facility] 5 13:15:09 Date Recorded Body weight Body mass index (BMI) Body height Systolic blood pressure Diastolic blood pressure Provider Name and Address Organization Details Last Updated DateTime 10/25/2024 93495.89 365 g 23.4 kg/m2 167.64 cm 118 mm[Hg] 71 mm[Hg] Aishwarya Shelton [facility] 5 10:16:49 Social History Question Answer Notes LastModified by Organizat ion Details LastModified Time Tobacco Smoking Status Former Smoker Aishwarya Shelton [facility] 09/27/2024 13:18:38 Do You Have An Advance Directive? No [email or web address] Information not available 07/08/2024 If You Are , What Was Your Level Of Alcohol Consumption Prior To ? Occasional [email or web address] Information not available 10/25/2024 Are You Blind Or Do You Have Difficulty Seeing? No [email or web address] Information not available 07/08/2024 What Is Your Level Of Caffeine Consumption? Moderate [email or web address] Information not available 07/08/2024 How Much Tobacco Do You Chew? None [email or web address] Information not available 07/08/2024 In The 14 Days Before Symptom Onset, Have You Had Close Contact With A Laboratory-confir med COVID-19 While That Case Was Ill? No [email or web address] Information not available 07/08/2024 In The 14 Days Before Symptom Onset, Have You Had Close Contact With A Person Who Is Under Investigation For COVID-19 While That Person Was Ill? No [email or web address] Information not available 07/08/2024 Have You Been To An Area Known To Be High Risk For COVID-19? No Information not available 07/08/2024 Are You Deaf Or Do You Have Serious Difficulty Hearing? No [email or web address] Information not available 07/08/2024 What Type Of Diet Are You Following? REGULAR [email or web address] Information not available 07/08/2024 What Is The Highest Grade Or Level Of School You Have Completed Or The Highest Degree You Have Received? [id number] [email or web address] Information not available 07/08/2024 Are There Any Guns Present In Your Home? No [email or web address] Information not available 07/08/2024 Do You Use Protection During Sex? No [email or web address] Information not available 07/08/2024 Do You Use Your Seat Belt Or Car Seat Routinely? Yes [email or web address] Information not available 07/08/2024 Are You Sexually Active? Yes [email or web address] Information not available 07/08/2024 Do You Have Smoke And Carbon Monoxide Detectors In Your Home? Yes [email or web address] Information not available 07/08/2024 How Much Tobacco Do You Smoke? No Information not available 07/08/2024 Do You Use Sunscreen Routinely? Yes [email or web address] Information not available 07/08/2024 Have You Used IV Drugs? No Information not available 07/08/2024 Do You Have Difficulty Walking Or Climbing Stairs? No [email or web address] Information not available 07/08/2024 Sex: Unknown Functional Status Question Answer Note LastModified by Organizat ion Details LastModified Time Do you use any illicit or recreational drugs? No [email or web address] Information not available 07/08/2024 Do you or have you ever used any other forms of tobacco or nicotine? Yes [email or web address] Information not available 09/27/2024 What is your level of alcohol consumption? None [email or web address] Information not available 07/08/2024 Are you currently employed? Yes [email or web address] Information not available 07/08/2024 Are you able to walk? YESWOREST [email or web address] Information not available 07/08/2024 Are you able to care for yourself? Yes [email or web address] Information not available 07/08/2024 What is your occupation? [employer] Information not available 07/08/2024 Do you have difficulty dressing or bathing? No [email or web address] Information not available 07/08/2024 Do you or have you ever used e-cigarettes or vape? Current user of electronic cigarettes [email or web address] Information not available 09/27/2024 What is your exercise level? Moderate [email or web address] Information not available 07/08/2024 Mental Status Question Answer Note LastModified by Organization D etails LastModified Time Do you feel stressed (tense, restless, nervous, or anxious, or unable to sleep at night)? [id number] [email or web address] Information not available 07/08/2024 Family History Relationship Description Onset Age of this Age Resolved Age Notes LastModified by Organization Details LastModified Time Unspecified Relation Family history unknown [email or web address] Not available 2024 09:53:53 Medical History Condition Response Allergies (Food, seasonal, environmental ) N Other N Breast Cancer N Drug/Latex Allergies/Reactions N Blood Transfusion N Dermatologic Disorders Y Lung Disease N Defects or Inherited Disease N Breast Problem N Gestational Diabetes N Hematologic disorders N Anesthesia Complications N History of STI Y Deep Vein Thrombosis N Polycystic ovary syndrome N Anxiety Disorder Y Autoimmune disease N Arthritis N Infertility N Polyps N Acid Reflux (GERD) Y History of abnormal pap N Cancer N Stroke N Varicosities N Neurologic/Epilepsy Y Endometriosis N High Cholesterol N Headaches N Fibromyalgia N Kidney Disease N Heart Problems N Kidney or Bladder Problems N Thyroid Problems N GI Problems N Eating Disorder [...] Flow Moderate Date of Last Mammogram Date o [id number]|2024-11-02 13:41:00|2024-11-02 13:41:00|XMS_ITS|BKG DAEMON|External Medical Summaries|[id number]|" Progress note - 06/01/2024 Created on: November 02, 2024 Adilene Viera : 2005 Sex: Female Author Organization [facility] Address [address] [place] [address] Care Team Providers Care Environmental Education Specialist Name Role Phone Hien Miller Primary Care Provider Bart Juarez [phone] REASON FOR VISIT 3 Week F/U Encounters Encounter Location Date Provider Diagnosis [address] [place] [address] 06/01/2024 Bart Juarez Plan Of Treatment No Information Progress Notes * Adilene VIERADOB:[birth year] (19 yo F)Acc No.[id number]:06/01/2024 UNLOCKED PROGRESS NOTE Patient: Daniel PRAVEENA Adilene Provider: Angelica Juarez DNP, PMHNP- :2005 A ge:19 Y S ex:Female Date:06/01/2024 Address:[address] [place], [place] [id number] Pcp:Hien Miller Subjective: * Chief Complaints: * 1 . 3 Week F/U. * Medical History: Objective: * Vitals: Assessment: Plan: * Treatment: * * Electronic signature of Maranda Juarez APRN, [id number] on 11/02/2024 at 01:40 PM CDT Sign off status: Pending * Provider: [facility]arez D[facility] Date: 1 08/02/2023 Generated for Ivon paz/Cathy/Zeynep on: 0 11/02/2024 01:40 PM CDT "
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
--- OUTSIDE RECORDS SUMMARY | 2024-11-02 13:41 | XMS_ITS | Patient Health Record ---
Author Organization [facility] Address [address] [place] [address] Care Team Providers Care Ict Analyst Name Role Phone Nallely Baeza Primary Care Provider Nallely Walls Unavailable [phone] Reason For Referral No Information Problems Problem Type SNOMED Code ICD Code Onset Dates Problem Status W/U Status Risk Notes Problem Borderline personality disorder (F60.3) Active confirmed Problem [id number] Post traumatic stress disorder (PTSD) (F43.10) Active confirmed Encounters Encounter Location Date Provider Diagnosis [facility] [address] [place] [address] 12/28/2023 [facility] [address] [place] [address] 01/13/2024 [facility] [address] [place] [address] 12/07/2023 [facility] [address] [place] [address] 12/08/2023 [facility] [address] [place] [address] 12/08/2023 [facility] [address] [place] [address] 01/12/2024 [facility] [address] [place] [address] 01/12/2024 [facility] [address] [place] [address] 05/05/2024 [facility] [address] [place] [address] 12/14/2023 Nallely Baeza Post traumatic stres s [...] Start Date Coverage End Date Zhou Olvera [facility] [address] [place] [address] [id number] Adilene Viera Self - patient is the insured 3 Zhou Olvera [facility] [address] [place] [address] [id number] Adilene Viera Self - patient is the insured 3 [employer] Olvera Nonbillable [address] [place] [address] [id number] Adilene Viera Self - patient is the insured 3 BARBARA Olvera [employer] [facility] [address] [place] [address] [id number] Adilene Viera Self - patient is the insured 3
--- OUTSIDE RECORDS SUMMARY | 2024-11-02 13:41 | XMS_ITS ---
Author Organization [facility] Address [address] [place] [address] Care Team Providers Care Assistant Prosecuting Attorney Name Role Phone Dr. Lena Sanders Primary Care Provider [phone] Migration, Provider Unavailable Unavailable Allergies Allergen (clinical [...] Date Status Levora 0.15/30 (28) 0.15-30 MG-MCG Tablet 1 Oral every day; Duration: 30 09/29/2023 09/22/2024 Active buPROPion HCl ER (XL) 150 MG Tablet Extended Release 24 Hour Oral; Duration: 30 09/14/2023 Active Sertraline HCl 100 MG Tablet Oral; Duration: 30 09/14/2023 Active lurasidone 20.000 mg tablet oral; Duration: 30 *Reorder from [facility] for eRx and Interaction Alerts* 07/27/2023 Active Colace 100 MG Capsule 1 Oral every day; Duration: 0 ,PRN Reason:for constipation 08/13/2023 Active Social History Social History Additional Details Category Social Info Options Details Migrated Social History Migrated Social History Marital status:Single , Tobacco history:Vapes , Alcohol Misuse:Yes , Has the patient used marijuana?:Yes , Alcohol history:Currently drinks alcohol Encounters Encounter Location Date Provider Diagnosis [facility] [address] [place] [address] 05/22/2024 Provider Migration Plan Of Treatment No Information Progress Notes * Adilene VIERADOB:[birth year] (19 yo F)Acc No.[id number]:05/22/2024 Patient: Adilene BORDEN :2005 A ge:19 Y S ex:Female Phone: Address:[address] [place] [address], [place], [address] Subjective: * Chief Complaints: * E MR-Ector [...] oral , Notes to Pharmacist: *Reorder from [facility] for eRx and Interaction Alerts*buPROPion HCl ER [...] oral , Notes to Pharmacist: *Reorder from [facility] for eRx and Interaction Alerts*Taking buPROPion HCl ER (XL) 150 MG Tablet Extended Release 24 Hour Oral * Allergies: t raZODone: SYNCOPE AND BLURRED VISION - Allergy - Onset Date 05/07/2023 * * Date:
--- OUTSIDE RECORDS SUMMARY | 2024-11-02 13:42 | XMS_ITS | Clinical Summary ---
Author Organization [facility] Address [facility] [place] [address] Care Team Providers Care Life Assurance Representative Name Role Phone Lena Sanders MD Primary [...] Department Care Team Description 08/16/2024 1:40 PM URBAN FORESTER Office Visit [place] [address] [place] [address] Marcia Novoa DO Headache (Headache, fever [...] Sex Assigned at Female 07/10/2024 3:11 AM URBAN FORESTER Legal Sex Female 8:07 AM CDT Gender Identity Not on file Sexual Orientation Not on file Last Filed Vital Signs Vital Sign Reading Time Taken Comments Blood Pressure 104/62 08/16/2024 1:44 PM URBAN FORESTER Pulse 91 08/16/2024 1:44 PM URBAN FORESTER Temperature 36.7 C (98.1 F) 08/16/2024 1:44 PM URBAN FORESTER Respiratory Rate 15 07/10/2024 4:10 AM URBAN FORESTER Oxygen Saturation 98% 08/16/2024 1:44 PM URBAN FORESTER Inhaled Oxygen Concentration - - Weight 58.5 kg (129 lb) 08/16/2024 1:44 PM URBAN FORESTER Height 167.6 cm (5' 6 ) 08/16/2024 1:44 PM URBAN FORESTER Body Mass Index 20.82 08/16/2024 1:44 PM URBAN FORESTER Plan of Treatment Health Maintenance Due Date Last Done Comments Annual Physical 2006 Meningococcal B Vaccine (1 of 2 - Standard) 2019 Pneumococcal Vaccine: Pediatrics (0 to 5 Years) and At-Risk Patients (6 to 49 Years) (1 of 2 - PCV) 2022 05/22/2004, 2005, 2005, Additional history exists COVID-19 Vaccine ( - season) 2024 PHQ-2 (Physician [facility]) 06/22/2024 DTaP, Tdap and Td Vaccines (7 [...] B ANTIGEN IA PANEL (08/16/2024) Pathologist [facility] CORONAVIRUS ANTIGEN IA NEGATIVE NEGATIVE [facility] ([address]), [place] INFLUENZA [facility]), [place] INFLUENZA B [facility] ([facility]), [place] Internal Control: VALID VALID [facility] ([address]), [place] NASAL STRUCTURE / Unknown 08/16/2024 us Marcia Novoa DO MICROBIOLOGY - GENERAL ORDERABLE S Final Result [facility] ([address]), [address] [address], from Last 3 Months Insurance [employer] Care Teams Life Assurance Representative Relationship Specialty Start Date End Date Lena Sanders MD [address] [place] [address] [place] [address] PCP - General FAMILY PRACTICE 07/21/23
--- OUTSIDE RECORDS SUMMARY | 2024-11-02 13:42 | XMS_ITS | Clinical Summary ---
Author Organization [facility] Address [address] [place] [address] Care Team Providers Care Exhibits Curator Name Role Phone Lena Sanders MD Primary Care Provider Source Comments [facility],non-owned Affiliates and Associated Physician Practices is amultiple site organization consisting of ambulatory clinics and hospital sitesin [place], [place], [place] and [place]. This disclosure is being madepursuant to the Care Everywhere program and may not contain all information available regarding this patient. Last updated 18.[facility] Allergies No known active allergies Medications * [...] on file Legal Sex Female 5:42 AM DIRECTOR OF EMPLOYER SERVICES Gender Identity Not on file Sexual Orientation [...] - [place] MED[place] - OUT OF STATE [facility] Care Teams Exhibits Curator Relationship Specialty Start Date End Date Lena Sanders MD [address] [place] [address] PCP - General Family Medicine 01/23/17
--- OUTSIDE RECORDS SUMMARY | 2024-11-02 13:42 | XMS_ITS | Patient Health Record ---
Author Organization [facility] Address [address] [place] [address] Care Team Providers Care Printed Circuit Board Panels Plater Name Role Phone Dr. Lena Sanders Primary Care Provider [phone] Bebo Morris Unavailable [phone] Lena Boyle Unavailable [phone] Migration, Provider Unavailable Unavailable Allergies Allergen (clinical [...] Date End Date Status Colace 100 MG Capsule 1 Oral every day; Duration: 0 ,PRN Reason:for constipation 08/13/2023 Not-Taking Sertraline HCl 100 MG Tablet Oral; Duration: 30 09/14/2023 Active lurasidone 20.000 mg tablet oral; Duration: 30 *Reorder from ExacterCell>Point for eRx and Interaction Alerts* 07/27/2023 Active buPROPion HCl ER (XL) 150 MG Tablet Extended Release 24 Hour Oral; Duration: 30 09/14/2023 Active Immunizations Vaccine [...] Problem Status W/U Status Risk Notes Problem Severe major depression, single episode, without psychotic features (40112817) Major depressive disorder, single episode, severe without psychotic features (F32.2) 021 Active confirmed Problem Excessive and frequent menstruation (932588022) Excessive and frequent menstruation with regular cycle (N92.0) 024 Active confirmed Problem Chronic disease of tonsils AND/OR adenoids (30254236) Other chronic diseases of tonsils and adenoids (J35.8) 023 Active confirmed Problem Insomnia (395584083) Insomnia, unspecified (G47.00) 023 Active confirmed Problem Herpes simplex viral infection (09315467) Herpesviral infection, unspecified (B00.9) 023 Active confirmed Problem Well child visit (536878401) Routine infant or child health check (V20.2) 018 Active confirmed Problem History and physical examination, administrative (27205568) Other general medical examination for administrative purposes (V70.3) 017 Active confirmed Problem Pain in limb (00969924) Pain in soft tissues of limb (729.5) 017 Active confirmed Problem Tuberculosis screening (378479849) Encounter for screening for respiratory tuberculosis (Z11.1) 017 Problem resolved confirmed Problem History and physical examination, sports participation (procedure) (245615382) Encounter for examination for participation in sport (Z02.5) Problem resolved confirmed Problem Child health medical examination (108926848) Encounter for routine child health examination without abnormal findings (Z00.129) 016 Problem resolved confirmed Problem Closed fracture of foot (802401306) Unspecified fracture of left foot, initial encounter for closed fracture (S92.902A) 017 Problem resolved confirmed Problem Localized mass (1356606) Localized swelling, mass and lump, unspecified (R22.9) 017 Problem resolved confirmed Problem Generalized abdominal pain (188235163) Generalized abdominal pain (R10.84) 018 Problem resolved confirmed Problem Epigastric pain (11633635) Epigastric pain (R10.13) 018 Problem resolved confirmed Problem Wheezing (41992832) Wheezing (R06.2) 017 Problem resolved confirmed Problem Irregular menstruation (49551760) Irregular menstruation, unspecified (N92.6) 017 Problem resolved confirmed Problem Pain in left foot (376040448279509 ) Pain in left foot (M79.672) 017 Problem resolved confirmed Problem Allergic rhinitis (43658048) Allergic rhinitis, unspecified (J30.9) 021 Problem resolved confirmed Problem Acute bronchitis (63823444) Acute bronchitis, unspecified (J20.9) 017 Problem resolved confirmed Problem Acute tonsillitis (72259715) Acute tonsillitis, unspecified (J03.90) Problem resolved confirmed Problem Acute atopic conjunctivitis (44418603) Acute atopic conjunctivitis, unspecified eye (H10.10) 021 Problem resolved confirmed Problem Tuberculosis screening (794343781) Screening examination for pulmonary tuberculosis (V74.1) 017 Problem resolved confirmed Problem Closed fracture of foot (740237097) Closed fracture of unspecified bone(s) of foot (except toes) (825.20) Problem resolved confirmed Problem Generalized abdominal pain (522540016) Abdominal pain, generalized (789.07) Problem resolved confirmed Problem Epigastric pain (65625745) Abdominal pain, epigastric (789.06) Problem resolved confirmed Problem Wheezing (19923668) Wheezing (786.07) Problem resolved confirmed Problem Localized superficial swelling of skin (523260054) Localized superficial swelling, mass, or lump (782.2) Problem resolved confirmed Problem Excessive and frequent menstruation (225174744) Excessive or frequent menstruation (626.2) Problem resolved confirmed Problem Acute bronchitis (66113834) Acute bronchitis (466.0) Problem resolved confirmed Problem Normal body mass index (68050986) Body mass index (BMI) 21.0-21.9, adult (Z68.21) Active confirmed Problem Noncompliance with treatment (finding) (0103899) Patient's noncompliance with other medical treatment and regimen due to unspecified reason (Z91.199) Active confirmed Problem Surveillance of contraception (000508393) Encounter for contraceptive management, unspecified (Z30.9) Active confirmed Problem Exposure to sexually transmissible disorder (638277205) Contact with and (suspected) exposure to infections with a predominantly sexual mode of transmission (Z20.2) Active confirmed Problem Problem, abnormal examination (36271235) Encounter for general adult medical examination with abnormal findings (Z00.01) Active confirmed Problem Antidepressant drug adverse reaction (283804628) Adverse effect of unspecified antidepressants, initial encounter (T43.205A) Active confirmed TRAZODONE Problem Emotional state finding (093365993) Other symptoms and signs involving emotional state (R45.89) Active confirmed Problem Changes in skin texture (410019463) Changes in skin texture (R23.4) Active confirmed Problem Abdominal pain (06541069) Unspecified abdominal pain (R10.9) Active confirmed Problem Dysmenorrhea (594078673) Dysmenorrhea, unspecified (N94.6) Active confirmed Problem Constipation (64993865) Constipation, unspecified (K59.00) Active confirmed Problem Major depression, single episode (07741209) Major depressive disorder, single episode, unspecified (F32.9) Active confirmed Vital Signs Heart Rate 110 /min 06/06/2024 Temperature 97.6 degrees Fahrenheit 06/06/2024 Respiratory Rate 16 /min 01/14/2024 Height-cm 167.64 cm 06/06/2024 Oximetry 99 % 06/06/2024 Blood pressure diastolic 74 mm Hg 06/06/2024 Weight-kg 58.79 kg 06/06/2024 Height 66.00 in 06/06/2024 Blood pressure systolic 132 mm Hg 06/06/2024 Weight 129.6 lbs 06/06/2024 BMI 20.92 kg/m2 06/06/2024 Encounters Encounter Location Date Provider Diagnosis [address] [address] 01/14/2024 Bebo Alexandra Changes in skin texture R23.4 ; Major depressive disorder, single episode, severe without psychotic features F32.2 ; Encounter for general adult medical examination with abnormal findings Z00.01 ; Excessive and frequent menstruation with regular cycle N92.0 ; Unspecified abdominal pain R10.9 ; Dysmenorrhea, unspecified N94.6 and Constipation, unspecified K59.[address] [address] 06/06/2024 Lena Boyle Less than 8 weeks gestation of Z3A.01 and Major depressive disorder, single episode, unspecified F32.[address] [address] 05/21/2024 Provider Migration [address] [address] 05/22/2024 Provider Migration Assessments Encounter Date Diagnosis [...] an appointment with an OBGYN. Suggested contacting [facility] ([facility]) for appointments. - Advised to start taking [...] an appointment with an OBGYN. Suggested contacting [facility] ([facility]) for appointments. - Advised to start taking [...] Insured Coverage Start Date Coverage End Date [id number] [place] [address] [id number] Adilene Viera Self - patient is the insured 3
== END 2024-11-02 13:21 | disposition home or self-care (01) ==
PROVIDERS: PCP Family Medicine; Visit Provider Obstetrics & Gynecology
DX: M54.50 Low back pain, unspecified (principal); R10.9 Unspecified abdominal pain
CPT/HCPCS: 76775

== ENCOUNTER 2024-12-28 11:58 | Outpatient (CLI) | payer OTHER, SELFPAY ==
--- OUTSIDE RECORDS SUMMARY | 2024-12-28 12:07 | XMS_ITS ---
Author Organization [facility] Address [address] [facility] [place] [address] Care Team Providers Care Sponge Buffer Name Role Phone Nallely Baeza Primary Care Provider Nallely Walls Unavailable [phone] Encounters Encounter Location Date Provider Diagnosis [facility] [address] [place] [address] 01/11/2024 Nallely Baeza Plan Of Treatment No Information Progress Notes * Millie VIERAmarisachadDOB:[birth year] (19 yo F)Acc No.[id number]:01/11/2024 UNLOCKED PROGRESS NOTE Patient: Adilene BORDEN Provider: To Baeza LCPC :2005 A ge:18 Y S ex:Female Date:01/11/2024 [address] Pcp:Nallely Baeza Subjective: * Chief Complaints: * * Medical History: Objective: * Vitals: Assessment: Plan: * Treatment: * Billing Information: * Visit Code: * Procedure Codes: * Electronic signature of Mona Baeza LCPC on 12/28/2024 at 12:07 PM CDT Sign off status: Pending Visit Status: C ANC (Cancelled) * Provider: To Baeza LCPC Date: 01/11/2024 Generated for Printi brandi/Cathy/eTransmitting on: 12/28/2024 12:07 PM CDT
--- OUTSIDE RECORDS SUMMARY | 2024-12-28 12:07 | XMS_ITS ---
Author Organization [facility] Address [address] [facility] [address] [place] [address] Care Team Providers Care Gas Brazer Name Role Phone Nallely Baeza Primary Care Provider UnavailNallely Geiger Unavailable [phone] REASON FOR VISIT counseling TH pt at home provider in office Encounters Encounter Location Date Provider Diagnosis [facility] [address] [place] [address] 01/13/2024 Nallely Baeza Plan Of Treatment No Information Progress Notes * Adilene VIERADOB:[birth year] (19 yo F)Acc No.[id number]:01/13/2024 UNLOCKED PROGRESS NOTE Patient: Adilene BORDEN Provider: To Baeza LCPC :2005 A ge:18 Y S ex:Female Date:01/13/2024 Address:[address] [facility] Pcp:Nallely Baeza Subjective: * Chief Complaints: * [...] 01/13/2024 Generated for Printi ng/Cathy/Robertoitting on: 0 12/28/2024 12:07 PM CDT
--- OUTSIDE RECORDS SUMMARY | 2024-12-28 12:07 | XMS_ITS ---
Author Organization [facility] Address [address] [facility] [address] [place] [address] Care Team Providers Care Futures Trader Name Role Phone Nallely Baeza Primary Care Provider UnavailNallely Geiger Unavailable [phone] REASON FOR VISIT counseling TH pt at home provider in office Encounters Encounter Location Date Provider Diagnosis [facility] [address] [place] [address] 12/28/2023 Nallely Baeza Plan Of Treatment No Information Progress Notes * Adilene VIERADOB:[birth year] (19 yo F)Acc No.[id number]:12/28/2023 UNLOCKED PROGRESS NOTE Patient: Adilene BORDEN Provider: To Baeza LCPC :2005 A ge:18 Y S ex:Female Date:12/28/2023 Address[address] [facility] Pcp:Nallely Baeza Subjective: * Chief Complaints: * [...] (No-Show) * Provider: To Baeza LCPC Date: 0 12/28/2023 Generated for Printi ng/Cathy/Robertoitting on: 0 12/28/2024 12:07 PM CDT
--- OUTSIDE RECORDS SUMMARY | 2024-12-28 12:07 | XMS_ITS | Patient Health Record ---
Author Organization Formerly [facility], later [facility] Address [address] [place] [address] Care Team Providers Care Cargo Router Name Role Phone Angela, Hien Primary Care Provider Bart Juarez [phone] Allergies No Known Allergies Reason For Referral No Information Medications Medication SIG (Take, Route, Frequency, Duration) Notes Start Date End Date Status Lurasidone HCl 60 MG 1 tablet in the avila selvin with food Orally Once a day; Duration: 30 days 06/10/2023 Active Sertraline HCl 100 MG 1 tablet Orally On ce a day; Duration: 30 days 03/04/2023 Active Ondansetron HCl 4 MG 1 tablet 30 minutes before Latuda (as needed for nausea) Orally Once a day; Duration: 14 days 06/10/2023 Active buPROPion HCl ER (XL) 150 MG 1 tablet in the morning Orally Once a day; Duration: 30 days 12/20/2024 Active Problems Problem Type SNOMED Code ICD Code Onset Dates Problem Status W/U Status Risk Notes Problem Borderline personality disorder (72640121) Borderline personality disorder (F60.3) Active confirmed Problem Depression (634486823) Depression (F32.9) Active confirmed Problem Posttraumatic stress disorder (87946992) PTSD (post-traumati c stress disorder) (F43.10) Active confirmed Problem Anxiety (68742685) Anxiety (F41.9) Active confirmed Problem Bipolar 1 disorder (689747065) Bipolar 1 disorder (F31.9) Active confirmed Problem Cannabis dependence (F12.20) Active confirmed Problem Mood disorder (41561118) Mood disorder (F39) Inactive confirmed replaced with bipolar 1 Encounters Encounter Location Date Provider Diagnosis [address] [address] 01/26/2024 Bart Juarez Bipolar 1 disorder F31.9 ; Borderline personality disorder F60.3 ; PTSD (post-traumatic stress disorder) F43.10 and Anxiety F41.[address] [address] 03/01/2024 Bart Juarez Bipolar 1 disorder F31.9 ; Borderline personality disorder F60.3 ; PTSD (post-traumatic stress disorder) F43.10 and Anxiety F41.[address] [address] 05/11/2024 Bart Juarez Bipolar 1 disorder F31.9 ; PTSD (post-traumatic stress disorder) F43.10 ; Anxiety F41.9 and Borderline personality disorder F60.3 [address] [address] 06/07/2024 Bart Juarez Bipolar 1 disorder F31.9 ; Borderline personality disorder F60.3 ; PTSD (post-traumatic stress disorder) F43.10 and Anxiety F41.[address] [address] 12/20/2024 Bart Juarez Bipolar 1 disorder F31.9 ; Borderline personality disorder F60.3 ; PTSD (post-traumatic stress disorder) F43.10 and Anxiety F41.[address] [address] 01/14/2024 Bart Juarez Bipolar 1 disorder F31.[address] [address] 12/07/2024 Batr Juarez Assessments Encounter Date Diagnosis (ICD Code) Assessment Notes Treatment Notes Treatment Clinical Notes Section Notes 01/14/2024 Bipolar 1 disorder (ICD-10 - F31.9) 01/26/2024 Bipolar 1 disorder (ICD-10 - F31.9) 03/01/2024 Bipolar 1 disorder (ICD-10 - F31.9) Client doing well, no treatment plan changes. 05/11/2024 Bipolar 1 disorder (ICD-10 - F31.9) 06/07/2024 Bipolar 1 disorder (ICD-10 - F31.9) Client states 8 weeks along in a positive . That she plans on women's health care at [facility] in [place], [place]. Discussed with client to stop bupropion given but to continue Latuda and Zoloft. Client agreeable. No other changes to tx plan. Asked client to discuss with women's health provider whether OBGYN services will prescribe mental health medications or whether this provider will continue during . States she will do so. 12/20/2024 Bipolar 1 disorder (ICD-10 - F31.9) Client is having crying spells, panic attacks. Likely having inconsistent medication levels due to HG - particularly in relation to the Latuda. Discussed increasing the Latuda to 60 mg and reassessing. Client states her OBGYN is okay with mental health prescribing medications now due to client being at end of . Client has appt in a few weeks with OB and states she will let her OB know. Discussed to have her OB call our office for any concerns. Encouraged client to f/u with therapy and given resources. 05/11/2024 PTSD (post-traumatic stress disorder) (ICD-10 - F43.10) 12/20/2024 Borderline personality disorder (ICD-10 - F60.3) Client is having crying spells, panic attacks. Likely having inconsistent medication levels due to HG - particularly in relation to the Latuda. Discussed increasing the Latuda to 60 mg and reassessing. Client states her OBGYN is okay with mental health prescribing medications now due to client being at end of . Client has appt in a few weeks with OB and states she will let her OB know. Discussed to have her OB call our office for any concerns. Encouraged client to f/u with therapy and given resources. 06/07/2024 Borderline personality disorder (ICD-10 - F60.3) Client states 8 weeks along in a positive . That she plans on women's health care at [facility] in [place], [place]. Discussed with client to stop bupropion [...] 01/26/2024 Borderline personality disorder (ICD-10 - F60.3) 01/26/2024 PTSD (post-traumatic stress disorder) (ICD-10 - F43.10) 03/01/2024 PTSD (post-traumatic stress disorder) (ICD-10 - F43.10) Client doing well, no treatment plan changes. 06/07/2024 PTSD (post-traumatic stress disorder) (ICD-10 - F43.10) Client states 8 weeks along in a positive . That she plans on women's health care at [facility] in [place], [place]. Discussed with client to stop bupropion given but to continue Latuda and Zoloft. Client agreeable. No other changes to tx plan. Asked client to discuss with women's health provider whether OBGYN services will prescribe mental health medications or whether this provider will continue during . States she will do so. 12/20/2024 PTSD (post-traumatic stress disorder) (ICD-10 - F43.10) Client is having crying spells, panic attacks. Likely having inconsistent medication levels due to HG - particularly in relation to the Latuda. Discussed increasing the Latuda to 60 mg and reassessing. Client states her OBGYN is okay with mental health prescribing medications now due to client being at end of . Client has appt in a few weeks with OB and states she will let her OB know. Discussed to have her OB call our office for any concerns. Encouraged client to f/u with therapy and given resources. 05/11/2024 Anxiety (ICD-10 - F41.9) 12/20/2024 Anxiety (ICD-10 - F41.9) Client is having crying spells, panic attacks. Likely having inconsistent medication levels due to HG - particularly in relation to the Latuda. Discussed increasing the Latuda to 60 mg and reassessing. Client states her OBGYN is okay with mental health prescribing medications now due to client being at end of . Client has appt in a few weeks with OB and states she will let her OB know. Discussed to have her OB call our office for any concerns. Encouraged client to f/u with therapy and given resources. 06/07/2024 Anxiety (ICD-10 - F41.9) Client states 8 weeks along in a positive . That she plans on women's health care at [facility] in [place], [place]. Discussed with client to stop bupropion [...] plan changes. 01/26/2024 Anxiety (ICD-10 - F41.9) 01/26/2024 Other Discussed sleep hygiene and caffeine intake with encouragement to limit electronic devices an hour before bed and to limit caffeine after 3:00pm. Exercise benefits for mood and health discussed. Psychoeducation regarding psychiatric illness provided. Client was educated about risks and benefits of medication, alternatives to medication, off label uses of medication, suicidal ideation with SSRIs, self-administrat ion and compliance with medication along with how to safely store medication. Verbal informed consent obtained. Client agrees to return sooner if symptoms worsen or if suicidal or homicidal ideations occur. Client has the phone number to the 24-hour crisis line at [facility]. Questions addressed. Client verbalized understanding of [...] uses of medication, suicidal ideation with SSRIs, self-administrat ion and compliance with medication along with how to safely store medication. Verbal informed consent obtained. Client agrees to return sooner if symptoms worsen or if suicidal or homicidal ideations occur. Client has the phone number to the 24-hour crisis line at [facility]. Questions addressed. Client verbalized understanding of [...] uses of medication, suicidal ideation with SSRIs, self-administrat ion and compliance with medication along with how to safely store medication. Verbal informed consent obtained. Client agrees to return sooner if symptoms worsen or if suicidal or homicidal ideations occur. Client has the phone number to the 24-hour crisis line at [facility]. Questions addressed. Client verbalized understanding of [...] uses of medication, suicidal ideation with SSRIs, self-administrat ion and compliance with medication along with how to safely store medication. Verbal informed consent obtained. Client agrees to return sooner if symptoms worsen or if suicidal or homicidal ideations occur. Client has the phone number to the 24-hour crisis line at [facility]. Questions addressed. Client verbalized understanding of all information and is agreeable to treatment plan. Client states 8 weeks along in a positive . That she plans on women's health care at [facility] in [place], [place]. Discussed with client to stop bupropion given but to continue Latuda and Zoloft. Client agreeable. No other changes to tx plan. Asked client to discuss with women's health provider whether OBGYN services will prescribe mental health medications or whether this provider will continue during . States she will do so. 12/20/2024 Other Discussed sleep hygiene and caffeine intake with encouragement to limit electronic devices an hour before bed and to limit caffeine after 3:00pm. Exercise benefits for mood and health discussed. Psychoeducation regarding psychiatric illness provided. Client was educated about risks and benefits of medication, alternatives to medication, off label uses of medication, suicidal ideation with SSRIs, self-administrat ion and compliance with medication along with how to safely store medication. Verbal informed consent obtained. Client agrees to return sooner if symptoms worsen or if suicidal or homicidal ideations occur. Client has the phone number to the 24-hour crisis line at [facility]. Questions addressed. Client verbalized understanding of all information and is agreeable to treatment plan. Client is having crying spells, panic attacks. Likely having inconsistent medication levels due to HG - particularly in relation to the Latuda. Discussed increasing the Latuda to 60 mg and reassessing. Client states her OBGYN is okay with mental health prescribing medications now due to client being at end of . Client has appt in a few weeks with OB and states she will let her OB know. Discussed to have her OB call our office for any concerns. Encouraged client to f/u with therapy and given resources. Plan Of Treatment No Information Insurance Providers Payer Name Payer Address Payer Phone Subscriber Number Group Number Insured Name Patient Relationship to Insured Coverage Start Date Coverage End Date [employer] [address] [place] [address] [id number] Adilene Viera Self - patient is the insured 3 MED[employer] [address] [place] [address] [id number] Adilene Viera Self - patient is the insured 3 4 [employer] [address] [place] [address] [id number] Adilene Viera Self - patient is the insured 3 4 [employer] [address] [place] [address] [id number] Ceci Viera Parent 3 Medical (General) History Medical History History ICD Code Seizures R56.9 Surgical History Surgery Date(Month/Year) cyst removal 2017 Hospitalization History Reason Date(Month/Year) Seizures [facility] 2021 COVID/Mental Health [facility] 2020
--- OUTSIDE RECORDS SUMMARY | 2024-12-28 12:08 | XMS_ITS ---
Author Organization Replaced by [facility] Address [address] [place] [address] Care Team Providers Care Hairspring Ii Inspector Name Role Phone Hien Miller Primary Care Provider [phone] Bart Juarez [phone] REASON FOR VISIT 3 Week F/U Encounters Encounter Location Date Provider Diagnosis [address] [address] 06/01/2024 Bart Juarez Plan Of Treatment No Information Progress Notes * Adilene VIERADOB:[birth year] (19 yo F)Acc No.[id number]:06/01/2024 UNLOCKED PROGRESS NOTE Patient: Adilene BORDEN Provider: Angelica Juarez DNP, ROSLYNP-BC :2005 A ge:19 Y S ex:Female Date:06/01/2024 [address] Pcp:Hien Miller Subjective: * Chief Complaints: * 1 . 3 Week F/U. * Medical History: Objective: * Vitals: Assessment: Plan: * Treatment: * * Electronic signature of Maranda Juarez APRN, [id number] on 12/28/2024 at 12:08 PM CDT Sign off status: Pending * Provider: Angelica Juarez DNP, PMHNP-BC Date: 08/02/2023 Generated for Ivon paz/aCthy/Robertoitting on: 0 12/28/2024 12:08 PM CDT
--- OUTSIDE RECORDS SUMMARY | 2024-12-28 12:08 | XMS_ITS | Referral Summary ---
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 alcohol occasionally and smokes cigarettes frequently. - Hydroelectric Mechanic about the use of THC, cigarette smoking and alcohol use Assessment & Plan (01/28/2021 11:25 AM CDT): Patient uses THC to feel better. It reduces her anxiety and improves her mood. Her urine was positive for THC. She drinks alcohol occasionally and smokes cigarettes frequently. - Hydroelectric Mechanic about the use of THC, cigarette smoking and alcohol use Assessment & Plan (01/27/2021 8:46 AM CDT): Patient uses THC to feel better. It reduces her anxiety and improves her mood. Her urine was positive for THC. She drinks alcohol occasionally and smokes cigarettes frequently. - Hydroelectric Mechanic about the use of THC, cigarette smoking and Alcohol use. Assessment & Plan (01/26/2021 3:06 PM CDT): Patient uses THC to feel better. It reduces her anxiety and improves her mood. Her urine was positive for THC. She drinks alcohol occasionally and smokes cigarettes frequently. - Hydroelectric Mechanic about the use of THC, cigarette smoking and Alcohol use. Assessment & Plan (01/25/2021 11:48 AM CDT): Patient uses THC to feel better. It reduces her anxiety and improves her mood. Her urine was positive for THC. She drinks alcohol occasionally and smokes cigarettes frequently. - Hydroelectric Mechanic about the use of THC, cigarette smoking and Alcohol use. Assessment & Plan (01/24/2021 7:37 AM CDT): Patient uses THC to feel better. It reduces her anxiety and improves her mood. Her urine was positive for THC. She drinks alcohol occasionally and smokes cigarettes frequently. - Hydroelectric Mechanic about the use of THC, cigarette smoking and Alcohol use. Assessment & Plan (01/23/2021 8:27 AM CDT): Patient uses THC to feel better. It reduces her anxiety and improves her mood. Her urine was positive for THC. She drinks alcohol occasionally and smokes cigarettes frequently. - Hydroelectric Mechanic about the use of THC, cigarette smoking and Alcohol use. Assessment & Plan (01/22/2021 6:08 PM CDT): Patient uses THC to feel better. It reduces her anxiety and improves her mood. Her urine was positive for THC. She drinks alcohol occasionally and smokes cigarettes frequently. - Hydroelectric Mechanic about the use of THC, cigarette smoking and Alcohol use. Assessment & Plan (01/21/2021 2:09 PM CDT): Patient uses THC to feel better. It reduces her anxiety and improves her mood. Her urine was positive for THC. She drinks alcohol occasionally and smokes cigarettes frequently. - Hydroelectric Mechanic about the use of THC, cigarette smoking and Alcohol use. Assessment & Plan (01/20/2021 5:28 PM CDT): Patient uses THC to feel better. It reduces her anxiety and improves her mood. Her urine was positive for THC. She drinks alcohol occasionally and smokes cigarettes frequently. - Hydroelectric Mechanic about the use of THC, cigarette smoking and Alcohol use. Assessment & Plan (01/19/2021 5:32 PM CDT): Patient uses THC to feel better. It reduces her anxiety and improves her mood. Her urine was positive for THC. She drinks alcohol occasionally and smokes cigarettes frequently. - Hydroelectric Mechanic about the use of THC, cigarette smoking and Alcohol use. Assessment & Plan (01/18/2021 11:58 AM CDT): Patient uses THC to feel better. It reduces her anxiety and improves her mood. Her urine was positive for THC. She drinks alcohol occasionally and smokes cigarettes frequently. - Hydroelectric Mechanic about the use of THC, cigarette smoking and Alcohol use. Assessment & Plan (01/17/2021 11:00 AM CDT): Patient uses THC to feel better. It reduces her anxiety and improves her mood. Her urine was positive for THC. She drinks alcohol occasionally and smokes cigarettes frequently. - Hydroelectric Mechanic about the use of THC, cigarette smoking and Alcohol use. Assessment & Plan (01/16/2021 1:11 PM CDT): Patient uses THC to feel better. It reduces her anxiety and improves her mood. Her urine was positive for THC. She drinks alcohol occasionally and smokes cigarettes frequently. - Hydroelectric Mechanic about the use of THC, cigarette smoking and Alcohol use. Assessment & Plan (01/15/2021 4:20 PM CDT): Patient uses THC to feel better. It reduces her anxiety and improves her mood. Her urine was positive for THC. She drinks alcohol and smokes cigarettes occasionally. - Hydroelectric Mechanic about the use of THC, cigarette smoking [...] CDT Respiratory Rate 16 08/30/2021 7:09 AM DRIVER Oxygen Saturation 100% 09/19/2021 11:23 AM CDT Inhaled Oxygen Concentration - - Weight 64.2 kg (141 lb 9.6 oz) 09/19/2021 11:23 AM CDT Height 170.2 cm (5' 7.01) 08/28/2021 3:27 PM CS T Body Mass Index 22.17 08/28/2021 3:27 PM DRIVER Plan of Treatment Not on file [place] [address] [facility] Advance Directives For more information, please contact: [phone] * Full Code (Latest Code Status on File) Date Activated Date Inactivated Comments 08/28/2021 8:13 PM 08/30/2021 4:47 PM * Full Code Date Activated Date Inactivated Comments 01/15/2021 1:54 PM 03/13/2021 10:26 PM Care Teams Button Clamper Relationship Specialty Start Date End Date No, Physician PCP - General 08/07/21
--- OUTSIDE RECORDS SUMMARY | 2024-12-28 12:08 | XMS_ITS | Patient Health Record ---
Author Organization [facility] Address [address] [place] [address] [place] [address] Care Team Providers Care Making Machine Operator Name Role Phone Nallely Baeza Primary Care Provider Nallely Walls Unavailable [phone] Reason For Referral No Information Problems Problem Type SNOMED Code ICD Code Onset Dates Problem Status W/U Status Risk Notes Problem Borderline personality disorder (88406087) Borderline personality disorder (F60.3) Active confirmed Problem Post traumatic stress disorder (PTSD) (F43.10) Active confirmed Encounters Encounter Location Date Provider Diagnosis [facility] [address] [place] [address] 01/13/[address] [address] 01/12/[address] [address] 01/12/[address] [address] 05/05/2024 Nallely Baeza Plan Of Treatment No Information Insurance Providers Payer Name Payer Address Payer Phone Subscriber Number Group Number Insured Name Patient Relationship to Insured Coverage Start Date Coverage End Date [facility] Wade [facility] [address] [place] [address] [id number] Adilene Viera Self - patient is the insured 3 [facility] Wade [facility] [employer] [address] [place] [address] [id number] Adilene Viera Self - patient is the insured 3 [employer] Nonbill[employer] [address] [place] [address] [id number] Adilene Viera Self - patient is the insured 3 [employer]BAR[employer] Olver[employer] [address] [place] [address] [id number] Adilene Viera Self - patient is the insured 3
--- OUTSIDE RECORDS SUMMARY | 2024-12-28 12:08 | XMS_ITS | Continuity of Care Document ---
Author Organization [facility] [place] Address [address] [place] [address] Care Team Providers Care Line Closer Name Role Phone NETO CASTELAN Primary Care Provider Assessment Encounter Date Assessment Date Assessment LastModified by Organization Details LastModified Time 12/28/2024 12/28/2024 Patient is _33__weeks . Discussed plan. Not available 12/28/2024 12:56:42 Plan of Treatment Reminders Order Date Submit Date Provider Last Modified By Organization Details Last Modified Time Details Appointments OB ROUTINE 2024 11:00A M An Pierre CNM Not available Not available Not available NST 2024 11:30A M NST SCHEDULE Not available Not available Not available U/S OB GROWTH 2024 10:00A M ULTRASOUND Not available Not available Not available OB ROUTINE 2024 10:45A M An Pierer CNM Not available Not available Not available Lab None recorde d. Referral None recorde d. Procedures None recorde d. Surgeries None recorde d. Imaging None recorde d. Medication Orders None recorde d. Patient TargetsNo targets recorded. Patient InstructionsNo instructions recorded. Reason for Referral None Reported. Results Created Date Observation Date Name Description Value Unit Range Abnormal Flag Note LastModifiedBy Organization Detail LastModifiedTime 08/05/1908/05/2024 US, obste tric, nucha l trans lucen cy No observ ation record ed. [facility] [address], [place], [address], 08/05/2024 17:09:58 08/05/19 25 08/05/2024 US, obste tric, nucha l trans lucen cy No observ ation record ed. [email or web address] [facility] [address], [place], [address], 08/06/2024 23:12:57 09/28/19 25 09/27/2024 US, obste tric, 2nd or 3rd trime ster No observ ation record ed. [email or web address] [facility] [address], [place], [address], 09/27/2024 14:12:31 09/28/19 25 09/27/2024 US, obste tric, 2nd or 3rd trime ster No observ ation record ed. [email or web address] [facility] [address], [place], [address], 09/29/2024 17:02:24 11/03/19 25 11/02/2024 US, kidne y No observ ation record ed. [email or web address] [id number] [facility] [address] [place] [address], [address], 11/03/2024 14:45:15 11/03/19 25 11/02/2024 US, kidne y No observ ation record ed. [email or web address] [id number] [facility] [address], [address], 11/03/2024 14:45:15 12/16/19 25 12/15/2024 US, obste tric, follo w-up No observ ation record ed. [facility] [address], [place], [address], 12/15/2024 17:52:47 12/16/19 25 12/15/2024 US, obste tric, follo w-up No observ ation record ed. [email or web address] [facility] [address], [place], [address], 12/22/2024 12:35:56 Result Notes None recorded. Problems Name Problem SNOMED Code Status Onset Date Resolution Date Notes Provider Name and Address Organization Details Recorded Time 97237639 Active 2024 Lolita Lindsey [facility], [facility] 5 11:14:53 Genital herpes simplex 48897372 Active valtrex suppressi on at 36 weeks BREE BARRIOS MD [address], [place], [address], [facility] 5 11:27:54 Bipolar disorder 04023918 Active 2024 Aishwarya Shelton [facility], [facility] 5 13:17:15 Mixed anxiety and depressiv e disorder 216327162 Active Aishwarya Shelton [facility] 5 13:21:35 Bipolar disorder 22809736 Active 2024 Aishwarya Shelton [facility], [facility] 5 13:17:15 Herpes simplex 05605267 Active 2024 Aishwarya Shelton [facility], [facility] 5 13:21:09 Mixed anxiety and depressiv e disorder 227405421 Active Aishwarya Shelton [facility] 5 13:21:35 Problem Notes None recorded. Procedures Surgical History Date Name Laterality Status Provider Name and Address Organization Details Recorded Time 06/22/19 18 procedure on face completed Aishwarya Shelton [facility] 09/27/2024 13:19:08 06/22/19 17 Date of Last Colonoscopy completed Aishwaryakeshia Shelton [facility] 10/25/2024 10:58:39 06/22/19 17 Colonoscopy completed Aish[address]akeshia Shelton [facility] 10/25/2024 10:59:41 Imaging Results None recorded. Procedure Notes None recorded. Medical Equipment None Reported. Allergies No known drug allergies Medications Name Sig Start Date Stop Date Status Note LastModified by Organization Details LastModified Time sertraline 100 mg tablet TAKE 1 TABLET BY MOUTH ONCE DAILY active Not Available Not Available No t Available valacyclovi r 500 mg tablet TAKE 1 TABLET BY MOUTH ONCE DAILY 11/23 completed Not Available Not Available Not Available ondansetron 8 mg disintegrat ing tablet Place 1 tablet every 6-8 hours by transling ual route as needed. 12/15 completed Not Available Not Available Not Available doxycycline monohydrate 100 mg capsule TAKE 1 CAPSULE BY MOUTH TWICE DAILY 07/08 completed Not Available Not Available Not Available oseltamivir 75 mg capsule TAKE 1 CAPSULE BY MOUTH TWICE DAILY FOR 5 DAYS 11/23 completed Not Available Not Available Not Available docusate sodium 100 mg capsule TAKE 1 CAPSULE BY MOUTH EVERY DAY AT BEDTIME NEEDED FOR CONSTIPAT ION 09/03 completed Not Available Not Available Not Available omeprazole 20 mg capsule,del ayed release TAKE 1 CAPSULE BY MOUTH ONCE DAILY 12/15 completed Not Available Not Available Not Available ondansetron 4 mg disintegrat ing tablet DISSOLVE 1 TABLET IN MOUTH EVERY 8 HOURS NEEDED FOR NAUSEA 11/23 completed Not Available Not Available Not Available metoclopram junie 10 mg tablet Take 1 tablet 4 times a day by oral route. 12/15 completed Not Available Not Available Not Available bupropion HCl XL 150 mg 24 hr tablet, extended release TAKE 1 TABLET BY MOUTH ONCE DAILY IN THE MORNING active Not Available Not Available No t Available Zoloft 12/15 completed Not Available Not Available Not Available lurasidone 40 mg tablet Take 1 tablet every day by oral route for 90 days. 12/15 completed Not Available Not Available Not Available Latuda 11/23 completed Not Available Not Available Not Available lurasidone 20 mg tablet TAKE 1 TABLET BY MOUTH IN THE EVENING WITH FOOD ONCE DAILY 07/08 completed Not Available Not Available Not Available Barbie (28) 0.15 mg-0.03 mg tablet TAKE 1 TABLET BY MOUTH ONCE DAILY 10/25 completed Not Available Not Available Not Available lurasidone 60 mg tablet TAKE 1 TABLET BY MOUTH ONCE DAILY IN THE EVENING WITH FOOD active Not Available Not Available No t Available Vitals Date Recorded Body weight Systolic And Diastolic Provider Name and Address Organization Details Last Updated DateTime 12/28/2024 42733.46541 g 107/74 mm[Hg] Birgit Juarez [facility] 12/28/2024 12:05:23 Social History Question Answer Notes LastModified by Organizat ion Details LastModified Time Tobacco Smoking Status Former Smoker Aishwarya Sifuenteslamin elliott, [facility] 09/27/2024 13:18:38 Do You Have An Advance Directive? No [email or web address] Information not available 07/08/2024 If You Are , What Was Your Level Of Alcohol Consumption Prior To ? Occasional [email or web address] Information not available 10/25/2024 Are You Blind Or Do You Have Difficulty Seeing? No [email or web address] Information not available 07/08/2024 What Is Your Level Of Caffeine Consumption? Moderate [email or web address] Information not available 07/08/2024 How Much Tobacco Do You Chew? None [email or web address] Information not available 07/08/2024 In The 14 Days Before Symptom Onset, Have You Had Close Contact With A Laboratory-confir med COVID-19 While That Case Was Ill? No [email or web address] Information not available 07/08/2024 In The 14 Days Before Symptom Onset, Have You Had Close Contact With A Person Who Is Under Investigation For COVID-19 While That Person Was Ill? No [email or web address] Information not available 07/08/2024 Have You Been To An Area Known To Be High Risk For COVID-19? No [email or web address] Information not available 07/08/2024 Are You Deaf Or Do You Have Serious Difficulty Hearing? No [email or web address] Information not available 07/08/2024 What Type Of Diet Are You Following? REGULAR [email or web address] Information not available 07/08/2024 What Is The Highest Grade Or Level Of School You Have Completed Or The Highest Degree You Have Received? [id number] [email or web address] Information not available 07/08/2024 Are There Any Guns Present In Your Home? No [email or web address] Information not available 07/08/2024 Do You Use Protection During Sex? No [email or web address] Information not available 07/08/2024 Do You Use Your Seat Belt Or Car Seat Routinely? Yes [email or web address] Information not available 07/08/2024 Are You Sexually Active? Yes Information not available 07/08/2024 Do You Have Smoke And Carbon Monoxide Detectors In Your Home? Yes [email or web address] Information not available 07/08/2024 How Much Tobacco Do You Smoke? No [email or web address] Information not available 07/08/2024 Do You Use Sunscreen Routinely? Yes [email or web address] Information not available 07/08/2024 Have You Used IV Drugs? No Information not available 07/08/2024 Do You Have Difficulty Walking Or Climbing Stairs? No Information not available 07/08/2024 Sex: Unknown Functional Status Question Answer Note LastModified by Organizat ion Details LastModified Time Do you use any illicit or recreational drugs? No [email or web address] Information not available 07/08/2024 Do you or have you ever used any other forms of tobacco or nicotine? Yes [email or web address] Information not available 09/27/2024 What is your level of alcohol consumption? None [email or web address] Information not available 07/08/2024 Are you currently employed? Yes [email or web address] Information not available 07/08/2024 Are you able to walk? [email or web address] Information not available 07/08/2024 Are you able to care for yourself? 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 No [email or web address] Information not available 07/08/2024 Do you or have you ever used e-cigarettes or vape? Current user of electronic cigarettes [email or web address] Information not available 09/27/2024 What is your exercise level? Moderate [email or web address] Information not available 07/08/2024 Mental Status Question Answer Note LastModified by Organization D etails LastModified Time Do you feel stressed (tense, restless, nervous, or anxious, or unable to sleep at night)? [id number] [email or web address] Information not available 07/08/2024 Family History Relationship Description Onset Age of this Age Resolved Age Notes LastModified by Organization Details LastModified Time Unspecified Relation Family history unknown [email or web address] Not available 2024 09:53:53 Medical History Condition [...] of Flow (days) 5 Current Control Method Are cycles usually normal Y Date of Last Colonoscopy 06/22/2016 Frequency of Cycle (Q days) 24 Sexually Active? Y Date of DEXA bone scan Age of first menstrual cycle 8 Date of Last Pap Smear Sexual Problems? N Desired Control Method None LMP Definite N Obstetrics History GPAL:G 1 P 0 0 0 0 Type Value Living 0 Total 1 Past Encounters Encounter ID Performer Location Encounter Start Date Encounter Closed Date Diagnosis/Indication Diagnosis SNOMED-CT Code Diagnosis ICD10 Code Diagnosis Note [id number] Isaac Patino MD [facility] [address] [address] 12/15/2024 13:51:45 12/15/2024 14:50:51 Third trimester 11981603 Z34.03 [id number] Isaac Patino MD [facility] [address] [address] 12/15/2024 14:35:28 12/15/2024 15:23:21 Observational assessment 836409899 Z03.74 Z3A.31 [id number] [facility] [address] [address] 12/28/2024 11:48:13 12/28/2024 12:57:57 Gestation period, 33 weeks 87453733 Z3A.33 cont pnv Health Concerns Section Related Observation LastModified by Organization Detai ls LastModified Time None Recorded Concern Status LastModified by Organization Details LastModified Time None Recorded Payers Encounter Date Sequence Insurance Name Policy Number Policy Wright Covered Member ID Wright Member ID Guarantor Name 12/28/2024 1 [facility] (MEDICAID HMO) [id number] Adilene Wehrle [id number] Adilene Wehrle OBGyn Episode Ob Episode Information Episode Created Date Number of Fetuses Patient Bloodtype Patient rh Status Prepregnancy Weight lbs Domestic Partner Domestic Partner Phone Father Name Hospital Unit Coordinator Status 08/05/19 25 1 O Positive 130 Claus Helga OPEN Fetus Data First Name Last Name Admitted to NICU Weight (g) Sex Living Outcome Pediatric Complications Fetus ID Race Codes Race Delivery Type [id number] Problems Problem Notes Anterior placenta 32wk growt h us Problem Name Start Date End Date Resolution Snomed Code Not e Mixed anxiety and depressive disorder 562289435 Bipolar disorder 09/27/2024 [id number] Genital herpes simplex 51964007 valtrex suppres kamaljit at 36 weeks Wu [...] Date Ultra Sound Latest Days Gestation 0 [email or web address] 08/05/2024 02/15/20 25 0 Pre-gigi Flowsheet Flowsheet Date 08/05/2024 Botello Score Blood Edema Fundus Height Fundus Units Glucose Ketones Leukocytes Nitrite Labor Signs Protein Cervic Dilation Cervic Effacement Cervic Station Type Weight in lbs Pre/Post Dialysis Refused Weight 130.906584098037 BP Diastolic BP Location Tested BP Systolic BP Type 73 L arm 114 sitting Fetus Heart Rate Present A 161 Fetus Movement Comments Patient presents to [facility] care. Nausea slightly worse, ran [...] Weight in lbs Pre/Post Dialysis Refused Weight 134.54596778232 BP Diastolic BP Location Tested BP Systolic [...] Weight in lbs Pre/Post Dialysis Refused Weight 137.441017209194 BP Diastolic BP Location Tested BP Systolic [...] Type Weight in lbs Pre/Post Dialysis Refused 145.9460819385 BP Diastolic BP Location Tested BP Systolic BP Type 71 118 Fetus Heart Rate Present A 144 Present Fetus Movement A Yes Comments Patient is having back pain, nausea and vomiting.lifting 60 lbs at work, note for 25 lbs or less given +FM plan ice, maternity support belt at next visit, 28 week glucose test, education and precautions Flowsheet Date 11/23/2024 Botello Score Blood Edema Fundus Height Fundus Units Glucose Ketones Leukocytes Nitrite Labor Signs Protein Cervic Dilation Cervic Effacement Cervic Station neg none Type Weight in lbs Pre/Post Dialysis Refused Weight 148.971961091393 BP Diastolic BP Location Tested BP Systolic BP Type 72 106 Fetus Heart Rate Present A 158 Present Fetus Movement A Yes Comments Patient is having nausea and vomiting. travel precautions going to [place] to visit her mother, +FM glucose today, f/u 2 weeks Flowsheet Date 12/15/2024 Botello Score Blood Edema Fundus Height Fundus Units Glucose Ketones Leukocytes Nitrite Labor Signs Protein Cervic Dilation Cervic Effacement Cervic Station 27 cm Type Weight in lbs Pre/Post Dialysis Refused Weight 146.599483299484 BP Diastolic BP Location Tested BP Systolic BP Type 71 L arm 113 sitting Fetus Heart Rate Present A 158 Present Fetus Movement A Yes Comments no complaints, no problems, routine care, no contractions, no vaginal bleeding, no loss of fluid, no cramping Flowsheet Date 12/15/2024 Botello Score Blood Edema Fundus Height Fundus Units Glucose Ketones Leukocytes Nitrite Labor Signs Protein Cervic Dilation Cervic Effacement Cervic Station Type Weight in lbs Pre/Post Dialysis Refused BP Diastolic BP Location Tested BP Systolic BP Type Fetus Heart Rate Present Fetus Movement Comments Flowsheet Date 12/28/2024 Botello Score Blood Edema Fundus Height Fundus Units Glucose Ketones Leukocytes Nitrite Labor Signs Protein Cervic Dilation Cervic Effacement Cervic Station Type Weight in lbs Pre/Post Dialysis Refused 148.348661038007 BP Diastolic BP Location Tested BP Systolic BP Type 74 L arm 107 sitting Fetus Heart Rate Present Fetus Movement A Yes Comments NST done, to ld pt c/o leaka ge of fluid Flowsheet Date 12/28/2024 Botello Score Blood Edema Fundus Height Fundus Units Glucose Ketones Leukocytes Nitrite Labor Signs Protein Cervic Dilation Cervic Effacement Cervic Station Type Weight in lbs Pre/Post Dialysis Refused BP Diastolic BP Location Tested BP Systolic BP Type Fetus Heart Rate Present Fetus Movement Comments Menstrual History Last Menstrual Date Menses Monthly [...]
--- OUTSIDE RECORDS SUMMARY | 2024-12-28 12:08 | XMS_ITS | Data Portability ---
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 Discussed plan. [email or web address] Not available 11/23/2024 11:10:24 12/15/2024 12/15/2024 Patient is ___weeks . Discussed plan. [email or web address] Not available 12/15/2024 14:12:14 12/28/2024 12/28/2024 Patient is _33__weeks . Discussed plan. [email or web address] Not available 12/28/2024 12:56:42 Plan of Treatment [...] available OB ROUTINE 2024 10:45A M An Pierre CNM Not available Not available Not available Lab None recorde d. Referral None recorde d. Procedures None recorde d. Surgeries None recorde d. Imaging US, obstetr ic, follow- up 2024 025 [email or web address] [place], [address], [place], [address], 12/15/2024 22:54:00 Medication Orders None recorde d. Patient TargetsNo targets recorded. Patient InstructionsNo instructions recorded. Reason for Referral None Reported. Results Created Date Observation Date Name Description Value Unit Range Abnormal Flag Note LastModifiedBy Organization Detail LastModifiedTime 11/24/19 25 11/23/2024 GTT - GESTA CHELSY L DELANEY N, ACOG OB glucose, 1 hour screen 83 mg/dL 70-[address] [facility] (Lab) [address] [facility], [place], [address], 11/24/2024 12:17:13 11/24/19 25 11/23/2024 HIV 1/2 ANTIG EN/AN TIBOD Y, REFLE X CONFI RMATI ON HIV antigen/anti body Nonrea ctive nonrea ctive HIV-1 antig en and HIV-1 /HIV- 2 antib odies were not detec azam. No labor atory evide nce of HIV infec tion. Not Available [facility] (Lab) [address], [place], [address], 11/24/2024 12:17:13 11/24/19 25 11/23/2024 HEMAT OCRIT (HCT) HCT 32.9 % (based on docume nted legal sex) 34.0-4 5.0 low Not Available [facility] (Lab) [address] [place], [address], 11/24/2024 12:17:13 11/24/19 25 11/23/2024 HEMOG LOBIN (HGB) HGB 11.3 g/dL (based on docume nted legal sex) 11.6-1 5.4 low Not Available [facility] (Lab) [address] [facility], [place], [address], 11/24/2024 12:17:14 11/24/19 25 11/23/2024 RPR SCREE N, REFLE X TITER /CONF IRMAT ION RPR qualitative Nonrea ctive nonrea ctive Not Available [facility] (Lab) [address], [place], [address], 11/24/2024 12:17:14 11/03/19 25 11/02/2024 US, kidne y No observ ation record ed. [address] [facility] [address], [place], [address], 11/03/2024 14:45:15 11/03/19 25 11/02/2024 US, kidne y No observ ation record ed. [address] [facility] [address], [place], [address], 11/03/2024 14:45:15 12/16/19 25 12/15/2024 US, obste tric, follo w-up No observ ation record ed. [facility] [address], [place], [address], 12/15/2024 17:52:47 12/16/19 25 12/15/2024 US, obste tric, follo w-up No observ ation record ed. [address], [place], [address], 12/22/2024 12:35:56 Result Notes None recorded. Problems Name Problem SNOMED Code Status Onset Date Resolution Date Notes Provider Name and Address Organization Details Recorded Time 32766859 Active 2024 Lolita Lindsey null, [facility] 11:14:53 Genital herpes simplex 31596096 Active valtrex suppressi on at 36 weeks BREE BARRIOS MD [address], [place], [address], [facility] 5 11:27:54 Bipolar disorder 11096965 Active 2024 Aishwarya elliott, [facility] 13:17:15 Mixed anxiety and depressiv e disorder 240033004 Active Aishwarya Shelton null, [facility] 5 13:21:35 Bipolar disorder 68970638 Active 2024 Aishwarya Sifuentestz earl, [facility] 5 13:17:15 Herpes simplex 85077075 Active 2024 [facility] 13:21:09 Mixed anxiety and depressiv e disorder 247790114 Active Aishwarya Sifuentestz [facility] 5 13:21:35 Problem Notes None recorded. Procedures Surgical History Date Name Laterality Status Provider Name and Address Organization Details Recorded Time 06/22/19 18 procedure on face completed Aishwarya Shelton [facility] 09/27/2024 13:19:08 06/22/19 17 Date of Last Colonoscopy completed Aishwarya Shelton [facility] 10/25/2024 10:58:39 06/22/19 17 Colonoscopy completed [facility] 10/25/2024 10:59:41 Imaging Results None recorded. [...] Body mass index (BMI) Body weight Systolic And Diastolic Provider Name and Address Organization Details Last Updated DateTime 11/23/2024 167.64 cm 23.9 kg/m2 75038.67 g 106/72 mm[Hg] Aishwarya Shelton [facility] 11/23/2024 10:44:06 Date Recorded Body height Body mass index (BMI) Body weight Systolic And Diastolic Provider Name and Address Organization Details Last Updated DateTime 12/15/2024 167.64 cm 23.6 kg/m2 08619.49 g 113/71 mm[Hg] Birgit Juarez [facility] 12/15/2024 14:12:46 Date Recorded Body weight Systolic And Diastolic Provider Name and Address Organization Details Last Updated DateTime 12/28/2024 37536.23180 g 107/74 mm[Hg] Birgit Juarez [facility] 12/28/2024 12:05:23 Social History Question Answer Notes LastModified by Organizat ion Details LastModified Time Tobacco Smoking Status Former Smoker Aishwarya Shelton earl, [facility] 09/27/2024 13:18:38 Do You Have An Advance Directive? No [email or web address] Information not available 07/08/2024 If You Are , What Was Your Level Of Alcohol Consumption Prior To ? Occasional [email or web address] Information not available 10/25/2024 Are You Blind Or Do You Have Difficulty Seeing? No [email or web address] Information not available 07/08/2024 What Is Your Level Of Caffeine Consumption? Moderate [email or web address] Information not available 07/08/2024 How Much Tobacco Do You Chew? None [email or web address] Information not available 07/08/2024 In The 14 Days Before Symptom Onset, Have You Had Close Contact With A Laboratory-confir med COVID-19 While That Case Was Ill? No [email or web address] Information not available 07/08/2024 In The 14 Days Before Symptom Onset, Have You Had Close Contact With A Person Who Is Under Investigation For COVID-19 While That Person Was Ill? No [email or web address] Information not available 07/08/2024 Have You Been To An Area Known To Be High Risk For COVID-19? No [email or web address] Information not available 07/08/2024 Are You Deaf Or Do You Have Serious Difficulty Hearing? No [email or web address] Information not available 07/08/2024 What Type Of Diet Are You Following? REGULAR [email or web address] Information not available 07/08/2024 What Is The Highest Grade Or Level Of School You Have Completed Or The Highest Degree You Have Received? [id number] [email or web address] Information not available 07/08/2024 Are There Any Guns Present In Your Home? No [email or web address] Information not available 07/08/2024 Do You Use Protection During Sex? No [email or web address] Information not available 07/08/2024 Do You Use Your Seat Belt Or Car Seat Routinely? Yes [email or web address] Information not available 07/08/2024 Are You Sexually Active? Yes [email or web address] Information not available 07/08/2024 Do You Have Smoke And Carbon Monoxide Detectors In Your Home? Yes [email or web address] Information not available 07/08/2024 How Much Tobacco Do You Smoke? No [email or web address] Information not available 07/08/2024 Do You Use Sunscreen Routinely? Yes [email or web address] Information not available 07/08/2024 Have You Used IV Drugs? No [email or web address] Information not available 07/08/2024 Do You Have Difficulty Walking Or Climbing Stairs? No [email or web address] Information not available 07/08/2024 Sex: Unknown Functional Status Question Answer Note LastModified by Organizat ion Details LastModified Time Do you use any illicit or recreational drugs? No [email or web address] Information not available 07/08/2024 Do you or have you ever used any other forms of tobacco or nicotine? Yes [email or web address] Information not available 09/27/2024 What is your level of alcohol consumption? None [email or web address] Information not available 07/08/2024 Are you currently employed? Yes [email or web address] Information not available 07/08/2024 Are you able to walk? YESWOREST [email or web address] Information not available 07/08/2024 Are you able to care for yourself? Yes [email or web address] Information not available 07/08/2024 What is your occupation? [employer] Information not available 07/08/2024 Do you have difficulty dressing or bathing? No [email or web address] Information not available 07/08/2024 Do you or have you ever used e-cigarettes or vape? Current user of electronic cigarettes [email or web address] Information not available 09/27/2024 What is your exercise level? Moderate [email or web address] Information not available 07/08/2024 Mental Status Question Answer Note LastModified by Organization D etails LastModified Time Do you feel stressed (tense, restless, nervous, or anxious, or unable to sleep at night)? [id number] [email or web address] Information not available 07/08/2024 Family History Relationship Description Onset Age of this Age Resolved Age Notes LastModified by Organization Details LastModified Time Unspecified Relation Family history unknown [email or web address] Not available 2024 09:53:53 Medical History Condition [...] SNOMED-CT Code Diagnosis ICD10 Code Diagnosis Note [id number] Isaac Patino MD [place] [address] [address] 07/08/2024 09:38:08 07/08/2024 09:55:47 [id number] BREE BARRIOS MD [place] [address] [address] 07/08/2024 09:38:26 07/08/2024 11:17:32 Nausea and vomiting 04342770 R11.2 - little improvemen t with zofran- will try reglan test positive 839170545 Z32.01 1. Exam today within normal limits.2. Ultrasound today confirms GA and viability. EDC . GC/Clamydi a testing done: will f/u as indicated. 4. ACOG guidelines and plan of care for reviewed with patient. All questions answered.5 . Return to office at 12 weeks for new OB visit6. Will need new OB labs at next visit.7. Genetic screening: desires. Borderline personality disorder 05910400 F60.3 - well controlled on latuda and zoloft- d/c'd bupropion per Psych recommenda tions at beginning of , discussed safety in , ok to restart if symptoms worsen [id number] Isaac Patino MD [place] [address] [address] 08/05/2024 10:37:40 08/05/2024 11:12:45 screening 937260341 Z36.82 Z3A.12 [id number] BREE BARRIOS MD [place] [address] [address] 08/05/2024 10:50:11 08/05/2024 12:02:53 Nausea and vomiting 96168184 R11.2 - improved with zofran and reglan together Bipolar disorder 5276204 4 F31.9 - mood worsening without bupropion- will restart bupropion- continue latuda and sertraline - no SI/HI screening 2437 95078 Z36.0 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 69941673 Z31.430 Gestation period, 12 weeks 44888092 Z3A.12 [id number] Isaac Patino MD [place] [address],[place] [address] 09/03/2024 09:31:04 09/03/2024 10:27:50 46902004 Z33.1 Routine an tenatal care 996799080 Z34.90 [id number] Isaac Patino MD [place] [address] [address] 09/27/2024 11:28:05 09/27/2024 13:09:38 screening for malformation 758639396 Z36.3 Z3A.20 [id number] [facility] [address] [address] 09/27/2024 11:28:18 09/27/2024 13:09:11 Gestation period, 20 weeks 79366090 Z3A.20 continue vitamin [id number] [facility] [address] [address] 10/25/2024 10:00:34 10/25/2024 10:36:06 Gestation period, 24 weeks 400130197 Z3A.24 Low back pain 741669980 M54.50 icereduce liftingmat ernity support belt next visit [id number] An Pierre CNM [place] [address],[place] [address] 11/23/2024 10:25:39 11/23/2024 11:15:45 Gestation period, 28 weeks 23098786 Z3A.28 [id number] Isaac Patino MD [place] [address],[place] [address] 12/15/2024 13:51:45 12/15/2024 14:50:51 Third trimester 58811151 Z34.03 [id number] Isaac Patino MD [place] [address],[place] [address] 12/15/2024 14:35:28 12/15/2024 15:23:21 Observational assessment 807921816 Z03.74 Z3A.31 [id number] [facility] [address] [address] 12/28/2024 11:48:13 12/28/2024 12:57:57 Gestation period, 33 weeks 95550352 Z3A.33 cont pnv Health Concerns Section Related Observation LastModified by Organization Detai ls LastModified Time None Recorded Concern Status LastModified by Organization Details LastModified Time None Recorded Advance Directives Directive N: Payers Insurance Date Sequence Insurance Name Policy Number Policy Wright Covered Member ID Wright Member ID Guarantor Name 12/26/2024 1 [facility] (MEDICAID HMO) [id number] Adilene Viera [id number] Adilene Wehrle OBGyn Episode Ob Episode Information Episode Created Date Number of Fetuses Patient Bloodtype Patient rh Status Prepregnancy Weight lbs Domestic Partner Domestic Partner Phone Father Name Humanities Division Chair Status 08/05/19 25 1 O Positive 130 Claus Helga OPEN Fetus Data First Name Last Name Admitted to NICU Weight (g) Sex Living Outcome Pediatric Complications Fetus ID Race Codes Race Delivery Type [id number] Problems Problem Notes Anterior placenta 32wk growt h us Problem Name Start Date End Date Resolution Snomed Code Not e Mixed anxiety and depressive disorder 661084496 Bipolar disorder 09/27/2024 35659974 Genital herpes simplex 80986796 valtrex suppres kamaljit at 36 weeks Wu [...] Date Ultra Sound Latest Days Gestation 0 [email or web address] 08/05/2024 02/15/20 25 0 Pre- Flowsheet Flowsheet Date 08/05/2024 Botello Score Blood Edema Fundus Height Fundus Units Glucose Ketones Leukocytes Nitrite Labor Signs Protein Cervic Dilation Cervic Effacement Cervic Station Type Weight in lbs Pre/Post Dialysis Refused Weight 130.821220670675 BP Diastolic BP Location Tested BP Systolic BP Type 73 L arm 114 sitting Fetus Heart Rate Present A 161 Fetus Movement Comments Patient presents to [facility] care. Nausea slightly worse, ran [...] Weight in lbs Pre/Post Dialysis Refused Weight 134.39301809879 BP Diastolic BP Location Tested BP Systolic [...] Weight in lbs Pre/Post Dialysis Refused Weight 137.982791746271 BP Diastolic BP Location Tested BP Systolic [...] Type Weight in lbs Pre/Post Dialysis Refused 145.8803478153 BP Diastolic BP Location Tested BP Systolic [...] Weight in lbs Pre/Post Dialysis Refused Weight 148.434795576849 BP Diastolic BP Location Tested BP Systolic BP Type 72 106 Fetus Heart Rate Present A 158 Present Fetus Movement A Yes Comments Patient is having nausea and vomiting. travel precautions going to [place] to visit her mother, +FM glucose today, f/u 2 weeks Flowsheet Date 12/15/2024 Botello Score Blood Edema Fundus Height Fundus Units Glucose Ketones Leukocytes Nitrite Labor Signs Protein Cervic Dilation Cervic Effacement Cervic Station 27 cm Type Weight in lbs Pre/Post Dialysis Refused Weight 146.538252833219 BP Diastolic BP Location Tested BP Systolic [...] Type Weight in lbs Pre/Post Dialysis Refused 148.129056629583 BP Diastolic BP Location Tested BP Systolic [...]
--- OUTSIDE RECORDS SUMMARY | 2024-12-28 12:08 | XMS_ITS | Clinical Summary ---
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 cleared for discharge. [facility] burglary investigator met with the patient on 01/21 [...] now that she is cleared for discharge. [facility] burglary investigator met with the patient on 01/21 [...] now that she is cleared for discharge. [facility] burglary investigator met with the patient on 01/21 [...] now that she is cleared for discharge. [facility] burglary investigator met with the patient on 01/21 [...] now that she is cleared for discharge. [facility] burglary investigator met with the patient on 01/21 [...] that she is cleared for discharge. [facility] met with the patient on 01/21 [...] that she is cleared for discharge. [facility] met with the patient on 01/21 [...] now that she is cleared for discharge. [facility] burglary investigator met with the patient on 01/21 [...] now that she is cleared for discharge. [facility] burglary investigator met with the patient on 01/21 [...] now that she is cleared for discharge. [facility] burglary investigator met with the patient on 01/21 [...] Denies feeling unsafe or any homicidal ideations. [facility] were called on 01/17. Hotline placed for abandonment on 01/20 because mom doesn't want to take her back now that she is cleared for discharge. [facility] burglary investigator met with the patient on 01/21 [...] Denies feeling unsafe or any homicidal ideations. [facility] were called on 01/17. Hotline placed for abandonment on 01/20 because mom doesn't want to take her back now that she is cleared for discharge. [facility] burglary investigator met with the patient on 01/21 [...] Denies feeling unsafe or any homicidal ideations. [facility] were called on 01/17. Hotline placed for abandonment on 01/20 because mom doesn't want to take her back now that she is cleared for discharge. [facility] burglary investigator met with the patient on 01/21 [...] now that she is cleared for discharge. [facility] burglary investigator met with the patient on 01/21 [...] now that she is cleared for discharge. [facility] burglary investigator met with the patient on 01/21 [...] now that she is cleared for discharge. [facility] burglary investigator met with the patient on 01/21 [...] now that she is cleared for discharge. [facility] burglary investigator met with the patient on 01/21 [...] Denies feeling unsafe or any homicidal ideations. [facility] were called on 01/17. Hotline placed for abandonment on 01/20 because mom doesn't want to take her back now that she is cleared for discharge. [facility] burglary investigator met with the patient on 01/21 [...] Denies feeling unsafe or any homicidal ideations. [facility] were called on 01/17. Hotline placed for abandonment on 01/20 because mom doesn't want to take her back now that she is cleared for discharge. [facility] burglary investigator met with the patient on 01/21 [...] now that she is cleared for discharge. [facility] burglary investigator met with the patient on 01/21 [...] now that she is cleared for discharge. [facility] burglary investigator met with the patient on 01/21 [...] now that she is cleared for discharge. [facility] burglary investigator met with the patient on 01/21 [...] now that she is cleared for discharge. [facility] burglary investigator met with the patient on 01/21 [...] Denies feeling unsafe or any homicidal ideations. [facility] were called on 01/17. [facility] not have concerns for patient's safety [...] Denies feeling unsafe or any homicidal ideations. [facility] was called on 01/17. [facility] does not have concerns for patientt's safety [...] Denies feeling unsafe or any homicidal ideations. [facility] does not have concerns for [...] Denies feeling unsafe or any homicidal ideations. [facility] was called on 01/17. [facility] does not have concerns for [...] alcohol occasionally and smokes cigarettes frequently. - Cad Draftsman about the use of THC, cigarette smoking and alcohol use Assessment & Plan (03/11/2021 3:15 PM CDT): Patient uses THC to feel better. It reduces her anxiety and improves her mood. Her urine was positive for THC. She drinks alcohol occasionally and smokes cigarettes frequently. - Cad Draftsman about the use of THC, cigarette smoking and alcohol use Assessment & Plan (03/10/2021 8:02 AM CDT): Patient uses THC to feel better. It reduces her anxiety and improves her mood. Her urine was positive for THC. She drinks alcohol occasionally and smokes cigarettes frequently. - Cad Draftsman about the use of THC, cigarette smoking and alcohol use Assessment & Plan (03/09/2021 11:00 AM CDT): Patient uses THC to feel better. It reduces her anxiety and improves her mood. Her urine was positive for THC. She drinks alcohol occasionally and smokes cigarettes frequently. - Cad Draftsman about the use of THC, cigarette smoking and alcohol use Assessment & Plan (03/08/2021 7:31 AM CDT): Patient uses THC to feel better. It reduces her anxiety and improves her mood. Her urine was positive for THC. She drinks alcohol occasionally and smokes cigarettes frequently. - Cad Draftsman about the use of THC, cigarette smoking and alcohol use Assessment & Plan (03/06/2021 6:41 AM CDT): Patient uses THC to feel better. It reduces her anxiety and improves her mood. Her urine was positive for THC. She drinks alcohol occasionally and smokes cigarettes frequently. - Cad Draftsman about the use of THC, cigarette smoking and alcohol use Assessment & Plan (03/05/2021 7:03 AM CDT): Patient uses THC to feel better. It reduces her anxiety and improves her mood. Her urine was positive for THC. She drinks alcohol occasionally and smokes cigarettes frequently. - Cad Draftsman about the use of THC, cigarette smoking and alcohol use Assessment & Plan (03/04/2021 2:01 PM CDT): Patient uses THC to feel better. It reduces her anxiety and improves her mood. Her urine was positive for THC. She drinks alcohol occasionally and smokes cigarettes frequently. - Cad [employer]sman about the use of THC, cigarette smoking and alcohol use Assessment & Plan (03/03/2021 6:39 AM CDT): Patient uses THC to feel better. It reduces her anxiety and improves her mood. Her urine was positive for THC. She drinks alcohol occasionally and smokes cigarettes frequently. - Cad [employer]sman about the use of THC, cigarette smoking and alcohol use Assessment & Plan (03/02/2021 6:29 AM CDT): Patient uses THC to feel better. It reduces her anxiety and improves her mood. Her urine was positive for THC. She drinks alcohol occasionally and smokes cigarettes frequently. - Cad Draftsman about the use of THC, cigarette smoking and alcohol use Assessment & Plan (03/01/2021 3:34 PM CDT): Patient uses THC to feel better. It reduces her anxiety and improves her mood. Her urine was positive for THC. She drinks alcohol occasionally and smokes cigarettes frequently. - Cad Draftsman about the use of THC, cigarette smoking and alcohol use Assessment & Plan (02/28/2021 5:59 PM CDT): Patient uses THC to feel better. It reduces her anxiety and improves her mood. Her urine was positive for THC. She drinks alcohol occasionally and smokes cigarettes frequently. - Cad Draftsman about the use of THC, cigarette smoking and alcohol use Assessment & Plan (02/27/2021 7:17 AM CDT): Patient uses THC to feel better. It reduces her anxiety and improves her mood. Her urine was positive for THC. She drinks alcohol occasionally and smokes cigarettes frequently. - Cad Draftsman about the use of THC, cigarette smoking and alcohol use Assessment & Plan (02/26/2021 10:12 AM CDT): Patient uses THC to feel better. It reduces her anxiety and improves her mood. Her urine was positive for THC. She drinks alcohol occasionally and smokes cigarettes frequently. - Cad Draftsman about the use of THC, cigarette smoking and alcohol use Assessment & Plan (02/25/2021 11:16 AM CDT): Patient uses THC to feel better. It reduces her anxiety and improves her mood. Her urine was positive for THC. She drinks alcohol occasionally and smokes cigarettes frequently. - Cad Draftsman about the use of THC, cigarette smoking and alcohol use Assessment & Plan (02/24/2021 10:27 AM CDT): Patient uses THC to feel better. It reduces her anxiety and improves her mood. Her urine was positive for THC. She drinks alcohol occasionally and smokes cigarettes frequently. - Cad Draftsman about the use of THC, cigarette smoking and alcohol use Assessment & Plan (02/23/2021 1:11 PM CDT): Patient uses THC to feel better. It reduces her anxiety and improves her mood. Her urine was positive for THC. She drinks alcohol occasionally and smokes cigarettes frequently. - Cad Draftsman about the use of THC, cigarette smoking and alcohol use Assessment & Plan (02/22/2021 5:55 PM CDT): Patient uses THC to feel better. It reduces her anxiety and improves her mood. Her urine was positive for THC. She drinks alcohol occasionally and smokes cigarettes frequently. - Cad Draftsman about the use of THC, cigarette smoking and alcohol use Assessment & Plan (02/20/2021 10:23 AM CDT): Patient uses THC to feel better. It reduces her anxiety and improves her mood. Her urine was positive for THC. She drinks alcohol occasionally and smokes cigarettes frequently. - Cad Draftsman about the use of THC, cigarette smoking and alcohol use Assessment & Plan (02/19/2021 11:43 AM CDT): Patient uses THC to feel better. It reduces her anxiety and improves her mood. Her urine was positive for THC. She drinks alcohol occasionally and smokes cigarettes frequently. - Cad Draftsman about the use of THC, cigarette smoking and alcohol use Assessment & Plan (02/18/2021 5:53 PM CDT): Patient uses THC to feel better. It reduces her anxiety and improves her mood. Her urine was positive for THC. She drinks alcohol occasionally and smokes cigarettes frequently. - Cad Draftsman about the use of THC, cigarette smoking and alcohol use Assessment & Plan (02/17/2021 12:53 PM CDT): Patient uses THC to feel better. It reduces her anxiety and improves her mood. Her urine was positive for THC. She drinks alcohol occasionally and smokes cigarettes frequently. - Cad Draftsman about the use of THC, cigarette smoking and alcohol use Assessment & Plan (02/16/2021 12:00 PM CDT): Patient uses THC to feel better. It reduces her anxiety and improves her mood. Her urine was positive for THC. She drinks alcohol occasionally and smokes cigarettes frequently. - Cad Draftsman about the use of THC, cigarette smoking and alcohol use Assessment & Plan (02/14/2021 10:33 AM CDT): Patient uses THC to feel better. It reduces her anxiety and improves her mood. Her urine was positive for THC. She drinks alcohol occasionally and smokes cigarettes frequently. - Cad Draftsman about the use of THC, cigarette smoking and alcohol use Assessment & Plan (02/13/2021 8:28 AM CDT): Patient uses THC to feel better. It reduces her anxiety and improves her mood. Her urine was positive for THC. She drinks alcohol occasionally and smokes cigarettes frequently. - Cad Draftsman about the use of THC, cigarette smoking and alcohol use Assessment & Plan (02/12/2021 10:14 AM CDT): Patient uses THC to feel better. It reduces her anxiety and improves her mood. Her urine was positive for THC. She drinks alcohol occasionally and smokes cigarettes frequently. - Cad Draftsman about the use of THC, cigarette smoking and alcohol use Assessment & Plan (02/11/2021 12:50 PM CDT): Patient uses THC to feel better. It reduces her anxiety and improves her mood. Her urine was positive for THC. She drinks alcohol occasionally and smokes cigarettes frequently. - Cad Draftsman about the use of THC, cigarette smoking and alcohol use Assessment & Plan (02/10/2021 1:50 PM CDT): Patient uses THC to feel better. It reduces her anxiety and improves her mood. Her urine was positive for THC. She drinks alcohol occasionally and smokes cigarettes frequently. - Cad Draftsman about the use of THC, cigarette smoking and alcohol use Assessment & Plan (02/09/2021 11:31 AM CDT): Patient uses THC to feel better. It reduces her anxiety and improves her mood. Her urine was positive for THC. She drinks alcohol occasionally and smokes cigarettes frequently. - Cad Draftsman about the use of THC, cigarette smoking and alcohol use Assessment & Plan (02/08/2021 7:14 AM CDT): Patient uses THC to feel better. It reduces her anxiety and improves her mood. Her urine was positive for THC. She drinks alcohol occasionally and smokes cigarettes frequently. - Cad Draftsman about the use of THC, cigarette smoking and alcohol use Assessment & Plan (2021 10:03 AM CDT): Patient uses THC to feel better. It reduces her anxiety and improves her mood. Her urine was positive for THC. She drinks alcohol occasionally and smokes cigarettes frequently. - Cad Draftsman about the use of THC, cigarette smoking and alcohol use Assessment & Plan (02/06/2021 11:38 AM CDT): Patient uses THC to feel better. It reduces her anxiety and improves her mood. Her urine was positive for THC. She drinks alcohol occasionally and smokes cigarettes frequently. - Cad Draftsman about the use of THC, cigarette smoking and alcohol use Assessment & Plan (02/05/2021 10:21 AM CDT): Patient uses THC to feel better. It reduces her anxiety and improves her mood. Her urine was positive for THC. She drinks alcohol occasionally and smokes cigarettes frequently. - Cad Draftsman about the use of THC, cigarette smoking and alcohol use Assessment & Plan (02/04/2021 7:44 AM CDT): Patient uses THC to feel better. It reduces her anxiety and improves her mood. Her urine was positive for THC. She drinks alcohol occasionally and smokes cigarettes frequently. - Cad Draftsman about the use of THC, cigarette smoking and alcohol use Assessment & Plan (02/03/2021 12:11 PM CDT): Patient uses THC to feel better. It reduces her anxiety and improves her mood. Her urine was positive for THC. She drinks alcohol occasionally and smokes cigarettes frequently. - Cad Draftsman about the use of THC, cigarette smoking and alcohol use Assessment & Plan (02/02/2021 3:18 PM CDT): Patient uses THC to feel better. It reduces her anxiety and improves her mood. Her urine was positive for THC. She drinks alcohol occasionally and smokes cigarettes frequently. - Cad Draftsman about the use of THC, cigarette smoking and alcohol use Assessment & Plan (02/01/2021 10:29 AM CDT): Patient uses THC to feel better. It reduces her anxiety and improves her mood. Her urine was positive for THC. She drinks alcohol occasionally and smokes cigarettes frequently. - Cad Draftsman about the use of THC, cigarette smoking and alcohol use Assessment & Plan (01/31/2021 8:02 AM CDT): Patient uses THC to feel better. It reduces her anxiety and improves her mood. Her urine was positive for THC. She drinks alcohol occasionally and smokes cigarettes frequently. - Cad Draftsman about the use of THC, cigarette smoking and alcohol use Assessment & Plan (01/30/2021 9:32 AM CDT): Patient uses THC to feel better. It reduces her anxiety and improves her mood. Her urine was positive for THC. She drinks alcohol occasionally and smokes cigarettes frequently. - Cad Draftsman about the use of THC, cigarette smoking and alcohol use Assessment & Plan (01/29/2021 11:38 AM CDT): Patient uses THC to feel better. It reduces her anxiety and improves her mood. Her urine was positive for THC. She drinks alcohol occasionally and smokes cigarettes frequently. - Cad Draftsman about the use of THC, cigarette smoking and alcohol use Assessment & Plan (01/28/2021 11:25 AM CDT): Patient uses THC to feel better. It reduces her anxiety and improves her mood. Her urine was positive for THC. She drinks alcohol occasionally and smokes cigarettes frequently. - Cad Draftsman about the use of THC, cigarette smoking and alcohol use Assessment & Plan (01/27/2021 8:46 AM CDT): Patient uses THC to feel better. It reduces her anxiety and improves her mood. Her urine was positive for THC. She drinks alcohol occasionally and smokes cigarettes frequently. - Cad Draftsman about the use of THC, cigarette smoking and Alcohol use. Assessment & Plan (01/26/2021 3:06 PM CDT): Patient uses THC to feel better. It reduces her anxiety and improves her mood. Her urine was positive for THC. She drinks alcohol occasionally and smokes cigarettes frequently. - Cad Draftsman about the use of THC, cigarette smoking and Alcohol use. Assessment & Plan (01/25/2021 11:48 AM CDT): Patient uses THC to feel better. It reduces her anxiety and improves her mood. Her urine was positive for THC. She drinks alcohol occasionally and smokes cigarettes frequently. - Cad Draftsman about the use of THC, cigarette smoking and Alcohol use. Assessment & Plan (01/24/2021 7:37 AM CDT): Patient uses THC to feel better. It reduces her anxiety and improves her mood. Her urine was positive for THC. She drinks alcohol occasionally and smokes cigarettes frequently. - Cad Draftsman about the use of THC, cigarette smoking and Alcohol use. Assessment & Plan (01/23/2021 8:27 AM CDT): Patient uses THC to feel better. It reduces her anxiety and improves her mood. Her urine was positive for THC. She drinks alcohol occasionally and smokes cigarettes frequently. - Cad Draftsman about the use of THC, cigarette smoking and Alcohol use. Assessment & Plan (01/22/2021 6:08 PM CDT): Patient uses THC to feel better. It reduces her anxiety and improves her mood. Her urine was positive for THC. She drinks alcohol occasionally and smokes cigarettes frequently. - Cad Draftsman about the use of THC, cigarette smoking and Alcohol use. Assessment & Plan (01/21/2021 2:09 PM CDT): Patient uses THC to feel better. It reduces her anxiety and improves her mood. Her urine was positive for THC. She drinks alcohol occasionally and smokes cigarettes frequently. - Cad Draftsman about the use of THC, cigarette smoking and Alcohol use. Assessment & Plan (01/20/2021 5:28 PM CDT): Patient uses THC to feel better. It reduces her anxiety and improves her mood. Her urine was positive for THC. She drinks alcohol occasionally and smokes cigarettes frequently. - Cad Draftsman about the use of THC, cigarette smoking and Alcohol use. Assessment & Plan (01/19/2021 5:32 PM CDT): Patient uses THC to feel better. It reduces her anxiety and improves her mood. Her urine was positive for THC. She drinks alcohol occasionally and smokes cigarettes frequently. - Cad Draftsman about the use of THC, cigarette smoking and Alcohol use. Assessment & Plan (01/18/2021 11:58 AM CDT): Patient uses THC to feel better. It reduces her anxiety and improves her mood. Her urine was positive for THC. She drinks alcohol occasionally and smokes cigarettes frequently. - Cad Draftsman about the use of THC, cigarette smoking and Alcohol use. Assessment & Plan (01/17/2021 11:00 AM CDT): Patient uses THC to feel better. It reduces her anxiety and improves her mood. Her urine was positive for THC. She drinks alcohol occasionally and smokes cigarettes frequently. - Cad Draftsman about the use of THC, cigarette smoking and Alcohol use. Assessment & Plan (01/16/2021 1:11 PM CDT): Patient uses THC to feel better. It reduces her anxiety and improves her mood. Her urine was positive for THC. She drinks alcohol occasionally and smokes cigarettes frequently. - Cad Draftsman about the use of THC, cigarette smoking and Alcohol use. Assessment & Plan (01/15/2021 4:20 PM CDT): Patient uses THC to feel better. It reduces her anxiety and improves her mood. Her urine was positive for THC. She drinks alcohol and smokes cigarettes occasionally. - Cad Draftsman about the use of THC, cigarette smoking [...] plastic substitute - Bacitracin topical cream BID EMNDEZ for [...] having IBS and she follows up with [facility] gastroenterology. She has on/off mild diffuse abdominal pain that is not relieved by bowel movements as well as diarrhea. No vomiting or constipation. - Continue Cyproheptadine Assessment & Plan (01/18/2021 11:57 AM CDT): Adilene reports having IBS and she follows up with [facility] gastroenterology. She has on/off mild diffuse abdominal pain that is not relieved by bowel movements as well as diarrhea. No vomiting or constipation. - Continue Cyproheptadine Assessment & Plan (01/17/2021 11:00 AM CDT): Adilene reports having IBS and she follows up with [facility] gastro[facility]ology. She has on/off mild diffuse abdominal pain that is not relieved by bowel movements as well as diarrhea. No vomiting or constipation. - Continue Cyproheptadine Assessment & Plan (01/16/2021 1:11 PM CDT): Adilene reports having IBS and she follows up with [facility]. She has on/off diffuse abdominal pain that is not relieved by bowel movements as well as diarrhea. No vomiting or constipation. - Continue Cyproheptadine Assessment & Plan (01/15/2021 4:28 PM CDT): Adilene reports having IBS and she follows up with [facility]. She has on/off diffuse [...] CDT Respiratory Rate 16 08/30/2021 7:09 AM PATTERN ROOM ATTENDANT Oxygen Saturation 100% 09/19/2021 11:23 AM CDT Inhaled Oxygen Concentration - - Weight 64.2 kg (141 lb 9.6 oz) 09/19/2021 11:23 AM CDT Height 170.2 cm (5' 7.01) 08/28/2021 3:27 PM CS T Body Mass Index 22.17 08/28/2021 3:27 PM PATTERN ROOM ATTENDANT Plan of Treatment Not on file Insurance [facility] [place] [address] [place] [address] [place] [facility] Advance Directives For more information, please contact: [phone] * Full Code (Latest Code Status on File) Date Activated Date Inactivated Comments 08/28/2021 8:13 PM 08/30/2021 4:47 PM * Full Code Date Activated Date Inactivated Comments 01/15/2021 1:54 PM 03/13/2021 10:26 PM Care Teams Java Software Engineer Relationship Specialty Start Date End Date No, Physician PCP - General 08/07/21
--- OUTSIDE RECORDS SUMMARY | 2024-12-28 12:09 | XMS_ITS | Clinical Summary ---
Author Organization [facility] Address [address] [place] [address] Care Team Providers Care Filter Cleaner Name Role Phone Lena Sanders MD Primary Care Provider [phone] Source Comments [facility],non-owned Affiliates and Associated Physician Practices is amultiple site organization consisting of ambulatory clinics and hospital sitesin [place], [place], [place] and [place]. This disclosure is being madepursuant to the Care Everywhere program and may not contain all information available regarding this patient. Last updated 18.[employer] [facility] Allergies No known active allergies Medications * [...] on file Legal Sex Female 5:42 AM [employer] Gender Identity Not on file Sexual Orientation [...] season) 2024 DEPRESSION SCREENING 06/22/2024 INFLUENZA VACCINE (#1) 2025 ZOSTER VACCINE (1 of 2) 2053 [...] - [place] MEDICAID - OUT OF STATE [facility] Care Teams Filter Cleaner Relationship Specialty Start Date End Date Lena Sanders MD [address] [place] [address] PCP - General Family Medicine 01/23/17
--- OUTSIDE RECORDS SUMMARY | 2024-12-28 12:09 | XMS_ITS | Clinical Summary ---
Author Organization [facility] Address [facility] [place] [address] Care Team Providers Care Catering Staff Member Name Role Phone Lena Sanders MD Primary [...] metoclopramide (REGLAN) 10 MG tablet 5 Active Family History Medical History Relation Comments Diabetes [...] Sex Assigned at Female 07/10/2024 3:11 AM [employer] Legal Sex Female 8:07 AM CDT Gender Identity Not on file Sexual Orientation Not on file Last Filed Vital Signs Vital Sign Reading Time Taken Comments Blood Pressure 104/62 08/16/2024 1:44 PM [employer] Pulse 91 08/16/2024 1:44 PM [employer] Temperature 36.7 C (98.1 F) 08/16/2024 1:44 PM [employer] Respiratory Rate 15 07/10/2024 4:10 AM [employer] Oxygen Saturation 98% 08/16/2024 1:44 PM [employer] Inhaled Oxygen Concentration - - Weight 58.5 kg (129 lb) 08/16/2024 1:44 PM [employer] Height 167.6 cm (5' 6) 08/16/2024 1:44 PM [employer] Body Mass Index 20.82 08/16/2024 1:44 PM [employer] Plan of Treatment Health Maintenance Due Date Last Done Comments Annual Physical 2006 Meningococcal B Vaccine (1 of 2 - Standard) 2019 Pneumococcal Vaccine: Pediatrics (0 to 5 Years) and At-Risk Patients (6 to 49 Years) (1 of 2 - PCV) 2022 05/22/2004, 2003, 2003, Additional history exists COVID-19 Vaccine ( - season) 2024 PHQ-2 (Physician [place]) 06/22/2024 DTaP, Tdap and Td Vaccines (7 [...] patient's age to complete this topic Insurance CHARLIE Care Teams Catering Staff Member Relationship Specialty Start Date End Date Lena Sanders MD [address] [place] [address] [place] [address] PCP - General FAMILY PRACTICE 07/21/23
[2024-12-28 12:30] VITALS: BP 118/67; PULSE 92
[2024-12-28 12:45] VITALS: BP 114/72; PULSE 96
[2024-12-28 13:00] VITALS: BP 117/70; PULSE 93
[2024-12-28 13:21] VITALS: BP 117/70; PULSE 93
[2024-12-28 13:26] LABS: OBXCEM ROM Plus Negative (Negative)
== END 2024-12-28 15:00 | disposition home or self-care (01) ==
LOC: ANHOBOP 12:06 → ANHOBPP 12:09
PROVIDERS: PCP Family Medicine; Visit Provider Advanced Practice Midwife
DX: O42.90 Premature rupture of membranes, unspecified as to length of time between rupture and onset of labor, unspecified weeks of gestation (principal); Z3A.00 Weeks of gestation of pregnancy not specified
CPT/HCPCS: 59025; 84112

== ENCOUNTER 2025-01-16 16:06 | Observation (INO) | payer OTHER, SELFPAY ==
[2025-01-16] VITALS (8 sets, daily range): BP systolic 108–123; BP diastolic 60–72; PULSE 87–99; RESP 18; TEMP 37
--- OUTSIDE RECORDS SUMMARY | 2025-01-16 16:28 | XMS_ITS | Patient Health Record ---
Author Organization [facility] Address [address] [place] [address] Care Team Providers Care Survey Project Manager Name Role Phone Angela, Hien Primary Care Provider Bart Juarez [phone] Allergies No Known Allergies Reason For Referral [...] Status Risk Notes Problem Borderline personality disorder (47953482) Borderline personality disorder (F60.3) Active confirmed Problem Depression (285356921) Depression (F32.9) Active confirmed Problem Posttraumatic stress disorder (13527450) PTSD (post-traumati c stress disorder) (F43.10) Active confirmed Problem Anxiety (65550173) Anxiety (F41.9) Active confirmed Problem Bipolar 1 disorder (783197884) Bipolar 1 disorder (F31.9) Active confirmed Problem Cannabis dependence (69188392) Cannabis dependence (F12.20) Active confirmed Problem Mood disorder (77103040) Mood disorder (F39) Inactive confirmed replaced with bipolar 1 Encounters Encounter Location Date Provider Diagnosis [address] [address] 01/26/2024 Bart Juarez Bipolar 1 disorder F31.9 ; Borderline personality disorder F60.3 ; PTSD (post-traumatic stress disorder) F43.10 and Anxiety F41.[address] [address] 03/01/2024 Bart Juarez Bipolar 1 disorder F31.9 ; Borderline personality disorder F60.3 ; PTSD (post-traumatic stress disorder) F43.10 and Anxiety F41.[address] [address] 05/11/2024 Bart Juarez Bipolar 1 disorder F31.9 ; PTSD (post-traumatic stress disorder) F43.10 ; Anxiety F41.9 and Borderline personality disorder F60.[address] [address] 06/07/2024 Bart Juarez Bipolar 1 disorder F31.9 ; Borderline personality disorder F60.3 ; PTSD (post-traumatic stress disorder) F43.10 and Anxiety F41.[address] [address] 12/20/2024 Bart Juarez Bipolar 1 disorder F31.9 ; Borderline personality disorder F60.3 ; PTSD (post-traumatic stress disorder) F43.10 and Anxiety F41.[address] [address] 12/07/2024 Bart Juarez Assessments Encounter Date Diagnosis (ICD Code) Assessment Notes Treatment Notes Treatment Clinical Notes Section Notes 01/26/2024 Bipolar 1 disorder (ICD-10 - F31.9) 03/01/2024 Bipolar 1 disorder (ICD-10 - F31.9) Client doing well, no treatment plan changes. 05/11/2024 Bipolar 1 disorder (ICD-10 - F31.9) 06/07/2024 Bipolar 1 disorder (ICD-10 - F31.9) Client states 8 weeks along in a positive . That she plans on women's health care at [facility] in [place], [place]. Discussed with client to stop bupropion [...] she plans on women's health care at [facility] in [place], [place]. Discussed with client to stop bupropion [...] she plans on women's health care at [facility] in [place], [place]. Discussed with client to stop bupropion [...] she plans on women's health care at [facility] in [place], [place]. Discussed with client to stop bupropion [...] number to the 24-hour crisis line at [facility]. Questions addressed. Client verbalized understanding of [...] number to the 24-hour crisis line at [facility]. Questions addressed. Client verbalized understanding of [...] number to the 24-hour crisis line at [facility]. Questions addressed. Client verbalized understanding of [...] number to the 24-hour crisis line at [facility]. Questions addressed. Client verbalized understanding of all information and is agreeable to treatment plan. Client states 8 weeks along in a positive . That she plans on women's health care at [facility] in [place], [place]. Discussed with client to stop bupropion [...] number to the 24-hour crisis line at [facility]. Questions addressed. Client verbalized understanding of [...] Insured Coverage Start Date Coverage End Date [employer] [address] [place] [address] [id number] Adilene Viera Self - patient is the insured [address] [place] [address] [id number] Adilene Viera Self - patient is the insured 3 4 [employer] [address] [place] [address] [id number] Adilene Viera Self - patient is the insured 3 4 [employer] [address] [place] [address] [id number] Ceci Viera Parent 3 Medical (General) History Medical History History ICD Code Seizures R56.9 Surgical History Surgery Date(Month/Year) cyst removal 2017 Hospitalization History Reason Date(Month/Year) Seizures [facility] 2021 COVID/Mental Health [facility] 2020
--- OUTSIDE RECORDS SUMMARY | 2025-01-16 16:28 | XMS_ITS ---
Author Organization [facility] Address [address] [place] [address] Care Team Providers Care Punch Hand Name Role Phone Dr. Lena Sanders Primary Care Provider [phone] Migration, Provider Unavailable Unavailable REASON FOR VISIT EMR-[facility] Encounters Encounter Location Date Provider Diagnosis [facility] [address] [place] [address] 05/21/2024 Provider Migration Plan Of Treatment Medication [...] every day; Duration: 01/14/2024 02/03/2024 [facility] valACYclovir HCl [...] every day; Duration: 12/12/2020 01/10/2021 [facility] Zoloft 50 [...] * CINTHIAMARK AdileneDOB:[birth year] (19 yo F)Acc No.[id number]:05/21/2024 Patient: Adilene BORDEN :2005 A ge:19 Y S ex:Female Phone: Address:[address] [place] [address], [facility], [place], [address] * Refills Stop Escitalopram Oxalate Tablet, 20 [...]
--- OUTSIDE RECORDS SUMMARY | 2025-01-16 16:29 | XMS_ITS | Data Portability ---
Author Organization [facility] Address [address] [place] [address] [address] Care Team Providers Care Inbound Sales Consultant Name Role Phone NETO CASTELAN Primary Care Provider Assessment Encounter Date Assessment Date Assessment LastModified by Organization Details LastModified Time 12/15/2024 12/15/2024 Patient is ___weeks . Discussed plan. [email or web address] Not available 12/15/2024 14:12:14 12/28/2024 12/28/2024 Patient is _33__weeks . Discussed plan. Not available 12/28/2024 12:56:42 01/11/2025 01/11/2025 Patient is 35___weeks . Discussed plan. Not available 01/11/2025 11:47:49 Plan of Treatment Reminders Order Date Submit Date Provider Last Modified By Organization Details Last Modified Time Details Appointments OB ROUTINE 2024 01:45P M An Pierre CNM Not available Not available Not available Lab None recorded . Referral None recorded . Procedures None recorded . Surgeries None recorded . Imaging US, obstetri c, follow-u p 2024 025 [email or web address] [facility], [address], [place], [address], 01/11/2025 17:27:13 non-stre ss test 2024 025 [email or web address] [facility], [address], [place], [address], 12/28/2024 15:09:51 Medication Orders Valtrex [address] [facility] [address] [place], [address], 01/11/2025 11:48:16 Patient TargetsNo targets recorded. Patient InstructionsNo instructions recorded. Reason for Referral None Reported. Results Created Date Observation Date Name Description Value Unit Range Abnormal Flag Note LastModifiedBy Organization Detail LastModifiedTime 11/24/1911/23/2024 GTT - GESTA CHELSY L SCREE N, ACOG OB glucose, 1 hour screen 83 mg/dL 70-135 Not Available [facility] (Lab) [address], [place], [address], 11/24/2024 12:17:13 11/24/19 25 11/23/2024 HIV 1/2 ANTIG EN/AN TIBOD Y, REFLE X CONFI RMATI ON HIV antigen/anti body Nonrea ctive nonrea ctive HIV-1 antig en and HIV-1 /HIV- 2 antib odies were not detec azam. No labor atory evide nce of HIV infec tion. Not Available [facility] (Lab) [address], [place], [address], 11/24/2024 12:17:13 11/24/19 25 11/23/2024 HEMAT OCRIT (HCT) HCT 32.9 % (based on docume nted legal sex) 34.0-4 5.0 low Not Available [facility] (Lab) [address] [place], [address], 11/24/2024 12:17:13 11/24/19 25 11/23/2024 HEMOG LOBIN (HGB) HGB 11.3 g/dL (based on docume nted legal sex) 11.6-1 5.4 low Not Available [facility] (Lab) [address] [place], [address], 11/24/2024 12:17:14 11/24/19 25 11/23/2024 RPR SCREE N, REFLE X TITER /CONF IRMAT ION RPR qualitative Nonrea ctive nonrea ctive Not Available [facility] (Lab) [address] [facility], [place], [address], 11/24/2024 12:17:14 12/16/19 25 12/15/2024 US, obste tric, follo w-up No observ ation record ed. [email or web address] [address], [place], [address], 12/15/2024 17:52:47 12/16/19 25 12/15/2024 US, obste tric, follo w-up No observ ation record ed. [email or web address] [facility] [address], [place], [address], 12/22/2024 12:35:56 12/29/19 25 12/28/2024 imagi ng/di agnos tic resul t No observ ation record ed. [facility] [address], [place], [address], 01/01/2025 13:15:05 12/29/19 25 12/28/2024 non-s tress test No observ ation record ed. [email or web address] [facility] [address], [place], [address], 12/28/2024 15:08:06 01/12/20 25 01/11/2025 US, obste tric, follo w-up No observ ation record ed. [email or web address] [facility] [address], [place], [address], 01/11/2025 13:08:56 01/12/20 25 01/11/2025 US, obste tric, follo w-up No observ ation record ed. [email or web address] [facility] [address], [place], [address], 01/16/2025 13:50:40 Result Notes None recorded. Problems Name Problem SNOMED Code Status Onset Date Resolution Date Notes Provider Name and Address Organization Details Recorded Time Genital herpes simplex 78826748 Active valtrex suppressi on at 36 weeks BREE BARRIOS MD [address], [place], [address], [facility] 5 11:27:54 Mixed anxiety and depressiv e disorder 493903272 Active Aishwarya Shelton null, [facility] 5 13:21:35 Mixed anxiety and depressiv e disorder 487865714 Active Aishwarya Shelton null, [facility] 5 13:21:35 93076409 Active 2024 Lolita Lindsey null, [facility] 5 11:14:53 Bipolar disorder 65617450 Active 2024 Aishwarya Shelton null, [facility] 5 13:17:15 Bipolar disorder 20456648 Active 2024 Aishwarya Shelton null, [facility] 5 13:17:15 Herpes simplex 01181226 Active 2024 Aishwarya Shelton null, [facility] 5 13:21:09 Problem Notes None recorded. Procedures Surgical History Date Name Laterality Status Provider Name and Address Organization Details Recorded Time 06/22/19 18 procedure on face completed Aishwarya Shelton [facility] 09/27/2024 13:19:08 06/22/19 17 Date of Last Colonoscopy completed Aishwarya Shelton [facility] 10/25/2024 10:58:39 06/22/19 17 Colonoscopy completed Aishwarya Shelton [facility] 10/25/2024 10:59:41 Imaging Results None recorded. [...] completed Not Available Not Available Not Available Valtrex 500 mg tablet Take 1 tablet twice a day by oral route. 2024 active Not Available Not Available Not Avai lable ondansetron 4 mg disintegrat ing tablet DISSOLVE [...] Updated DateTime 12/15/2024 167.64 cm 23.6 kg/m2 73493.49 g 113/71 mm[Hg] Birgit [facility] 12/15/2024 14:12:46 Date Recorded Body weight Systolic And Diastolic Provider Name and Address Organization Details Last Updated DateTime 12/28/2024 71385.87220 g 107/74 mm[Hg] [facility] 12/28/2024 12:05:23 Date Recorded Body height Body mass index (BMI) Body weight Systolic And Diastolic Provider Name and Address Organization Details Last Updated DateTime 01/11/2025 167.64 cm 24 kg/m2 24797.26 g 112/78 mm[Hg] Gracie Bucio [facility] 01/11/2025 11:40:56 Social History Question Answer Notes LastModified by Organizat ion Details LastModified Time Tobacco Smoking Status Former Smoker Aishwarya elliott, [facility] 09/27/2024 13:18:38 Do You Have An Advance Directive? No [email or web address] Information not available 07/08/2024 If You Are , What Was Your Level Of Alcohol Consumption Prior To ? Occasional [email or web address] Information not available 10/25/2024 Are You Blind Or Do You Have Difficulty Seeing? No [email or web address] Information not available 07/08/2024 What Is Your Level Of Caffeine Consumption? Moderate [email or web address] Information not available 07/08/2024 How Much Tobacco Do You Chew? None [email or web address] Information not available 07/08/2024 In The 14 Days Before Symptom Onset, Have You Had Close Contact With A Laboratory-confir med COVID-19 While That Case Was Ill? No [email or web address] Information not available 07/08/2024 In The 14 Days Before Symptom Onset, Have You Had Close Contact With A Person Who Is Under Investigation For COVID-19 While That Person Was Ill? No [email or web address] Information not available 07/08/2024 Have You Been To An Area Known To Be High Risk For COVID-19? No [email or web address] Information not available 07/08/2024 Are You Deaf Or Do You Have Serious Difficulty Hearing? No [email or web address] Information not available 07/08/2024 What Type Of Diet Are You Following? REGULAR [email or web address] Information not available 07/08/2024 What Is The Highest Grade Or Level Of School You Have Completed Or The Highest Degree You Have Received? [id number] Information not available 07/08/2024 Are There Any Guns Present In Your Home? No [email or web address] Information not available 07/08/2024 Do You Use Protection During Sex? No [email or web address] Information not available 07/08/2024 Do You Use Your Seat Belt Or Car Seat Routinely? Yes [email or web address] Information not available 07/08/2024 Are You Sexually Active? Yes [email or web address] Information not available 07/08/2024 Do You Have Smoke And Carbon Monoxide Detectors In Your Home? Yes [email or web address] Information not available 07/08/2024 How Much Tobacco Do You Smoke? No [email or web address] Information not available 07/08/2024 Do You Use Sunscreen Routinely? Yes [email or web address] Information not available 07/08/2024 Have You Used IV Drugs? No [email or web address] Information not available 07/08/2024 Do You Have Difficulty Walking Or Climbing Stairs? No [email or web address] Information not available 07/08/2024 Sex: Unknown Functional Status Question Answer Note LastModified by Organizat ion Details LastModified Time Do you use any illicit or recreational drugs? No [email or web address] Information not available 07/08/2024 Do you or have you ever used any other forms of tobacco or nicotine? Yes [email or web address] Information not available 09/27/2024 What is your level of alcohol consumption? None [email or web address] Information not available 07/08/2024 Are you currently employed? Yes Information not available 07/08/2024 Are you able to walk? YESWOREST [email or web address] Information not available 07/08/2024 Are you able to care for yourself independently? 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 No [email or web address] Information not available 07/08/2024 Do you or have you ever used e-cigarettes or vape? Current user of electronic cigarettes [email or web address] Information not available 09/27/2024 What is your exercise level? Moderate [email or web address] Information not available 07/08/2024 Mental Status Question Answer Note LastModified by Organization D etails LastModified Time Do you feel stressed (tense, restless, nervous, or anxious, or unable to sleep at night)? [id number] [email or web address] Information not available 07/08/2024 Family History Relationship Description Onset Age of this Age Resolved Age Notes LastModified by Organization Details LastModified Time Unspecified Relation Family history unknown [email or web address] Not available 2024 09:53:53 Medical History Condition [...] SNOMED-CT Code Diagnosis ICD10 Code Diagnosis Note [id number] Isaac Patino MD [facility] [address] [address] 07/08/2024 09:38:08 07/08/2024 09:55:47 [id number] BREE BARRIOS MD [facility] [address],[place] [address] 07/08/2024 09:38:26 07/08/2024 11:17:32 Nausea and vomiting 13735385 R11.2 - little improvemen t with zofran- will try reglan test positive 343077356 Z32.01 1. Exam today within normal limits.2. Ultrasound today confirms GA and viability. EDC . GC/Clamydi a testing done: will f/u as indicated. 4. ACOG guidelines and plan of care for reviewed with patient. All questions answered.5 . Return to office at 12 weeks for new OB visit6. Will need new OB labs at next visit.7. Genetic screening: desires. Borderline personality disorder 69063556 F60.3 - well controlled on latuda and zoloft- d/c'd bupropion per Psych recommenda tions at beginning of , discussed safety in , ok to restart if symptoms worsen [id number] Isaac Patino MD [facility] [address],[place] [address] 08/05/2024 10:37:40 08/05/2024 11:12:45 screening 294315872 Z36.82 Z3A.12 [id number] BREE BARRIOS MD [facility] [address],[place] [address] 08/05/2024 10:50:11 08/05/2024 12:02:53 Nausea and vomiting 57030092 R11.2 - improved with zofran and reglan together Bipolar disorder 4247837 4 F31.9 - mood worsening without bupropion- will restart bupropion- continue latuda and sertraline - no SI/HI screening 2437 96663 Z36.0 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 09876241 Z31.430 Gestation period, 12 weeks 53649629 Z3A.12 [id number] Isaac Patino MD [facility] [address],[place] [address] 09/03/2024 09:31:04 09/03/2024 10:27:50 63530920 Z33.1 Routine an tenatal care 830600623 Z34.90 [id number] Isaac Patino MD [facility] [address],[place] [address] 09/27/2024 11:28:05 09/27/2024 13:09:38 screening for malformation 573932318 Z36.3 Z3A.20 [id number] [facility] [address],[place] [address] 09/27/2024 11:28:18 09/27/2024 13:09:11 Gestation period, 20 weeks 44656907 Z3A.20 continue vitamin [id number] An Pierre [facility] [address],[place] [address] 10/25/2024 10:00:34 10/25/2024 10:36:06 Gestation period, 24 weeks 016350214 Z3A.24 Low back pain 306970010 M54.50 icereduce [facility] next visit [id number] [facility] [address],[place] [address] 11/23/2024 10:25:39 11/23/2024 11:15:45 Gestation period, 28 weeks 74099898 Z3A.28 [id number] Isaac Patino MD [facility] [address],[place] [address] 12/15/2024 13:51:45 12/15/2024 14:50:51 Third trimester 88899513 Z34.03 [id number] Isaac Patino MD [facility] [address],[place] [address] 12/15/2024 14:35:28 12/15/2024 15:23:21 Observational assessment 979340986 Z03.74 Z3A.31 [id number] [facility] [address],[place] [address] 12/28/2024 11:48:13 12/28/2024 12:57:57 Gestation period, 33 weeks 59142854 Z3A.33 cont pnv [id number] [facility] [address],[place] [address] 12/28/2024 12:47:15 12/28/2024 15:09:51 Observational assessment 056871066 Z03.74 [id number] Isaac Patino MD [facility] [address],[place] [address] 01/11/2025 10:46:38 01/11/2025 11:27:21 Uterine size for dates discrepancy 613747650 O26.843 Z03.71 Z3A.35 [id number] An Pierre [facility] [address],[place] [address] 01/11/2025 10:46:50 01/11/2025 11:57:29 Herpes simplex 50941187 B00.9 Gestation period, 35 weeks 77905710 Z3A.35 Health Concerns Section Related Observation LastModified by Organization Detai ls LastModified Time None Recorded Concern Status LastModified by Organization Details LastModified Time None Recorded Advance Directives Directive N: Payers Insurance Date Sequence Insurance Name Policy Number Policy Wright Covered Member ID Wright Member ID Guarantor Name 01/15/2025 1 [facility] (MEDICAID HMO) [id number] Adilene Viera [id number] Adilene Viera OBTiffanie Episode Ob Episode Information Episode Created Date Number of Fetuses Patient Bloodtype Patient rh Status Prepregnancy Weight lbs Domestic Partner Domestic Partner Phone Father Name Lead Software Test Engineer Status 08/05/19 25 1 O Positive 130 Claus Helga OPEN Fetus Data First Name Last Name Admitted to NICU Weight (g) Sex Living Outcome Pediatric Complications Fetus ID Race Codes Race Delivery Type [id number] Problems Problem Notes Anterior placenta 32wk growt h us Problem Name Start Date End Date Resolution Snomed Code Not e Mixed anxiety and depressive disorder 788974095 Bipolar disorder 09/27/2024 77442967 Genital herpes simplex 06035651 valtrex suppres kamaljit at 36 weeks Wu [...] Date Ultra Sound Latest Days Gestation 0 [email or web address] 08/05/2024 02/15/20 25 0 Pre-gigi Flowsheet Flowsheet Date 08/05/2024 Botello Score Blood Edema Fundus Height Fundus Units Glucose Ketones Leukocytes Nitrite Labor Signs Protein Cervic Dilation Cervic Effacement Cervic Station Type Weight in lbs Pre/Post Dialysis Refused Weight 130.241887618590 BP Diastolic BP Location Tested BP Systolic BP Type 73 L arm 114 sitting Fetus Heart Rate Present A 161 Fetus Movement Comments Patient presents to [facility] care. Nausea slightly worse, ran [...] Weight in lbs Pre/Post Dialysis Refused Weight 134.56712697783 BP Diastolic BP Location Tested BP Systolic [...] Weight in lbs Pre/Post Dialysis Refused Weight 137.349111815706 BP Diastolic BP Location Tested BP Systolic [...] Type Weight in lbs Pre/Post Dialysis Refused 145.6079407923 BP Diastolic BP Location Tested BP Systolic [...] Weight in lbs Pre/Post Dialysis Refused Weight 148.915339884760 BP Diastolic BP Location Tested BP Systolic BP Type 72 106 Fetus Heart Rate Present A 158 Present Fetus Movement A Yes Comments Patient is having nausea and vomiting. travel precautions going to [place] to visit her mother, +FM glucose today, f/u 2 weeks Flowsheet Date 12/15/2024 Botello Score Blood Edema Fundus Height Fundus Units Glucose Ketones Leukocytes Nitrite Labor Signs Protein Cervic Dilation Cervic Effacement Cervic Station 27 cm Type Weight in lbs Pre/Post Dialysis Refused Weight 146.955543761052 BP Diastolic BP Location Tested BP Systolic [...] Type Weight in lbs Pre/Post Dialysis Refused 148.369300355525 BP Diastolic BP Location Tested BP Systolic [...] Rate Present Fetus Movement Comments Flowsheet Date 01/11/2025 Botello Score Blood Edema Fundus Height Fundus Units Glucose Ketones Leukocytes Nitrite Labor Signs Protein Cervic Dilation Cervic Effacement Cervic Station Type Weight in lbs Pre/Post Dialysis Refused BP Diastolic BP Location Tested BP Systolic BP Type Fetus Heart Rate Present Fetus Movement Comments Flowsheet Date 01/11/2025 Botello Score Blood Edema Fundus Height Fundus Units Glucose Ketones Leukocytes Nitrite Labor Signs Protein Cervic Dilation Cervic Effacement Cervic Station Type Weight in lbs Pre/Post Dialysis Refused Weight 149.77226961655 BP Diastolic BP Location Tested BP Systolic BP Type 78 L arm 112 sitting Fetus Heart Rate Present Fetus Movement A Yes Comments valtrex to pharmacy, start n ow, GBS collected, efw 41%, education and precautions f/u one week Menstrual History Last Menstrual Date Menses Monthly [...]
--- OUTSIDE RECORDS SUMMARY | 2025-01-16 16:29 | XMS_ITS | Referral Summary ---
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 frequently. - [employer] Certified Network Associate about the use of THC, cigarette smoking and alcohol use Assessment & Plan (01/29/2021 11:38 AM CDT): Patient uses THC to feel better. It reduces her anxiety and improves her mood. Her urine was positive for THC. She drinks alcohol occasionally and smokes cigarettes frequently. - [employer] Certified Network Associate about the use of THC, cigarette smoking and alcohol use Assessment & Plan (01/28/2021 11:25 AM CDT): Patient uses THC to feel better. It reduces her anxiety and improves her mood. Her urine was positive for THC. She drinks alcohol occasionally and smokes cigarettes frequently. - [employer] Certified Network Associate about the use of THC, cigarette smoking and alcohol use Assessment & Plan (01/27/2021 8:46 AM CDT): Patient uses THC to feel better. It reduces her anxiety and improves her mood. Her urine was positive for THC. She drinks alcohol occasionally and smokes cigarettes frequently. - [employer] Certified Network Associate about the use of THC, cigarette smoking and Alcohol use. Assessment & Plan (01/26/2021 3:06 PM CDT): Patient uses THC to feel better. It reduces her anxiety and improves her mood. Her urine was positive for THC. She drinks alcohol occasionally and smokes cigarettes frequently. - [employer] Certified Network Associate about the use of THC, cigarette smoking and Alcohol use. Assessment & Plan (01/25/2021 11:48 AM CDT): Patient uses THC to feel better. It reduces her anxiety and improves her mood. Her urine was positive for THC. She drinks alcohol occasionally and smokes cigarettes frequently. - [employer] Certified Network Associate about the use of THC, cigarette smoking and Alcohol use. Assessment & Plan (01/24/2021 7:37 AM CDT): Patient uses THC to feel better. It reduces her anxiety and improves her mood. Her urine was positive for THC. She drinks alcohol occasionally and smokes cigarettes frequently. - [employer] Certified Network Associate about the use of THC, cigarette smoking and Alcohol use. Assessment & Plan (01/23/2021 8:27 AM CDT): Patient uses THC to feel better. It reduces her anxiety and improves her mood. Her urine was positive for THC. She drinks alcohol occasionally and smokes cigarettes frequently. - [employer] Certified Network Associate about the use of THC, cigarette smoking and Alcohol use. Assessment & Plan (01/22/2021 6:08 PM CDT): Patient uses THC to feel better. It reduces her anxiety and improves her mood. Her urine was positive for THC. She drinks alcohol occasionally and smokes cigarettes frequently. - [employer] Certified Network Associate about the use of THC, cigarette smoking and Alcohol use. Assessment & Plan (01/21/2021 2:09 PM CDT): Patient uses THC to feel better. It reduces her anxiety and improves her mood. Her urine was positive for THC. She drinks alcohol occasionally and smokes cigarettes frequently. - [employer] Certified Network Associate about the use of THC, cigarette smoking and Alcohol use. Assessment & Plan (01/20/2021 5:28 PM CDT): Patient uses THC to feel better. It reduces her anxiety and improves her mood. Her urine was positive for THC. She drinks alcohol occasionally and smokes cigarettes frequently. - [employer] Certified Network Associate about the use of THC, cigarette smoking and Alcohol use. Assessment & Plan (01/19/2021 5:32 PM CDT): Patient uses THC to feel better. It reduces her anxiety and improves her mood. Her urine was positive for THC. She drinks alcohol occasionally and smokes cigarettes frequently. - [employer] Certified Network Associate about the use of THC, cigarette smoking and Alcohol use. Assessment & Plan (01/18/2021 11:58 AM CDT): Patient uses THC to feel better. It reduces her anxiety and improves her mood. Her urine was positive for THC. She drinks alcohol occasionally and smokes cigarettes frequently. - [employer] Certified Network Associate about the use of THC, cigarette smoking and Alcohol use. Assessment & Plan (01/17/2021 11:00 AM CDT): Patient uses THC to feel better. It reduces her anxiety and improves her mood. Her urine was positive for THC. She drinks alcohol occasionally and smokes cigarettes frequently. - [employer] Certified Network Associate about the use of THC, cigarette smoking and Alcohol use. Assessment & Plan (01/16/2021 1:11 PM CDT): Patient uses THC to feel better. It reduces her anxiety and improves her mood. Her urine was positive for THC. She drinks alcohol occasionally and smokes cigarettes frequently. - [employer] Certified Network Associate about the use of THC, cigarette smoking and Alcohol use. Assessment & Plan (01/15/2021 4:20 PM CDT): Patient uses THC to feel better. It reduces her anxiety and improves her mood. Her urine was positive for THC. She drinks alcohol and smokes cigarettes occasionally. - [employer] Certified Network Associate about the use of THC, cigarette smoking [...] having IBS and she follows up with [facility] pediatrics gastroenterology. She has on/off mild diffuse abdominal pain that is not relieved by bowel movements as well as diarrhea. No vomiting or constipation. - Continue Cyproheptadine Assessment & Plan (01/18/2021 11:57 AM CDT): Adilene reports having IBS and she follows up with [facility] pediatrics gastroenterology. She has on/off mild diffuse abdominal pain that is not relieved by bowel movements as well as diarrhea. No vomiting or constipation. - Continue Cyproheptadine Assessment & Plan (01/17/2021 11:00 AM CDT): Adilene reports having IBS and she follows up with [facility] pediatrics gastroenterology. She has on/off mild diffuse abdominal pain that is not relieved by bowel movements as well as diarrhea. No vomiting or constipation. - Continue Cyproheptadine Assessment & Plan (01/16/2021 1:11 PM CDT): Adilene reports having IBS and she follows up with [facility] pediatrics gastroenterology. She has on/off diffuse abdominal pain that is not relieved by bowel movements as well as diarrhea. No vomiting or constipation. - Continue Cyproheptadine Assessment & Plan (01/15/2021 4:28 PM CDT): Adilene reports having IBS and she follows up with [facility] pediatrics gastroenterology. She has on/off diffuse [...] CDT Respiratory Rate 16 08/30/2021 7:09 AM VP COMMUNICATIONS Oxygen Saturation 100% 09/19/2021 11:23 AM CDT Inhaled Oxygen Concentration - - Weight 64.2 kg (141 lb 9.6 oz) 09/19/2021 11:23 AM CDT Height 170.2 cm (5' 7.01) 08/28/2021 3:27 PM CS T Body Mass Index 22.17 08/28/2021 3:27 PM VP COMMUNICATIONS Plan of Treatment Not on file Insurance [address] [address] [facility] [place] [facility] Advance Directives For more information, please contact: [phone] * Full Code (Latest Code Status on File) Date Activated Date Inactivated Comments 08/28/2021 8:13 PM 08/30/2021 4:47 PM * Full Code Date Activated Date Inactivated Comments 01/15/2021 1:54 PM 03/13/2021 10:26 PM Care Teams Generation Manager Relationship Specialty Start Date End Date No, Physician PCP - General 08/07/21
--- OUTSIDE RECORDS SUMMARY | 2025-01-16 16:29 | XMS_ITS ---
Author Organization [facility] Address [address] [facility] [address] [place] [address] Care Team Providers Care Senior Living Sales Counselor Name Role Phone Nallely Baeza Primary Care Provider Nallely Walls Unavailable [phone] Encounters Encounter Location Date Provider Diagnosis [facility] [address] [place] [address] 01/11/2024 Nallely Baeza Plan Of Treatment No Information Progress Notes * Millie VIERAmarisachadDOB:[birth year] (19 yo F)Acc No.[id number]:01/11/2024 UNLOCKED PROGRESS NOTE Patient: Adilene BORDEN Provider: To Baeza LCPC :2005 A ge:18 Y S ex:Female Date:01/11/2024 [address] [facility] Pcp:Nallely Baeza Subjective: * Chief Complaints: * * Medical History: Objective: * Vitals: Assessment: Plan: * Treatment: * Billing Information: * Visit Code: * Procedure Codes: * Electronic signature of Mona Baeza LCPC on 01/16/2025 at 04:28 PM CDT Sign off status: Pending Visit Status: C ANC (Cancelled) * Provider: To Baeza LCPC Date: 01/11/2024 Generated for Printi ng/Fairish/eTransmitting on: 01/16/2025 04:28 PM CDT
--- OUTSIDE RECORDS SUMMARY | 2025-01-16 16:29 | XMS_ITS | Patient Health Record ---
Author Organization [facility] Address [address] [facility] [address] [place] [address] Care Team Providers Care Public Transportation Inspector Name Role Phone Nallely Baeza Primary Care Provider Nallely Walls Unavailable [phone] Reason For Referral No Information Problems Problem Type SNOMED Code ICD Code Onset Dates Problem Status W/U Status Risk Notes Problem Borderline personality disorder (29653808) Borderline personality disorder (F60.3) Active confirmed Problem Post traumatic stress disorder (PTSD) (F43.10) Active confirmed Encounters Encounter Location Date Provider Diagnosis [facility] [address] [place] [address] 05/05/2024 Nallely Baeza Plan Of Treatment No Information Insurance Providers Payer Name Payer Address Payer Phone Subscriber Number Group Number Insured Name Patient Relationship to Insured Coverage Start Date Coverage End Date [facility] [address] [place] [address] [id number] Adilene Viera Self - patient is the insured 3 [facility] [place] [address] [place] [address] [id number] Adilene Viera Self - patient is the insured 3 [facility] [place] Nonbillable [address] [place] [address] [id number] Adilene Viera Self - patient is the insured 3 [facility] [place] [employer] KEYHOL[employer] [facility] [address] [place] [address] [id number] Adilene Viera Self - patient is the insured 3
--- OUTSIDE RECORDS SUMMARY | 2025-01-16 16:29 | XMS_ITS ---
Author Organization [facility] Address [address] [facility] [address] [place] [address] Care Team Providers Care Plant Security Guard Name Role Phone Nallely Baeza Primary Care Provider UnavailNallely Geiger Unavailable [phone] REASON FOR VISIT counseling TH pt at home provider in office Encounters Encounter Location Date Provider Diagnosis [facility] [address] [place] [address] 01/13/2024 Nallely Baeza Plan Of Treatment No Information Progress Notes * Adilene VIERADOB:[birth year] (19 yo F)Acc No.[id number]:01/13/2024 UNLOCKED PROGRESS NOTE Patient: Adilene BORDEN Provider: To Baeza LCPC :2005 A ge:18 Y S ex:Female Date:01/13/2024 Address:[address] [facility] Pcp:Nallely Baeza Subjective: * Chief Complaints: [...] 01/13/2024 Generated for Printi ng/Cathy/Robertoitting on: 0 01/16/2025 04:28 PM CDT
--- OUTSIDE RECORDS SUMMARY | 2025-01-16 16:29 | XMS_ITS ---
Author Organization [facility] Address [address] [place] [address] Care Team Providers Care Motion Graphics Designer Name Role Phone Dr. Lena Sanders Primary Care Provider [phone] Migration, Provider Unavailable Unavailable Allergies Allergen (clinical [...] mg tablet oral; Duration: 30 *Reorder from [facility] for eRx and Interaction Alerts* 07/27/2023 [...] alcohol Encounters Encounter Location Date Provider Diagnosis [facility] [address] [place] [address] 05/22/2024 Provider Migration Plan Of Treatment No Information Progress Notes * Adilene VIERADOB:[birth year] (19 yo F)Acc No.[id number]:05/22/2024 Patient: Adilene BORDEN :2005 A ge:19 Y S ex:Female Phone: Address:[address] [place] [address], [place], [address] Subjective: * Chief Complaints: * E MR-Ector [...] oral , Notes to Pharmacist: *Reorder from [facility] for eRx and Interaction Alerts*buPROPion HCl [...] oral , Notes to Pharmacist: *Reorder from [facility] for eRx and Interaction Alerts*Taking buPROPion HCl ER (XL) 150 MG Tablet Extended Release 24 Hour Oral * Allergies: t raZODone: SYNCOPE AND BLURRED VISION - Allergy - Onset Date 05/07/2023 * * Date:
--- OUTSIDE RECORDS SUMMARY | 2025-01-16 16:29 | XMS_ITS ---
Author Organization [facility] Address [address] [facility] [address] [place] [address] Care Team Providers Care Landscape Nurseryman Name Role Phone Nallely Baeza Primary Care Provider UnavailNallely Geiger Unavailable [phone] REASON FOR VISIT counseling TH pt at home provider in office Encounters Encounter Location Date Provider Diagnosis [facility] [address] [place] [address] 12/28/2023 Nallely Baeza Plan Of Treatment No Information Progress Notes * Adilene VIERADOB:[birth year] (19 yo F)Acc No.[id number]:12/28/2023 UNLOCKED PROGRESS NOTE Patient: Adilene BORDEN Provider: To Baeza LCPC :2005 A ge:18 Y S ex:Female Date:12/28/2023 Address:[address] [facility] Pcp:Nallely Baeza Subjective: * Chief Complaints: * [...] 12/28/2023 Generated for Printi ng/Cathy/Robertoitting on: 0 01/16/2025 04:28 PM CDT
--- OUTSIDE RECORDS SUMMARY | 2025-01-16 16:29 | XMS_ITS ---
Author Organization [facility] Address [address] [place] [address] Care Team Providers Care Recovery Collector Name Role Phone Hien Miller Primary Care Provider Bart Juarez [phone] REASON FOR VISIT 3 Week F/U Encounters Encounter Location Date Provider Diagnosis [address] [address] 06/01/2024 Bart Juarez Plan Of Treatment No Information Progress Notes * Adilene VIERADOB:[birth year] (19 yo F)Acc No.[id number]:06/01/2024 UNLOCKED PROGRESS NOTE Patient: Adilene BORDEN Provider: Angelica Juarez DNP, ROSLYNP-BC :2005 A ge:19 Y S ex:Female Date:06/01/2024 Address[address] [facility] Pcp:Hien Miller Subjective: * Chief Complaints: * 1 . 3 Week F/U. * Medical History: Objective: * Vitals: Assessment: Plan: * Treatment: * * Electronic signature of Maranda Juarez APRN, [id number] on 01/16/2025 at 04:29 PM CDT Sign off status: Pending * Provider: Angelica Juarez DNP, PMHNP-BC Date: 08/02/2023 Generated for Ivon paz/Cathy/Robertoitting on: 0 01/16/2025 04:29 PM CDT
--- OUTSIDE RECORDS SUMMARY | 2025-01-16 16:30 | XMS_ITS | Patient Health Record ---
Author Organization [facility] Address [address] [place] [address] Care Team Providers Care Client Services Director Name Role Phone Dr. Lena Sanders Primary Care Provider [phone] Lena Boyle Unavailable [phone] Migration, Provider Unavailable Unavailable Allergies Allergen (clinical drug ingredient) Drug/Non Drug Allergy documented on EMR Reaction Allergy Type Onset Date Status hydroxyzine hydrOXYzine Delete Reason: Entered in Error. Drug Allergy 05/07/2023 Inactive trazodone traZODone SYNCOPE AND BLURRED VISION Drug Allergy 05/07/2023 Active Results Component Value Reference Range Notes Test, Urine Reviewed date:06/06/2024 12:07:17 PM Interpretation:Positive Performing Lab: Notes/Report: Positive Ultrasound : Renal Reviewed date:11/03/2024 11:49:47 AM Interpretation: Performing Lab: Notes/Report: Reason For Referral No Information Medications Medication SIG (Take, Route, Frequency, Duration) Notes Start Date End Date Status Colace 100 MG Capsule 1 Oral every day; Duration: 0 ,PRN Reason:for constipation 08/13/2023 Not-Taking Sertraline HCl 100 MG Tablet Oral; Duration: 30 09/14/2023 Active lurasidone 20.000 mg tablet oral; Duration: 30 *Reorder from [facility] for eRx and Interaction Alerts* 07/27/2023 Active buPROPion HCl ER (XL) 150 MG Tablet Extended Release 24 Hour Oral; Duration: 30 09/14/2023 Active Immunizations Vaccine Route Administration Date Status Comme nts DTaP Unknown 05/22/2004 Administered ,sourcename : Historical [...] unspecified Source VFC Code: : Varicella Unknown 02/12/2004 Administered ,sourcename : Historical [...] major depression, single episode, without psychotic features (55120574) Major depressive disorder, single episode, severe without psychotic features (F32.2) 021 Active confirmed Problem Chronic disease of tonsils AND/OR adenoids (35206918) Other chronic diseases of tonsils and adenoids (J35.8) Active confirmed Problem Excessive and frequent menstruation (698614228) Excessive and frequent menstruation with regular cycle (N92.0) Active confirmed Problem Emotional state finding (771329389) Other symptoms and signs involving emotional state (R45.89) Active confirmed Problem Problem, abnormal examination (21565696) Encounter for general adult medical examination with abnormal findings (Z00.01) Active confirmed Problem Exposure to sexually transmissible disorder (750219358) Contact with and (suspected) exposure to infections with a predominantly sexual mode of transmission (Z20.2) Active confirmed Problem Noncompliance with treatment (finding) (0549323) Patient's noncompliance with other medical treatment and regimen due to unspecified reason (Z91.199) 024 Active confirmed Problem Acute bronchitis (58395785) Acute bronchitis (466.0) 017 Problem resolved confirmed Problem Wheezing (56442659) Wheezing (786.07) 017 Problem resolved confirmed Problem Acute atopic conjunctivitis (84139928) Acute atopic conjunctivitis, unspecified eye (H10.10) 021 Problem resolved confirmed Problem Generalized abdominal pain (914854386) Generalized abdominal pain (R10.84) 018 Problem resolved confirmed Problem Localized mass (8770240) Localized swelling, mass and lump, unspecified (R22.9) 017 Problem resolved confirmed Problem Closed fracture of foot (361706809) Unspecified fracture of left foot, initial encounter for closed fracture (S92.902A) 017 Problem resolved confirmed Problem Tuberculosis screening (980020562) Encounter for screening for respiratory tuberculosis (Z11.1) 017 Problem resolved confirmed Problem Allergic rhinitis (65032517) Allergic rhinitis, unspecified (J30.9) 021 Problem resolved confirmed Problem Acute bronchitis (20391259) Acute bronchitis, unspecified (J20.9) 017 Problem resolved confirmed Problem Closed fracture of foot (159019681) Closed fracture of unspecified bone(s) of foot (except toes) (825.20) 017 Problem resolved confirmed Problem Epigastric pain (55840880) Abdominal pain, epigastric (789.06) 018 Problem resolved confirmed Problem Localized superficial swelling of skin (148449792) Localized superficial swelling, mass, or lump (782.2) 017 Problem resolved confirmed Problem Excessive and frequent menstruation (904834440) Excessive or frequent menstruation (626.2) 017 Problem resolved confirmed Problem Normal body mass index (79976214) Body mass index (BMI) 21.0-21.9, adult (Z68.21) 023 Active confirmed Problem Surveillance of contraception (211575874) Encounter for contraceptive management, unspecified (Z30.9) Active confirmed Problem Antidepressant drug adverse reaction (528891644) Adverse effect of unspecified antidepressants, initial encounter (T43.205A) Active confirmed TRAZODONE Problem Changes in skin texture (567381347) Changes in skin texture (R23.4) Active confirmed Problem Abdominal pain (85548933) Unspecified abdominal pain (R10.9) Active confirmed Problem Dysmenorrhea (834763854) Dysmenorrhea, unspecified (N94.6) Active confirmed Problem Constipation (48678825) Constipation, unspecified (K59.00) Active confirmed Problem Insomnia (307819868) Insomnia, unspecified (G47.00) Active confirmed Problem Major depression, single episode (69356265) Major depressive disorder, single episode, unspecified (F32.9) Active confirmed Problem Herpes simplex viral infection (35988966) Herpesviral infection, unspecified (B00.9) 023 Active confirmed Problem Well child visit (641961059) Routine or child health check (V20.2) 018 Active confirmed Problem History and physical examination, administrative (03217383) Other general medical examination for administrative purposes (V70.3) 017 Active confirmed Problem Pain in limb (29857170) Pain in soft tissues of limb (729.5) Active confirmed Problem History and physical examination, sports participation (procedure) (311782288) Encounter for examination for participation in sport (Z02.5) 017 Problem resolved confirmed Problem Child health medical examination (103029809) Encounter for routine child health examination without abnormal findings (Z00.129) 016 Problem resolved confirmed Problem Epigastric pain (65461091) Epigastric pain (R10.13) 018 Problem resolved confirmed Problem Wheezing (02900441) Wheezing (R06.2) 017 Problem resolved confirmed Problem Irregular menstruation (70052579) Irregular menstruation, unspecified (N92.6) Problem resolved confirmed Problem Pain in left foot (667708014890193 ) Pain in left foot (M79.672) 017 Problem resolved confirmed Problem Acute tonsillitis (07323956) Acute tonsillitis, unspecified (J03.90) 021 Problem resolved confirmed Problem Tuberculosis screening (033907435) Screening examination for pulmonary tuberculosis (V74.1) 017 Problem resolved confirmed Problem Generalized abdominal pain (388160843) Abdominal pain, generalized (789.07) 018 Problem resolved confirmed Vital Signs Heart Rate 110 /min 06/06/2024 Temperature 97.6 degrees Fahrenheit 06/06/2024 Height-cm 167.64 cm 06/06/2024 Oximetry 99 % 06/06/2024 Blood pressure diastolic 74 mm Hg 06/06/2024 Weight-kg 58.79 kg 06/06/2024 Height 66.00 in 06/06/2024 Blood pressure systolic 132 mm Hg 06/06/2024 Weight 129.6 lbs 06/06/2024 BMI 20.92 kg/m2 06/06/2024 Encounters Encounter Location Date Provider Diagnosis [address] [address] 06/06/2024 Lena Boyle Less than 8 weeks gestation of Z3A.01 and Major depressive disorder, single episode, unspecified F32.[address] [address] 05/21/2024 Provider Migration [address] [address] 05/22/2024 Provider Migration Assessments Encounter Date Diagnosis (ICD Code) Assessment Notes Treatment Notes Treatment Clinical Notes Section Notes 06/06/2024 Major depressive disorder, single episode, unspecified (ICD-10 - F32.9) Confirmed - confirmed - Approximately 4 weeks per patient - Recommend scheduling an appointment with an OBGYN. Suggested contacting [facility] for appointments. - Advised to [...] an appointment with an OBGYN. Suggested contacting [facility] for appointments. - Advised to [...] Insured Coverage Start Date Coverage End Date [address] [id number] Adilene Viera Self - patient is the insured 3
--- OUTSIDE RECORDS SUMMARY | 2025-01-16 16:30 | XMS_ITS | Clinical Summary ---
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 she is cleared for discharge. [facility] wage and hour investigator met with the patient on 01/21 [...] that she is cleared for discharge. [facility] wage [facility] hour [facility] met with the patient on 01/21 [...] that she is cleared for discharge. [facility] wage [facility] hour [facility] met with the patient on 01/21 [...] that she is cleared for discharge. [facility] wage and hour investigator met with the patient on 01/21 [...] that she is cleared for discharge. [facility] wage and hour investigator met with the patient on 01/21 [...] that she is cleared for discharge. [facility] wage and hour investigator met with the patient on 01/21 [...] that she is cleared for discharge. [facility] wage and hour investigator met with the patient on 01/21 [...] that she is cleared for discharge. [facility] wage and hour investigator met with the patient on 01/21 [...] that she is cleared for discharge. [facility] wage and hour investigator met with the patient on 01/21 [...] that she is cleared for discharge. [facility] wage and hour investigator met with the patient on 01/21 [...] that she is cleared for discharge. [facility] wage and hour investigator met with the patient on 01/21 [...] that she is cleared for discharge. [facility] wage [facility] hour [facility] met with the patient on 01/21 [...] that she is cleared for discharge. [facility] wage [facility] hour investigator met with the patient on 01/21 [...] that she is cleared for discharge. [facility] wage and hour investigator met with the patient on 01/21 [...] that she is cleared for discharge. [facility] wage and hour investigator met with the patient on 01/21 [...] that she is cleared for discharge. [facility] wage and hour investigator met with the patient on 01/21 [...] Denies feeling unsafe or any homicidal ideations. [facility] were called on 01/17. Hotline placed for abandonment on 01/20 because mom doesn't want to take her back now that she is cleared for discharge. [facility] wage and hour investigator met with the patient on 01/21 [...] Denies feeling unsafe or any homicidal ideations. [facility] were called on 01/17. Hotline placed for abandonment on 01/20 because mom doesn't want to take her back now that she is cleared for discharge. [facility] wage and hour investigator met with the patient on 01/21 [...] Denies feeling unsafe or any homicidal ideations. [facility] were called on 01/17. Hotline placed for abandonment on 01/20 because mom doesn't want to take her back now that she is cleared for discharge. [facility] wage and hour investigator met with the patient on 01/21 [...] that she is cleared for discharge. [facility] wage and hour investigator met with the patient on 01/21 [...] that she is cleared for discharge. [facility] wage and hour investigator met with the patient on 01/21 [...] that she is cleared for discharge. [facility] wage and hour investigator met with the patient on 01/21 [...] that she is cleared for discharge. [facility] wage and hour investigator met with the patient on 01/21 [...] Denies feeling unsafe or any homicidal ideations. [facility] division were called on 01/17. Hotline placed for abandonment on 01/20 because mom doesn't want to take her back now that she is cleared for discharge. [facility] wage and hour investigator met with the patient on 01/21 [...] Denies feeling unsafe or any homicidal ideations. [facility] division were called on 01/17. Hotline placed for abandonment on 01/20 because mom doesn't want to take her back now that she is cleared for discharge. [facility] wage and hour investigator met with the patient on 01/21 [...] that she is cleared for discharge. [facility] wage and hour investigator met with the patient on 01/21 [...] that she is cleared for discharge. [facility] wage and hour investigator met with the patient on 01/21 [...] that she is cleared for discharge. [facility] wage and hour investigator met with the patient on 01/21 [...] that she is cleared for discharge. [facility] wage and hour investigator met with the patient on 01/21 [...] Denies feeling unsafe or any homicidal ideations. [facility] were called on 01/17. [facility] does not have concerns for patient's [...] Denies feeling unsafe or any homicidal ideations. [facility] was called on 01/17. [facility] does not have concerns for patientt's [...] Denies feeling unsafe or any homicidal ideations. [facility] does not have concerns for patientt's safety [...] Denies feeling unsafe or any homicidal ideations. [facility] was called on 01/17. [facility] does not have concerns for patientt's safety [...] occasionally and smokes cigarettes frequently. - [employer] about the use of THC, cigarette smoking and alcohol use Assessment & Plan (03/11/2021 3:15 PM CDT): Patient uses THC to feel better. It reduces her anxiety and improves her mood. Her urine was positive for THC. She drinks alcohol occasionally and smokes cigarettes frequently. - [employer] about the use of THC, cigarette smoking and alcohol use Assessment & Plan (03/10/2021 8:02 AM CDT): Patient uses THC to feel better. It reduces her anxiety and improves her mood. Her urine was positive for THC. She drinks alcohol occasionally and smokes cigarettes frequently. - [employer] about the use of THC, cigarette smoking and alcohol use Assessment & Plan (03/09/2021 11:00 AM CDT): Patient uses THC to feel better. It reduces her anxiety and improves her mood. Her urine was positive for THC. She drinks alcohol occasionally and smokes cigarettes frequently. - [employer] about the use of THC, cigarette smoking and alcohol use Assessment & Plan (03/08/2021 7:31 AM CDT): Patient uses THC to feel better. It reduces her anxiety and improves her mood. Her urine was positive for THC. She drinks alcohol occasionally and smokes cigarettes frequently. - [employer] about the use of THC, cigarette smoking and alcohol use Assessment & Plan (03/06/2021 6:41 AM CDT): Patient uses THC to feel better. It reduces her anxiety and improves her mood. Her urine was positive for THC. She drinks alcohol occasionally and smokes cigarettes frequently. - [employer] about the use of THC, cigarette smoking and alcohol use Assessment & Plan (03/05/2021 7:03 AM CDT): Patient uses THC to feel better. It reduces her anxiety and improves her mood. Her urine was positive for THC. She drinks alcohol occasionally and smokes cigarettes frequently. - [employer] about the use of THC, cigarette smoking and alcohol use Assessment & Plan (03/04/2021 2:01 PM CDT): Patient uses THC to feel better. It reduces her anxiety and improves her mood. Her urine was positive for THC. She drinks alcohol occasionally and smokes cigarettes frequently. - [employer] about the use of THC, cigarette smoking and alcohol use Assessment & Plan (03/03/2021 6:39 AM CDT): Patient uses THC to feel better. It reduces her anxiety and improves her mood. Her urine was positive for THC. She drinks alcohol occasionally and smokes cigarettes frequently. - [employer] about the use of THC, cigarette smoking and alcohol use Assessment & Plan (03/02/2021 6:29 AM CDT): Patient uses THC to feel better. It reduces her anxiety and improves her mood. Her urine was positive for THC. She drinks alcohol occasionally and smokes cigarettes frequently. - [employer] about the use of THC, cigarette smoking and alcohol use Assessment & Plan (03/01/2021 3:34 PM CDT): Patient uses THC to feel better. It reduces her anxiety and improves her mood. Her urine was positive for THC. She drinks alcohol occasionally and smokes cigarettes frequently. - [employer] about the use of THC, cigarette smoking and alcohol use Assessment & Plan (02/28/2021 5:59 PM CDT): Patient uses THC to feel better. It reduces her anxiety and improves her mood. Her urine was positive for THC. She drinks alcohol occasionally and smokes cigarettes frequently. - [employer] about the use of THC, cigarette smoking and alcohol use Assessment & Plan (02/27/2021 7:17 AM CDT): Patient uses THC to feel better. It reduces her anxiety and improves her mood. Her urine was positive for THC. She drinks alcohol occasionally and smokes cigarettes frequently. - [employer] about the use of THC, cigarette smoking and alcohol use Assessment & Plan (02/26/2021 10:12 AM CDT): Patient uses THC to feel better. It reduces her anxiety and improves her mood. Her urine was positive for THC. She drinks alcohol occasionally and smokes cigarettes frequently. - [employer] about the use of THC, cigarette smoking and alcohol use Assessment & Plan (02/25/2021 11:16 AM CDT): Patient uses THC to feel better. It reduces her anxiety and improves her mood. Her urine was positive for THC. She drinks alcohol occasionally and smokes cigarettes frequently. - [employer] about the use of THC, cigarette smoking and alcohol use Assessment & Plan (02/24/2021 10:27 AM CDT): Patient uses THC to feel better. It reduces her anxiety and improves her mood. Her urine was positive for THC. She drinks alcohol occasionally and smokes cigarettes frequently. - [employer] about the use of THC, cigarette smoking and alcohol use Assessment & Plan (02/23/2021 1:11 PM CDT): Patient uses THC to feel better. It reduces her anxiety and improves her mood. Her urine was positive for THC. She drinks alcohol occasionally and smokes cigarettes frequently. - [employer] about the use of THC, cigarette smoking and alcohol use Assessment & Plan (02/22/2021 5:55 PM CDT): Patient uses THC to feel better. It reduces her anxiety and improves her mood. Her urine was positive for THC. She drinks alcohol occasionally and smokes cigarettes frequently. - [employer] about the use of THC, cigarette smoking and alcohol use Assessment & Plan (02/20/2021 10:23 AM CDT): Patient uses THC to feel better. It reduces her anxiety and improves her mood. Her urine was positive for THC. She drinks alcohol occasionally and smokes cigarettes frequently. - [employer] about the use of THC, cigarette smoking and alcohol use Assessment & Plan (02/19/2021 11:43 AM CDT): Patient uses THC to feel better. It reduces her anxiety and improves her mood. Her urine was positive for THC. She drinks alcohol occasionally and smokes cigarettes frequently. - [employer] about the use of THC, cigarette smoking and alcohol use Assessment & Plan (02/18/2021 5:53 PM CDT): Patient uses THC to feel better. It reduces her anxiety and improves her mood. Her urine was positive for THC. She drinks alcohol occasionally and smokes cigarettes frequently. - [employer] about the use of THC, cigarette smoking and alcohol use Assessment & Plan (02/17/2021 12:53 PM CDT): Patient uses THC to feel better. It reduces her anxiety and improves her mood. Her urine was positive for THC. She drinks alcohol occasionally and smokes cigarettes frequently. - [employer] about the use of THC, cigarette smoking and alcohol use Assessment & Plan (02/16/2021 12:00 PM CDT): Patient uses THC to feel better. It reduces her anxiety and improves her mood. Her urine was positive for THC. She drinks alcohol occasionally and smokes cigarettes frequently. - [employer] about the use of THC, cigarette smoking and alcohol use Assessment & Plan (02/14/2021 10:33 AM CDT): Patient uses THC to feel better. It reduces her anxiety and improves her mood. Her urine was positive for THC. She drinks alcohol occasionally and smokes cigarettes frequently. - [employer] about the use of THC, cigarette smoking and alcohol use Assessment & Plan (02/13/2021 8:28 AM CDT): Patient uses THC to feel better. It reduces her anxiety and improves her mood. Her urine was positive for THC. She drinks alcohol occasionally and smokes cigarettes frequently. - [employer] about the use of THC, cigarette smoking and alcohol use Assessment & Plan (02/12/2021 10:14 AM CDT): Patient uses THC to feel better. It reduces her anxiety and improves her mood. Her urine was positive for THC. She drinks alcohol occasionally and smokes cigarettes frequently. - [employer] about the use of THC, cigarette smoking and alcohol use Assessment & Plan (02/11/2021 12:50 PM CDT): Patient uses THC to feel better. It reduces her anxiety and improves her mood. Her urine was positive for THC. She drinks alcohol occasionally and smokes cigarettes frequently. - [employer] about the use of THC, cigarette smoking and alcohol use Assessment & Plan (02/10/2021 1:50 PM CDT): Patient uses THC to feel better. It reduces her anxiety and improves her mood. Her urine was positive for THC. She drinks alcohol occasionally and smokes cigarettes frequently. - Manager [employer] about the use of THC, cigarette smoking and alcohol use Assessment & Plan (02/09/2021 11:31 AM CDT): Patient uses THC to feel better. It reduces her anxiety and improves her mood. Her urine was positive for THC. She drinks alcohol occasionally and smokes cigarettes frequently. - [employer] about the use of THC, cigarette smoking and alcohol use Assessment & Plan (02/08/2021 7:14 AM CDT): Patient uses THC to feel better. It reduces her anxiety and improves her mood. Her urine was positive for THC. She drinks alcohol occasionally and smokes cigarettes frequently. - Manager [employer] about the use of THC, cigarette smoking and alcohol use Assessment & Plan (2021 10:03 AM CDT): Patient uses THC to feel better. It reduces her anxiety and improves her mood. Her urine was positive for THC. She drinks alcohol occasionally and smokes cigarettes frequently. - Manager [employer] about the use of THC, cigarette smoking and alcohol use Assessment & Plan (02/06/2021 11:38 AM CDT): Patient uses THC to feel better. It reduces her anxiety and improves her mood. Her urine was positive for THC. She drinks alcohol occasionally and smokes cigarettes frequently. - [employer] about the use of THC, cigarette smoking and alcohol use Assessment & Plan (02/05/2021 10:21 AM CDT): Patient uses THC to feel better. It reduces her anxiety and improves her mood. Her urine was positive for THC. She drinks alcohol occasionally and smokes cigarettes frequently. - Manager [employer] about the use of THC, cigarette smoking and alcohol use Assessment & Plan (02/04/2021 7:44 AM CDT): Patient uses THC to feel better. It reduces her anxiety and improves her mood. Her urine was positive for THC. She drinks alcohol occasionally and smokes cigarettes frequently. - [employer] about the use of THC, cigarette smoking and alcohol use Assessment & Plan (02/03/2021 12:11 PM CDT): Patient uses THC to feel better. It reduces her anxiety and improves her mood. Her urine was positive for THC. She drinks alcohol occasionally and smokes cigarettes frequently. - [employer] about the use of THC, cigarette smoking and alcohol use Assessment & Plan (02/02/2021 3:18 PM CDT): Patient uses THC to feel better. It reduces her anxiety and improves her mood. Her urine was positive for THC. She drinks alcohol occasionally and smokes cigarettes frequently. - [employer] about the use of THC, cigarette smoking and alcohol use Assessment & Plan (02/01/2021 10:29 AM CDT): Patient uses THC to feel better. It reduces her anxiety and improves her mood. Her urine was positive for THC. She drinks alcohol occasionally and smokes cigarettes frequently. - [employer] about the use of THC, cigarette smoking and alcohol use Assessment & Plan (01/31/2021 8:02 AM CDT): Patient uses THC to feel better. It reduces her anxiety and improves her mood. Her urine was positive for THC. She drinks alcohol occasionally and smokes cigarettes frequently. - Manager [employer] about the use of THC, cigarette smoking and alcohol use Assessment & Plan (01/30/2021 9:32 AM CDT): Patient uses THC to feel better. It reduces her anxiety and improves her mood. Her urine was positive for THC. She drinks alcohol occasionally and smokes cigarettes frequently. - [employer] about the use of THC, cigarette smoking and alcohol use Assessment & Plan (01/29/2021 11:38 AM CDT): Patient uses THC to feel better. It reduces her anxiety and improves her mood. Her urine was positive for THC. She drinks alcohol occasionally and smokes cigarettes frequently. - [employer] about the use of THC, cigarette smoking and alcohol use Assessment & Plan (01/28/2021 11:25 AM CDT): Patient uses THC to feel better. It reduces her anxiety and improves her mood. Her urine was positive for THC. She drinks alcohol occasionally and smokes cigarettes frequently. - Manager [employer] about the use of THC, cigarette smoking and alcohol use Assessment & Plan (01/27/2021 8:46 AM CDT): Patient uses THC to feel better. It reduces her anxiety and improves her mood. Her urine was positive for THC. She drinks alcohol occasionally and smokes cigarettes frequently. - Manager [employer] about the use of THC, cigarette smoking and Alcohol use. Assessment & Plan (01/26/2021 3:06 PM CDT): Patient uses THC to feel better. It reduces her anxiety and improves her mood. Her urine was positive for THC. She drinks alcohol occasionally and smokes cigarettes frequently. - Manager [employer] about the use of THC, cigarette smoking and Alcohol use. Assessment & Plan (01/25/2021 11:48 AM CDT): Patient uses THC to feel better. It reduces her anxiety and improves her mood. Her urine was positive for THC. She drinks alcohol occasionally and smokes cigarettes frequently. - Manager [employer] about the use of THC, cigarette smoking and Alcohol use. Assessment & Plan (01/24/2021 7:37 AM CDT): Patient uses THC to feel better. It reduces her anxiety and improves her mood. Her urine was positive for THC. She drinks alcohol occasionally and smokes cigarettes frequently. - Manager [employer] Device about the use of THC, cigarette smoking and Alcohol use. Assessment & Plan (01/23/2021 8:27 AM CDT): Patient uses THC to feel better. It reduces her anxiety and improves her mood. Her urine was positive for THC. She drinks alcohol occasionally and smokes cigarettes frequently. - Manager [employer] Device about the use of THC, cigarette smoking and Alcohol use. Assessment & Plan (01/22/2021 6:08 PM CDT): Patient uses THC to feel better. It reduces her anxiety and improves her mood. Her urine was positive for THC. She drinks alcohol occasionally and smokes cigarettes frequently. - Manager [employer] Device about the use of THC, cigarette smoking and Alcohol use. Assessment & Plan (01/21/2021 2:09 PM CDT): Patient uses THC to feel better. It reduces her anxiety and improves her mood. Her urine was positive for THC. She drinks alcohol occasionally and smokes cigarettes frequently. - Manager [employer] Device about the use of THC, cigarette smoking and Alcohol use. Assessment & Plan (01/20/2021 5:28 PM CDT): Patient uses THC to feel better. It reduces her anxiety and improves her mood. Her urine was positive for THC. She drinks alcohol occasionally and smokes cigarettes frequently. - Manager [employer] Device about the use of THC, cigarette smoking and Alcohol use. Assessment & Plan (01/19/2021 5:32 PM CDT): Patient uses THC to feel better. It reduces her anxiety and improves her mood. Her urine was positive for THC. She drinks alcohol occasionally and smokes cigarettes frequently. - Manager [employer] Device about the use of THC, cigarette smoking and Alcohol use. Assessment & Plan (01/18/2021 11:58 AM CDT): Patient uses THC to feel better. It reduces her anxiety and improves her mood. Her urine was positive for THC. She drinks alcohol occasionally and smokes cigarettes frequently. - Manager [employer] Device about the use of THC, cigarette smoking and Alcohol use. Assessment & Plan (01/17/2021 11:00 AM CDT): Patient uses THC to feel better. It reduces her anxiety and improves her mood. Her urine was positive for THC. She drinks alcohol occasionally and smokes cigarettes frequently. - Manager Medical Device about the use of THC, cigarette smoking and Alcohol use. Assessment & Plan (01/16/2021 1:11 PM CDT): Patient uses THC to feel better. It reduces her anxiety and improves her mood. Her urine was positive for THC. She drinks alcohol occasionally and smokes cigarettes frequently. - Manager [employer] Device about the use of THC, cigarette smoking and Alcohol use. Assessment & Plan (01/15/2021 4:20 PM CDT): Patient uses THC to feel better. It reduces her anxiety and improves her mood. Her urine was positive for THC. She drinks alcohol and smokes cigarettes occasionally. - Manager [employer] Device about the use of THC, cigarette smoking [...] plastic substitute - Bacitracin topical cream BID MENEDZ for 2-3 days past resolution of symptoms [...] having IBS and she follows up with [facility] gastro[facility]ology. She has on/off mild diffuse abdominal pain that is not relieved by bowel movements as well as diarrhea. No vomiting or constipation. - Continue Cyproheptadine Assessment & Plan (01/18/2021 11:57 AM CDT): Adilene reports having IBS and she follows up with [facility] gastroenterology. She has on/off mild diffuse abdominal pain that is not relieved by bowel movements as well as diarrhea. No vomiting or constipation. - Continue Cyproheptadine Assessment & Plan (01/17/2021 11:00 AM CDT): Adilene reports having IBS and she follows up with [facility] gastro[facility]ology. She has on/off mild diffuse abdominal pain that is not relieved by bowel movements as well as diarrhea. No vomiting or constipation. - Continue Cyproheptadine Assessment & Plan (01/16/2021 1:11 PM CDT): Adilene reports having IBS and she follows up with [facility]. She has on/off diffuse abdominal pain that is not relieved by bowel movements as well as diarrhea. No vomiting or constipation. - Continue Cyproheptadine Assessment & Plan (01/15/2021 4:28 PM CDT): Adilene reports having IBS and she follows up with [facility]. 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
--- OUTSIDE RECORDS SUMMARY | 2025-01-16 16:30 | XMS_ITS | Clinical Summary ---
Author Organization [facility] Address [address] [place] [address] Care Team Providers Care Shelter Case Manager Name Role Phone Lena Sanders MD Primary Care Provider [phone] Source Comments [facility],non-owned Affiliates and Associated Physician Practices is amultiple site organization consisting of ambulatory clinics and hospital sitesin [place], [place], [place]. This disclosure is being madepursuant to the Care Everywhere program and may not contain all information available regarding this patient. 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
--- OUTSIDE RECORDS SUMMARY | 2025-01-16 16:30 | XMS_ITS | Clinical Summary ---
Author Organization [facility] Address [facility] [place] [address] Care Team Providers Care Trial Court Justice Name Role Phone Lena Sanders MD Primary [...] Sex Assigned at Female 07/10/2024 3:11 AM MEDICAL AFFAIRS SPECIALIST Legal Sex Female 8:07 AM CDT Gender Identity Not on file Sexual Orientation Not on file Last Filed Vital Signs Vital Sign Reading Time Taken Comments Blood Pressure 104/62 08/16/2024 1:44 PM MEDICAL AFFAIRS SPECIALIST Pulse 91 08/16/2024 1:44 PM MEDICAL AFFAIRS SPECIALIST Temperature 36.7 C (98.1 F) 08/16/2024 1:44 PM MEDICAL AFFAIRS SPECIALIST Respiratory Rate 15 07/10/2024 4:10 AM MEDICAL AFFAIRS SPECIALIST Oxygen Saturation 98% 08/16/2024 1:44 PM MEDICAL AFFAIRS SPECIALIST Inhaled Oxygen Concentration - - Weight 58.5 kg (129 lb) 08/16/2024 1:44 PM MEDICAL AFFAIRS SPECIALIST Height 167.6 cm (5' 6) 08/16/2024 1:44 PM MEDICAL AFFAIRS SPECIALIST Body Mass Index 20.82 08/16/2024 1:44 PM MEDICAL AFFAIRS SPECIALIST Plan of Treatment Health Maintenance Due Date Last Done Comments Annual Physical 2006 Meningococcal B Vaccine (1 of 2 - Standard) 2019 Pneumococcal Vaccine: Pediatrics (0 to 5 Years) and At-Risk Patients (6 to 49 Years) (1 of 2 - PCV) 2022 05/22/2004, 2003, 2003, Additional history exists COVID-19 Vaccine ( - season) 2024 PHQ-2 (Physician [place]) 06/22/2024 DTaP, Tdap and Td Vaccines (7 [...] complete this topic Insurance CHARLIE Care Teams Trial Court Justice Relationship Specialty Start Date End Date Lena Sanders MD [address] [place] [address] [place] [address] PCP - General FAMILY PRACTICE 07/21/23
[2025-01-16 17:42] LABS: Add Urine Microscopic? YES; Appearance Urine Clear (Clear); Glucose Urine UA Negative (Negative); Leukocyte Esterase Ur 3+ LEU/UL (Negative); Need Manual Microscopic Reviewed; Nitrate Urine Negative (Negative); Non Pathogenic Casts 0-2; Specific Grav Ur 1.009 (1.001-1.035)
--- NOTE | 2025-02-19 16:31 | PM.OBTRLD ---
OB - Triage/Final Diagnosis Visit Information Comments/Additional reasons for admission: I have assessed the risk for this patient, Adilene Viera, and determined that she would benefit from observation care. Evaluation Laboratory results: Laboratory Tests 01/16/25 17:00 Urine Color Yellow Urine Appearance Clear Urine pH 7.5 Ur Specific [place] 1.009 Urine Protein Negative Urine Glucose (UA) Negative Urine Ketones Negative Ur Blood (Man) Negative Urine Nitrate Negative Urine Bilirubin Negative Urine Urobilinogen 0.2 Add Ur Microanalysis Reviewed Leukocyte Esterase Rfl 3+ H Urine RBC 0-2 Urine WBC 0-5 Ur Squamous Epith Cells Occasional Urine Bacteria None seen Urine Casts 0-2 Final Diagnosis (1) False labor: Code(s): O47.9 - False labor, unspecified Status: Acute
--- NOTE | 2025-02-19 16:39 | PM.OBTRLD ---
OB - Triage/Final Diagnosis Visit Information Comments/Additional reasons for admission: I have assessed the risk for this patient, Adilene Viera, and determined that she would benefit from observation care. Evaluation Laboratory results: Laboratory Tests 01/16/25 17:00 Urine Color Yellow Urine Appearance Clear Urine pH 7.5 Ur Specific [place] 1.009 Urine Protein Negative Urine Glucose (UA) Negative Urine Ketones Negative Ur Blood (Man) Negative Urine Nitrate Negative Urine Bilirubin Negative Urine Urobilinogen 0.2 Add Ur Microanalysis Reviewed Leukocyte Esterase Rfl 3+ H Urine RBC 0-2 Urine WBC 0-5 Ur Squamous Epith Cells Occasional Urine Bacteria None seen Urine Casts 0-2 Final Diagnosis (1) False labor: Code(s): O47.9 - False labor, unspecified Status: Acute
== END 2025-01-16 18:30 | disposition home or self-care (01) ==
PROVIDERS: Admitting Provider Obstetrics & Gynecology; PCP Family Medicine; Visit Provider Obstetrics & Gynecology
DX: O47.03 False labor before 37 completed weeks of gestation, third trimester (principal); Z3A.35 35 weeks gestation of pregnancy
CPT/HCPCS: 81001; 87086; G0378; G0379

== ENCOUNTER 2025-01-19 15:00 | Observation (INO) | payer OTHER, SELFPAY ==
--- OUTSIDE RECORDS SUMMARY | 2025-01-19 15:13 | XMS_ITS | Clinical Summary ---
Author Organization [facility] Address [address] [facility] [place] [address] Care Team Providers Care Broker Assistant Name Role Phone Lena Sanders MD Primary Care Provider [phone] Source Comments [facility],non-owned Affiliates and Associated Physician Practices is amultiple site organization consisting of ambulatory clinics and hospital sitesin [place], [place], [place] and [place]. This disclosure is being madepursuant to the Care Everywhere program and may not contain all information available regarding this patient. Last updated 18.[facility] Allergies No known active allergies Medications * [...] on file Legal Sex Female 5:42 AM JAVA DEVELOPER ARCHITECT Gender Identity Not on file Sexual Orientation [...] complete this topic Insurance [place]ID - [place] [facility] Care Teams Broker Assistant Relationship Specialty Start Date End Date Lena Sanders MD [address] [place] [id number] PCP - General Family Medicine 01/23/17
--- OUTSIDE RECORDS SUMMARY | 2025-01-19 15:13 | XMS_ITS | Clinical Summary ---
Author Organization [facility] Address [address] [place] [address] Care Team Providers Care Lacing Cutter Name Role Phone Lena Sanders MD Primary [...] Sex Assigned at Female 07/10/2024 3:11 AM DUST OPERATOR Legal Sex Female 8:07 AM CDT Gender Identity Not on file Sexual Orientation Not on file Last Filed Vital Signs Vital Sign Reading Time Taken Comments Blood Pressure 104/62 08/16/2024 1:44 PM DUST OPERATOR Pulse 91 08/16/2024 1:44 PM DUST OPERATOR Temperature 36.7 C (98.1 F) 08/16/2024 1:44 PM DUST OPERATOR Respiratory Rate 15 07/10/2024 4:10 AM DUST OPERATOR Oxygen Saturation 98% 08/16/2024 1:44 PM DUST OPERATOR Inhaled Oxygen Concentration - - Weight 58.5 kg (129 lb) 08/16/2024 1:44 PM DUST OPERATOR Height 167.6 cm (5' 6) 08/16/2024 1:44 PM DUST OPERATOR Body Mass Index 20.82 08/16/2024 1:44 PM DUST OPERATOR Plan of Treatment Health Maintenance Due Date Last Done Comments Annual Physical 2006 Meningococcal B Vaccine (1 of 2 - Standard) 2019 Pneumococcal Vaccine: Pediatrics (0 to 5 Years) and At-Risk Patients (6 to 49 Years) (1 of 2 - PCV) 2022 05/22/2004, 2003, 2003, Additional history exists COVID-19 Vaccine ( - season) 2024 PHQ-2 (Physician [place]) 06/22/2024 DTaP, Tdap and Td Vaccines (7 [...] patient's age to complete this topic Insurance [employer] Care Teams Lacing Cutter Relationship Specialty Start Date End Date Lena Sanders MD [address] [place] [address] [place] [address] PCP - General FAMILY PRACTICE 07/21/23
--- OUTSIDE RECORDS SUMMARY | 2025-01-19 15:13 | XMS_ITS | Clinical Summary ---
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 her anxiety and improves her mood. Her urine was positive for THC. She drinks alcohol occasionally and smokes cigarettes frequently. - Content Editor about the use of THC, cigarette smoking and Alcohol use. Assessment & Plan (01/19/2021 5:32 PM CDT): Patient uses THC to feel better. It reduces her anxiety and improves her mood. Her urine was positive for THC. She drinks alcohol occasionally and smokes cigarettes frequently. - Content Editor about the use of THC, cigarette smoking and Alcohol use. Assessment & Plan (01/18/2021 11:58 AM CDT): Patient uses THC to feel better. It reduces her anxiety and improves her mood. Her urine was positive for THC. She drinks alcohol occasionally and smokes cigarettes frequently. - Content Editor about the use of THC, cigarette smoking and Alcohol use. Assessment & Plan (01/17/2021 11:00 AM CDT): Patient uses THC to feel better. It reduces her anxiety and improves her mood. Her urine was positive for THC. She drinks alcohol occasionally and smokes cigarettes frequently. - Content Editor about the use of THC, cigarette smoking and Alcohol use. Assessment & Plan (01/16/2021 1:11 PM CDT): Patient uses THC to feel better. It reduces her anxiety and improves her mood. Her urine was positive for THC. She drinks alcohol occasionally and smokes cigarettes frequently. - Content Editor about the use of THC, cigarette smoking and Alcohol use. Assessment & Plan (01/15/2021 4:20 PM CDT): Patient uses THC to feel better. It reduces her anxiety and improves her mood. Her urine was positive for THC. She drinks alcohol and smokes cigarettes occasionally. - Content Editor about the use of THC, cigarette smoking [...] having IBS and she follows up with [facility] gastroenterology. She has on/off mild diffuse abdominal pain that is not relieved by bowel movements as well as diarrhea. No vomiting or constipation. - Continue Cyproheptadine Assessment & Plan (01/18/2021 11:57 AM CDT): Adilene reports having IBS and she follows up with [facility] gastroenterology. She has on/off mild diffuse abdominal pain that is not relieved by bowel movements as well as diarrhea. No vomiting or constipation. - Continue Cyproheptadine Assessment & Plan (01/17/2021 11:00 AM CDT): Adilene reports having IBS and she follows up with [facility] gastroenterology. She has on/off mild diffuse abdominal pain that is not relieved by bowel movements as well as diarrhea. No vomiting or constipation. - Continue Cyproheptadine Assessment & Plan (01/16/2021 1:11 PM CDT): Adilene reports having IBS and she follows up with [facility] gastroenter[facility]. She has on/off diffuse abdominal pain that is not relieved by bowel movements as well as diarrhea. No vomiting or constipation. - Continue Cyproheptadine Assessment & Plan (01/15/2021 4:28 PM CDT): Adilene reports having IBS and she follows up with [facility] gastroenter[facility]. She has on/off [...] CDT Respiratory Rate 16 08/30/2021 7:09 AM [facility] Oxygen Saturation 100% 09/19/2021 11:23 AM CDT Inhaled Oxygen Concentration - - Weight 64.2 kg (141 lb 9.6 oz) 09/19/2021 11:23 AM CDT Height 170.2 cm (5' 7.01) 08/28/2021 3:27 PM CS T Body Mass Index 22.17 08/28/2021 3:27 PM [facility] Plan of Treatment Not on file Insurance [facility] [address] [place] [address] [place] [employer] [facility] Advance Directives For more information, please contact: [phone] * Full Code (Latest Code Status on File) Date Activated Date Inactivated Comments 08/28/2021 8:13 PM 08/30/2021 4:47 PM * Full Code Date Activated Date Inactivated Comments 01/15/2021 1:54 PM 03/13/2021 10:26 PM Care Teams Clinical Ob Relationship Specialty Start Date End Date No, Physician PCP - General 08/07/21
--- OUTSIDE RECORDS SUMMARY | 2025-01-19 15:13 | XMS_ITS | Referral Summary ---
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 smoking and Alcohol use. Assessment & Plan (01/23/2021 8:27 AM CDT): Patient uses THC to feel better. It reduces her anxiety and improves her mood. Her urine was positive for THC. She drinks alcohol occasionally and smokes cigarettes frequently. - .Net Developer about the use of THC, cigarette smoking and Alcohol use. Assessment & Plan (01/22/2021 6:08 PM CDT): Patient uses THC to feel better. It reduces her anxiety and improves her mood. Her urine was positive for THC. She drinks alcohol occasionally and smokes cigarettes frequently. - .Net Developer about the use of THC, cigarette smoking and Alcohol use. Assessment & Plan (01/21/2021 2:09 PM CDT): Patient uses THC to feel better. It reduces her anxiety and improves her mood. Her urine was positive for THC. She drinks alcohol occasionally and smokes cigarettes frequently. - .Net Developer about the use of THC, cigarette smoking and Alcohol use. Assessment & Plan (01/20/2021 5:28 PM CDT): Patient uses THC to feel better. It reduces her anxiety and improves her mood. Her urine was positive for THC. She drinks alcohol occasionally and smokes cigarettes frequently. - .Net Developer about the use of THC, cigarette smoking and Alcohol use. Assessment & Plan (01/19/2021 5:32 PM CDT): Patient uses THC to feel better. It reduces her anxiety and improves her mood. Her urine was positive for THC. She drinks alcohol occasionally and smokes cigarettes frequently. - .Net Developer about the use of THC, cigarette smoking and Alcohol use. Assessment & Plan (01/18/2021 11:58 AM CDT): Patient uses THC to feel better. It reduces her anxiety and improves her mood. Her urine was positive for THC. She drinks alcohol occasionally and smokes cigarettes frequently. - .Net Developer about the use of THC, cigarette smoking and Alcohol use. Assessment & Plan (01/17/2021 11:00 AM CDT): Patient uses THC to feel better. It reduces her anxiety and improves her mood. Her urine was positive for THC. She drinks alcohol occasionally and smokes cigarettes frequently. - .Net Developer about the use of THC, cigarette smoking and Alcohol use. Assessment & Plan (01/16/2021 1:11 PM CDT): Patient uses THC to feel better. It reduces her anxiety and improves her mood. Her urine was positive for THC. She drinks alcohol occasionally and smokes cigarettes frequently. - .Net Developer about the use of THC, cigarette smoking and Alcohol use. Assessment & Plan (01/15/2021 4:20 PM CDT): Patient uses THC to feel better. It reduces her anxiety and improves her mood. Her urine was positive for THC. She drinks alcohol and smokes cigarettes occasionally. - .Net Developer about the use of THC, cigarette smoking [...] having IBS and she follows up with [facility] pediatrics gastroenterology. She has on/off mild diffuse abdominal pain that is not relieved by bowel movements as well as diarrhea. No vomiting or constipation. - Continue Cyproheptadine Assessment & Plan (01/18/2021 11:57 AM CDT): Adilene reports having IBS and she follows up with [facility] pediatrics gastroenterology. She has on/off mild diffuse abdominal pain that is not relieved by bowel movements as well as diarrhea. No vomiting or constipation. - Continue Cyproheptadine Assessment & Plan (01/17/2021 11:00 AM CDT): Adilene reports having IBS and she follows up with [facility] pediatrics gastroenterology. She has on/off mild diffuse abdominal pain that is not relieved by bowel movements as well as diarrhea. No vomiting or constipation. - Continue Cyproheptadine Assessment & Plan (01/16/2021 1:11 PM CDT): Adilene reports having IBS and she follows up with [facility] pediatrics gastroenterology. She has on/off diffuse abdominal pain that is not relieved by bowel movements as well as diarrhea. No vomiting or constipation. - Continue Cyproheptadine Assessment & Plan (01/15/2021 4:28 PM CDT): Adilene reports having IBS and she follows up with [facility] pediatrics gastroenterology. She has on/off diffuse [...] CDT Respiratory Rate 16 08/30/2021 7:09 AM TESTING ANALYST Oxygen Saturation 100% 09/19/2021 11:23 AM CDT Inhaled Oxygen Concentration - - Weight 64.2 kg (141 lb 9.6 oz) 09/19/2021 11:23 AM CDT Height 170.2 cm (5' 7.01) 08/28/2021 3:27 PM CS T Body Mass Index 22.17 08/28/2021 3:27 PM TESTING ANALYST Plan of Treatment Not on file Insurance [place] [address] [facility] [place] [facility] Advance Directives For more information, please contact: [phone] * Full Code (Latest Code Status on File) Date Activated Date Inactivated Comments 08/28/2021 8:13 PM 08/30/2021 4:47 PM * Full Code Date Activated Date Inactivated Comments 01/15/2021 1:54 PM 03/13/2021 10:26 PM Care Teams Tar Distributor Operator Relationship Specialty Start Date End Date No, Physician PCP - General 08/07/21
[2025-01-19 15:20] VITALS: BMI 24.3
[2025-01-19 15:30] VITALS: BP 113/72; PULSE 103
[2025-01-19 15:45] VITALS: BP 107/67; PULSE 99
[2025-01-19 15:45] LABS: Add Urine Microscopic? YES; Appearance Urine Cloudy (Clear); Glucose Urine UA Trace mg/dL (Negative); Leukocyte Esterase Ur 3+ LEU/UL (Negative); Nitrate Urine Negative (Negative); Specific Grav Ur 1.030 (1.001-1.035)
[2025-01-19 16:00] VITALS: BP 110/72; PULSE 100
[2025-01-19 16:15] VITALS: BP 110/68; PULSE 101
[2025-01-19 16:30] VITALS: BP 110/68; PULSE 99
--- NOTE | 2025-01-20 07:26 | P.PNOB_ITS ---
OB - Triage/Final Diagnosis Visit Information Date of evaluation: 01/19/25 Reason for evaluation: threatened labor Comments/Additional reasons for admission: I have assessed the risk for this patient, Adilene Viera, and determined that she would benefit from observation care. Evaluation Laboratory results: Laboratory Tests 01/19/25 15:25 Urine Color Dark yellow Urine Appearance Cloudy H Urine pH 6.5 Ur Specific [place] 1.030 Urine Protein 1+ H Urine Glucose (UA) Trace H Urine Ketones Trace H Ur Blood (Man) Trace Urine Nitrate Negative Urine Bilirubin 1+ H Urine Urobilinogen 1.0 Ur Leukocyte Esterase 3+ H Urine RBC 0-2 Urine WBC 11-20 H Ur Squamous Epith Cells Many H Urine Bacteria 3+ H Urine Casts 3-5 Vital signs: Vital Signs - 24 hr 01/19/25 15:20 01/19/25 15:30 01/19/25 15:45 Pulse Rate 103 H 99 Blood Pressure 113/72 107/67 Oxygen Delivery Room Air 01/19/25 16:00 01/19/25 16:15 01/19/25 16:30 Pulse Rate 100 101 H 99 Blood Pressure 110/72 110/68 110/68 Oxygen Delivery
== END 2025-01-19 16:50 | disposition home or self-care (01) ==
PROVIDERS: Advanced Practice Midwife; Admitting Provider Obstetrics & Gynecology; PCP Family Medicine; Visit Provider Obstetrics & Gynecology
DX: O47.03 False labor before 37 completed weeks of gestation, third trimester (principal); Z3A.36 36 weeks gestation of pregnancy
CPT/HCPCS: 81001; G0378; G0379

== ENCOUNTER 2025-01-25 11:41 | Outpatient (CLI) | payer OTHER, SELFPAY ==
--- OUTSIDE RECORDS SUMMARY | 2025-01-25 12:21 | XMS_ITS ---
Author Organization [facility] Address [address] [place] [address] Care Team Providers Care Strategic Intelligence Officer Name Role Phone Dr. Lena Sanders Primary Care Provider [phone] Migration, Provider Unavailable Unavailable REASON FOR VISIT EMR-Ector Encounters Encounter Location Date Provider Diagnosis [facility] [address] [place] [address] 05/21/2024 Provider Migration Plan Of Treatment Medication [...] every day; Duration: 01/14/2024 02/03/2024 [facility]* valACYclovir HCl [...] every day; Duration: 12/12/2020 01/10/2021 *[facility]* Zoloft 50 [...] * C[place] AdileneDOB:[birth year] (19 yo F)Acc No.[id number]:05/21/2024 Patient: Adilene BORDEN :2005 A ge:19 Y S ex:Female Phone: Address:[address] [place] [address], [facility], [place], [address] * Refills Stop Escitalopram Oxalate Tablet, 20 [...]
--- OUTSIDE RECORDS SUMMARY | 2025-01-25 12:21 | XMS_ITS ---
Author Organization [facility] Address [address] [facility] [address] [place] [address] Care Team Providers Care Hoop Bending Machine Operator Name Role Phone Nallely Baeza Primary Care Provider UnavailNallely Geiger Unavailable [phone] REASON FOR VISIT counseling TH pt at home provider in office Encounters Encounter Location Date Provider Diagnosis [facility] [address] [place] [address] 01/13/2024 Nallely Baeza Plan Of Treatment No Information Progress Notes * Adilene VIERADOB:[birth year] (19 yo F)Acc No.[id number]:01/13/2024 UNLOCKED PROGRESS NOTE Patient: Adilene BORDEN Provider: To Baeza LCPC :2005 A ge:18 Y S ex:Female Date:01/13/2024 Address:[address] [facility] Pcp:Nallely Baeza Subjective: * Chief Complaints: * 1 . counseling TH pt at home provider in office. * Medical History: Objective: * Vitals: Assessment: Plan: * Treatment: * Billing Information: * Visit Code: * Procedure Codes: * Electronic signature of Mona Baeza LCPC on 01/25/2025 at 12:21 PM CDT Sign off status: Pending Visit Status: N /S (No-Show) * Provider: To Baeza LCPC Date: 01/13/2024 Generated for Printi ng/Cathy/Robertoitting on: 0 01/25/2025 12:21 PM CDT
--- OUTSIDE RECORDS SUMMARY | 2025-01-25 12:21 | XMS_ITS | Patient Health Record ---
Author Organization [facility] Address [address] [place] [address] Care Team Providers Care Deputy Felony Clerk Name Role Phone Angela, Hien Primary Care Provider Bart Juarez [phone] Allergies No Known Allergies Reason For Referral [...] Status Risk Notes Problem Borderline personality disorder (00232463) Borderline personality disorder (F60.3) Active confirmed Problem Depression (424492915) Depression (F32.9) Active confirmed Problem Posttraumatic stress disorder (66174527) PTSD (post-traumati c stress disorder) (F43.10) Active confirmed Problem Anxiety (86154568) Anxiety (F41.9) Active confirmed Problem Bipolar 1 disorder (119942622) Bipolar 1 disorder (F31.9) Active confirmed Problem Cannabis dependence (F12.20) Active confirmed Problem Mood disorder (62599962) Mood disorder (F39) Inactive confirmed replaced with bipolar 1 Encounters Encounter Location Date Provider Diagnosis [address] [address] 01/26/2024 Bart Juarez Bipolar 1 disorder F31.9 ; Borderline personality disorder F60.3 ; PTSD (post-traumatic stress disorder) F43.10 and Anxiety F41.[address] [address] 03/01/2024 Bart Juarez Bipolar 1 disorder F31.9 ; Borderline personality disorder F60.3 ; PTSD (post-traumatic stress disorder) F43.10 and Anxiety F41.[address] [address] 05/11/2024 Bart Juarez Bipolar 1 disorder F31.9 ; PTSD (post-traumatic stress disorder) F43.10 ; Anxiety F41.9 and Borderline personality disorder F60.[address] [address] 06/07/2024 Bart Juarez Bipolar 1 disorder F31.9 ; Borderline personality disorder F60.3 ; PTSD (post-traumatic stress disorder) F43.10 and Anxiety F41.[address] [address] 12/20/2024 Bart Juarez Bipolar 1 disorder F31.9 ; Borderline personality disorder F60.3 ; PTSD (post-traumatic stress disorder) F43.10 and Anxiety F41.[address], [place] [address] 12/07/2024 Bart Juarez Assessments Encounter Date Diagnosis [...] she plans on women's health care at [facility] in [place], [place]. Discussed with client to stop bupropion [...] she plans on women's health care at [facility] in [place], [place]. Discussed with client to stop bupropion [...] she plans on women's health care at [facility] in [place], [place]. Discussed with client to stop bupropion [...] she plans on women's health care at [facility] in [place], [place]. Discussed with client to stop bupropion [...] to the 24-hour crisis line at [facility]. Questions addressed. Client verbalized understanding [...] to the 24-hour crisis line at [facility]. Questions addressed. Client verbalized understanding [...] to the 24-hour crisis line at [facility]. Questions addressed. Client verbalized understanding [...] to the 24-hour crisis line at [facility]. Questions addressed. Client verbalized understanding of all information and is agreeable to treatment plan. Client states 8 weeks along in a positive . That she plans on women's health care at [facility] in [place], [place]. Discussed with client to stop bupropion [...] to the 24-hour crisis line at [facility]. Questions addressed. Client verbalized understanding [...] Insured Coverage Start Date Coverage End Date [employer] [address] [place] [address] [id number] Adilene Viera Self - patient is the insured [address] [place] [address] [id number] Adilene Viera Self - patient is the insured 3 4 [employer] [address] [place] [address] [id number] Adilene Viera Self - patient is the insured 3 4 [employer] [address] [place] [address] [id number] Ceci Viera Parent 3 Medical (General) History Medical History History ICD Code Seizures R56.9 Surgical History Surgery Date(Month/Year) cyst removal 2017 Hospitalization History Reason Date(Month/Year) Seizures [facility] 2021 COVID/Mental Health [facility] 2020
--- OUTSIDE RECORDS SUMMARY | 2025-01-25 12:21 | XMS_ITS ---
Author Organization [facility] Address [address] [facility] [address] [place] [address] Care Team Providers Care Calciner Operator Helper Name Role Phone Nallely Baeza Primary Care Provider UnavailNallely Geiger Unavailable [phone] REASON FOR VISIT counseling TH pt at home provider in office Encounters Encounter Location Date Provider Diagnosis [facility] [address] [place] [address] 12/28/2023 Nallely Baeza Plan Of Treatment No Information Progress Notes * Adilene VIERADOB:[birth year] (19 yo F)Acc No.[id number]:12/28/2023 UNLOCKED PROGRESS NOTE Patient: Adilene BORDEN Provider: To Baeza LCPC :2005 A ge:18 Y S ex:Female Date:12/28/2023 Address:[address] [facility] Pcp:Nallely Baeza Subjective: * Chief Complaints: * [...] 12/28/2023 Generated for Printi ng/Cathy/Robertoitting on: 0 01/25/2025 12:21 PM CDT
--- OUTSIDE RECORDS SUMMARY | 2025-01-25 12:21 | XMS_ITS ---
Author Organization [facility] Address [address] [facility] [address] [place] [address] Care Team Providers Care Letter Of Credit Document Examiner Name Role Phone Nallely Baeza Primary Care Provider Nallely Walls Unavailable [phone] Encounters Encounter Location Date Provider Diagnosis [facility] [address] [place] [address] 01/11/2024 Nallely Baeza Plan Of Treatment No Information Progress Notes * Millie VIERAmarisachadDOB:[birth year] (19 yo F)Acc No.[id number]:01/11/2024 UNLOCKED PROGRESS NOTE Patient: Adilene BORDEN Provider: To Baeza LCPC :2005 A ge:18 Y S ex:Female Date:01/11/2024 Address[address] [facility] Pcp:Nallely Baeza Subjective: * Chief Complaints: * * Medical History: Objective: * Vitals: Assessment: Plan: * Treatment: * Billing Information: * Visit Code: * Procedure Codes: * Electronic signature of Mona Baeza LCPC on 01/25/2025 at 12:21 PM CDT Sign off status: Pending Visit Status: C ANC (Cancelled) * Provider: To Baeza LCPC Date: 01/11/2024 Generated for Printi ng/Fairish/eTransmitting on: 01/25/2025 12:21 PM CDT
--- OUTSIDE RECORDS SUMMARY | 2025-01-25 12:22 | XMS_ITS | Clinical Summary ---
Author Organization [facility] Address [address] [place] [address] Care Team Providers Care Manager Social Media Name Role Phone Lena Sanders MD Primary [...] Sex Assigned at Female 07/10/2024 3:11 AM WIND PROJECTS SUPERVISOR Legal Sex Female 8:07 AM CDT Gender Identity Not on file Sexual Orientation Not on file Last Filed Vital Signs Vital Sign Reading Time Taken Comments Blood Pressure 104/62 08/16/2024 1:44 PM WIND PROJECTS SUPERVISOR Pulse 91 08/16/2024 1:44 PM WIND PROJECTS SUPERVISOR Temperature 36.7 C (98.1 F) 08/16/2024 1:44 PM WIND PROJECTS SUPERVISOR Respiratory Rate 15 07/10/2024 4:10 AM WIND PROJECTS SUPERVISOR Oxygen Saturation 98% 08/16/2024 1:44 PM WIND PROJECTS SUPERVISOR Inhaled Oxygen Concentration - - Weight 58.5 kg (129 lb) 08/16/2024 1:44 PM WIND PROJECTS SUPERVISOR Height 167.6 cm (5' 6) 08/16/2024 1:44 PM WIND PROJECTS SUPERVISOR Body Mass Index 20.82 08/16/2024 1:44 PM WIND PROJECTS SUPERVISOR Plan of Treatment Health Maintenance Due Date Last Done Comments Annual Physical 2006 Meningococcal B Vaccine (1 of 2 - Standard) 2019 Pneumococcal Vaccine: Pediatrics (0 to 5 Years) and At-Risk Patients (6 to 49 Years) (1 of 2 - PCV) 2022 05/22/2004, 2003, 2003, Additional history exists COVID-19 Vaccine ( - season) 2024 PHQ-2 (Physician [place]) 06/22/2024 DTaP, Tdap and Td Vaccines (7 [...] complete this topic Insurance [employer] Care Teams Manager Social Media Relationship Specialty Start Date End Date Lena Sanders MD [address] [place] [address] [place] [address] PCP - General FAMILY PRACTICE 07/21/23
--- OUTSIDE RECORDS SUMMARY | 2025-01-25 12:22 | XMS_ITS | Patient Health Record ---
Author Organization [facility] Address [address] [place] [address] Care Team Providers Care Mine Motor Operator Name Role Phone Dr. Lena Sanders Primary Care Provider [phone] Lena Boyle Unavailable [phone] Migration, Provider Unavailable Unavailable Allergies Allergen (clinical drug ingredient) Drug/Non Drug Allergy documented on EMR Reaction Allergy Type Onset Date Status hydroxyzine hydrOXYzine Delete Reason: Entered in Error. Drug Allergy 05/07/2023 Inactive trazodone traZODone SYNCOPE AND BLURRED VISION Drug Allergy 05/07/2023 Active Results Component Value Reference Range Notes Ultrasound : Renal Reviewed date:11/03/2024 11:49:47 AM Interpretation: Performing Lab: Notes/Report: Test, Urine Reviewed date:06/06/2024 12:07:17 PM Interpretation:Positive Performing Lab: Notes/Report: Positive Reason For Referral No Information Medications Medication SIG (Take, Route, Frequency, Duration) Notes Start Date End Date Status Colace 100 MG Capsule 1 Oral every day; Duration: 0 ,PRN Reason:for constipation 08/13/2023 Not-Taking Sertraline HCl 100 MG Tablet Oral; Duration: 30 09/14/2023 Active lurasidone 20.000 mg tablet oral; Duration: 30 *Reorder from [facility] for eRx and Interaction Alerts* 07/27/2023 Active [...] W/U Status Risk Notes Problem Tuberculosis screening (472995858) Encounter for screening for respiratory tuberculosis (Z11.1) 017 Problem resolved confirmed Problem Closed fracture of foot (941776143) Closed fracture of unspecified bone(s) of foot (except toes) (825.20) 017 Problem resolved confirmed Problem Normal body mass index (27372010) Body mass index (BMI) 21.0-21.9, adult (Z68.21) 023 Active confirmed Problem Noncompliance with treatment (finding) (6018680) Patient's noncompliance with other medical treatment and regimen due to unspecified reason (Z91.199) 024 Active confirmed Problem Problem, abnormal examination (95962462) Encounter for general adult medical examination with abnormal findings (Z00.01) 024 Active confirmed Problem Changes in skin texture (462971127) Changes in skin texture (R23.4) 024 Active confirmed Problem History and physical examination, sports participation (procedure) (278093585) Encounter for examination for participation in sport (Z02.5) 017 Problem resolved confirmed Problem Closed fracture of foot (514499576) Unspecified fracture of left foot, initial encounter for closed fracture (S92.902A) 017 Problem resolved confirmed Problem Acute atopic conjunctivitis (56988551) Acute atopic conjunctivitis, unspecified eye (H10.10) 021 Problem resolved confirmed Problem Epigastric pain (34039315) Abdominal pain, epigastric (789.06) 018 Problem resolved confirmed Problem Excessive and frequent menstruation (851421914) Excessive or frequent menstruation (626.2) 017 Problem resolved confirmed Problem Antidepressant drug adverse reaction (936828031) Adverse effect of unspecified antidepressants, initial encounter (T43.205A) 023 Active confirmed TRAZODONE Problem Abdominal pain (13242372) Unspecified abdominal pain (R10.9) 024 Active confirmed Problem Insomnia (068051590) Insomnia, unspecified (G47.00) 023 Active confirmed Problem Major depression, single episode (41077599) Major depressive disorder, single episode, unspecified (F32.9) 021 Active confirmed Problem Severe major depression, single episode, without psychotic features (69505252) Major depressive disorder, single episode, severe without psychotic features (F32.2) 021 Active confirmed Problem Herpes simplex viral infection (48997445) Herpesviral infection, unspecified (B00.9) 023 Active confirmed Problem Pain in limb (04729921) Pain in soft tissues of limb (729.5) 017 Active confirmed Problem Child health medical examination (980537024) Encounter for routine child health examination without abnormal findings (Z00.129) 016 Problem resolved confirmed Problem Localized mass (1723921) Localized swelling, mass and lump, unspecified (R22.9) 017 Problem resolved confirmed Problem Generalized abdominal pain (680572173) Generalized abdominal pain (R10.84) 018 Problem resolved confirmed Problem Epigastric pain (97542570) Epigastric pain (R10.13) 018 Problem resolved confirmed Problem Wheezing (28047022) Wheezing (R06.2) 017 Problem resolved confirmed Problem Irregular menstruation (23298773) Irregular menstruation, unspecified (N92.6) 017 Problem resolved confirmed Problem Pain in left foot (132364505745708 ) Pain in left foot (M79.672) Problem resolved confirmed Problem Allergic rhinitis (34917223) Allergic rhinitis, unspecified (J30.9) 021 Problem resolved confirmed Problem Acute bronchitis (59271410) Acute bronchitis, unspecified (J20.9) 017 Problem resolved confirmed Problem Acute tonsillitis (51493267) Acute tonsillitis, unspecified (J03.90) Problem resolved confirmed Problem Tuberculosis screening (728784213) Screening examination for pulmonary tuberculosis (V74.1) 017 Problem resolved confirmed Problem Generalized abdominal pain (644587551) Abdominal pain, generalized (789.07) 018 Problem resolved confirmed Problem Wheezing (37257045) Wheezing (786.07) 017 Problem resolved confirmed Problem Localized superficial swelling of skin (683393336) Localized superficial swelling, mass, or lump (782.2) 017 Problem resolved confirmed Problem Acute bronchitis (50964423) Acute bronchitis (466.0) 017 Problem resolved confirmed Problem Surveillance of contraception (784671338) Encounter for contraceptive management, unspecified (Z30.9) Active confirmed Problem Exposure to sexually transmissible disorder (509425635) Contact with and (suspected) exposure to infections with a predominantly sexual mode of transmission (Z20.2) Active confirmed Problem Emotional state finding (111918641) Other symptoms and signs involving emotional state (R45.89) 023 Active confirmed Problem Dysmenorrhea (834720436) Dysmenorrhea, unspecified (N94.6) Active confirmed Problem Excessive and frequent menstruation (504797101) Excessive and frequent menstruation with regular cycle (N92.0) Active confirmed Problem Constipation (47264879) Constipation, unspecified (K59.00) 024 Active confirmed Problem Chronic disease of tonsils AND/OR adenoids (20066385) Other chronic diseases of tonsils and adenoids (J35.8) 023 Active confirmed Problem Well child visit (402533041) Routine infant or child health check (V20.2) 018 Active confirmed Problem History and physical examination, administrative (17727590) Other general medical examination for administrative purposes (V70.3) 017 Active confirmed Vital Signs Heart Rate 110 /min 06/06/2024 Temperature 97.6 degrees Fahrenheit 06/06/2024 Height-cm 167.64 cm 06/06/2024 Oximetry 99 % 06/06/2024 Blood pressure diastolic 74 mm Hg 06/06/2024 Weight-kg 58.79 kg 06/06/2024 Height 66.00 in 06/06/2024 Blood pressure systolic 132 mm Hg 06/06/2024 Weight 129.6 lbs 06/06/2024 BMI 20.92 kg/m2 06/06/2024 Encounters Encounter Location Date Provider Diagnosis [address] [address] 06/06/2024 Lena Boyle Less than 8 weeks gestation of Z3A.01 and Major depressive disorder, single episode, unspecified F32.[address] [address] 05/21/2024 Provider Migration [address] [address] 05/22/2024 Provider Migration Assessments Encounter Date Diagnosis (ICD Code) Assessment Notes Treatment Notes Treatment Clinical Notes Section Notes 06/06/2024 Major depressive disorder, single episode, unspecified (ICD-10 - F32.9) Confirmed - confirmed - Approximately 4 weeks per patient - Recommend scheduling an appointment with an OBGYN. Suggested contacting [facility] for appointments. - Advised to [...] an appointment with an OBGYN. Suggested contacting [facility] ([place] for appointments. - Advised to [...] Insured Coverage Start Date Coverage End Date [address] [id number] Adilene Viera Self - patient is the insured 3
--- OUTSIDE RECORDS SUMMARY | 2025-01-25 12:22 | XMS_ITS ---
Author Organization [facility] Address [address] [place] [address] Care Team Providers Care Court Specialist Name Role Phone Hien Miller Primary Care Provider Bart Juarez [phone] REASON FOR VISIT 3 Week F/U Encounters Encounter Location Date Provider Diagnosis [address] [address] 06/01/2024 Bart Juarez Plan Of Treatment No Information Progress Notes * Adilene VIERADOB:[birth year] (19 yo F)Acc No.[id number]:06/01/2024 UNLOCKED PROGRESS NOTE Patient: Adilene BORDEN Provider: Angelica Juarez DNP, ROSLYNP-BC :2005 A ge:19 Y S ex:Female Date:06/01/2024 Address:[address] [place], [place]-[address] Pcp:Hien Miller Subjective: * Chief Complaints: * 1 . 3 Week F/U. * Medical History: Objective: * Vitals: Assessment: Plan: * Treatment: * * Electronic signature of Maranda Juarez APRN, [id number] on 01/25/2025 at 12:21 PM CDT Sign off status: Pending * Provider: Angelica Juarez DNP, PMHNP-BC Date: 08/02/2023 Generated for Ivon paz/Cathy/Robertoitting on: 0 01/25/2025 12:21 PM CDT
--- OUTSIDE RECORDS SUMMARY | 2025-01-25 12:22 | XMS_ITS | Clinical Summary ---
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 Surgeon about the use of THC, cigarette smoking and Alcohol use. Assessment & Plan (01/23/2021 8:27 AM CDT): Patient uses THC to feel better. It reduces her anxiety and improves her mood. Her urine was positive for THC. She drinks alcohol occasionally and smokes cigarettes frequently. - Spinal Surgeon about the use of THC, cigarette smoking and Alcohol use. Assessment & Plan (01/22/2021 6:08 PM CDT): Patient uses THC to feel better. It reduces her anxiety and improves her mood. Her urine was positive for THC. She drinks alcohol occasionally and smokes cigarettes frequently. - Spinal Surgeon about the use of THC, cigarette smoking and Alcohol use. Assessment & Plan (01/21/2021 2:09 PM CDT): Patient uses THC to feel better. It reduces her anxiety and improves her mood. Her urine was positive for THC. She drinks alcohol occasionally and smokes cigarettes frequently. - Spinal Surgeon about the use of THC, cigarette smoking and Alcohol use. Assessment & Plan (01/20/2021 5:28 PM CDT): Patient uses THC to feel better. It reduces her anxiety and improves her mood. Her urine was positive for THC. She drinks alcohol occasionally and smokes cigarettes frequently. - Spinal Surgeon about the use of THC, cigarette smoking and Alcohol use. Assessment & Plan (01/19/2021 5:32 PM CDT): Patient uses THC to feel better. It reduces her anxiety and improves her mood. Her urine was positive for THC. She drinks alcohol occasionally and smokes cigarettes frequently. - Spinal Surgeon about the use of THC, cigarette smoking and Alcohol use. Assessment & Plan (01/18/2021 11:58 AM CDT): Patient uses THC to feel better. It reduces her anxiety and improves her mood. Her urine was positive for THC. She drinks alcohol occasionally and smokes cigarettes frequently. - Spinal Surgeon about the use of THC, cigarette smoking and Alcohol use. Assessment & Plan (01/17/2021 11:00 AM CDT): Patient uses THC to feel better. It reduces her anxiety and improves her mood. Her urine was positive for THC. She drinks alcohol occasionally and smokes cigarettes frequently. - Spinal Surgeon about the use of THC, cigarette smoking and Alcohol use. Assessment & Plan (01/16/2021 1:11 PM CDT): Patient uses THC to feel better. It reduces her anxiety and improves her mood. Her urine was positive for THC. She drinks alcohol occasionally and smokes cigarettes frequently. - Spinal Surgeon about the use of THC, cigarette smoking and Alcohol use. Assessment & Plan (01/15/2021 4:20 PM CDT): Patient uses THC to feel better. It reduces her anxiety and improves her mood. Her urine was positive for THC. She drinks alcohol and smokes cigarettes occasionally. - Spinal Surgeon about the use of THC, cigarette smoking [...] having IBS and she follows up with [facility] pediatrics gastroenterology. She has on/off mild diffuse abdominal pain that is not relieved by bowel movements as well as diarrhea. No vomiting or constipation. - Continue Cyproheptadine Assessment & Plan (01/18/2021 11:57 AM CDT): Adilene reports having IBS and she follows up with [facility] pediatrics gastroenterology. She has on/off mild diffuse abdominal pain that is not relieved by bowel movements as well as diarrhea. No vomiting or constipation. - Continue Cyproheptadine Assessment & Plan (01/17/2021 11:00 AM CDT): Adilene reports having IBS and she follows up with [facility] pediatrics gastroenterology. She has on/off mild diffuse abdominal pain that is not relieved by bowel movements as well as diarrhea. No vomiting or constipation. - Continue Cyproheptadine Assessment & Plan (01/16/2021 1:11 PM CDT): Adilene reports having IBS and she follows up with [facility] pediatrics gastroenterology. She has on/off diffuse abdominal pain that is not relieved by bowel movements as well as diarrhea. No vomiting or constipation. - Continue Cyproheptadine Assessment & Plan (01/15/2021 4:28 PM CDT): Adilene reports having IBS and she follows up with [facility] pediatrics gastroenterology. She has on/off diffuse [...] CDT Respiratory Rate 16 08/30/2021 7:09 AM SAP BOBJ DEVELOPER Oxygen Saturation 100% 09/19/2021 11:23 AM CDT Inhaled Oxygen Concentration - - Weight 64.2 kg (141 lb 9.6 oz) 09/19/2021 11:23 AM CDT Height 170.2 cm (5' 7.01) 08/28/2021 3:27 PM CS T Body Mass Index 22.17 08/28/2021 3:27 PM SAP BOBJ DEVELOPER Plan of Treatment Not on file Insurance [facility] [address] OR [facility] [facility] Advance Directives For more information, please contact: [phone] * Full Code (Latest Code Status on File) Date Activated Date Inactivated Comments 08/28/2021 8:13 PM 08/30/2021 4:47 PM * Full Code Date Activated Date Inactivated Comments 01/15/2021 1:54 PM 03/13/2021 10:26 PM Care Teams Lime Filter Operator Relationship Specialty Start Date End Date No, Physician PCP - General 08/07/21
--- OUTSIDE RECORDS SUMMARY | 2025-01-25 12:22 | XMS_ITS | Patient Health Record ---
Author Organization [facility] Address [address] [place] [address] Care Team Providers Care Backpackers Manager Name Role Phone Nallely Baeza Primary Care Provider Nallely Walls Unavailable [phone] Reason For Referral No Information Problems Problem Type SNOMED Code ICD Code Onset Dates Problem Status W/U Status Risk Notes Problem Borderline personality disorder (92635660) Borderline personality disorder (F60.3) Active confirmed Problem Post traumatic stress disorder (PTSD) (F43.10) Active confirmed Encounters Encounter Location Date Provider Diagnosis [facility] [address] [place] [address] 05/05/2024 Nallely Baeza Plan Of Treatment No Information Insurance Providers Payer Name Payer Address Payer Phone Subscriber Number Group Number Insured Name Patient Relationship to Insured Coverage Start Date Coverage End Date [facility] [address] [place] [address] [id number] Adilene Viera Self - patient is the insured 3 [facility] [employer] FFS [address] [place] [address] [id number] Adilene Viera Self - patient is the insured 3 [facility] [employer] Nonbillable [address] [place] [address] [id number] Adilene Viera Self - patient is the insured 3 [facility] [employer] [facility] [address] [place] [address] [id number] Adilene Viera Self - patient is the insured 3
--- OUTSIDE RECORDS SUMMARY | 2025-01-25 12:22 | XMS_ITS ---
Author Organization [facility] Address [address] [place] [address] Care Team Providers Care Mold Hoister Name Role Phone Dr. Lena Sanders Primary Care Provider [phone] Migration, Provider Unavailable Unavailable Allergies Allergen (clinical [...] mg tablet oral; Duration: 30 *Reorder from [facility] for eRx and Interaction Alerts* 07/27/2023 [...] alcohol Encounters Encounter Location Date Provider Diagnosis [facility] [address] [place] [address] 05/22/2024 Provider Migration Plan Of Treatment No Information Progress Notes * Adilene VIERADOB:[birth year] (19 yo F)Acc No.[id number]:05/22/2024 Patient: Adilene BORDEN :2005 A ge:19 Y S ex:Female Phone: Address:[address] [place] [address], [place], [address] Subjective: * Chief Complaints: * E MR-Ector [...] oral , Notes to Pharmacist: *Reorder from [facility] for eRx and Interaction Alerts*buPROPion HCl [...] oral , Notes to Pharmacist: *Reorder from [facility] for eRx and Interaction Alerts*Taking buPROPion HCl ER (XL) 150 MG Tablet Extended Release 24 Hour Oral * Allergies: t raZODone: SYNCOPE AND BLURRED VISION - Allergy - Onset Date 05/07/2023 * * Date:
--- OUTSIDE RECORDS SUMMARY | 2025-01-25 12:22 | XMS_ITS | Clinical Summary ---
Author Organization [facility] [employer] Address [address] [place] [address] Care Team Providers Care Conductor Yard Name Role Phone Lena Sanders MD Primary Care Provider [phone] Source Comments [facility] [employer],non-owned Affiliates and Associated Physician Practices is amultiple site organization consisting of ambulatory clinics and hospital sitesin [place], [place], [place] and [place]. This disclosure is being madepursuant to the Care Everywhere program and may not contain all information available regarding this patient. 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
[2025-01-25 12:41] VITALS: BP 114/75; PULSE 100
[2025-01-25 12:45] VITALS: BP 109/69; PULSE 93
[2025-01-25 13:00] VITALS: BP 110/72; PULSE 90
--- NOTE | 2025-01-25 13:06 | PC.NURSE ---
Do Pierre CNM informed ROM plus was negative. FHT's reactive with occasional contraction. SVE was a loose 1 cm/ 70%/-2 station. OK to dischage to home.
[2025-01-25 13:10] VITALS: BP 110/72; PULSE 88
--- OUTSIDE RECORDS SUMMARY | 2025-01-25 13:19 | XMS_ITS | Clinical Summary ---
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 smoking and Alcohol use. Assessment & Plan (01/23/2021 8:27 AM CDT): Patient uses THC to feel better. It reduces her anxiety and improves her mood. Her urine was positive for THC. She drinks alcohol occasionally and smokes cigarettes frequently. - Home Care Rn about the use of THC, cigarette smoking and Alcohol use. Assessment & Plan (01/22/2021 6:08 PM CDT): Patient uses THC to feel better. It reduces her anxiety and improves her mood. Her urine was positive for THC. She drinks alcohol occasionally and smokes cigarettes frequently. - Home Care Rn about the use of THC, cigarette smoking and Alcohol use. Assessment & Plan (01/21/2021 2:09 PM CDT): Patient uses THC to feel better. It reduces her anxiety and improves her mood. Her urine was positive for THC. She drinks alcohol occasionally and smokes cigarettes frequently. - Home Care Rn about the use of THC, cigarette smoking and Alcohol use. Assessment & Plan (01/20/2021 5:28 PM CDT): Patient uses THC to feel better. It reduces her anxiety and improves her mood. Her urine was positive for THC. She drinks alcohol occasionally and smokes cigarettes frequently. - Home Care Rn about the use of THC, cigarette smoking and Alcohol use. Assessment & Plan (01/19/2021 5:32 PM CDT): Patient uses THC to feel better. It reduces her anxiety and improves her mood. Her urine was positive for THC. She drinks alcohol occasionally and smokes cigarettes frequently. - Home Care Rn about the use of THC, cigarette smoking and Alcohol use. Assessment & Plan (01/18/2021 11:58 AM CDT): Patient uses THC to feel better. It reduces her anxiety and improves her mood. Her urine was positive for THC. She drinks alcohol occasionally and smokes cigarettes frequently. - Home Care Rn about the use of THC, cigarette smoking and Alcohol use. Assessment & Plan (01/17/2021 11:00 AM CDT): Patient uses THC to feel better. It reduces her anxiety and improves her mood. Her urine was positive for THC. She drinks alcohol occasionally and smokes cigarettes frequently. - Home Care Rn about the use of THC, cigarette smoking and Alcohol use. Assessment & Plan (01/16/2021 1:11 PM CDT): Patient uses THC to feel better. It reduces her anxiety and improves her mood. Her urine was positive for THC. She drinks alcohol occasionally and smokes cigarettes frequently. - Home Care Rn about the use of THC, cigarette smoking and Alcohol use. Assessment & Plan (01/15/2021 4:20 PM CDT): Patient uses THC to feel better. It reduces her anxiety and improves her mood. Her urine was positive for THC. She drinks alcohol and smokes cigarettes occasionally. - Home Care Rn about the use of THC, cigarette smoking [...] having IBS and she follows up with [facility] pediatrics gastroenterology. She has on/off mild diffuse abdominal pain that is not relieved by bowel movements as well as diarrhea. No vomiting or constipation. - Continue Cyproheptadine Assessment & Plan (01/18/2021 11:57 AM CDT): Adilene reports having IBS and she follows up with [facility] pediatrics gastroenterology. She has on/off mild diffuse abdominal pain that is not relieved by bowel movements as well as diarrhea. No vomiting or constipation. - Continue Cyproheptadine Assessment & Plan (01/17/2021 11:00 AM CDT): Adilene reports having IBS and she follows up with [facility] pediatrics gastroenterology. She has on/off mild diffuse abdominal pain that is not relieved by bowel movements as well as diarrhea. No vomiting or constipation. - Continue Cyproheptadine Assessment & Plan (01/16/2021 1:11 PM CDT): Adilene reports having IBS and she follows up with [facility] pediatrics gastroenterology. She has on/off diffuse abdominal pain that is not relieved by bowel movements as well as diarrhea. No vomiting or constipation. - Continue Cyproheptadine Assessment & Plan (01/15/2021 4:28 PM CDT): Adilene reports having IBS and she follows up with [facility] pediatrics gastroenterology. She has on/off diffuse abdominal [...] CDT Respiratory Rate 16 08/30/2021 7:09 AM CAMPUS POLICE OFFICER Oxygen Saturation 100% 09/19/2021 11:23 AM CDT Inhaled Oxygen Concentration - - Weight 64.2 kg (141 lb 9.6 oz) 09/19/2021 11:23 AM CDT Height 170.2 cm (5' 7.01) 08/28/2021 3:27 PM CS T Body Mass Index 22.17 08/28/2021 3:27 PM CAMPUS POLICE OFFICER Plan of Treatment Not on file Insurance [facility] [place] [place] [address] [place] [facility] Advance Directives For more information, please contact: [phone] * Full Code (Latest Code Status on File) Date Activated Date Inactivated Comments 08/28/2021 8:13 PM 08/30/2021 4:47 PM * Full Code Date Activated Date Inactivated Comments 01/15/2021 1:54 PM 03/13/2021 10:26 PM Care Teams Maxillofacial Prosthodontist Relationship Specialty Start Date End Date No, Physician PCP - General 08/07/21
--- OUTSIDE RECORDS SUMMARY | 2025-01-25 13:19 | XMS_ITS | Clinical Summary ---
Author Organization [facility] [employer] Address [address] [place] [address] Care Team Providers Care Cloth Shrinking Machine Operator Name Role Phone Lena Sanders MD Primary Care Provider [phone] Source Comments [facility] [employer],non-owned Affiliates and Associated Physician Practices is amultiple site organization consisting of ambulatory clinics and hospital sitesin [place], [place], [place] and [place]. This disclosure is being madepursuant to the Care Everywhere program and may not contain all information available regarding this patient. Last updated 18.[facility] [employer] Allergies No known active allergies Medications * [...] on file Legal Sex Female 5:42 AM GORE INSERTER Gender Identity Not on file Sexual Orientation [...] complete this topic Insurance MEDICAID - [place] [facility] Care Teams Cloth Shrinking Machine Operator Relationship Specialty Start Date End Date Lena Sanders MD [address] [place] [id number] PCP - General Family Medicine 01/23/17
--- OUTSIDE RECORDS SUMMARY | 2025-01-25 13:19 | XMS_ITS | Clinical Summary ---
Author Organization [facility] Address [address] [place] [address] Care Team Providers Care Systems Trainer Name Role Phone Lena Sanders MD Primary [...] Sex Assigned at Female 07/10/2024 3:11 AM NECKTIE OPERATOR [employer] Legal Sex Female 8:07 AM CDT Gender Identity Not on file Sexual Orientation Not on file Last Filed Vital Signs Vital Sign Reading Time Taken Comments Blood Pressure 104/62 08/16/2024 1:44 PM NECKTIE OPERATOR [employer] Pulse 91 08/16/2024 1:44 PM NECKTIE OPERATOR [employer] Temperature 36.7 C (98.1 F) 08/16/2024 1:44 PM NECKTIE OPERATOR [employer] Respiratory Rate 15 07/10/2024 4:10 AM NECKTIE OPERATOR [employer] Oxygen Saturation 98% 08/16/2024 1:44 PM NECKTIE OPERATOR [employer] Inhaled Oxygen Concentration - - Weight 58.5 kg (129 lb) 08/16/2024 1:44 PM NECKTIE OPERATOR [employer] Height 167.6 cm (5' 6) 08/16/2024 1:44 PM NECKTIE OPERATOR [employer] Body Mass Index 20.82 08/16/2024 1:44 PM NECKTIE OPERATOR [employer] Plan of Treatment Health Maintenance Due Date Last Done Comments Annual Physical 2006 Meningococcal B Vaccine (1 of 2 - Standard) 2019 Pneumococcal Vaccine: Pediatrics (0 to 5 Years) and At-Risk Patients (6 to 49 Years) (1 of 2 - PCV) 2022 05/22/2004, 2003, 2003, Additional history exists COVID-19 Vaccine ( - season) 2024 PHQ-2 (Physician [place]) 06/22/2024 DTaP, Tdap and Td Vaccines (7 [...] complete this topic Insurance [employer] Care Teams Systems Trainer Relationship Specialty Start Date End Date Lena Sanders MD [address] [place] [address] [place] [address] PCP - General FAMILY PRACTICE 07/21/23
[2025-01-25 22:03] LABS: OBXCEM ROM Plus Negative (Negative)
== END 2025-01-25 13:15 | disposition home or self-care (01) ==
LOC: ANHOBOP 13:27 → ANHLDR 13:27
PROVIDERS: Advanced Practice Midwife; PCP Family Medicine; Visit Provider Obstetrics & Gynecology
DX: O42.90 Premature rupture of membranes, unspecified as to length of time between rupture and onset of labor, unspecified weeks of gestation (principal); Z3A.00 Weeks of gestation of pregnancy not specified
CPT/HCPCS: 59025; 84112; 99199

== ENCOUNTER 2025-01-26 21:24 | Observation (INO) | payer OTHER, SELFPAY ==
--- OUTSIDE RECORDS SUMMARY | 2025-01-26 23:20 | XMS_ITS | Clinical Summary ---
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 smokes cigarettes frequently. - Teacher [employer] about the use of THC, cigarette smoking and Alcohol use. Assessment & Plan (01/20/2021 5:28 PM CDT): Patient uses THC to feel better. It reduces her anxiety and improves her mood. Her urine was positive for THC. She drinks alcohol occasionally and smokes cigarettes frequently. - Teacher Of [employer] about the use of THC, cigarette smoking and Alcohol use. Assessment & Plan (01/19/2021 5:32 PM CDT): Patient uses THC to feel better. It reduces her anxiety and improves her mood. Her urine was positive for THC. She drinks alcohol occasionally and smokes cigarettes frequently. - Teacher Of [employer] about the use of THC, cigarette smoking and Alcohol use. Assessment & Plan (01/18/2021 11:58 AM CDT): Patient uses THC to feel better. It reduces her anxiety and improves her mood. Her urine was positive for THC. She drinks alcohol occasionally and smokes cigarettes frequently. - Teacher Of [employer] about the use of THC, cigarette smoking and Alcohol use. Assessment & Plan (01/17/2021 11:00 AM CDT): Patient uses THC to feel better. It reduces her anxiety and improves her mood. Her urine was positive for THC. She drinks alcohol occasionally and smokes cigarettes frequently. - Teacher [employer] about the use of THC, cigarette smoking and Alcohol use. Assessment & Plan (01/16/2021 1:11 PM CDT): Patient uses THC to feel better. It reduces her anxiety and improves her mood. Her urine was positive for THC. She drinks alcohol occasionally and smokes cigarettes frequently. - Teacher Of [employer] about the use of THC, cigarette smoking and Alcohol use. Assessment & Plan (01/15/2021 4:20 PM CDT): Patient uses THC to feel better. It reduces her anxiety and improves her mood. Her urine was positive for THC. She drinks alcohol and smokes cigarettes occasionally. - Teacher Of [employer] about the use of THC, cigarette smoking [...] IBS and she follows up with [facility] pediatrics gastroenterology. She has on/off mild diffuse abdominal pain that is not relieved by bowel movements as well as diarrhea. No vomiting or constipation. - Continue Cyproheptadine Assessment & Plan (01/18/2021 11:57 AM CDT): Adilene reports having IBS and she follows up with [facility] pediatrics gastroenterology. She has on/off mild diffuse abdominal pain that is not relieved by bowel movements as well as diarrhea. No vomiting or constipation. - Continue Cyproheptadine Assessment & Plan (01/17/2021 11:00 AM CDT): Adilene reports having IBS and she follows up with [facility] pediatrics gastroenterology. She has on/off mild diffuse abdominal pain that is not relieved by bowel movements as well as diarrhea. No vomiting or constipation. - Continue Cyproheptadine Assessment & Plan (01/16/2021 1:11 PM CDT): Adilene reports having IBS and she follows up with [facility] pediatrics gastroenterology. She has on/off diffuse abdominal pain that is not relieved by bowel movements as well as diarrhea. No vomiting or constipation. - Continue Cyproheptadine Assessment & Plan (01/15/2021 4:28 PM CDT): Adilene reports having IBS and she follows up with [facility] pediatrics gastroenterology. She has on/off diffuse [...] CDT Respiratory Rate 16 08/30/2021 7:09 AM DIRECTOR OF SALES MARKETING Oxygen Saturation 100% 09/19/2021 11:23 AM CDT Inhaled Oxygen Concentration - - Weight 64.2 kg (141 lb 9.6 oz) 09/19/2021 11:23 AM CDT Height 170.2 cm (5' 7.01) 08/28/2021 3:27 PM CS T Body Mass Index 22.17 08/28/2021 3:27 PM DIRECTOR OF SALES MARKETING Plan of Treatment Not on file Insurance [facility] [place] [address] [place] [facility] Advance Directives For more information, please contact: [phone] * Full Code (Latest Code Status on File) Date Activated Date Inactivated Comments 08/28/2021 8:13 PM 08/30/2021 4:47 PM * Full Code Date Activated Date Inactivated Comments 01/15/2021 1:54 PM 03/13/2021 10:26 PM Care Teams Space Systems Operations Superintendent Relationship Specialty Start Date End Date No, Physician PCP - General 08/07/21
--- OUTSIDE RECORDS SUMMARY | 2025-01-26 23:20 | XMS_ITS | Clinical Summary ---
Author Organization [facility] Address [address] [place] [address] Care Team Providers Care Medical Review Coordinator Name Role Phone Lena Sanders MD Primary Care Provider [phone] Source Comments [facility],non-owned Affiliates and Associated Physician Practices is amultiple site organization consisting of ambulatory clinics and hospital sitesin [place], [place], [place] and [place]. This disclosure is being madepursuant to the Care Everywhere program and may not contain all information available regarding this patient. Last updated 18.[facility] Allergies No known active allergies Medications * [...] on file Legal Sex Female 5:42 AM FIELD COLLECTOR Gender Identity Not on file Sexual Orientation [...] complete this topic Insurance MEDICAID - [facility] Care Teams Medical Review Coordinator Relationship Specialty Start Date End Date Lena Sanders MD [address] [place] [id number] PCP - General Family Medicine 01/23/17
--- OUTSIDE RECORDS SUMMARY | 2025-01-26 23:20 | XMS_ITS | Clinical Summary ---
Author Organization [facility] Address [address] [place] [address] Care Team Providers Care Guardian Ad Litem Name Role Phone Lena Sanders MD Primary [...] Sex Assigned at Female 07/10/2024 3:11 AM MERCHANDISE FLOW ASSOCIATE Legal Sex Female 8:07 AM CDT Gender Identity Not on file Sexual Orientation Not on file Last Filed Vital Signs Vital Sign Reading Time Taken Comments Blood Pressure 104/62 08/16/2024 1:44 PM MERCHANDISE FLOW ASSOCIATE Pulse 91 08/16/2024 1:44 PM MERCHANDISE FLOW ASSOCIATE Temperature 36.7 C (98.1 F) 08/16/2024 1:44 PM MERCHANDISE FLOW ASSOCIATE Respiratory Rate 15 07/10/2024 4:10 AM MERCHANDISE FLOW ASSOCIATE Oxygen Saturation 98% 08/16/2024 1:44 PM MERCHANDISE FLOW ASSOCIATE Inhaled Oxygen Concentration - - Weight 58.5 kg (129 lb) 08/16/2024 1:44 PM MERCHANDISE FLOW ASSOCIATE Height 167.6 cm (5' 6) 08/16/2024 1:44 PM MERCHANDISE FLOW ASSOCIATE Body Mass Index 20.82 08/16/2024 1:44 PM MERCHANDISE FLOW ASSOCIATE Plan of Treatment Health Maintenance Due Date Last Done Comments Annual Physical 2006 Meningococcal B Vaccine (1 of 2 - Standard) 2019 Pneumococcal Vaccine: Pediatrics (0 to 5 Years) and At-Risk Patients (6 to 49 Years) (1 of 2 - PCV) 2022 05/22/2004, 2003, 2003, Additional history exists COVID-19 Vaccine ( - season) 2024 PHQ-2 (Physician Callao) 06/22/2024 DTaP, Tdap and Td Vaccines (7 [...] complete this topic Insurance [employer] Care Teams Guardian Ad Litem Relationship Specialty Start Date End Date Lena Sanders MD [address] [place] [address] [place] [address] PCP - General FAMILY PRACTICE 07/21/23
--- NOTE | 2025-02-21 09:10 | PM.OBTRLD ---
OB - Triage/Final Diagnosis Visit Information Comments/Additional reasons for admission: I have assessed the risk for this patient, Adilene Viera, and determined that she would benefit from observation care. Final Diagnosis (1) Amniotic fluid leaking: Code(s): O42.90 - Premature rupture of membranes, unspecified as to length of time between rupture and onset of labor, unspecified weeks of gestation Status: Acute
== END 2025-01-26 23:30 | disposition home or self-care (01) ==
PROVIDERS: Admitting Provider Obstetrics & Gynecology; PCP Family Medicine; Visit Provider Obstetrics & Gynecology
DX: O42.90 Premature rupture of membranes, unspecified as to length of time between rupture and onset of labor, unspecified weeks of gestation (principal)
CPT/HCPCS: 84112; G0378; G0379

== ENCOUNTER 2025-02-10 05:59 | Inpatient (IN) | payer OTHER, SELFPAY ==
[2025-02-10] VITALS (109 sets, daily range): BP systolic 103–135; BP diastolic 60–116; PULSE 71–140; RESP 16; TEMP 36.2–37.3; O2SAT 76–100; BMI 25.2
[2025-02-10 06:31] LABS: Hematocrit 32.9 % (37.0-47.0); Hemoglobin 11.2 g/dL (12.0-15.0); Immature Granulocyte Percent A 0.5 % (0-0.5); Lymphocytes Absolute Auto 1.63 K/mm3 (0.9-3.2); Mean Corpuscular HGB Conc 34.0 g/dl (32-36); Mean Corpuscular Hemoglobin 29.2 pg (26-34); Mean Corpuscular Volume 85.9 fl (80-100); Nucleated Red Blood Cells Absolute Auto 0.000 K/mm3 (0.0-0.012); Nucleated Red Blood Cells Perc 0.0 % (0.0-0.2); Platelet Count Result 316 k/mm3 (150-375); Red Blood Count 3.83 M/mm3 (4.2-5.4); White Blood Count 20.5 K/mm3 (4.5-10.0)
--- NOTE | 2025-02-10 06:32 | LDADM ---
This patient, Adilene Viera, was admitted to Labor/Delivery/Recovery 103 on 02/10/25 at 05:59. Plans for labor, pain management and were discussed with patient. Patient/family oriented to hospital policies and general routines including ID bracelet, bed and alarms, visiting hours, pain management, procedures, bathroom and other care routines, personal items, smoking policy, room service/diet and guest tray routines, security routines, and visiting hours. Patient/Family are encouraged to report perceived risks to care and to ask questions if they do not understand what they are told or what they should do. See OBIX for further documentation.
[2025-02-10] MEDS: AMPICILLIN SODIUM 2 GM in SODIUM CHLORIDE 0.9% IV 100 ML 200 ML IVPB (06:49)
[2025-02-10] MEDS: LACTATED RINGERS 1,000 ML 125 ML IV CONT ×2 (06:49→08:28)
[2025-02-10] MEDS: fentaNYL CITRATE INJ (*CRX) 100 MCG/2 ML VIAL 50 MCG IV PUSH (06:52)
--- NOTE | 2025-02-10 08:27 | WPDOBADMIT ---
Obstetrics - Admit Note Admission Note: record reviewed. No pertinent additions to the history and/or any subsequent changes in the physical findings that are not consistent with the expected course of the were found. Additions to the history and/or subsequent changes in the physical findings follow. PT admitted for IOL in labor sve /-2 AROM meconium fluid, anticipate vaginal delivery
--- NOTE | 2025-02-10 08:29 | WPDANESEPPF ---
Anes - Initial Pre Proc Eval Procedure: labor epidural Date/Time: 02/10/25 08:29 Surgeon: An Pierre CNM Pre Op Diagnosis: labor pain Pre Op Diagnosis: IOL Patient Data Age: 20 Gender: F Height: 1.7 m Weight: 73.2 kg Last Vital Signs Temp 36.9 C 02/10/25 07:00 Pulse 89 02/10/25 08:27 BP 128/74 02/10/25 08:27 Pulse Ox 100 02/10/25 08:28 O2 Del Method Room Air 02/10/25 06:32 Allergies Allergy/AdvReac Type Severity Reaction Status Date / Time No Known Allergies Allergy Verified 01/26/25 23:44 Home Medications ?Medication ?Instructions ?Recorded ?Confirmed ?Type metoclopramide HCl 10 mg tablet 10 mg PO Q6H PRN nausea and 08/06/24 01/26/25 Rx (Reglan) vomiting #10 tabs pyridoxine (vitamin B6) 25 mg 25 mg PO DAILY #60 tabs 08/06/24 01/26/25 Rx tablet PNV [id number] 1 tablet PO DAILY 10/31/24 01/26/25 History bupropion HCl 150 mg 24 hr tablet, 150 mg PO DAILY 10/31/24 02/10/25 History extended release lurasidone 40 mg tablet 40 mg PO DAILY 10/31/24 02/10/25 History ondansetron 4 mg disintegrating 4 mg PO DAILY 10/31/24 01/26/25 History tablet sertraline 100 mg tablet 100 mg PO DAILY 10/31/24 02/10/25 History valacyclovir 500 mg tablet mg 02/10/25 History Laboratory Tests 02/10/25 06:19 WBC 20.5 H K/mm3 (4.5-10.0) RBC 3.83 L M/mm3 (4.2-5.4) Hgb 11.2 L g/dL (12.0-15.0) Hct 32.9 L % (37.0-47.0) MCV 85.9 fl (80-100) MCH 29.2 pg (26-34) MCHC 34.0 g/dl (32-36) RDW 13.2 % (11.5-14.5) Plt Count 316 k/mm3 (150-375) MPV 9.8 fl (7.4-10.4) Immature Gran % (Auto) 0.5 % (0-0.5) Neut % (Auto) 86.5 H % (45.5-73.1) Lymph % (Auto) 7.9 L % (18.3-44.2) Bond % (Auto) 4.7 % (2.6-8.5) Eos % (Auto) 0.3 % (0-4.4) Baso % (Auto) 0.1 L % (0.2-1.2) Lymph # (Auto) 1.63 K/mm3 (0.9-3.2) Bond # (Auto) 1.0 H K/mm3 (0.1-0.6) Eos # (Auto) 0.1 K/mm3 (0-0.3) Baso # (Auto) 0.0 K/mm3 (0.0-0.1) Abs Immat Gran (auto) 0.10 H K/mm3 (0.00-0.031) Absolute Neuts (auto) 17.7 H K/mm3 (1.3-6.7) Absolute Nucleated RBC 0.000 K/mm3 (0.0-0.012) Nucleated RBC % 0.0 % (0.0-0.2) Blood Type O Positive Antibody Screen Negative Patient hx anesthesia problems: none Family hx anesthesia problems: none Results Review: All pre-operative results and documents have been reviewed as part of the pre-operative evaluation. [facility] Social History Social History (System 12/31/21 @ 09:03 by Sarkis Tracey) Smoking status: Former smoker Tobacco type: e-cigarettes/vaping Second hand tobacco smoke exposure: No Substance use: never Lack of Transportation: No Lack of Food: Never True Current Housing: I Have Housing Concerned About Future Housing: No Difficulty Paying Gas/Electric Bills: No Difficulty Paying for Meds: No Currently Unemployed: No Education: High School Diploma/GED Difficulty w/ Childcare or Family Care: No Spiritual care concerns: No Anes - Eval Final PreProcedure Day of Procedure 02/10/25 08:29 Patient weight: normal ASA classification: II Anesthetic plan: proceed Anesthesia type and monitoring: regional epidural and standard monitoring Results Review: All pre-operative results and documents have been reviewed as part of the pre-operative evaluation. Informed Consent: The patient's anesthetic plan and its attendant risks and benefits were discussed with the patient/family/POA. Questions were solicited and answers provided to the satisfaction of the patient/family/POA.
[2025-02-10 09:51] LABS: Syphilis IgG/IgM Antibody Non-Reactive (Nonreactive)
[2025-02-10] MEDS: AMPICILLIN SODIUM 1 GM in SODIUM CHLORIDE 0.9% IV 50 ML 100 ML IVPB (10:46)
[2025-02-10] MEDS: OXYTOCIN 30 UNITS/NS 500 ML 30 UNITS/500 ML BAG IV CONT (10:47)
[2025-02-10] MEDS: ONDANSETRON INJ 4 MG/2 ML VIAL IV PUSH (11:54)
--- NOTE | 2025-02-10 13:03 | PM.OBPRVD ---
OB - Vaginal Delivery Note Procedure Delivery date: 02/10/25 Induction method: Per Pitocin Protocol Delivery augmentation: Rupture of Membranes Delivery monitor: Internal Uterine Route of delivery: Laceration Description: None Specimen: No Quantitative Blood Loss (ml): 100 Anesthesia type: Epidural Complications: None Baby Date of : 02/10/25 Time of : 12:44 Gestational Age by Date: 39 Infant gender: Female presentation: vertex position: Left Occiput Anterior Placenta delivery description: Expressed Cord Vessel Description: 3 Vessels and Nuchal Cord (x1)
[2025-02-10] MEDS: OXYTOCIN 30 UNITS/NS 500 ML 30 UNITS/500 ML BAG 125 UNITS IV CONT (13:20)
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
--- NOTE | 2025-02-10 18:33 | PC.NURSE ---
1730.Introductions were made, then consulted with patient to assess needs related to . Discussed with mother her plans to feed her infant and the experience so far. Encouraged mother to express any questions or concerns she has regarding feedings. Advised her to call out for a latch check or if she needs assistance waking or positioning baby. Reviewed the blue feeding worksheet for required output and feeding at least 8-12 times every 24 hours. Assisted mother latching infant to the left breast in cross cradle position. was able to maintain an appropriate latch. Mother declines nipple pain/discomfort throughout feeding. Encouraged mother to keep awake and nursing at the breast for as long as baby desires. Mother taught to listen for infant swallowing during feedings. Reviewed using the blue feeding sheet to record time and duration of feeding. Mother voiced understanding of the education shared, to call for assistance if the does not latch or if there is discomfort with . Resources provided for inpatient and outpatient services with the feeding sheet, mom/baby guide, and name/number written on the communication board. Mother voiced understanding of information and will call if there is a request for assistance. Reported to the Primary RN?
[2025-02-10] MEDS: NICOTINE (*PBKC) 14 MG PATCH 1 PATCH TRANSDERM (19:48)
[2025-02-10] MEDS: CALCIUM CARBONATE (TUMS) 500 MG (200 MG ELEMENTAL) 400 MG PO (19:55)
[2025-02-11 00:13] VITALS: BP 119/81; PULSE 80; RESP 14; TEMP 36.2; O2SAT 99
[2025-02-11 04:20] LABS: Hematocrit 31.8 % (37.0-47.0); Hemoglobin 10.6 g/dL (12.0-15.0)
--- NOTE | 2025-02-11 07:48 | P.PNOB_ITS ---
OB - PN: Subj Subjective Date/time seen: 02/11/25 07:48 Interval history: pp day 1 doing well moving in with mom after d/c OB - PN: Obj Data Labs 02/11/25 04:08 Labs: Laboratory Results - last 24 hr 02/10/25 02/11/25 06:19 04:08 Hgb 10.6 L Hct 31.8 L Syphilis IgG/IgM Ab Non-reactive OB - PN A/P Plan day: 1 Plan: routine care Time Spent With Patient Time: Total time spent is greater than 50% in coordination of care (as documented) at patient's floor/unit and/or counseling patient: Review of Systems 2 Review of Systems: All systems reviewed & are unremarkable except as noted in HPI and below Exam 2 Const: General: cooperative, healthy appearing and comfortable Neck: Neck: normal visual inspection Resp: Effort & Inspection: normal respiratory effort Cardio: Rate: regular rate GI: Other: soft Back/Spine/Pelvis: Back: no CVA tenderness Skin: General skin exam: normal color Extrem: General: normal to inspection Psych: Appearance: grossly normal
[2025-02-11 08:08] VITALS: BP 118/75; PULSE 77; RESP 14; TEMP 36.8; O2SAT 97
[2025-02-11] MEDS: NICOTINE (*PBKC) 14 MG PATCH 1 PATCH TRANSDERM (08:51)
[2025-02-11] MEDS: DOCUSATE SODIUM 100 MG CAPSULE PO (08:51)
[2025-02-11] MEDS: MULTIVIT/MIN/PREN/FOL AC/IRON TABLET 1 TAB PO (08:51)
[2025-02-11 11:57] VITALS: BP 120/68; PULSE 84; RESP 14; TEMP 36.4; O2SAT 96
--- NOTE | 2025-02-11 13:15 | PC.NURSE ---
Mother verbalizes she is able to independently latch with appropriate positioning and alignment. She denies any nipple discomfort and is responsively . Infant is currently meeting outcomes for weight, output, jaundice, blood sugar and feeding frequencies of 8-12 times in 24 hours. Mother declines any additional assistance or education at this time. Mother is encouraged to call for assistance if her infant doesn?t latch, pain with latching, questions or concerns. Mother voiced understanding of information shared along with the mom/baby guide for an additional resource. Reported to the Primary RN.
--- NOTE | 2025-02-11 16:27 | WPDANLDPN2 ---
Anes-Prog Note L&D Date/Time: 02/11/25 16:27 Comfortable throughout: labor and delivery Neuraxial method: epidural Epidural/Spinal procedure site: clean & non-tender Neuro status: Neuro function grossly intact. Cardiovascular status: normal Respiratory status: normal Airway patency: baseline Mental status: baseline Post-Op hydration status: normal Vital Signs: Last Vital Signs Temp 97.5 F L 02/11/25 11:57 Pulse 84 02/11/25 11:57 Resp 14 02/11/25 11:57 BP 120/68 02/11/25 11:57 Pulse Ox 96 02/11/25 11:57 O2 Del Method Room Air 02/11/25 07:05 Pain score (VAS): 0 I/O: Intake & Output 02/11/25 02/11/25 02/11/25 07:59 15:59 23:59 Intake Total 0 Balance 0 Patient feedback: Patient satisfied with anesthetic care.
[2025-02-11 19:30] VITALS: BP 122/79; PULSE 83; RESP 18; TEMP 36.3; O2SAT 99
[2025-02-11] MEDS: buPROPion HCL XL (24 HR) 150 MG TABCR PO (21:05)
[2025-02-11] MEDS: LURASIDONE HCL 40 MG TABLET PO (21:05)
[2025-02-11] MEDS: SERTRALINE HCL 50 MG TABLET 100 MG PO (21:06)
[2025-02-12 07:20] VITALS: BP 112/73; PULSE 70; RESP 16; TEMP 36.9; O2SAT 98
--- NOTE | 2025-02-12 08:43 | P.PNOB_ITS ---
OB - PN: Subj Subjective Date/time seen: 02/12/25 08:43 Interval history: pp day 2 doing well moving in with mom after d/c OB - PN: Obj Data Labs 02/11/25 04:08 OB - PN A/P Plan day: 2 Plan: routine care and discharge home Time Spent With Patient Time: Total time spent is greater than 50% in coordination of care (as documented) at patient's floor/unit and/or counseling patient: Review of Systems 2 Review of Systems: All systems reviewed & are unremarkable except as noted in HPI and below Exam 2 Const: General: cooperative, healthy appearing and comfortable Chest: Chest palpation & inspection: normal inspection of the chest Resp: Effort & Inspection: normal respiratory effort Cardio: Rate: regular rate
--- NOTE | 2025-02-12 08:45 | P.DS_ITS ---
DS: Admitting Diagnosis Discharge Date 02/12/25 Admitting Diagnosis labor DS: Discharge Diagnosis Discharge Diagnosis (1) (normal spontaneous vaginal delivery): Code(s): O80 - Encounter for full-term uncomplicated delivery Status: Acute OB - DS: Summary OB Procedures : None OB Procedures Intrapartum: Spontaneous Vag Delivery OB Procedures: : None Peripartum Data Laceration Description: None Time Spent with Patient Time attestation: Total time spent providing and/or coordinating discharge services: Discharge Plan Discharge Attending physician on discharge: Isaac Patino Discharging Clinician: An Pierre Patient Disposition: Home Activity: pelvic rest Diet: regular Patient Instructions: Antibiotic Form Patient Language: Albanian Stand Alone Forms: General Discharge Information Follow-up/Referrals: An Pierre CNM [Certified Nurse Vacuum Filter Operator, RESIDENTIAL SPECIALIST] - 4 Weeks Discharge Medications: Continued metoclopramide HCl [Reglan] 10 mg tablet 10 mg PO Q6H PRN (Reason: nausea and vomiting) Qty: 10 0RF pyridoxine (vitamin B6) 25 mg tablet 25 mg PO DAILY Qty: 60 0RF sertraline 100 mg tablet 100 mg PO DAILY ondansetron 4 mg tablet,disintegrating 4 mg PO DAILY bupropion HCl 150 mg tablet extended release 24 hr 150 mg PO DAILY lurasidone 40 mg tablet 40 mg PO DAILY PNV [id number] [ Gummies] 1 tablet PO DAILY valacyclovir 500 mg tablet Date of admission: 02/10/25 05:59 Primary Care Provider: Lena Sanders Admitting Provider: Getachew Rodriguez Attending physician on admission: An Pierre Condition: Stable
[2025-02-12] MEDS: NICOTINE (*PBKC) 14 MG PATCH 1 PATCH TRANSDERM (09:18)
[2025-02-12] MEDS: MULTIVIT/MIN/PREN/FOL AC/IRON TABLET 1 TAB PO (09:18)
[2025-02-12] MEDS: DOCUSATE SODIUM 100 MG CAPSULE PO (09:18)
== END 2025-02-12 10:56 | disposition home or self-care (01) | DRG 560 ==
LOC: ANHLDR 06:07 → ANHOB2 15:17
PROVIDERS: Admitting Provider Obstetrics & Gynecology; PCP Family Medicine; Visit Provider Advanced Practice Midwife
DX: O69.81X0 Labor and delivery complicated by cord around neck, without compression, not applicable or unspecified (principal); Z37.0 Single live birth; Z3A.39 39 weeks gestation of pregnancy; O99.824 Streptococcus B carrier state complicating childbirth; O77.0 Labor and delivery complicated by meconium in amniotic fluid
CPT/HCPCS: 36415; 85014; 85018; 85025; 86593; 86850; 86900; 86901; A9270; J0290; J2405; J2590; J2795; J3010; J7120